=== PATIENT | female | born 1945 | race Caucasian/White ===

== ENCOUNTER 2016-11-08 10:58 | Inpatient (IN) | payer MEDICARE ==
[~2016-11-08] VITALS: Ht 165.1 cm; Wt 102.0 kg
[~2016-11-08 10:58] MED LIST: ALLO300T2 PO; CARV6.25 PO; CLON.2 PO; GLIM4TAB PO; LISI40TA PO
[2016-11-08 11:00] VITALS: BP 108/47; PULSE 78; RESP 17; TEMP 98.2; O2SAT 97
[2016-11-08] MEDS ORDERED: FISH1000 PO (11:26)
[2016-11-08] MEDS ORDERED: PIOG15TA5 PO (11:26)
[2016-11-08] MEDS ORDERED: ALLO300T2 PO (11:26)
[2016-11-08] MEDS ORDERED: CLON0.2T PO (11:26)
[2016-11-08] MEDS ORDERED: LISI-519 PO (11:26)
[2016-11-08] MEDS ORDERED: METF500T PO (11:26)
[2016-11-08] MEDS ORDERED: AMLO5TAB2 PO (11:26)
[2016-11-08] MEDS ORDERED: LOVA40TA PO (11:26)
[2016-11-08] MEDS ORDERED: ASPI81CH CHEW (11:26)
[2016-11-08] MEDS ORDERED: CARV25TA PO (11:26)
--- NOTE | 2016-11-08 11:40 | PD ---
HPI Chief Complaint: GI Complaint Time Seen by Provider: 11:21 Travel History International Travel<30 days: No Contact w/Intl Traveler<30days: No Traveled to known affect area: No History of Present Illness HPI 71yo F with PMH of HTN, gout, DM presents to the ED with c/o nausea since yesterday. States her sugar was low yesterday and they called the paramedics who gave her IV dextrose and then she said she was ok. Pt has stopped taking her diabetic medications today. Pt is on metformin and pioglitazone for her diabetes. +Generalized weakness. Denies any fever, chest pain, sob, vomiting, abdominal pain, trauma, focal weakness or numbness. PFSH Past Medical History Cardiovascular Problems: Yes Diabetes: Yes Patient Takes Glucophage: Yes Diminished Hearing: No Gout: Yes Hypertension: Yes Immunizations Current: Yes Tetanus Vaccination: Unknown Influenza Vaccination: Yes ?: Not Menopausal: Yes Past Surgical History Cholecystectomy: Yes Hysterectomy: Yes Social History Alcohol Use: No Tobacco Use: No Substance Use: No Allergies-Medications (Allergen,Severity, Reaction): Coded Allergies: No Known Allergies (Unverified , 11/08/16) Reported Meds & Prescriptions Reported Meds & Active Scripts Active Reported Fish Oil ([place]-3 Fatty Acids) 1,000 Mg Cap 1 Tab PO DAILY Aspirin 81 Mg Chew 81 Mg CHEW DAILY Lovastatin 40 Mg Tab 40 Mg PO DAILY Amlodipine (Amlodipine Besylate) 5 Mg Tab 5 Mg PO DAILY Pioglitazone (Pioglitazone HCl) 15 Mg Tab 15 Mg PO DAILY Metformin (Metformin HCl) 500 Mg Tab 500 Mg PO DAILY With a meal Carvedilol 25 Mg Tab 25 Mg PO BID Allopurinol 300 Mg Tab 300 Mg PO DAILY Lisinopril 5 Mg Tab 5 Mg PO BID Clonidine (Clonidine HCl) 0.2 Mg Tab 0.2 Mg PO Q8HR Review of Systems Except as stated in HPI: all other systems reviewed are Neg Physical Exam Narrative GENERAL: 71yo F not in distress. SKIN: Focused skin assessment warm/dry. HEAD: Atraumatic. Normocephalic. EYES: Pupils equal and round. EOMI. No scleral icterus. No injection or drainage. ENT: No nasal bleeding or discharge. Mucous membranes pink and moist. NECK: Trachea midline. No JVD. CARDIOVASCULAR: Regular rate and rhythm. No murmur appreciated. RESPIRATORY: No accessory muscle use. Clear to auscultation. Breath sounds equal bilaterally. GASTROINTESTINAL: Abdomen soft, non-tender, nondistended. No rebound tenderness or guarding. MUSCULOSKELETAL: No obvious deformities. No clubbing. No cyanosis. No edema. NEUROLOGICAL: Awake and alert. No obvious cranial nerve deficits. Motor grossly within normal limits. Normal speech. PSYCHIATRIC: Appropriate mood and affect; insight and judgment normal. Data Data Last Documented VS Vital Signs Date Time Temp Pulse Resp B/P Pulse Ox O2 Delivery O2 Flow Rate FiO2 11/08/16 11:00 98.2 78 17 108/47 97 Orders Ondansetron Inj (Zofran Inj) (11/08/16 11:45) Complete Blood Count With Diff (11/08/16 11:34) Basic Metabolic Panel (Bmp) (11/08/16 11:34) Magnesium (Mg) (11/08/16 11:34) Urinalysis - C+S If Indicated (11/08/16 12:31) Type And Screen (11/08/16 13:15) Pantoprazole Inj (Protonix Inj) (11/08/16 13:15) Pantoprazole Inj (Protonix Inj) (11/08/16 13:15) Admit Order (Ed Use Only) (11/08/16 13:55) Labs Laboratory Tests Test 11/08/16 11/08/16 11/08/16 11:40 12:46 13:45 White Blood Count 16.0 TH/MM3 Red Blood Count 3.80 MIL/MM3 Hemoglobin 8.3 GM/DL Hematocrit 27.7 % Mean Corpuscular Volume 72.8 FL Mean Corpuscular Hemoglobin 21.9 PG Mean Corpuscular Hemoglobin 30.1 % Concent Red Cell Distribution Width 18.0 % Platelet Count 694 TH/MM3 Mean Platelet Volume 6.4 FL Neutrophils (%) (Auto) 83.7 % Lymphocytes (%) (Auto) 9.1 % Monocytes (%) (Auto) 4.0 % Eosinophils (%) (Auto) 0.2 % Basophils (%) (Auto) 3.0 % Neutrophils # (Auto) 13.4 TH/MM3 Lymphocytes # (Auto) 1.5 TH/MM3 Monocytes # (Auto) 0.6 TH/MM3 Eosinophils # (Auto) 0.0 TH/MM3 Basophils # (Auto) 0.5 TH/MM3 CBC Comment AUTO DIFF Differential Comment AUTO DIFF CONFIRMED Platelet Estimate HIGH Platelet Morphology Comment NORMAL Rouleau PRESENT Sodium Level 146 MEQ/L Potassium Level 3.5 MEQ/L Chloride Level 110 MEQ/L Carbon Dioxide Level 27.9 MEQ/L Anion Gap 8 MEQ/L Blood Urea Nitrogen 21 MG/DL Creatinine 0.93 MG/DL Estimat Glomerular Filtration 59 ML/MIN Rate Random Glucose 99 MG/DL Calcium Level 8.9 MG/DL Magnesium Level 2.3 MG/DL Urine Collection Type CLEAN CATCH Urine Color YELLOW Urine Turbidity SLIGHT Urine pH 5.5 Urine Specific [place] 1.034 Urine Protein 30 mg/dL Urine Glucose (UA) NEG mg/dL Urine Ketones TRACE mg/dL Urine Occult Blood NEG Urine Nitrite NEG Urine Bilirubin NEG Urine Leukocyte Esterase NEG Urine WBC 0-2 /hpf Urine Squamous Epithelial > 8 /hpf Cells Urine Calcium Oxalate Crystals MOD /hpf Urine Amorphous Sediment LARGE Microscopic Urinalysis Comment CULT NOT INDICATED Urine Collection Time 1246 Blood Type A POSITIVE Antibody Screen NEGATIVE Blood Bank Comment MDM Medical Decision Making Medical Screen Exam Complete: Yes Emergency Medical Condition: Yes Differential Diagnosis Electrolyte abnormality vs. dehydration Narrative Course 71yo F with nausea and generalized weakness. Labs reviewed, leukocytosis at 16, 000. H/H is low at 8.3/27.7 which is decreased from 11.9/38.3 in 08/2015. Increased platelet count. BUN is also mildly increased. UA showed trace leukocyte. Mod clacium oxalate crystal. Rectal exam performed and positive hemaprompt. Protonix bolus and drip ordered. Zofran 4mg given. Pt reevaluated at bed and states she still feels very weak and do not feel good. Will admit for GI bleed. Discussed with Dr. Almonte and accepted to Dr. Up's service. HemaPrompt Point of Care Internal Pos. & Neg. Controls: Passed Fecal Specimen Occult Blood: Positive Diagnosis Primary Impression: GI bleed Qualified Code: K92.2 - Gastrointestinal hemorrhage, unspecified gastrointestinal hemorrhage type Admitting Information Admitting Physician Requests: Admit Irma Bowling DO November 08, 2016 11:40
[2016-11-08] MEDS ORDERED: ONDANSETRON HCL 4 MG/2 ML VIAL IV PUSH ONE (11:45)
[2016-11-08 11:47] LABS: AUTOMATED NEUTROPHIL # 13.4 TH/MM3 (1.8-7.7); BASOPHIL # 0.5 TH/MM3 (0-0.2); EOSINOPHIL % 0.2 % (0.0-4.0); HEMATOCRIT 27.7 % (35.0-46.0); LYMPH % 9.1 % (9.0-44.0); LYMPHOCYTE # 1.5 TH/MM3 (1.0-4.8); MEAN CELL VOLUME 72.8 FL (80.0-100.0); MEAN CORPUSCULAR HEMOGLOBIN 21.9 PG (27.0-34.0); MEAN CORPUSCULAR HGB CONC 30.1 % (32.0-36.0); NEUT % 83.7 % (16.0-70.0); PLATELET COUNT 694 TH/MM3 (150-450)
[2016-11-08 11:48] LABS: HEMO FLAGS AUTO DIFF
[2016-11-08 11:56] LABS: POTASSIUM 3.5 MEQ/L (3.5-5.1)
[2016-11-08 11:59] LABS: BICARBONATE 27.9 MEQ/L (21.0-32.0); MAGNESIUM 2.3 MG/DL (1.5-2.5)
[2016-11-08 12:08] LABS: PLATELET ESTIMATE SMEAR HIGH (NORMAL); PLATELET MORPHOLOGY NORMAL (NORMAL); ROULEAUX PRESENT (NORMAL); SCAN/DIFF AUTO DIFF CONFIRMED
[2016-11-08 12:54] LABS: BLOOD, URINE NEG (NEG); GLUCOSE,URINE NEG (NEG); KETONE, URINE TRACE mg/dL (NEG); NITRITE,URINE NEG (NEG); PH, URINE 5.5 (5.0-8.5)
[2016-11-08 12:55] LABS: METHOD OF COLLECTION CLEAN CATCH; URINE COLOR YELLOW (YELLW/STRAW)
[2016-11-08 12:59] LABS: WBC, URINE 0-2 /hpf (0-5)
[2016-11-08 13:00] LABS: CALCIUM OXALATE CRYSTALS,URINE MOD /hpf; COMMENT (UR) CULT NOT INDICATED; COMMENT2 (UR) MUCOUS PRESENT; CULTURE IF INDICATED CULT NOT INDICATED; SQUAMOUS EPITHELIAL CELL URINE > 8 /hpf (0-5)
[2016-11-08] MEDS ORDERED: PANTOPRAZOLE INJ 80 MG in SODIUM CHLORIDE 0.9% INJ 100 ML IV SCH (13:15)
[2016-11-08] MEDS ORDERED: PANTOPRAZOLE INJ 80 MG in SODIUM CHLORIDE 0.9% INJ 35 ML IV ONE (13:15)
[2016-11-08] MEDS ORDERED: LACTULOSE SYRUP 20 GM/30 ML CUP PO PRN (14:00)
[2016-11-08] MEDS ORDERED: NALOXONE HCL 0.4 MG/ML AMP IV PRN (14:00)
[2016-11-08] MEDS ORDERED: GLUCAGON 1 MG/ML VIAL OTHER PRN (14:00)
[2016-11-08] MEDS ORDERED: BISACODYL 10 MG SUPP RECTAL PRN (14:00)
[2016-11-08] MEDS ORDERED: MAGNESIUM HYDROXIDE SUSP 30 ML CUP PO PRN (14:00)
[2016-11-08] MEDS ORDERED: DEXTROSE 50% IN WATER 50 ML VIAL(D50) IV PRN (14:00)
[2016-11-08] MEDS ORDERED: SENNOSIDES 8.6 MG TAB PO PRN (14:00)
[2016-11-08] MEDS: SODIUM CHLOR 0.45% 1000 ML INJ 1,000 ML IV SCH (14:53)
[2016-11-08 15:07] VITALS: BP 101/46; PULSE 77; RESP 16; O2SAT 97
[2016-11-08 16:00] VITALS: BP 112/52; PULSE 85; RESP 21; TEMP 96.8; O2SAT 95; O2SAT 96
--- NOTE | 2016-11-08 16:02 | RADHPO ---
EXAM DATE/TIME: 11/08/2016 14:52 [facility] COMPARISON: CHEST SINGLE AP, August 23, 2015, 10:00. INDICATIONS : Nausea and vomiting MEDICAL HISTORY : Diabetes mellitus type II. SURGICAL HISTORY : None. ENCOUNTER: Initial ACUITY: 1 day PAIN SCORE: 2/10 LOCATION: Bilateral chest FINDINGS: A single view of the chest demonstrates the lungs to be symmetrically aerated without evidence of mas s, infiltrate or effusion. The cardiomediastinal contours are unremarkable. Osseous structures are intact. CONCLUSION: No acute disease. Ketan Schofield MD on November 08, 2016 at 16:00 Board Certified Radiologist. This report was verified electronically.
[2016-11-08] MEDS: INSULIN NovoLIN REGULAR SUPPLEMENTAL SCALE SQ SCH ×2 (16:45→20:37)
[2016-11-08] MEDS ORDERED: NON-FORMULARY DRUG (Omega-3 Fatty Acids (Fish Oil) 1 TAB) PO SCH (19:00)
--- NOTE | 2016-11-08 19:10 | MH ---
cc: REED VILLAREAL MD DATE OF ADMISSION: 11/08/2016 CHIEF COMPLAINT: Abdominal complaint. HISTORY OF PRESENT ILLNESS: This is a 71-year-old female with past medical-surgical history significant for hypertension, gout, diabetes mellitus, postmenopausal complaining of nausea since yesterday. She said her sugar was low yesterday and then she called the paramedics who gave her IV dextrose and then she said she was feeling okay and she stopped taking her diabetic medications today. She is on metformin and for diabetes. She is complaining of generalized weakness. Denies any chest pain, fever, chills, shortness of breath, any vomiting, any abdominal pain, any black stool, blood in stool, any cough, congestion, any urinary tract infection or any neurological symptoms. Other than that, nothing significant. PAST MEDICAL HISTORY: Past medical history as dictated above. PAST SURGICAL HISTORY: 1. Cholecystectomy. 2. Hysterectomy. SOCIAL HISTORY: Denies smoking, drinking or taking drugs. Lives at home with [id number]. FAMILY HISTORY: The family history significant for hypertension, diabetes mellitus. ALLERGIES: NO KNOWN DRUG ALLERGIES. MEDICATIONS: 1. Fish oil 1000 milligrams p.o. daily. 2. Aspirin 81 milligrams daily. 3. Lovastatin 40 milligrams p.o. daily. 4. Amlodipine 5 milligrams p.o. daily. 5. Metformin 500 milligrams p.o. daily. 6. Carvedilol 25 milligrams p.o. twice a day. 7. Allopurinol 300 milligrams p.o. daily. 8. Lisinopril 5 milligrams p.o. twice a day. 9. Clonidine 0.2 milligrams p.o. q. 8 hours. REVIEW OF SYSTEMS: Review of systems positive for nausea, feeling weak and tired. All other review of systems negative. PHYSICAL EXAMINATION: GENERAL: On physical exam, this is a 71-year-old female lying on the bed not in acute distress. VITAL SIGNS: Temperature 96.8, heart rate 85, respirations 21, blood pressure 112/52, 02 saturation 96% on room air. HEAD, EYES, EARS, NOSE, THROAT: Normocephalic and atraumatic. Extraocular muscles intact. Pupils equal, round and reactive to light and accommodation. Oral mucosa moist. NECK: The neck is supple. No visible thyromegaly or neck mass. Trachea is central. CARDIOVASCULAR: Regular rate and rhythm. RESPIRATORY: Clear to auscultation bilaterally. ABDOMEN: Abdomen soft and nontender. Bowel sounds audible. EXTREMITIES: No cyanosis or clubbing. Full range of motion of all extremities. No edema. NEUROLOGIC: Awake, alert and oriented times four. No focal deficits. SKIN: Warm and dry. PSYCHIATRIC: The patient is cooperative. Mood and affect are normal. LABORATORY DATA: CBC showed WBC count 16.05, hemoglobin 8.3 low, hematocrit 27.7 low, platelet count 694,000 high, neutrophils 83.7 high, basophils 3.0 high, neutrophils 13.4% is high. Basic metabolic profile is totally unremarkable except for sodium 146 high, chloride 110 high, BUN 21 high, estimated GFR 59 low, magnesium 2.3, calcium 8.9. Urine examination shows protein 30 high, trace of ketones, calcium oxalate moderate, culture not indicated. Blood cultures x2 done negative so far. IMAGING STUDIES: Chest x-ray done shows no acute disease. ASSESSMENT AND PLAN: 1. This is a 71-year female who came to the emergency room diagnosed with nausea with hypoglycemia. Glucose is normal now. The patient is on Zofran 4 milligrams IV q. 6-hour p.r.n. for nausea and vomiting. 2. Leukocytosis, unknown etiology. Chest x-ray does not show anything acute. I will check CT scan of the lungs to rule out pneumonia. Blood cultures x2 done negative so far. 3. Diabetes mellitus. ADA 1800 calorie diet. NovoLog. sliding scale. Check blood sugars a.c. and h.s. Will monitor blood sugar. 4. Left history of gout. Continue home medication. 5. History of hypertension. Continue medication. Monitor blood pressure. 6. Hyperlipidemia. Continue lovastatin 40 milligrams p.o. daily. 7. DVT prophylaxis. Lovenox 40 milligrams. 8. GI prophylaxis Protonix 40 milligrams p.o. twice a day. We are going to manage the patient on a daily basis and make recommendations on a daily basis. Check CBC and comprehensive metabolic profile in the morning. Reed Villareal MD EA/LYUDMILA /6:43 PM /6:59 PM
[2016-11-08 20:00] VITALS: BP 116/61; PULSE 82; RESP 20; TEMP 98.5; O2SAT 96
--- NOTE | 2016-11-08 20:17 | RADHPO ---
EXAM DATE/TIME: 11/08/2016 19:23 [facility] COMPARISON: CHEST SINGLE AP, November 08, 2016, 14:52. INDICATIONS : Short of breath. RADIATION DOSE: 23.60 CTDIvol (mGy) MEDICAL HISTORY : Hypertension. Diabetes. SURGICAL HISTORY : Cholecystectomy. Hysterectomy. ENCOUNTER: Initial ACUITY: 2 days PAIN SCALE: 0/10 LOCATION: Chest TECHNIQUE: Volumetric scanning of the chest was performed. Using automated exposure control and adjustment of t he mA and/or kV according to patient size, radiation dose was kept as low as reasonably achievable to obtain optimal diagnostic quality images. FINDINGS: There are multiple scattered noncalcified subcentimeter nodules bilaterally which are nonspecific but raise the possibility of metastatic disease. The largest nodule is located within th e left lower lobe posteriorly and measures 8 mm. PET/CT scan may be helpful for further evaluation of the largest nodu le if clinically indicated. No alveolar consolidation is noted. No pulmonary edema is noted. No mediasti nal, hilar or axillary lymphadenopathy is noted. Coronary artery calcifications are noted. There is a left adrena l mass measuring 2.7 x 2.5 cm which is indeterminate. Degenerative changes are noted throughout the thoraci c spine. CONCLUSION: 1. Innumerable noncalcified subcentimeter pulmonary nodules with the largest measuring 8 mm in the le ft lower lobe posteriorly. Although these are nonspecific metastatic disease remains in the diff erential. PET/CT scan may be helpful for further evaluation of the largest of these nodules if clini sonal indicated. 2. Coronary artery calcifications. 3. Left adrenal mass measuring 2.7 x 2.5 cm which is nonspecific. Ketan Schofield MD on November 08, 2016 at 19:47 Board Certified Radiologist. This report was verified electronically.
[2016-11-08] MEDS: DOCUSATE SODIUM 50 MG/SENNA 8.6 MG TAB PO SCH (20:35)
[2016-11-08] MEDS: CARVEDILOL 12.5 MG TAB PO SCH (20:35)
[2016-11-08] MEDS: LISINOPRIL 5 MG TAB PO SCH (20:35)
[2016-11-08] MEDS: ENOXAPARIN SODIUM 40 MG/0.4 ML SYRINGE SQ SCH (20:36)
[2016-11-08] MEDS: SODIUM CHLORIDE 0.9% FLUSH 10 ML FLUSH IV FLUSH SCH (20:37)
[2016-11-08] MEDS: cloNIDine HCL 0.2 MG TAB PO SCH (23:23)
[2016-11-08] MEDS: PANTOPRAZOLE SODIUM 40 MG VIAL IV PUSH SCH (23:23)
[2016-11-09] VITALS (8 sets, daily range): BP systolic 94–134; BP diastolic 55–69; PULSE 79–93; RESP 20–22; TEMP 96.4–99.4; O2SAT 92–98
[2016-11-09] MEDS: SODIUM CHLOR 0.45% 1000 ML INJ 1,000 ML IV SCH ×2 (03:21→17:14)
[2016-11-09] MEDS: cloNIDine HCL 0.2 MG TAB PO SCH ×3 (06:03→22:25)
[2016-11-09] MEDS: INSULIN NovoLIN REGULAR SUPPLEMENTAL SCALE SQ SCH ×4 (06:30→20:23)
[2016-11-09 06:40] LABS: AUTOMATED NEUTROPHIL # 11.4 TH/MM3 (1.8-7.7); BASOPHIL % 0.1 % (0.0-2.0); EOSINOPHIL % 0.3 % (0.0-4.0); HEMATOCRIT 24.9 % (35.0-46.0); LYMPH % 12.8 % (9.0-44.0); LYMPHOCYTE # 1.9 TH/MM3 (1.0-4.8); MEAN CELL VOLUME 73.5 FL (80.0-100.0); MEAN CORPUSCULAR HEMOGLOBIN 22.6 PG (27.0-34.0); MEAN CORPUSCULAR HGB CONC 30.8 % (32.0-36.0); MONO % 8.5 % (0.0-8.0); NEUT % 78.3 % (16.0-70.0); PLATELET COUNT 571 TH/MM3 (150-450); RED BLOOD COUNT 3.39 MIL/MM3 (4.00-5.30); RED CELL DISTRIBUTION WIDTH 17.6 % (11.6-17.2); WHITE BLOOD COUNT 14.5 TH/MM3 (4.0-11.0)
[2016-11-09 06:45] LABS: HEMO FLAGS AUTO DIFF
[2016-11-09 07:13] LABS: SCAN/DIFF AUTO DIFF CONFIRMED
[2016-11-09 07:14] LABS: ALKALINE PHOSPHATASE 56 U/L (45-117); ALT (GPT) 18 U/L (10-53); AST (GOT) 16 U/L (15-37); BLOOD UREA NITROGEN 18 MG/DL (7-18); GLOMERULAR FILTRATION RATE 62 ML/MIN (>89); POTASSIUM 3.9 MEQ/L (3.5-5.1); SODIUM (NA) 144 MEQ/L (136-145); TOTAL BILIRUBIN ADULT 0.2 MG/DL (0.2-1.0)
[2016-11-09 07:15] LABS: ANION GAP 6 MEQ/L (5-15); BICARBONATE 31.3 MEQ/L (21.0-32.0); CHLORIDE 107 MEQ/L (98-107)
--- NOTE | 2016-11-09 08:23 | HHI.PR ---
Subjective History of Present Illness Patient feel weak and tired still have nausea d/w PAIGE Mcdonnell no acute issue. leukocytosis better have pulmonary nodule consult pulmonary. Vitals/Results Intake & Output 11/08/16 11/08/16 11/09/16 15:00 23:00 07:00 Intake Total 60 ml 465 ml 840 ml Balance 60 ml 465 ml 840 ml Intake Oral 240 ml 240 ml IV Total 60 ml 225 ml 600 ml # Voids 1 6 # Bowel Movements 0 1 Vital Signs Vital Signs Date Time Temp Pulse Resp B/P Pulse Ox O2 Delivery O2 Flow Rate FiO2 11/09/16 08:22 92 21 11/09/16 04:00 98.4 88 20 116/69 96 11/09/16 00:00 99.4 79 20 113/60 98 11/08/16 20:00 98.5 82 20 116/61 96 11/08/16 20:00 96 21 11/08/16 16:00 96.8 85 21 112/52 95 11/08/16 16:00 96 21 11/08/16 15:07 77 16 101/46 97 Room Air 11/08/16 11:00 98.2 78 17 108/47 97 CBC/BMP: 11/09/16 0538 11/09/16 0535 Lab Results Laboratory Tests Test 11/08/16 11/08/16 11/08/16 11/09/16 11:40 12:46 13:45 05:35 White Blood Count 16.0 TH/MM3 Red Blood Count 3.80 MIL/MM3 Hemoglobin 8.3 GM/DL Hematocrit 27.7 % Mean Corpuscular Volume 72.8 FL Mean Corpuscular Hemoglobin 21.9 PG Mean Corpuscular Hemoglobin 30.1 % Concent Red Cell Distribution Width 18.0 % Platelet Count 694 TH/MM3 Mean Platelet Volume 6.4 FL Neutrophils (%) (Auto) 83.7 % Lymphocytes (%) (Auto) 9.1 % Monocytes (%) (Auto) 4.0 % Eosinophils (%) (Auto) 0.2 % Basophils (%) (Auto) 3.0 % Neutrophils # (Auto) 13.4 TH/MM3 Lymphocytes # (Auto) 1.5 TH/MM3 Monocytes # (Auto) 0.6 TH/MM3 Eosinophils # (Auto) 0.0 TH/MM3 Basophils # (Auto) 0.5 TH/MM3 CBC Comment AUTO DIFF Differential Comment AUTO DIFF CONFIRMED Platelet Estimate HIGH Platelet Morphology Comment NORMAL Rouleau PRESENT Sodium Level 146 MEQ/L 144 MEQ/L Potassium Level 3.5 MEQ/L 3.9 MEQ/L Chloride Level 110 MEQ/L 107 MEQ/L Carbon Dioxide Level 27.9 MEQ/L 31.3 MEQ/L Anion Gap 8 MEQ/L 6 MEQ/L Blood Urea Nitrogen 21 MG/DL 18 MG/DL Creatinine 0.93 MG/DL 0.89 MG/DL Estimat Glomerular Filtration 59 ML/MIN 62 ML/MIN Rate Random Glucose 99 MG/DL 110 MG/DL Calcium Level 8.9 MG/DL 8.4 MG/DL Magnesium Level 2.3 MG/DL Urine Collection Type CLEAN CATCH Urine Color YELLOW Urine Turbidity SLIGHT Urine pH 5.5 Urine Specific [place] 1.034 Urine Protein 30 mg/dL Urine Glucose (UA) NEG mg/dL Urine Ketones TRACE mg/dL Urine Occult Blood NEG Urine Nitrite NEG Urine Bilirubin NEG Urine Leukocyte Esterase NEG Urine WBC 0-2 /hpf Urine Squamous Epithelial > 8 /hpf Cells Urine Calcium Oxalate Crystals MOD /hpf Urine Amorphous Sediment LARGE Microscopic Urinalysis Comment CULT NOT INDICATED Urine Collection Time 1246 Blood Type A POSITIVE Antibody Screen NEGATIVE Blood Bank Comment Total Bilirubin 0.2 MG/DL Aspartate Amino Transf 16 U/L (AST/SGOT) Alanine Aminotransferase 18 U/L (ALT/SGPT) Alkaline Phosphatase 56 U/L Total Protein 5.9 GM/DL Albumin 1.9 GM/DL Test 11/09/16 05:38 White Blood Count 14.5 TH/MM3 Red Blood Count 3.39 MIL/MM3 Hemoglobin 7.7 GM/DL Hematocrit 24.9 % Mean Corpuscular Volume 73.5 FL Mean Corpuscular Hemoglobin 22.6 PG Mean Corpuscular Hemoglobin 30.8 % Concent Red Cell Distribution Width 17.6 % Platelet Count 571 TH/MM3 Mean Platelet Volume 6.4 FL Neutrophils (%) (Auto) 78.3 % Lymphocytes (%) (Auto) 12.8 % Monocytes (%) (Auto) 8.5 % Eosinophils (%) (Auto) 0.3 % Basophils (%) (Auto) 0.1 % Neutrophils # (Auto) 11.4 TH/MM3 Lymphocytes # (Auto) 1.9 TH/MM3 Monocytes # (Auto) 1.2 TH/MM3 Eosinophils # (Auto) 0.0 TH/MM3 Basophils # (Auto) 0.0 TH/MM3 CBC Comment AUTO DIFF Differential Comment AUTO DIFF CONFIRMED Microbiology Microbiology 11/08/16 Aerobic Blood Culture, Received Pending 11/08/16 Anaerobic Blood Culture, Received Pending 11/08/16 Aerobic Blood Culture, Received Pending 11/08/16 Anaerobic Blood Culture, Received Pending Physical Exam General General Appearance: Well Developed, Well Nourished, No Acute Distress, Comfortable Eyes Eye Exam: Pupils Equal, Pupils Reactive, Sclera White, Extraocular Movement Intact Throat Throat Exam: Oral Mucosa [place] & Moist, Oral Pharynx Normal Neck Neck Exam: Neck Supple, Trachea Midline Pulmonary Resp Exam: Clear Bilaterally, Breath Sounds Equal, No Distress Cardiology CV Exam: Regular, Normal Sinus Rhythm Gastrointestinal/Abdomen GI Exam: Soft, Non-Tender, Bowel Sounds Present Musculoskeletal MS Exam: Normal Tone Integumentary Skin Exam: Clear, Warm, Dry, Intact Extremeties Extremities Exam: No Edema Neurologic Neuro Exam: Alert, Awake, Oriented, Speech Clear, Moving All Extremities, No Focal Deficits Psychiatric Psych Exam: Appropriate Responses VTE Prophylaxis VTE Prophylaxis Meds: Lovenox PUD Prophylasis PUD Prophylaxis: Protonix Assessment/Plan Assessment/Plan ASSESSMENT AND PLAN: This is a 71-year female who came to the emergency room diagnosed with 1. Nausea with hypoglycemia. Glucose is normal now. The patient is on Zofran 4 milligrams IV q. 6-hour p.r.n. for nausea and vomiting. 2. Leukocytosis, better... Chest x-ray does not show anything acute. check CT scan of the chest negative for pneumonia... have pulmonary nodule consult pulmonary. Blood cultures x2 done negative so far. 3. Diabetes mellitus. ADA 1800 calorie diet. NovoLog. sliding scale. Check blood sugars a.c. and h.s. Will monitor blood sugar. 4. Left history of gout. Continue home medication. 5. History of hypertension. Continue medication. Monitor blood pressure. 6. Hyperlipidemia. Continue lovastatin 40 milligrams p.o. daily. 7. DVT prophylaxis. Lovenox 40 milligrams. 8. GI prophylaxis Protonix 40 milligrams p.o. twice a day. 9. Pulmonary nodule consult pulmonary. We are going to manage the patient on a daily basis and make recommendations on a daily basis. Check CBC and comprehensive metabolic profile in the morning. Discussed Condition with: Patient Reed Up MD November 09, 2016 08:23
[2016-11-09] MEDS: DOCUSATE SODIUM 50 MG/SENNA 8.6 MG TAB PO SCH ×2 (09:00→20:14)
[2016-11-09] MEDS: SODIUM CHLORIDE 0.9% FLUSH 10 ML FLUSH IV FLUSH SCH ×2 (09:00→20:14)
[2016-11-09] MEDS: ASPIRIN 81 MG CHEW TAB CHEW SCH (09:37)
[2016-11-09] MEDS: ALLOPURINOL 300 MG TAB PO SCH (09:38)
[2016-11-09] MEDS: amLODIPine BESYLATE 5 MG TAB PO SCH (09:38)
[2016-11-09] MEDS: metFORMIN HCL 500 MG TAB PO SCH (09:39)
[2016-11-09] MEDS: PIOGLITAZONE HCL 15 MG TAB PO SCH (09:40)
[2016-11-09] MEDS: CARVEDILOL 12.5 MG TAB PO SCH ×2 (09:40→20:14)
[2016-11-09] MEDS: PRAVASTATIN SOD 40 MG TAB PO SCH (09:41)
[2016-11-09] MEDS: LISINOPRIL 5 MG TAB PO SCH ×2 (09:41→20:14)
[2016-11-09] MEDS: PANTOPRAZOLE SODIUM 40 MG VIAL IV PUSH SCH ×2 (13:09→22:25)
[2016-11-09] MEDS: ONDANSETRON HCL 4 MG/2 ML VIAL IVP PRN (14:45)
[2016-11-09] MEDS ORDERED: ALBUTEROL SULFATE 90 MCG/ACT HFA 8 GM INHALER INH PRN (18:00)
[2016-11-09 18:40] LABS: BLOOD GAS BASE EXCESS 2.5 mmol/L (-2-2); BLOOD GAS CARBOXYHEMOGLOBIN 1.8 % (0-4); BLOOD GAS HCO3 27 mmol/L (22-26); BLOOD GAS O2 HGB SATURATION 87 % (90-100); BLOOD GAS OXYGEN CONTENT 12.6 Vol % (12.0-20.0); BLOOD GAS PCO2 41 mmHG (38-42); BLOOD GAS PO2 65 mmHG (61-120); BLOOD GAS TOTAL HGB 10.2 G/DL (12.0-16.0); CRITICAL VALUE YES; TEMP CORR TO 98.6
[2016-11-09 18:41] LABS: DRAW SITE RT RADIAL; FIO2 21 %; NUMBER OF ARTERIAL PUNCTURES 1; OXYGEN DEVICE ROOM AIR; STAT NO; ULNAR PULSE PRESENT
--- NOTE | 2016-11-09 18:42 | MB ---
cc: KEIRA PEREZ DATE OF CONSULTATION 11/09/2016 REASON FOR CONSULTATION Pulmonary nodules. HISTORY OF THE PRESENT ILLNESS This is a 71-year-old white female who is a known diabetic and has history of hypertension and gout who was admitted with complaint of nausea and low blood sugars. The patient apparently has been on metformin which she stopped taking and she was ____ with generalized weakness and seen in the emergency room. She was also slightly short of breath but denied chest pain. Denied nausea, reflux or vomiting and denied any black stools. Upon admission, however, the patient did have a chest CT to rule out pulmonary emboli and the chest CT was suggestive of multiple tiny pulmonary nodules of unknown etiology. The patient states she is not aware of any lung nodules in the past and has not had a CT scan of the chest in the past. But she has had some allergies and previous history of pneumonia when she was a child. PAST SURGICAL HISTORY Includes: 1. Hysterectomy. 2. Cholecystectomy. 3. History of pneumonia at age 8. SOCIAL HISTORY Habits, the patient smoked two packs per day for 30 years and quit more than 10 years ago. She did not drink any alcohol. 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 Denies any exposure to tar or dust. FAMILY HISTORY Father of cancer of the bladder. Mother of old age. ALLERGIES No drug allergies. MEDICATIONS List: 1. Metformin 500 mg daily. 2. Amlodipine 5 mg a day. 3. Lovastatin 40 mg daily. 4. Coreg 25 mg b.i.d. 5. Allopurinol 300 milligrams day. 6. Lisinopril 5 mg b.i.d. 7. Clonidine 0.2 mg every 8 hours. 8. Aspirin one daily. REVIEW OF SYSTEMS The patient is overweight. She has weakness, drowsiness, possible sleep apnea. She has shortness of breath, leg swelling. She has no headaches or blackouts. Denies abdominal pains but has had some bloating and constipation. No urinary symptoms. Denies any joint pains or skin lesions. Denies depression or anxiety. PHYSICAL EXAMINATION GENERAL: This obese, elderly white female who is pale and mildly dyspneic. VITAL SIGNS: Blood pressure 138/80, pulse is 92, respirations are 20, temperature 99.2. HEENT: Head normocephalic. Pupils are reactive. Tongue is moist. Throat was clear. NECK: Supple. No bruits or thyroid enlargement or lymphadenopathy. CHEST: Distant breath sounds with few wheezes anteriorly. HEART: The heart sounds are regular S1-S2. No murmur. No S3. ABDOMEN: Obese, protuberant without masses. No organomegaly or tenderness. Bowel sounds active. EXTREMITIES: No lesions. Peripheral pulses are diminished. Reflexes are 1+. NEUROLOGIC: No gross motor deficits. Cranial nerves grossly intact. SKIN: No lesions observed. IMPRESSION 1. Bilateral lung nodules, etiology to be determined. Probable granulomas versus metastatic disease. 2. Diabetes mellitus type 2. 3. Hypertension. 4. Exogenous obesity and possible sleep apnea. 5. Possible hypothyroidism. 6. Hypertension. 7. COPD. PLAN The patient will have a pulmonary function study done. We will also get a blood gas study. Place her on nebulized albuterol solution t.i.d. p.r.n. She will need a PET CT scan as an outpatient to evaluate the lung nodules. CEA level was also ordered. The patient will have her blood sugar checked. Thyroid profile checked. Weight loss was discussed. Once she is discharged we could go ahead and get a PET CT. A PPD skin test will be applied while she is in the hospital. Thank you Dr. Up for this consultation. Keira Perez MD JVD/TRACEY /6:09 PM /6:24 PM
[2016-11-09 19:39] LABS: APTT (PATIENT) 32.4 SEC (24.3-30.1); INTERNATIONAL NORMALIZED RATIO 1.1 RATIO
[2016-11-09] MEDS: ENOXAPARIN SODIUM 40 MG/0.4 ML SYRINGE SQ SCH (20:14)
[2016-11-09 22:08] LABS: FREE T4 1.15 NG/DL (0.76-1.46)
[2016-11-10] VITALS (10 sets, daily range): BP systolic 93–124; BP diastolic 44–69; PULSE 73–90; RESP 20–24; TEMP 96.6–99.1; O2SAT 94–100
[2016-11-10] MEDS: SODIUM CHLOR 0.45% 1000 ML INJ 1,000 ML IV SCH ×2 (06:14→16:37)
[2016-11-10] MEDS: cloNIDine HCL 0.2 MG TAB PO SCH ×3 (06:14→22:00)
[2016-11-10] MEDS: INSULIN NovoLIN REGULAR SUPPLEMENTAL SCALE SQ SCH ×4 (06:44→21:00)
[2016-11-10 06:55] LABS: AUTOMATED NEUTROPHIL # 12.6 TH/MM3 (1.8-7.7); BASOPHIL # 0.1 TH/MM3 (0-0.2); BASOPHIL % 0.5 % (0.0-2.0); EOSINOPHIL % 0.2 % (0.0-4.0); HEMATOCRIT 22.8 % (35.0-46.0); LYMPH % 11.7 % (9.0-44.0); LYMPHOCYTE # 1.9 TH/MM3 (1.0-4.8); MEAN CELL VOLUME 73.8 FL (80.0-100.0); MEAN CORPUSCULAR HGB CONC 31.2 % (32.0-36.0); NEUT % 77.6 % (16.0-70.0); PLATELET COUNT 479 TH/MM3 (150-450); RED BLOOD COUNT 3.09 MIL/MM3 (4.00-5.30); RED CELL DISTRIBUTION WIDTH 17.9 % (11.6-17.2); WHITE BLOOD COUNT 16.2 TH/MM3 (4.0-11.0)
[2016-11-10 07:04] LABS: HEMO FLAGS AUTO DIFF
[2016-11-10 07:12] LABS: CHLORIDE 105 MEQ/L (98-107); POTASSIUM 3.7 MEQ/L (3.5-5.1); SODIUM (NA) 141 MEQ/L (136-145)
[2016-11-10 07:25] LABS: ALKALINE PHOSPHATASE 56 U/L (45-117); ALT (GPT) 15 U/L (10-53); ANION GAP 8 MEQ/L (5-15); AST (GOT) 11 U/L (15-37); BICARBONATE 28.3 MEQ/L (21.0-32.0); BLOOD UREA NITROGEN 23 MG/DL (7-18); GLOMERULAR FILTRATION RATE 57 ML/MIN (>89); TOTAL BILIRUBIN ADULT 0.3 MG/DL (0.2-1.0)
[2016-11-10 07:35] LABS: SCAN/DIFF AUTO DIFF CONFIRMED
--- NOTE | 2016-11-10 08:35 | HHI.PR ---
Subjective History of Present Illness Patient feel weak and tired still have nausea d/w PAIGE Mcdonnell no acute issue. leukocytosis better have pulmonary nodule consult pulmonary. Vitals/Results Intake & Output 11/09/16 11/09/16 11/10/16 15:00 23:00 07:00 Intake Total 600 ml 225 ml 840 ml Balance 600 ml 225 ml 840 ml Intake Oral 240 ml IV Total 600 ml 225 ml 600 ml # Voids 6 10 # Bowel Movements 2 0 Vital Signs Vital Signs Date Time Temp Pulse Resp B/P Pulse Ox O2 Delivery O2 Flow Rate FiO2 11/10/16 07:59 99.0 73 24 124/69 99 11/10/16 04:00 98.6 89 20 121/63 98 11/10/16 00:00 98.6 90 20 102/53 97 11/09/16 21:35 97 Nasal Cannula 2.00 11/09/16 20:00 98.7 81 20 101/69 97 11/09/16 20:00 85 11/09/16 16:00 99.3 93 22 134/55 92 11/09/16 12:00 97.4 88 22 94/57 93 CBC/BMP: 11/10/16 0525 11/10/16 0525 Lab Results Laboratory Tests Test 11/09/16 11/09/16 11/10/16 18:32 18:45 05:25 Blood Gas Puncture Site RT RADIAL Blood Gas Patient Temperature 98.6 Blood Gas HCO3 27 mmol/L Blood Gas Base Excess 2.5 mmol/L Blood Gas Oxygen Saturation 87 % Arterial Blood pH 7.43 Arterial Blood Partial 41 mmHG Pressure CO2 Arterial Blood Partial 65 mmHG Pressure O2 Arterial Blood Oxygen Content 12.6 Vol % Arterial Blood 1.8 % Carboxyhemoglobin Arterial Blood Methemoglobin 2.0 % Blood Gas Hemoglobin 10.2 G/DL Oxygen Delivery Device ROOM AIR Blood Gas Inspired Oxygen 21 % Prothrombin Time 12.0 SEC Prothromb Time International 1.1 RATIO Ratio Activated Partial 32.4 SEC Thromboplast Time Carcinoembryonic Antigen 2.6 NG/ML Free Thyroxine 1.15 NG/DL Thyroid Stimulating Hormone 0.353 uIU/ML 3rd Gen White Blood Count 16.2 TH/MM3 Red Blood Count 3.09 MIL/MM3 Hemoglobin 7.1 GM/DL Hematocrit 22.8 % Mean Corpuscular Volume 73.8 FL Mean Corpuscular Hemoglobin 23.0 PG Mean Corpuscular Hemoglobin 31.2 % Concent Red Cell Distribution Width 17.9 % Platelet Count 479 TH/MM3 Mean Platelet Volume 6.6 FL Neutrophils (%) (Auto) 77.6 % Lymphocytes (%) (Auto) 11.7 % Monocytes (%) (Auto) 10.0 % Eosinophils (%) (Auto) 0.2 % Basophils (%) (Auto) 0.5 % Neutrophils # (Auto) 12.6 TH/MM3 Lymphocytes # (Auto) 1.9 TH/MM3 Monocytes # (Auto) 1.6 TH/MM3 Eosinophils # (Auto) 0.0 TH/MM3 Basophils # (Auto) 0.1 TH/MM3 CBC Comment AUTO DIFF Differential Comment AUTO DIFF CONFIRMED Sodium Level 141 MEQ/L Potassium Level 3.7 MEQ/L Chloride Level 105 MEQ/L Carbon Dioxide Level 28.3 MEQ/L Anion Gap 8 MEQ/L Blood Urea Nitrogen 23 MG/DL Creatinine 0.96 MG/DL Estimat Glomerular Filtration 57 ML/MIN Rate Random Glucose 153 MG/DL Calcium Level 8.0 MG/DL Total Bilirubin 0.3 MG/DL Aspartate Amino Transf 11 U/L (AST/SGOT) Alanine Aminotransferase 15 U/L (ALT/SGPT) Alkaline Phosphatase 56 U/L Total Protein 5.5 GM/DL Albumin 1.7 GM/DL Physical Exam General General Appearance: Well Developed, Well Nourished, No Acute Distress, Comfortable Eyes Eye Exam: Pupils Equal, Pupils Reactive, Sclera White, Extraocular Movement Intact Throat Throat Exam: Oral Mucosa [place] & Moist, Oral Pharynx Normal Neck Neck Exam: Neck Supple, Trachea Midline Pulmonary Resp Exam: Clear Bilaterally, Breath Sounds Equal, No Distress Cardiology CV Exam: Regular, Normal Sinus Rhythm Gastrointestinal/Abdomen GI Exam: Soft, Non-Tender, Bowel Sounds Present Musculoskeletal MS Exam: Normal Tone Integumentary Skin Exam: Clear, Warm, Dry, Intact Extremeties Extremities Exam: No Edema Neurologic Neuro Exam: Alert, Awake, Oriented, Speech Clear, Moving All Extremities, No Focal Deficits Psychiatric Psych Exam: Appropriate Responses VTE Prophylaxis VTE Prophylaxis Meds: Lovenox PUD Prophylasis PUD Prophylaxis: Protonix Assessment/Plan Assessment/Plan ASSESSMENT AND PLAN: This is a 71-year female who came to the emergency room diagnosed with 1. Nausea with hypoglycemia. Glucose is normal now. The patient is on Zofran 4 milligrams IV q. 6-hour p.r.n. for nausea and vomiting. 2. Leukocytosis, better... Chest x-ray does not show anything acute. check CT scan of the chest negative for pneumonia... have pulmonary nodule consult pulmonary. Blood cultures x2 done negative so far. 3. Diabetes mellitus. ADA 1800 calorie diet. NovoLog. sliding scale. Check blood sugars a.c. and h.s. Will monitor blood sugar. 4. Left history of gout. Continue home medication. 5. History of hypertension. Continue medication. Monitor blood pressure. 6. Hyperlipidemia. Continue lovastatin 40 milligrams p.o. daily. 7. DVT prophylaxis. Lovenox 40 milligrams. 8. GI prophylaxis Protonix 40 milligrams p.o. twice a day. 9. Pulmonary nodule consult pulmonary. We are going to manage the patient on a daily basis and make recommendations on a daily basis. Check CBC and comprehensive metabolic profile in the morning. Discussed Condition with: Patient Reed Up MD November 10, 2016 08:35
[2016-11-10] MEDS: ASPIRIN 81 MG CHEW TAB CHEW SCH (08:50)
[2016-11-10] MEDS: ALLOPURINOL 300 MG TAB PO SCH (08:50)
[2016-11-10] MEDS: LISINOPRIL 5 MG TAB PO SCH ×2 (08:50→22:54)
[2016-11-10] MEDS: CARVEDILOL 12.5 MG TAB PO SCH ×2 (08:50→22:55)
[2016-11-10] MEDS: PIOGLITAZONE HCL 15 MG TAB PO SCH (08:50)
[2016-11-10] MEDS: ONDANSETRON HCL 4 MG/2 ML VIAL IVP PRN (08:50)
[2016-11-10] MEDS: PRAVASTATIN SOD 40 MG TAB PO SCH (08:50)
[2016-11-10] MEDS: amLODIPine BESYLATE 5 MG TAB PO SCH (08:50)
[2016-11-10] MEDS: metFORMIN HCL 500 MG TAB PO SCH (08:51)
[2016-11-10] MEDS: DOCUSATE SODIUM 50 MG/SENNA 8.6 MG TAB PO SCH ×2 (08:51→22:54)
[2016-11-10] MEDS: SODIUM CHLORIDE 0.9% FLUSH 10 ML FLUSH IV FLUSH SCH ×2 (08:51→21:00)
[2016-11-10] MEDS ORDERED: LEVOFLOXACIN 500 MG PREMIX INJ 100 ML IV ONE (12:15)
[2016-11-10] MEDS: PANTOPRAZOLE SODIUM 40 MG VIAL IV PUSH SCH ×2 (12:42→22:55)
--- NOTE | 2016-11-10 17:17 | HHI.PR ---
Subjective Remarks She is weak and not able to walk well. No cough or wheezing. PFT done. Objective Vital Signs Date Time Temp Pulse Resp B/P Pulse Ox O2 Delivery O2 Flow Rate FiO2 11/10/16 16:00 98.6 74 20 101/56 100 11/10/16 12:00 96.6 75 24 93/44 100 11/10/16 08:50 76 11/10/16 07:59 99.0 73 24 124/69 99 11/10/16 04:00 98.6 89 20 121/63 98 11/10/16 00:00 98.6 90 20 102/53 97 11/09/16 21:35 97 Nasal Cannula 2.00 11/09/16 20:00 98.7 81 20 101/69 97 11/09/16 20:00 85 I/O 11/09/16 11/09/16 11/09/16 11/10/16 11/10/16 11/10/16 07:00 15:00 23:00 07:00 15:00 23:00 Intake Total 840 ml 600 ml 225 ml 840 ml 480 ml Balance 840 ml 600 ml 225 ml 840 ml 480 ml Intake Oral 240 ml 240 ml 480 ml IV Total 600 ml 600 ml 225 ml 600 ml # Voids 6 6 10 2 1 # Bowel Movements 1 2 0 Result Diagram: 11/10/1652411/10/16524 Objective Remarks GENERAL: This obese, elderly white female who is pale and in no distress. HEENT: Head normocephalic. Pupils are reactive. Tongue is moist. Throat was clear. NECK: Supple. No bruits or thyroid enlargement or lymphadenopathy. CHEST: Distant breath sounds with few wheezes anteriorly. HEART: The heart sounds are regular S1-S2. No murmur. No S3. ABDOMEN: Obese, protuberant without masses. No organomegaly or tenderness. Bowel sounds active. EXTREMITIES: No lesions. Peripheral pulses are diminished. Reflexes are 1+. NEUROLOGIC: No gross motor deficits. Cranial nerves grossly intact. SKIN: No lesions observed. Assessment and Plan Assessment and Plan IMPRESSION 1. Bilateral lung nodules, etiology to be determined. Probable granulomas versus metastatic disease. 2. Diabetes mellitus type 2. 3. Hypertension. 4. Exogenous obesity and possible sleep apnea. 5. Possible hypothyroidism. 6. Hypertension. 7. COPD. Plan : 1. Use ventolin HFA , 2 puffs tid prn. 2. Cont antibiotics,Levaquin. 3. Rpt CBC,BMP. 4. PET CT as OP. 5. Ambulate with help. Juan Ramon Perez MD November 10, 2016 17:17
--- NOTE | 2016-11-10 18:00 | PD.CONS ---
History of Present Illness Service ID CONSULT DR WEST Consult Requested By Primary Care Physician Radha Barraza Diagnoses: (1) GI bleed History of Present Illness 71 Y/O FEMALE ADM WITH NAUSEA AND VOMITING X FEW DAYS. NO FEVERS. SHE HAS DM. SHE HAD + BLOOD CULTURES WHICH ID WAS CONSULTED. 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 Review of Systems Constitutional: DENIES: Fever Eyes: DENIES: Eye pain Respiratory: DENIES: Hemoptysis Cardiovascular: DENIES: Dyspnea on Exertion Gastrointestinal: DENIES: Constipation Psychiatric: DENIES: Anxiety Past Family Social History Allergies: Coded Allergies: No Known Allergies (Unverified , 11/08/16) Physical Exam Vital Signs Vital Signs Date Time Temp Pulse Resp B/P Pulse Ox O2 Delivery O2 Flow Rate FiO2 11/10/16 16:00 98.6 74 20 101/56 100 11/10/16 12:00 96.6 75 24 93/44 100 11/10/16 08:50 76 11/10/16 07:59 99.0 73 24 124/69 99 11/10/16 04:00 98.6 89 20 121/63 98 11/10/16 00:00 98.6 90 20 102/53 97 11/09/16 21:35 97 Nasal Cannula 2.00 11/09/16 20:00 98.7 81 20 101/69 97 11/09/16 20:00 85 Physical Exam GENERAL: This is a well-nourished, well-developed patient, in no apparent distress. SKIN: No rashes, ecchymoses or lesions. Cool and dry. HEAD: Atraumatic. Normocephalic. No temporal or scalp tenderness. EYES: Pupils equal round and reactive. Extraocular motions intact. No scleral icterus. No injection or drainage. ENT: Nose without bleeding, purulent drainage or septal hematoma. Throat without erythema, tonsillar hypertrophy or exudate. Uvula midline. Airway patent. NECK: Trachea midline. No JVD or lymphadenopathy. Supple, nontender, no meningeal signs. CARDIOVASCULAR: Regular rate and rhythm without murmurs, gallops, or rubs. RESPIRATORY: Clear to auscultation. Breath sounds equal bilaterally. No wheezes , rales, or rhonchi. GASTROINTESTINAL: Abdomen soft, non-tender, nondistended. No hepato-splenomegaly , or palpable masses. No guarding. MUSCULOSKELETAL: Extremities without clubbing, cyanosis, or edema. No joint tenderness, effusion, or edema noted. No calf tenderness. Negative Homans sign bilaterally. NEUROLOGICAL: Awake and alert. Cranial nerves II through XII intact. Motor and sensory grossly within normal limits. Five out of 5 muscle strength in all muscle groups. Normal speech. Laboratory Laboratory Tests Test 11/09/16 11/09/16 11/10/16 18:32 18:45 05:25 Blood Gas Puncture Site RT RADIAL Blood Gas Patient Temperature 98.6 Blood Gas HCO3 27 Blood Gas Base Excess 2.5 Blood Gas Oxygen Saturation 87 Arterial Blood pH 7.43 Arterial Blood Partial 41 Pressure CO2 Arterial Blood Partial 65 Pressure O2 Arterial Blood Oxygen Content 12.6 Arterial Blood 1.8 Carboxyhemoglobin Arterial Blood Methemoglobin 2.0 Blood Gas Hemoglobin 10.2 Oxygen Delivery Device ROOM AIR Blood Gas Inspired Oxygen 21 Prothrombin Time 12.0 Prothromb Time International 1.1 Ratio Activated Partial 32.4 Thromboplast Time Carcinoembryonic Antigen 2.6 Free Thyroxine 1.15 Thyroid Stimulating Hormone 0.353 3rd Gen White Blood Count 16.2 Red Blood Count 3.09 Hemoglobin 7.1 Hematocrit 22.8 Mean Corpuscular Volume 73.8 Mean Corpuscular Hemoglobin 23.0 Mean Corpuscular Hemoglobin 31.2 Concent Red Cell Distribution Width 17.9 Platelet Count 479 Mean Platelet Volume 6.6 Neutrophils (%) (Auto) 77.6 Lymphocytes (%) (Auto) 11.7 Monocytes (%) (Auto) 10.0 Eosinophils (%) (Auto) 0.2 Basophils (%) (Auto) 0.5 Neutrophils # (Auto) 12.6 Lymphocytes # (Auto) 1.9 Monocytes # (Auto) 1.6 Eosinophils # (Auto) 0.0 Basophils # (Auto) 0.1 CBC Comment AUTO DIFF Differential Comment AUTO DIFF CONFIRMED Sodium Level 141 Potassium Level 3.7 Chloride Level 105 Carbon Dioxide Level 28.3 Anion Gap 8 Blood Urea Nitrogen 23 Creatinine 0.96 Estimat Glomerular Filtration 57 Rate Random Glucose 153 Calcium Level 8.0 Total Bilirubin 0.3 Aspartate Amino Transf 11 (AST/SGOT) Alanine Aminotransferase 15 (ALT/SGPT) Alkaline Phosphatase 56 Total Protein 5.5 Albumin 1.7 Date/Time Procedure Status Source Growth 11/08/16 17:30 Aerobic Blood Culture - Preliminary Resulted Blood Peripheral NO GROWTH IN 2 DAYS 11/08/16 17:30 Anaerobic Blood Culture - Preliminary Resulted Blood Peripheral NO GROWTH IN 2 DAYS Result Diagram: 11/10/16 0525 11/10/1625 Assessment and Plan Problem List: (1) GI bleed Status: Acute (2) Bacteremia due to coagulase-negative Staphylococcus Status: Acute Plan: LIKELY CONTAMINTION REPEAT BC AND FU SEEN EXAM WITH DR WEST Problem Qualifiers (1) GI bleed: Qualified Code: K92.2 - Gastrointestinal hemorrhage, unspecified gastrointestinal hemorrhage type Keena Ulrich November 10, 2016 18:00
--- NOTE | 2016-11-10 19:10 | HHI.GIFU ---
Subjective Remarks still feels week, no sign of gi bleed, but does not feels well overall, Objective Vitals I&O Vital Signs Date Time Temp Pulse Resp B/P Pulse Ox O2 Delivery O2 Flow Rate FiO2 11/10/16 16:00 98.6 74 20 101/56 100 11/10/16 12:00 96.6 75 24 93/44 100 11/10/16 10:00 98 Nasal Cannula 2.00 11/10/16 08:50 76 11/10/16 07:59 99.0 73 24 124/69 99 11/10/16 04:00 98.6 89 20 121/63 98 11/10/16 00:00 98.6 90 20 102/53 97 11/09/16 21:35 97 Nasal Cannula 2.00 11/09/16 20:00 98.7 81 20 101/69 97 11/09/16 20:00 85 I/O 11/09/16 11/09/16 11/09/16 11/10/16 11/10/16 11/10/16 07:00 15:00 23:00 07:00 15:00 23:00 Intake Total 840 ml 600 ml 225 ml 840 ml 480 ml Balance 840 ml 600 ml 225 ml 840 ml 480 ml Intake Oral 240 ml 240 ml 480 ml IV Total 600 ml 600 ml 225 ml 600 ml # Voids 6 6 10 2 1 # Bowel Movements 1 2 0 Laboratory Laboratory Tests Test 11/10/16 05:25 White Blood Count 16.2 Red Blood Count 3.09 Hemoglobin 7.1 Hematocrit 22.8 Mean Corpuscular Volume 73.8 Mean Corpuscular Hemoglobin 23.0 Mean Corpuscular Hemoglobin 31.2 Concent Red Cell Distribution Width 17.9 Platelet Count 479 Mean Platelet Volume 6.6 Neutrophils (%) (Auto) 77.6 Lymphocytes (%) (Auto) 11.7 Monocytes (%) (Auto) 10.0 Eosinophils (%) (Auto) 0.2 Basophils (%) (Auto) 0.5 Neutrophils # (Auto) 12.6 Lymphocytes # (Auto) 1.9 Monocytes # (Auto) 1.6 Eosinophils # (Auto) 0.0 Basophils # (Auto) 0.1 CBC Comment AUTO DIFF Differential Comment AUTO DIFF CONFIRMED Sodium Level 141 Potassium Level 3.7 Chloride Level 105 Carbon Dioxide Level 28.3 Anion Gap 8 Blood Urea Nitrogen 23 Creatinine 0.96 Estimat Glomerular Filtration 57 Rate Random Glucose 153 Calcium Level 8.0 Total Bilirubin 0.3 Aspartate Amino Transf 11 (AST/SGOT) Alanine Aminotransferase 15 (ALT/SGPT) Alkaline Phosphatase 56 Total Protein 5.5 Albumin 1.7 Date/Time Procedure Status Source Growth 11/08/16 17:30 Aerobic Blood Culture - Preliminary Resulted Blood Peripheral NO GROWTH IN 2 DAYS 11/08/16 17:30 Anaerobic Blood Culture - Preliminary Resulted Blood Peripheral NO GROWTH IN 2 DAYS Physical Exam HEENT: Pupils round and reactive to light; normocephalic; atraumatic; no jaundice. Throat is clear. NECK: Neck is supple, no JVD, no lymphadenopathy. CHEST: Chest is clear to auscultation and percussion. CARDIAC: Regular rate and rhythm with no murmur gallop or rubs. ABDOMEN: Soft, nondistended, nontender; no hepatosplenomegaly; bowel sounds are present in all four quadrants. EXTREMITIES: No clubbing, cyanosis, or edema. SKIN: Normal; no rash; no jaundice. SWEET POTATO DISINTEGRATOR: No focal deficits; alert and oriented times three. heard of hearing, week Assessment and Plan Plan anemia ? etiology dropping HGB, i told her again about doing colon EGD but she is refusing sepsis, ID consulted, we will FU their recommendation if HGB lower she will need PRBC transfused, may need FR supplement DM, per PCP we will FU as needed if patient changed her mind about colon EGD please call back Carroll Ferraro MD November 10, 2016 19:10
[2016-11-10] MEDS: ENOXAPARIN SODIUM 40 MG/0.4 ML SYRINGE SQ SCH (22:53)
[2016-11-11] VITALS (8 sets, daily range): BP systolic 100–121; BP diastolic 51–61; PULSE 76–88; RESP 16–22; TEMP 98.4–99.6; O2SAT 93–99
[2016-11-11] MEDS: SODIUM CHLOR 0.45% 1000 ML INJ 1,000 ML IV SCH ×2 (04:42→22:14)
--- NOTE | 2016-11-11 05:47 | MB ---
cc: MARISOL SHELTON M.D. DATE OF 1945 DATE OF SERVICE 11/09/2016 REASON FOR REFERRAL Anemia, nausea. Thank you for the consultation. HISTORY OF PRESENT ILLNESS A 71-year-old lady who has history of multiple medical problems including high blood pressure, diabetes, gout and came complaining of 48 hours of nausea. The patient had hypoglycemia. She was given D50. She stated that she stopped taking her diabetic medication. The nausea is new. She has a low-grade temperature. She also was found to be anemic. She denied any GI symptoms beside that this and she denied previous GI workup according to her. PAST SURGICAL HISTORY Hysterectomy. Cholecystectomy. PAST MEDICAL HISTORY 1. Diabetes. 2. Gout. 3. Hypertension. SOCIAL HISTORY No tobacco, drug or alcohol. FAMILY HISTORY Significant for diabetes and hypertension. ALLERGIES No drug allergies. MEDICATIONS Reviewed in chart. REVIEW OF SYSTEMS All 12-points negative except HPI. The patient is obese and weak. PHYSICAL EXAMINATION GENERAL: Alert, oriented. In no acute distress. VITAL SIGNS: Stable. HEENT: Pupils round, reactive to light. NECK: Supple. CHEST: Clear to auscultation and precaution. CARDIAC: Regular rate and rhythm. ABDOMEN: Soft, nondistended, nontender. Positive bowel sounds. EXTREMITIES: No edema, clubbing or cyanosis. NEUROLOGIC: Intact but the patient is not very talkative and is hard of hearing. PSYCHOLOGIC: Appropriate. LABORATORY DATA White count 14.5, hemoglobin 7.7, platelet 571. INR 1.1. Liver function tests are normal. BUN 18, creatinine 0.89. IMAGING STUDIES CT scan showing pulmonary nodules. ASSESSMENT AND PLAN A 71-year-old lady who has nausea, found to be anemic. The patient also has elevated white count and nodules on the lung. The patient does not want to have any procedure done. I talked to her about doing upper endoscopy and a colonoscopy. She refused to have any procedure done. She said she will not consent to it. I am not clear what is the reason for her anemia but without endoscopy we will not be able to figure out and the patient has bacteremia. ID was already consulted. We will see if she changes her mind. If she drops her hemoglobin, she may need packed RBC, otherwise we will follow up with you. MD DALI Bingham/OLGA /7:05 PM /5:34 AM
[2016-11-11] MEDS: cloNIDine HCL 0.2 MG TAB PO SCH ×3 (06:24→22:00)
[2016-11-11] MEDS: INSULIN NovoLIN REGULAR SUPPLEMENTAL SCALE SQ SCH ×4 (06:27→21:00)
[2016-11-11 06:40] LABS: AUTOMATED NEUTROPHIL # 10.6 TH/MM3 (1.8-7.7); BASOPHIL # 0.1 TH/MM3 (0-0.2); BASOPHIL % 0.7 % (0.0-2.0); EOSINOPHIL # 0.1 TH/MM3 (0-0.4); EOSINOPHIL % 0.4 % (0.0-4.0); HEMATOCRIT 24.4 % (35.0-46.0); LYMPH % 8.6 % (9.0-44.0); LYMPHOCYTE # 1.2 TH/MM3 (1.0-4.8); MEAN CELL VOLUME 72.8 FL (80.0-100.0); MEAN CORPUSCULAR HEMOGLOBIN 22.4 PG (27.0-34.0); MEAN CORPUSCULAR HGB CONC 30.8 % (32.0-36.0); MONO % 11.9 % (0.0-8.0); NEUT % 78.4 % (16.0-70.0); PLATELET COUNT 496 TH/MM3 (150-450); RED BLOOD COUNT 3.34 MIL/MM3 (4.00-5.30); RED CELL DISTRIBUTION WIDTH 17.8 % (11.6-17.2); WHITE BLOOD COUNT 13.6 TH/MM3 (4.0-11.0)
[2016-11-11 06:45] LABS: CHLORIDE 104 MEQ/L (98-107); POTASSIUM 3.5 MEQ/L (3.5-5.1); SODIUM (NA) 142 MEQ/L (136-145)
[2016-11-11 06:46] LABS: HEMO FLAGS AUTO DIFF
[2016-11-11 06:53] LABS: ANION GAP 7 MEQ/L (5-15); BICARBONATE 31.1 MEQ/L (21.0-32.0); BLOOD UREA NITROGEN 20 MG/DL (7-18)
[2016-11-11 06:55] LABS: AST (GOT) 8 U/L (15-37); GLOMERULAR FILTRATION RATE 64 ML/MIN (>89)
[2016-11-11 06:57] LABS: ALT (GPT) 15 U/L (10-53)
[2016-11-11 06:58] LABS: ALKALINE PHOSPHATASE 70 U/L (45-117)
[2016-11-11 06:59] LABS: TOTAL BILIRUBIN ADULT 0.4 MG/DL (0.2-1.0)
[2016-11-11 07:27] LABS: SCAN/DIFF AUTO DIFF CONFIRMED
[2016-11-11] MEDS: SODIUM CHLORIDE 0.9% FLUSH 10 ML FLUSH IV FLUSH SCH ×2 (09:00→21:00)
[2016-11-11] MEDS: amLODIPine BESYLATE 5 MG TAB PO SCH (09:00)
[2016-11-11] MEDS: ASPIRIN 81 MG CHEW TAB CHEW SCH (09:35)
[2016-11-11] MEDS: PIOGLITAZONE HCL 15 MG TAB PO SCH (09:36)
[2016-11-11] MEDS: DOCUSATE SODIUM 50 MG/SENNA 8.6 MG TAB PO SCH ×2 (09:36→22:13)
[2016-11-11] MEDS: CARVEDILOL 12.5 MG TAB PO SCH ×2 (09:36→22:13)
[2016-11-11] MEDS: metFORMIN HCL 500 MG TAB PO SCH (09:36)
[2016-11-11] MEDS: ALLOPURINOL 300 MG TAB PO SCH (09:36)
[2016-11-11] MEDS: PRAVASTATIN SOD 40 MG TAB PO SCH (09:36)
[2016-11-11] MEDS: PANTOPRAZOLE SODIUM 40 MG VIAL IV PUSH SCH ×2 (14:38→22:14)
[2016-11-11] MEDS: LEVOFLOXACIN/DEXTROSE 250 MG/50 ML IV SCH (14:38)
[2016-11-11] MEDS: LISINOPRIL 5 MG TAB PO SCH ×2 (14:39→22:13)
--- NOTE | 2016-11-11 19:41 | HHI.PR ---
Subjective Remarks She is weak and dizzy. No cough or wheezing. On O2 2L. Hgb now 7.5 Objective Vital Signs Date Time Temp Pulse Resp B/P Pulse Ox O2 Delivery O2 Flow Rate FiO2 11/11/16 16:00 99.6 76 20 107/54 94 11/11/16 12:00 98.4 79 22 108/56 95 11/11/16 10:00 95 Nasal Cannula 2.00 11/11/16 08:00 98.8 76 20 101/53 94 11/11/16 04:00 98.7 82 16 121/61 98 11/11/16 00:00 99.2 88 16 100/51 99 11/10/16 20:37 94 Nasal Cannula 2.00 11/10/16 20:02 75 11/10/16 20:00 99.1 78 20 115/52 94 I/O 11/10/16 11/10/16 11/10/16 11/11/16 11/11/16 11/11/16 07:00 15:00 23:00 07:00 15:00 23:00 Intake Total 840 ml 480 ml 485 ml 512 ml 650 ml Balance 840 ml 480 ml 485 ml 512 ml 650 ml Intake Oral 240 ml 480 ml 650 ml IV Total 600 ml 485 ml 512 ml # Voids 10 2 3 3 # Bowel Movements 0 0 1 Result Diagram: 11/11/16 0545 11/11/16 0545 Objective Remarks GENERAL: This obese, elderly white female who is pale and in no distress. HEENT: Head normocephalic. Pupils are reactive. Tongue is moist. Throat was clear. NECK: Supple. No bruits or thyroid enlargement or lymphadenopathy. CHEST: Distant breath sounds with few wheezes anteriorly.Occ crackles at bases HEART: The heart sounds are regular S1-S2. No murmur. No S3. ABDOMEN: Obese, protuberant without masses. No organomegaly or tenderness. Bowel sounds active. EXTREMITIES: No lesions. Peripheral pulses are diminished. Reflexes are 1+. NEUROLOGIC: No gross motor deficits. SKIN: No lesions observed. Assessment and Plan Assessment and Plan IMPRESSION 1. Bilateral lung nodules, etiology to be determined. Probable granulomas versus metastatic disease. 2. Diabetes mellitus type 2. 3. Hypertension. 4. Exogenous obesity and possible sleep apnea. 5. Possible hypothyroidism. 6. Hypertension. 7. Anemia Plan : 1. Use ventolin HFA , 2 puffs tid prn. 2. Cont antibiotics,Levaquin. 3. CBC,CXR in am 4. PET CT as OP. 5. Ambulate with help. Juan Ramon Perez MD Nov 11, 2016 19:41
[2016-11-11] MEDS: ENOXAPARIN SODIUM 40 MG/0.4 ML SYRINGE SQ SCH (22:13)
[2016-11-11] MEDS: ACETAMINOPHEN 325 MG TAB PO PRN (22:26)
[2016-11-12] VITALS (13 sets, daily range): BP systolic 103–127; BP diastolic 54–77; PULSE 63–93; RESP 17–22; TEMP 97.2–98.9; O2SAT 85–98
[2016-11-12] MEDS: cloNIDine HCL 0.2 MG TAB PO SCH ×3 (05:53→22:00)
--- NOTE | 2016-11-12 06:00 | RADHPO ---
EXAM DATE/TIME: 11/12/2016 05:47 [facility] COMPARISON: CHEST SINGLE AP, November 08, 2016, 14:52. INDICATIONS : Shortness of breath MEDICAL HISTORY : Hypertension. Diabetes. SURGICAL HISTORY : None. ENCOUNTER: Subsequent ACUITY: 4 - 6 days PAIN SCORE: 0/10 LOCATION: Bilateral chest FINDINGS: The cardiac silhouette is enlarged in transverse diameter. The lungs are free of acute parenchymal op acity. No effusions are identified. Osseous structures are intact. There is prominence of the aortic knob is with calcification characteristic of atherosclerotic vascular disease. CONCLUSION: Cardiomegaly. No acute cardiopulmonary disease. Semaj Coker MD on November 12, 2016 at 5:58 Board Certified Radiologist. This report was verified electronically.
[2016-11-12 06:17] LABS: AUTOMATED NEUTROPHIL # 10.9 TH/MM3 (1.8-7.7); BASOPHIL % 0.2 % (0.0-2.0); EOSINOPHIL % 0.3 % (0.0-4.0); LYMPH % 8.1 % (9.0-44.0); LYMPHOCYTE # 1.1 TH/MM3 (1.0-4.8); MEAN CELL VOLUME 72.9 FL (80.0-100.0); MEAN CORPUSCULAR HEMOGLOBIN 22.8 PG (27.0-34.0); MEAN CORPUSCULAR HGB CONC 31.3 % (32.0-36.0); MONO % 9.8 % (0.0-8.0); NEUT % 81.6 % (16.0-70.0); PLATELET COUNT 441 TH/MM3 (150-450); RED BLOOD COUNT 3.01 MIL/MM3 (4.00-5.30); RED CELL DISTRIBUTION WIDTH 17.8 % (11.6-17.2); WHITE BLOOD COUNT 13.3 TH/MM3 (4.0-11.0)
[2016-11-12 06:32] LABS: CHLORIDE 103 MEQ/L (98-107); POTASSIUM 3.5 MEQ/L (3.5-5.1); SODIUM (NA) 141 MEQ/L (136-145)
[2016-11-12 06:40] LABS: ANION GAP 8 MEQ/L (5-15); BICARBONATE 30.2 MEQ/L (21.0-32.0); BLOOD UREA NITROGEN 17 MG/DL (7-18)
[2016-11-12 06:43] LABS: ALT (GPT) 17 U/L (10-53); AST (GOT) 14 U/L (15-37); GLOMERULAR FILTRATION RATE 73 ML/MIN (>89)
[2016-11-12 06:45] LABS: TOTAL BILIRUBIN ADULT 0.3 MG/DL (0.2-1.0)
[2016-11-12 06:46] LABS: ALKALINE PHOSPHATASE 72 U/L (45-117)
[2016-11-12 06:54] LABS: HEMO FLAGS DIFF FINAL
[2016-11-12] MEDS: INSULIN NovoLIN REGULAR SUPPLEMENTAL SCALE SQ SCH ×4 (07:00→21:00)
--- NOTE | 2016-11-12 07:30 | HHI.PR ---
Subjective History of Present Illness Patient seen on 11/11/16 feel weak and tired still have nausea d/w RN have blood culture positive start Levaquin 500 mg IV Daily and consult infectious disease.. no acute issue. leukocytosis better have pulmonary nodule pulmonary input noted.. Vitals/Results Intake & Output 11/11/16 11/11/16 11/12/16 15:00 23:00 07:00 Intake Total 650 ml Balance 650 ml Intake Oral 650 ml # Voids 3 3 # Bowel Movements 1 2 Vital Signs Vital Signs Date Time Temp Pulse Resp B/P Pulse Ox O2 Delivery O2 Flow Rate FiO2 11/12/16 04:06 98.6 93 22 120/64 93 11/12/16 00:49 98.9 77 22 110/67 94 11/11/16 20:06 99.3 80 22 104/54 97 11/11/16 20:00 93 Nasal Cannula 2.00 11/11/16 20:00 79 11/11/16 16:00 99.6 76 20 107/54 94 11/11/16 12:00 98.4 79 22 108/56 95 11/11/16 10:00 95 Nasal Cannula 2.00 11/11/16 08:00 98.8 76 20 101/53 94 CBC/BMP: 11/12/16 0510 11/12/16 0510 Lab Results Laboratory Tests Test 11/12/16 05:10 White Blood Count 13.3 TH/MM3 Red Blood Count 3.01 MIL/MM3 Hemoglobin 6.9 GM/DL Hematocrit 22.0 % Mean Corpuscular Volume 72.9 FL Mean Corpuscular Hemoglobin 22.8 PG Mean Corpuscular Hemoglobin 31.3 % Concent Red Cell Distribution Width 17.8 % Platelet Count 441 TH/MM3 Mean Platelet Volume 6.8 FL Neutrophils (%) (Auto) 81.6 % Lymphocytes (%) (Auto) 8.1 % Monocytes (%) (Auto) 9.8 % Eosinophils (%) (Auto) 0.3 % Basophils (%) (Auto) 0.2 % Neutrophils # (Auto) 10.9 TH/MM3 Lymphocytes # (Auto) 1.1 TH/MM3 Monocytes # (Auto) 1.3 TH/MM3 Eosinophils # (Auto) 0.0 TH/MM3 Basophils # (Auto) 0.0 TH/MM3 CBC Comment DIFF FINAL Differential Comment Sodium Level 141 MEQ/L Potassium Level 3.5 MEQ/L Chloride Level 103 MEQ/L Carbon Dioxide Level 30.2 MEQ/L Anion Gap 8 MEQ/L Blood Urea Nitrogen 17 MG/DL Creatinine 0.77 MG/DL Estimat Glomerular Filtration 73 ML/MIN Rate Random Glucose 176 MG/DL Calcium Level 7.9 MG/DL Total Bilirubin 0.3 MG/DL Aspartate Amino Transf 14 U/L (AST/SGOT) Alanine Aminotransferase 17 U/L (ALT/SGPT) Alkaline Phosphatase 72 U/L Total Protein 5.6 GM/DL Albumin 1.6 GM/DL Microbiology Microbiology 11/11/16 Stool Occult Blood (ADALI) - Final, Complete HEMOCCULT NEGATIVE Physical Exam General General Appearance: Well Developed, Well Nourished, No Acute Distress, Comfortable Eyes Eye Exam: Pupils Equal, Pupils Reactive, Sclera White, Extraocular Movement Intact Throat Throat Exam: Oral Mucosa [place] & Moist, Oral Pharynx Normal Neck Neck Exam: Neck Supple, Trachea Midline Pulmonary Resp Exam: Clear Bilaterally, Breath Sounds Equal, No Distress Cardiology CV Exam: Regular, Normal Sinus Rhythm Gastrointestinal/Abdomen GI Exam: Soft, Non-Tender, Bowel Sounds Present Musculoskeletal MS Exam: Normal Tone Integumentary Skin Exam: Clear, Warm, Dry, Intact Extremeties Extremities Exam: No Edema Neurologic Neuro Exam: Alert, Awake, Oriented, Speech Clear, Moving All Extremities, No Focal Deficits Psychiatric Psych Exam: Appropriate Responses VTE Prophylaxis VTE Prophylaxis Meds: Lovenox PUD Prophylasis PUD Prophylaxis: Protonix Assessment/Plan Assessment/Plan ASSESSMENT AND PLAN: This is a 71-year female who came to the emergency room diagnosed with 1. Nausea with hypoglycemia. Glucose is normal now. The patient is on Zofran 4 milligrams IV q. 6-hour p.r.n. for nausea and vomiting. 2. Leukocytosis, better... Chest x-ray does not show anything acute. check CT scan of the chest negative for pneumonia... have pulmonary nodule consult pulmonary. Blood cultures x2 done negative so far. 3. Diabetes mellitus. ADA 1800 calorie diet. NovoLog. sliding scale. Check blood sugars a.c. and h.s. Will monitor blood sugar. 4. Left history of gout. Continue home medication. 5. History of hypertension. Continue medication. Monitor blood pressure. 6. Hyperlipidemia. Continue lovastatin 40 milligrams p.o. daily. 7. DVT prophylaxis. Lovenox 40 milligrams. 8. GI prophylaxis Protonix 40 milligrams p.o. twice a day. 9. Pulmonary nodule pulmonary input noted. 10. blood culture positive start Levaquin 500 mg IV Daily and consult infectious disease. We are going to manage the patient on a daily basis and make recommendations on a daily basis. Check CBC and comprehensive metabolic profile in the morning. Discussed Condition with: Patient Reed Up MD Nov 12, 2016 07:29
--- NOTE | 2016-11-12 07:33 | HHI.PR ---
Subjective History of Present Illness Patient feel weak and tired still have nausea d/w RN Sarita.. have blood culture positive on Levaquin 500 mg IV Daily and infectious disease input noted probabble contamination.. no acute issue. leukocytosis better have pulmonary nodule pulmonary input noted.. have Hemoglobin 6.9 Possible GI Bleed will transfuse 2 units PRBC and GI input noted patient refused endoscopy. Vitals/Results Intake & Output 11/11/16 11/11/16 11/12/16 15:00 23:00 07:00 Intake Total 650 ml Balance 650 ml Intake Oral 650 ml # Voids 3 3 # Bowel Movements 1 2 Vital Signs Vital Signs Date Time Temp Pulse Resp B/P Pulse Ox O2 Delivery O2 Flow Rate FiO2 11/12/16 04:06 98.6 93 22 120/64 93 11/12/16 00:49 98.9 77 22 110/67 94 11/11/16 20:06 99.3 80 22 104/54 97 11/11/16 20:00 93 Nasal Cannula 2.00 11/11/16 20:00 79 11/11/16 16:00 99.6 76 20 107/54 94 11/11/16 12:00 98.4 79 22 108/56 95 11/11/16 10:00 95 Nasal Cannula 2.00 11/11/16 08:00 98.8 76 20 101/53 94 CBC/BMP: 11/12/16 0510 11/12/16 0510 Lab Results Laboratory Tests Test 11/12/16 05:10 White Blood Count 13.3 TH/MM3 Red Blood Count 3.01 MIL/MM3 Hemoglobin 6.9 GM/DL Hematocrit 22.0 % Mean Corpuscular Volume 72.9 FL Mean Corpuscular Hemoglobin 22.8 PG Mean Corpuscular Hemoglobin 31.3 % Concent Red Cell Distribution Width 17.8 % Platelet Count 441 TH/MM3 Mean Platelet Volume 6.8 FL Neutrophils (%) (Auto) 81.6 % Lymphocytes (%) (Auto) 8.1 % Monocytes (%) (Auto) 9.8 % Eosinophils (%) (Auto) 0.3 % Basophils (%) (Auto) 0.2 % Neutrophils # (Auto) 10.9 TH/MM3 Lymphocytes # (Auto) 1.1 TH/MM3 Monocytes # (Auto) 1.3 TH/MM3 Eosinophils # (Auto) 0.0 TH/MM3 Basophils # (Auto) 0.0 TH/MM3 CBC Comment DIFF FINAL Differential Comment Sodium Level 141 MEQ/L Potassium Level 3.5 MEQ/L Chloride Level 103 MEQ/L Carbon Dioxide Level 30.2 MEQ/L Anion Gap 8 MEQ/L Blood Urea Nitrogen 17 MG/DL Creatinine 0.77 MG/DL Estimat Glomerular Filtration 73 ML/MIN Rate Random Glucose 176 MG/DL Calcium Level 7.9 MG/DL Total Bilirubin 0.3 MG/DL Aspartate Amino Transf 14 U/L (AST/SGOT) Alanine Aminotransferase 17 U/L (ALT/SGPT) Alkaline Phosphatase 72 U/L Total Protein 5.6 GM/DL Albumin 1.6 GM/DL Microbiology Microbiology 11/11/16 Stool Occult Blood (ADALI) - Final, Complete HEMOCCULT NEGATIVE Physical Exam General General Appearance: Well Developed, Well Nourished, No Acute Distress, Comfortable Eyes Eye Exam: Pupils Equal, Pupils Reactive, Sclera White, Extraocular Movement Intact Throat Throat Exam: Oral Mucosa [place] & Moist, Oral Pharynx Normal Neck Neck Exam: Neck Supple, Trachea Midline Pulmonary Resp Exam: Clear Bilaterally, Breath Sounds Equal, No Distress Cardiology CV Exam: Regular, Normal Sinus Rhythm Gastrointestinal/Abdomen GI Exam: Soft, Non-Tender, Bowel Sounds Present Musculoskeletal MS Exam: Normal Tone Integumentary Skin Exam: Clear, Warm, Dry, Intact Extremeties Extremities Exam: No Edema Neurologic Neuro Exam: Alert, Awake, Oriented, Speech Clear, Moving All Extremities, No Focal Deficits Psychiatric Psych Exam: Appropriate Responses VTE Prophylaxis VTE Prophylaxis Meds: Lovenox PUD Prophylasis PUD Prophylaxis: Protonix Assessment/Plan Assessment/Plan ASSESSMENT AND PLAN: This is a 71-year female who came to the emergency room diagnosed with 1. Nausea with hypoglycemia. Glucose is normal now. The patient is on Zofran 4 milligrams IV q. 6-hour p.r.n. for nausea and vomiting. 2. Leukocytosis, better... Chest x-ray does not show anything acute. check CT scan of the chest negative for pneumonia... have pulmonary nodule pulmonary input noted. Blood cultures x2 positive for gram negative rods. 3. Diabetes mellitus. ADA 1800 calorie diet. NovoLog. sliding scale. Check blood sugars a.c. and h.s. Will monitor blood sugar. 4. Left history of gout. Continue home medication. 5. History of hypertension. Continue medication. Monitor blood pressure. 6. Hyperlipidemia. Continue lovastatin 40 milligrams p.o. daily. 7. DVT prophylaxis. Lovenox 40 milligrams. 8. GI prophylaxis Protonix 40 milligrams p.o. twice a day. 9. Pulmonary nodule pulmonary input noted. 10. blood culture positive start Levaquin 500 mg IV Daily and consult infectious disease. 11. Hemoglobin 6.9 Possible GI Bleed will transfuse 2 units PRBC and GI input noted patient refused endoscopy. fecal occult blood test x 1 negative. We are going to manage the patient on a daily basis and make recommendations on a daily basis. Check CBC and comprehensive metabolic profile in the morning. Discussed Condition with: Patient Reed Up MD Nov 12, 2016 07:33
[2016-11-12] MEDS: SODIUM CHLORIDE 0.9% FLUSH 10 ML FLUSH IV FLUSH SCH ×2 (09:00→23:54)
[2016-11-12] MEDS: DOCUSATE SODIUM 50 MG/SENNA 8.6 MG TAB PO SCH (09:00)
[2016-11-12 10:30] LABS: OVALOCYTES 1+ (NORMAL); TARGET CELLS 1+ (NORMAL)
--- NOTE | 2016-11-12 10:42 | HHI.IDPN ---
Subjective Subjective Remarks Nausea No fever Some abdominal discomfort Very anemic today Antibiotics Levofloxacin Lines Peripheral Past Medical History HTN Gout Diabetes Allergies: Coded Allergies: No Known Allergies (Unverified , 11/08/16) Review of Systems Constitutional Constitutional Remarks No fever chills Objective . Vital Signs Date Time Temp Pulse Resp B/P Pulse Ox O2 Delivery O2 Flow Rate FiO2 11/12/16 08:00 97.5 78 20 120/55 98 11/12/16 04:06 98.6 93 22 120/64 93 11/12/16 00:49 98.9 77 22 110/67 94 11/11/16 20:06 99.3 80 22 104/54 97 11/11/16 20:00 93 Nasal Cannula 2.00 11/11/16 20:00 79 11/11/16 16:00 99.6 76 20 107/54 94 11/11/16 12:00 98.4 79 22 108/56 95 11/11/16 11/11/16 11/12/16 15:00 23:00 07:00 Intake Total 650 ml Balance 650 ml Intake Oral 650 ml # Voids 3 3 # Bowel Movements 1 2 . Laboratory Tests Test 11/11/16 11/12/16 05:45 05:10 White Blood Count 13.6 TH/MM3 13.3 TH/MM3 Red Blood Count 3.34 MIL/MM3 3.01 MIL/MM3 Hemoglobin 7.5 GM/DL 6.9 GM/DL Hematocrit 24.4 % 22.0 % Mean Corpuscular Volume 72.8 FL 72.9 FL Mean Corpuscular Hemoglobin 22.4 PG 22.8 PG Mean Corpuscular Hemoglobin 30.8 % 31.3 % Concent Red Cell Distribution Width 17.8 % 17.8 % Platelet Count 496 TH/MM3 441 TH/MM3 Mean Platelet Volume 6.6 FL 6.8 FL Neutrophils (%) (Auto) 78.4 % 81.6 % Lymphocytes (%) (Auto) 8.6 % 8.1 % Monocytes (%) (Auto) 11.9 % 9.8 % Eosinophils (%) (Auto) 0.4 % 0.3 % Basophils (%) (Auto) 0.7 % 0.2 % Neutrophils # (Auto) 10.6 TH/MM3 10.9 TH/MM3 Lymphocytes # (Auto) 1.2 TH/MM3 1.1 TH/MM3 Monocytes # (Auto) 1.6 TH/MM3 1.3 TH/MM3 Eosinophils # (Auto) 0.1 TH/MM3 0.0 TH/MM3 Basophils # (Auto) 0.1 TH/MM3 0.0 TH/MM3 CBC Comment AUTO DIFF DIFF FINAL Differential Comment AUTO DIFF CONFIRMED Target Cells 1+ Ovalocytes 1+ Laboratory Tests Test 11/11/16 11/12/16 05:45 05:10 Sodium Level 142 MEQ/L 141 MEQ/L Potassium Level 3.5 MEQ/L 3.5 MEQ/L Chloride Level 104 MEQ/L 103 MEQ/L Carbon Dioxide Level 31.1 MEQ/L 30.2 MEQ/L Anion Gap 7 MEQ/L 8 MEQ/L Blood Urea Nitrogen 20 MG/DL 17 MG/DL Creatinine 0.87 MG/DL 0.77 MG/DL Estimat Glomerular Filtration 64 ML/MIN 73 ML/MIN Rate Random Glucose 180 MG/DL 176 MG/DL Calcium Level 8.2 MG/DL 7.9 MG/DL Total Bilirubin 0.4 MG/DL 0.3 MG/DL Aspartate Amino Transf 8 U/L 14 U/L (AST/SGOT) Alanine Aminotransferase 15 U/L 17 U/L (ALT/SGPT) Alkaline Phosphatase 70 U/L 72 U/L Total Protein 5.9 GM/DL 5.6 GM/DL Albumin 1.7 GM/DL 1.6 GM/DL Microbiology Date/Time Procedure Status Source Growth 11/11/16 10:35 Stool Occult Blood (ADALI) - Final Complete Stool Stool HEMOCCULT NEGATIVE Physical Exam Obese patient Pallor present No icterus No thrush Chest - Breath sounds bilaterally decreased Heart S 1 S2 normal Abdomen- Some distension, Soft , bowel sounds present Awake some confusion No motor deficit Assessment & Plan Diagnosis: (1) Bacteremia due to coagulase-negative Staphylococcus Plan: This is a contaminant In 2 of 4 bottles Does not need to be treated (2) Anemia Plan: To get blood transfusion today (3) Pulmonary nodules/lesions, multiple Plan: Pulmonary following (4) Leucocytosis Plan: Follow CBC Get CT abdomen/ pelvis Laila Silva MD Nov 12, 2016 10:42
[2016-11-12] MEDS: ASPIRIN 81 MG CHEW TAB CHEW SCH (11:14)
[2016-11-12] MEDS: PRAVASTATIN SOD 40 MG TAB PO SCH (11:14)
[2016-11-12] MEDS: amLODIPine BESYLATE 5 MG TAB PO SCH (11:15)
[2016-11-12] MEDS: CARVEDILOL 12.5 MG TAB PO SCH ×2 (11:15→21:00)
[2016-11-12] MEDS: LISINOPRIL 5 MG TAB PO SCH (11:15)
[2016-11-12] MEDS: metFORMIN HCL 500 MG TAB PO SCH (11:15)
[2016-11-12] MEDS: PIOGLITAZONE HCL 15 MG TAB PO SCH (11:15)
[2016-11-12] MEDS: ALLOPURINOL 300 MG TAB PO SCH (11:15)
[2016-11-12] MEDS: PANTOPRAZOLE SODIUM 40 MG VIAL IV PUSH SCH ×2 (11:16→23:55)
[2016-11-12] MEDS: LEVOFLOXACIN/DEXTROSE 250 MG/50 ML IV SCH (11:26)
[2016-11-12] MEDS: SODIUM CHLOR 0.45% 1000 ML INJ 1,000 ML IV SCH (11:28)
[2016-11-12] MEDS: ACETAMINOPHEN 325 MG TAB PO PRN (16:54)
[2016-11-12] MEDS ORDERED: DIATRIZOATE MEGLUM/DIATRIZOATE SOD 9 ML CUP PO ONE (17:30)
[2016-11-12] MEDS ORDERED: POTASSIUM CHLORIDE 20 MEQ CONTROLLED RELEASE TAB PO ONE (18:00)
[2016-11-12] MEDS ORDERED: FUROSEMIDE 20 MG/2 ML VIAL IV PUSH ONE (18:00)
--- NOTE | 2016-11-12 18:02 | HHI.PR ---
Subjective Remarks She is weak and dizzy.Hgb dropped to 6.9. Now receiving transfusion of red cells. No cough or wheezing. On O2 2L. Sats drop <85 on RA Objective Vital Signs Date Time Temp Pulse Resp B/P Pulse Ox O2 Delivery O2 Flow Rate FiO2 11/12/16 15:33 85 21 11/12/16 14:50 97.3 76 18 110/77 95 11/12/16 13:50 98.1 70 17 103/55 95 11/12/16 12:56 97.2 70 17 103/59 97 11/12/16 12:42 98.1 74 18 109/54 93 11/12/16 12:00 98.5 63 20 112/58 91 11/12/16 08:00 97.5 78 20 120/55 98 11/12/16 08:00 98 Nasal Cannula 2.00 11/12/16 04:06 98.6 93 22 120/64 93 11/12/16 00:49 98.9 77 22 110/67 94 11/11/16 20:06 99.3 80 22 104/54 97 11/11/16 20:00 93 Nasal Cannula 2.00 11/11/16 20:00 79 I/O 11/11/16 11/11/16 11/11/16 11/12/16 11/12/16 11/12/16 07:00 15:00 23:00 07:00 15:00 23:00 Intake Total 512 ml 650 ml 240 ml Balance 512 ml 650 ml 240 ml Intake Oral 650 ml 240 ml IV Total 512 ml # Voids 3 3 2 # Bowel Movements 1 2 Result Diagram: 11/12/16 0510 11/12/16 0510 Objective Remarks GENERAL: This obese, elderly white female who is pale and in no distress. HEENT: Head normocephalic. Pupils are reactive. Tongue is moist. Throat was clear. NECK: Supple. No bruits or thyroid enlargement or lymphadenopathy. CHEST: Distant breath sounds with few wheezes anteriorly.Occ crackles at bases HEART: The heart sounds are regular S1-S2. No murmur. No S3. ABDOMEN: Obese, protuberant without masses. No organomegaly or tenderness. Bowel sounds active. EXTREMITIES: No lesions. Peripheral pulses are diminished. Reflexes are 1+. NEUROLOGIC: No gross motor deficits. SKIN: No lesions observed. Assessment and Plan Assessment and Plan IMPRESSION 1. Bilateral lung nodules, etiology to be determined. Probable granulomas versus metastatic disease. 2. Diabetes mellitus type 2. 3. Hypertension. 4. Exogenous obesity and possible sleep apnea. 5. Possible hypothyroidism. 6. Hypertension. 7. Anemia Plan : 1. Use ventolin HFA , 2 puffs tid prn. 2. Cont antibiotics,Levaquin. 3. CBC,CXR in am 4. PET CT as OP. 5.Transfusion with Packed red cells. and Lasix 20 mg IV today. Juan Ramon Perez MD Nov 12, 2016 18:02
[2016-11-12] MEDS: ENOXAPARIN SODIUM 40 MG/0.4 ML SYRINGE SQ SCH (23:53)
[2016-11-13] VITALS (8 sets, daily range): BP systolic 124–163; BP diastolic 60–82; PULSE 73–100; RESP 19–24; TEMP 96–97.7; O2SAT 91–97
[2016-11-13] MEDS: LISINOPRIL 5 MG TAB PO SCH ×3 (02:33→20:55)
[2016-11-13] MEDS: DOCUSATE SODIUM 50 MG/SENNA 8.6 MG TAB PO SCH ×3 (02:33→20:56)
[2016-11-13] MEDS: SODIUM CHLOR 0.45% 1000 ML INJ 1,000 ML IV SCH ×2 (02:34→12:50)
[2016-11-13] MEDS: cloNIDine HCL 0.2 MG TAB PO SCH ×4 (06:00→22:00)
[2016-11-13] MEDS: INSULIN NovoLIN REGULAR SUPPLEMENTAL SCALE SQ SCH ×4 (06:24→21:00)
[2016-11-13] MEDS: SODIUM CHLORIDE 0.9% FLUSH 10 ML FLUSH IV FLUSH SCH ×2 (09:00→20:56)
[2016-11-13] MEDS: ALLOPURINOL 300 MG TAB PO SCH (09:32)
[2016-11-13] MEDS: PIOGLITAZONE HCL 15 MG TAB PO SCH (09:33)
[2016-11-13] MEDS: PRAVASTATIN SOD 40 MG TAB PO SCH (09:33)
[2016-11-13] MEDS: ASPIRIN 81 MG CHEW TAB CHEW SCH (09:33)
[2016-11-13] MEDS: CARVEDILOL 12.5 MG TAB PO SCH ×2 (09:33→20:55)
[2016-11-13] MEDS: amLODIPine BESYLATE 5 MG TAB PO SCH (09:33)
[2016-11-13] MEDS: metFORMIN HCL 500 MG TAB PO SCH (09:33)
[2016-11-13] MEDS: PANTOPRAZOLE SODIUM 40 MG VIAL IV PUSH SCH ×2 (09:37→23:00)
--- NOTE | 2016-11-13 10:34 | HHI.PR ---
Subjective History of Present Illness Patient feel weak and tired still have nausea d/w RN Mayra. . no acute issue. leukocytosis better have pulmonary nodule pulmonary input noted.. had Hemoglobin 6.9 Possible GI Bleed S/P 2 units PRBC Transfusion now Hemoglobin 9.2 and GI input noted patient refused endoscopy. Vitals/Results Intake & Output 11/12/16 11/12/16 11/13/16 15:00 23:00 07:00 Intake Total 240 ml Balance 240 ml Intake Oral 240 ml # Voids 2 2 4 Vital Signs Vital Signs Date Time Temp Pulse Resp B/P Pulse Ox O2 Delivery O2 Flow Rate FiO2 11/13/16 08:00 96.9 78 19 139/67 96 11/13/16 06:16 82 130/73 11/13/16 04:58 97.7 100 24 136/82 92 11/13/16 00:06 96.2 98 24 163/71 91 11/12/16 20:55 93 Nasal Cannula 2.00 11/12/16 20:37 97.2 72 22 111/61 94 11/12/16 17:45 98.6 78 18 123/77 96 11/12/16 15:50 97.2 78 17 127/67 98 11/12/16 15:33 85 21 11/12/16 14:50 97.3 76 18 110/77 95 11/12/16 13:50 98.1 70 17 103/55 95 11/12/16 12:56 97.2 70 17 103/59 97 11/12/16 12:42 98.1 74 18 109/54 93 11/12/16 12:00 98.5 63 20 112/58 91 CBC/BMP: 11/12/16 0510 11/12/16 0510 Physical Exam General General Appearance: Well Developed, Well Nourished, No Acute Distress, Comfortable Eyes Eye Exam: Pupils Equal, Pupils Reactive, Sclera White, Extraocular Movement Intact Throat Throat Exam: Oral Mucosa [place] & Moist, Oral Pharynx Normal Neck Neck Exam: Neck Supple, Trachea Midline Pulmonary Resp Exam: Clear Bilaterally, Breath Sounds Equal, No Distress Cardiology CV Exam: Regular, Normal Sinus Rhythm Gastrointestinal/Abdomen GI Exam: Soft, Non-Tender, Bowel Sounds Present Musculoskeletal MS Exam: Normal Tone Integumentary Skin Exam: Clear, Warm, Dry, Intact Extremeties Extremities Exam: No Edema Neurologic Neuro Exam: Alert, Awake, Oriented, Speech Clear, Moving All Extremities, No Focal Deficits Psychiatric Psych Exam: Appropriate Responses VTE Prophylaxis VTE Prophylaxis Meds: Lovenox PUD Prophylasis PUD Prophylaxis: Protonix Assessment/Plan Assessment/Plan ASSESSMENT AND PLAN: This is a 71-year female who came to the emergency room diagnosed with 1. Nausea with hypoglycemia. Glucose is normal now. The patient is on Zofran 4 milligrams IV q. 6-hour p.r.n. for nausea and vomiting. 2. Leukocytosis, better... Chest x-ray does not show anything acute. check CT scan of the chest negative for pneumonia... have pulmonary nodule pulmonary input noted. Blood cultures x2 positive for gram negative rods. 3. Diabetes mellitus. ADA 1800 calorie diet. NovoLog. sliding scale. Check blood sugars a.c. and h.s. Will monitor blood sugar. 4. Left history of gout. Continue home medication. 5. History of hypertension. Continue medication. Monitor blood pressure. 6. Hyperlipidemia. Continue lovastatin 40 milligrams p.o. daily. 7. DVT prophylaxis. Lovenox 40 milligrams. 8. GI prophylaxis Protonix 40 milligrams p.o. twice a day. 9. Pulmonary nodule pulmonary input noted. 10. blood culture positive start Levaquin 500 mg IV Daily and consult infectious disease. 11. Hemoglobin 6.9 Possible GI Bleed had Hemoglobin 6.9 Possible GI Bleed S/ P 2 units PRBC Transfusion now Hemoglobin 9.2 fecal occult blood test x 1 negative. We are going to manage the patient on a daily basis and make recommendations on a daily basis. Check CBC and comprehensive metabolic profile in the morning. Discussed Condition with: Patient Reed Up MD Nov 13, 2016 10:34
[2016-11-13 11:50] LABS: AUTOMATED NEUTROPHIL # 7.8 TH/MM3 (1.8-7.7); BASOPHIL % 0.3 % (0.0-2.0); EOSINOPHIL % 0.5 % (0.0-4.0); HEMATOCRIT 29.6 % (35.0-46.0); LYMPH % 12.3 % (9.0-44.0); LYMPHOCYTE # 1.2 TH/MM3 (1.0-4.8); MEAN CELL VOLUME 73.6 FL (80.0-100.0); MEAN CORPUSCULAR HEMOGLOBIN 22.9 PG (27.0-34.0); MEAN CORPUSCULAR HGB CONC 31.1 % (32.0-36.0); MONO % 9.4 % (0.0-8.0); NEUT % 77.5 % (16.0-70.0); PLATELET COUNT 461 TH/MM3 (150-450); RED BLOOD COUNT 4.02 MIL/MM3 (4.00-5.30); RED CELL DISTRIBUTION WIDTH 17.4 % (11.6-17.2); WHITE BLOOD COUNT 9.9 TH/MM3 (4.0-11.0)
[2016-11-13 11:54] LABS: HEMO FLAGS DIFF FINAL
[2016-11-13] MEDS: LEVOFLOXACIN/DEXTROSE 250 MG/50 ML IV SCH (12:50)
--- NOTE | 2016-11-13 18:31 | HHI.PR ---
Subjective Remarks She is weak and nauseated..Hgb up to 9.7 after transfusion. No cough or wheezing. On O2 2L. Sats drop <85 on RA. C/O Abdominal pain Objective Vital Signs Date Time Temp Pulse Resp B/P Pulse Ox O2 Delivery O2 Flow Rate FiO2 11/13/16 16:00 96.0 78 20 124/64 94 11/13/16 12:00 97.7 73 20 127/60 94 11/13/16 08:00 93 Nasal Cannula 2.00 11/13/16 08:00 96.9 78 19 139/67 96 11/13/16 06:16 82 130/73 11/13/16 04:58 97.7 100 24 136/82 92 11/13/16 00:06 96.2 98 24 163/71 91 11/12/16 20:55 93 Nasal Cannula 2.00 11/12/16 20:37 97.2 72 22 111/61 94 I/O 11/12/16 11/12/16 11/12/16 11/13/16 11/13/16 11/13/16 07:00 15:00 23:00 07:00 15:00 23:00 Intake Total 240 ml 600 ml Balance 240 ml 600 ml Intake Oral 240 ml 600 ml # Voids 3 2 2 4 5 # Bowel Movements 2 2 Result Diagram: 11/13/16 1135 11/12/16 0510 Objective Remarks GENERAL: This obese, elderly white female who is pale and in no distress. HEENT: Head normocephalic. Pupils are reactive. Tongue is dry. Throat was clear. NECK: Supple. No bruits or thyroid enlargement or lymphadenopathy. CHEST: Distant breath sounds with few wheezes anteriorly. HEART: The heart sounds are regular S1-S2. No murmur. No S3.t ABDOMEN: Obese, protuberant without masses. No organomegaly or tenderness. Bowel sounds active. EXTREMITIES: No lesions. Peripheral pulses are diminished. Reflexes are 1+. NEUROLOGIC: No gross motor deficits. SKIN: No lesions observed. Assessment and Plan Assessment and Plan IMPRESSION 1. Bilateral lung nodules, etiology to be determined. Probable granulomas versus metastatic disease. 2. Diabetes mellitus type 2. 3. Hypertension. 4. Exogenous obesity and possible sleep apnea. 5. Possible hypothyroidism. 6. Hypertension. 7. Anemia Plan : 1. Use ventolin HFA , 2 puffs tid prn. 2. Cont antibiotics,Levaquin. 3. CBC,BMP in am 4. PET CT as OP. 5.TPN if unable to Eat. 6. GI Work up. Juan Ramon Perez MD Nov 13, 2016 18:31
[2016-11-13] MEDS: ENOXAPARIN SODIUM 40 MG/0.4 ML SYRINGE SQ SCH (20:55)
[2016-11-13] MEDS: ACETAMINOPHEN 325 MG TAB PO PRN (20:55)
[2016-11-14] VITALS (7 sets, daily range): BP systolic 108–140; BP diastolic 58–82; PULSE 68–82; RESP 18–20; TEMP 96.2–98; O2SAT 93–99
[2016-11-14] MEDS: SODIUM CHLOR 0.45% 1000 ML INJ 1,000 ML IV SCH ×3 (03:17→20:24)
[2016-11-14] MEDS: cloNIDine HCL 0.2 MG TAB PO SCH ×4 (06:00→22:07)
[2016-11-14] MEDS: INSULIN NovoLIN REGULAR SUPPLEMENTAL SCALE SQ SCH ×4 (06:02→20:24)
[2016-11-14 07:34] LABS: AUTOMATED NEUTROPHIL # 7.5 TH/MM3 (1.8-7.7); BASOPHIL % 0.2 % (0.0-2.0); EOSINOPHIL % 0.4 % (0.0-4.0); HEMATOCRIT 30.2 % (35.0-46.0); LYMPH % 12.2 % (9.0-44.0); LYMPHOCYTE # 1.2 TH/MM3 (1.0-4.8); MEAN CORPUSCULAR HEMOGLOBIN 23.1 PG (27.0-34.0); MEAN CORPUSCULAR HGB CONC 31.2 % (32.0-36.0); MONO % 9.1 % (0.0-8.0); NEUT % 78.1 % (16.0-70.0); PLATELET COUNT 494 TH/MM3 (150-450); RED BLOOD COUNT 4.08 MIL/MM3 (4.00-5.30); RED CELL DISTRIBUTION WIDTH 17.6 % (11.6-17.2); WHITE BLOOD COUNT 9.6 TH/MM3 (4.0-11.0)
[2016-11-14 07:41] LABS: CHLORIDE 101 MEQ/L (98-107); POTASSIUM 3.1 MEQ/L (3.5-5.1); SODIUM (NA) 143 MEQ/L (136-145)
[2016-11-14 07:45] LABS: ANION GAP 9 MEQ/L (5-15); HEMO FLAGS AUTO DIFF
[2016-11-14 07:46] LABS: BLOOD UREA NITROGEN 12 MG/DL (7-18)
[2016-11-14 07:48] LABS: ALT (GPT) 18 U/L (10-53)
[2016-11-14 07:49] LABS: AST (GOT) 12 U/L (15-37); GLOMERULAR FILTRATION RATE 104 ML/MIN (>89)
[2016-11-14 07:50] LABS: TOTAL BILIRUBIN ADULT 0.3 MG/DL (0.2-1.0)
[2016-11-14 07:52] LABS: ALKALINE PHOSPHATASE 75 U/L (45-117)
[2016-11-14 08:36] LABS: SCAN/DIFF AUTO DIFF CONFIRMED
[2016-11-14] MEDS: amLODIPine BESYLATE 5 MG TAB PO SCH (08:49)
[2016-11-14] MEDS: PIOGLITAZONE HCL 15 MG TAB PO SCH (08:49)
[2016-11-14] MEDS: metFORMIN HCL 500 MG TAB PO SCH (08:49)
[2016-11-14] MEDS: LISINOPRIL 5 MG TAB PO SCH ×2 (08:49→20:23)
[2016-11-14] MEDS: ALLOPURINOL 300 MG TAB PO SCH (08:50)
[2016-11-14] MEDS: PRAVASTATIN SOD 40 MG TAB PO SCH (08:50)
[2016-11-14] MEDS: CARVEDILOL 12.5 MG TAB PO SCH ×2 (08:50→20:23)
[2016-11-14] MEDS: ASPIRIN 81 MG CHEW TAB CHEW SCH (08:50)
[2016-11-14] MEDS: DOCUSATE SODIUM 50 MG/SENNA 8.6 MG TAB PO SCH ×2 (08:50→20:23)
[2016-11-14] MEDS: SODIUM CHLORIDE 0.9% FLUSH 10 ML FLUSH IV FLUSH SCH ×2 (08:50→20:23)
[2016-11-14] MEDS: PANTOPRAZOLE SODIUM 40 MG VIAL IV PUSH SCH ×2 (08:50→22:07)
--- NOTE | 2016-11-14 11:00 | HHI.PR ---
Subjective History of Present Illness Patient feel weak and tired still have nausea d/w RN Mayra. Low potassium will replace and monitor. . no acute issue. leukocytosis resolved have pulmonary nodule pulmonary input noted.. had Hemoglobin 6.9 Possible GI Bleed S/P 2 units PRBC Transfusion now Hemoglobin 9.2 and GI input noted patient refused endoscopy. patient CT Abdomen and Pelvis shows acute diverticulitis and abscess consulted general surgery and transferred to [facility]. Review of Systems Constitutional Constitutional: Fatigue, Weakness Vitals/Results Intake & Output 11/13/16 11/13/16 11/14/16 15:00 23:00 07:00 Intake Total 600 ml Balance 600 ml Intake Oral 600 ml # Voids 7 1 # Bowel Movements 2 Vital Signs Vital Signs Date Time Temp Pulse Resp B/P Pulse Ox O2 Delivery O2 Flow Rate FiO2 11/14/16 08:00 96.6 76 20 131/77 99 11/14/16 04:57 97.8 70 18 121/82 97 11/14/16 00:32 98.0 78 18 120/70 98 11/13/16 21:23 97.7 77 22 125/72 97 11/13/16 20:32 96 Nasal Cannula 2.00 11/13/16 16:00 96.0 78 20 124/64 94 11/13/16 12:00 97.7 73 20 127/60 94 CBC/BMP: 11/14/16 0650 11/14/16 0650 Lab Results Laboratory Tests Test 11/13/16 11/14/16 11:35 06:50 White Blood Count 9.9 TH/MM3 9.6 TH/MM3 Red Blood Count 4.02 MIL/MM3 4.08 MIL/MM3 Hemoglobin 9.2 GM/DL 9.4 GM/DL Hematocrit 29.6 % 30.2 % Mean Corpuscular Volume 73.6 FL 74.0 FL Mean Corpuscular Hemoglobin 22.9 PG 23.1 PG Mean Corpuscular Hemoglobin 31.1 % 31.2 % Concent Red Cell Distribution Width 17.4 % 17.6 % Platelet Count 461 TH/MM3 494 TH/MM3 Mean Platelet Volume 6.2 FL 6.4 FL Neutrophils (%) (Auto) 77.5 % 78.1 % Lymphocytes (%) (Auto) 12.3 % 12.2 % Monocytes (%) (Auto) 9.4 % 9.1 % Eosinophils (%) (Auto) 0.5 % 0.4 % Basophils (%) (Auto) 0.3 % 0.2 % Neutrophils # (Auto) 7.8 TH/MM3 7.5 TH/MM3 Lymphocytes # (Auto) 1.2 TH/MM3 1.2 TH/MM3 Monocytes # (Auto) 0.9 TH/MM3 0.9 TH/MM3 Eosinophils # (Auto) 0.0 TH/MM3 0.0 TH/MM3 Basophils # (Auto) 0.0 TH/MM3 0.0 TH/MM3 CBC Comment DIFF FINAL AUTO DIFF Differential Comment AUTO DIFF CONFIRMED Sodium Level 143 MEQ/L Potassium Level 3.1 MEQ/L Chloride Level 101 MEQ/L Carbon Dioxide Level 33.0 MEQ/L Anion Gap 9 MEQ/L Blood Urea Nitrogen 12 MG/DL Creatinine 0.57 MG/DL Estimat Glomerular Filtration 104 ML/MIN Rate Random Glucose 132 MG/DL Calcium Level 8.1 MG/DL Total Bilirubin 0.3 MG/DL Aspartate Amino Transf 12 U/L (AST/SGOT) Alanine Aminotransferase 18 U/L (ALT/SGPT) Alkaline Phosphatase 75 U/L Total Protein 5.7 GM/DL Albumin 1.5 GM/DL Physical Exam General General Appearance: Well Developed, Well Nourished, No Acute Distress, Comfortable Eyes Eye Exam: Pupils Equal, Pupils Reactive, Sclera White, Extraocular Movement Intact Throat Throat Exam: Oral Mucosa [place] & Moist, Oral Pharynx Normal Neck Neck Exam: Neck Supple, Trachea Midline Pulmonary Resp Exam: Clear Bilaterally, Breath Sounds Equal, No Distress Cardiology CV Exam: Regular, Normal Sinus Rhythm Gastrointestinal/Abdomen GI Exam: Soft, Non-Tender, Bowel Sounds Present Musculoskeletal MS Exam: Normal Tone Integumentary Skin Exam: Clear, Warm, Dry, Intact Extremeties Extremities Exam: No Edema Neurologic Neuro Exam: Alert, Awake, Oriented, Speech Clear, Moving All Extremities, No Focal Deficits Psychiatric Psych Exam: Appropriate Responses VTE Prophylaxis VTE Prophylaxis Meds: Lovenox PUD Prophylasis PUD Prophylaxis: Protonix Assessment/Plan Assessment/Plan ASSESSMENT AND PLAN: This is a 71-year female who came to the emergency room diagnosed with 1. Nausea with hypoglycemia. Glucose is normal now. The patient is on Zofran 4 milligrams IV q. 6-hour p.r.n. for nausea and vomiting. 2. Leukocytosis, resolved... Chest x-ray does not show anything acute. check CT scan of the chest negative for pneumonia... have pulmonary nodule pulmonary input noted. Blood cultures x2 positive for gram negative rods. 3. Diabetes mellitus. ADA 1800 calorie diet. NovoLog. sliding scale. Check blood sugars a.c. and h.s. Will monitor blood sugar. 4. Left history of gout. Continue home medication. 5. History of hypertension. Continue medication. Monitor blood pressure. 6. Hyperlipidemia. Continue lovastatin 40 milligrams p.o. daily. 7. DVT prophylaxis. Lovenox 40 milligrams. 8. GI prophylaxis Protonix 40 milligrams p.o. twice a day. 9. Pulmonary nodule pulmonary input noted. 10. blood culture positive on Levaquin 500 mg IV Daily and infectious disease input noted . CT Abdomen and Pelvis shows acute diverticulitis and abscess consulted general surgery and transferred to [facility]. added flagyl 500 mg IV Every 8 hrs. 11. Hemoglobin 6.9 Possible GI Bleed had Hemoglobin 6.9 Possible GI Bleed S/ P 2 units PRBC Transfusion now Hemoglobin 9.2 fecal occult blood test x 1 negative. 12. Low potassium will replace and monitor. We are going to manage the patient on a daily basis and make recommendations on a daily basis. Check CBC and comprehensive metabolic profile in the morning. Discussed Condition with: Patient Reed Up MD Nov 14, 2016 11:00
--- NOTE | 2016-11-14 11:01 | PQ ---
Physician Query Response Document PATIENT: RAMAN ALLEN : 1945 ADMIT DATE: 11/08/2016 1:57 PM DISCH DATE: RESPONDING PROVIDER #: EAhmed QUERY TEXT: Anemia Type Anemia is documented in the Medical Record. Please specify the cause (includes suspected or probable cause) Such as: -- Due to acute blood loss -- Due to chronic blood loss -- Due to iron deficiency -- Due to postoperative blood loss -- Due to chronic disease -- Other, please specify The patient's Clinical Indicators include: INITIAL Hgb 8.3 AND HCT 27.7 Hgb 6.9 and Hct 22 11/12/16 Query created by: Stephanie Collado on 11/12/2016 3:48 PM RESPONSE TEXT: Anemia due to chronic diseases. Electronically signed by: Reed Up MD 11/14/2016 10:58 AM
[2016-11-14] MEDS ORDERED: IOHEXOL 350 MG/ML 10 ML VIAL (for RAD DIAG) IV ONE (11:05)
[2016-11-14] MEDS: METFORMIN HOLD POST IV CONTRAST SCH (11:05)
--- NOTE | 2016-11-14 13:01 | RADHPO ---
EXAM DATE/TIME: 11/14/2016 10:54 [facility] COMPARISON: CT THORAX W/O CONTRAST, November 08, 2016, 19:23. INDICATIONS : Lower abdominal pain. IV CONTRAST: 75 cc Omnipaque 350 (iohexol) IV ORAL CONTRAST: Patient refused oral contrast. RADIATION DOSE: 21.91 CTDIvol (mGy) MEDICAL HISTORY : Hypertension. Diabetes. SURGICAL HISTORY : Cholecystectomy. Hysterectomy. ENCOUNTER: Initial ACUITY: 3 days PAIN SCALE: 3/10 LOCATION: lower quadrant TECHNIQUE: Volumetric scanning of the abdomen and pelvis was performed. Using automated exposure control and ad justment of the mA and/or kV according to patient size, radiation dose was kept as low as reasonably achievable to obtain optimal diagnostic quality images. FINDINGS: LOWER LUNGS: Small bilateral pleural effusions. LIVER: Homogeneous density without lesion. There is no dilation of the biliary tree. Status post cholecyste ctomy. SPLEEN: Normal size without lesion. PANCREAS: Within normal limits. KIDNEYS: 1.5 cm left upper pole cyst. No evidence of hydronephrosis. ADRENAL GLANDS: 2.3 cm nonspecific left adrenal nodule again seen. VASCULAR: Diffuse arterial calcification. Aortic diameter are within normal limits. BOWEL/MESENTERY: Severe circumferential wall thickening and severe surrounding inflammatory changes of the proximal si gmoid colon involving an approximately 10 cm segment. Multiple diverticula are seen in this region. N umerous colonic diverticula are identified diffusely in the sigmoid findings indicate acute diverticu litis. There is an adjacent peripherally enhancing gas and fluid collection indicating an abscess jus t posterior to the area of diverticulitis involving the left psoas muscle. This measures 4.3 x 3.6 cm in axial dimensions and 9.5 cm in craniocaudal dimension. No evidence of bowel dilatation. No free a ir. ABDOMINAL WALL: 8.2 cm paraumbilical fat containing hernia. RETROPERITONEUM: Left-sided psoas abscess as described above. BLADDER: No wall thickening or mass. REPRODUCTIVE: Within normal limits. INGUINAL: There is no lymphadenopathy or hernia. MUSCULOSKELETAL: Within normal limits for patient age. CONCLUSION: 1. Acute sigmoid diverticulitis with adjacent abscess involving the psoas muscle. 2. Paraumbilical fat containing hernia. 3. 2 cm left adrenal nodule, nonspecific. Dmitri Huynh MD on November 14, 2016 at 12:51 Board Certified Radiologist. This report was verified electronically.
[2016-11-14] MEDS: LEVOFLOXACIN/DEXTROSE 250 MG/50 ML IV SCH (13:51)
[2016-11-14] MEDS: METRONIDAZOLE 500 MG/100 ML ISONTONIC SOLN IV SCH ×2 (13:55→22:04)
--- NOTE | 2016-11-14 14:39 | HHI.PR ---
Subjective Remarks She is still weak and nauseated..Hgb up to 9.7 after transfusion. No cough or wheezing. On O2 2L. . C/O Abdominal pain and nausea.Poor intake Objective Vital Signs Date Time Temp Pulse Resp B/P Pulse Ox O2 Delivery O2 Flow Rate FiO2 11/14/16 12:00 96.2 71 20 108/58 98 11/14/16 08:00 96.6 76 20 131/77 99 11/14/16 08:00 93 Nasal Cannula 2.00 11/14/16 04:57 97.8 70 18 121/82 97 11/14/16 00:32 98.0 78 18 120/70 98 11/13/16 21:23 97.7 77 22 125/72 97 11/13/16 20:32 96 Nasal Cannula 2.00 11/13/16 16:00 96.0 78 20 124/64 94 I/O 11/13/16 11/13/16 11/13/16 11/14/16 11/14/16 11/14/16 07:00 15:00 23:00 07:00 15:00 23:00 Intake Total 600 ml Balance 600 ml Intake Oral 600 ml # Voids 4 7 1 # Bowel Movements 2 Result Diagram: 11/14/16 0650 11/14/16 0650 Objective Remarks GENERAL: This obese, elderly white female who is pale and in no distress. HEENT: Head normocephalic. Pupils are reactive. Tongue is dry. Throat was clear. NECK: Supple. No bruits or thyroid enlargement or lymphadenopathy. CHEST: Distant breath sounds with few wheezes anteriorly. HEART: The heart sounds are regular S1-S2. No murmur. No S3.t ABDOMEN: Obese, protuberant without masses. No organomegaly or tenderness. Bowel sounds active. EXTREMITIES: No lesions. no edema. Peripheral pulses are diminished. Reflexes are 1+. NEUROLOGIC: No gross motor deficits. SKIN: No lesions observed. Assessment and Plan Assessment and Plan IMPRESSION 1. Bilateral lung nodules, etiology to be determined. Probable granulomas versus metastatic disease. 2. Diabetes mellitus type 2. 3. Hypertension. 4. Exogenous obesity and possible sleep apnea. 5. Possible hypothyroidism. 6. Hypertension. 7. Anemia Plan : 1. Use ventolin HFA , 2 puffs tid prn. 2. Cont antibiotics,Levaquin. 3. CBC,BMP in am 4. PET CT as OP. 5.TPN if unable to Eat. 6. GI Work up.EGD. Juan Ramon Perez MD Nov 14, 2016 14:39
[2016-11-14] MEDS: ACETAMINOPHEN 325 MG TAB PO PRN (16:36)
[2016-11-14] MEDS: ENOXAPARIN SODIUM 40 MG/0.4 ML SYRINGE SQ SCH (20:23)
--- NOTE | 2016-11-14 21:29 | HHI.IDPN ---
Subjective Subjective Remarks ID FU DR CORTEZAAC Nausea states her abdomen is hurting No fever Antibiotics Levofloxacin Lines Peripheral Past Medical History HTN Gout Diabetes Allergies: Coded Allergies: No Known Allergies (Unverified , 11/08/16) Objective . Vital Signs Date Time Temp Pulse Resp B/P Pulse Ox O2 Delivery O2 Flow Rate FiO2 11/14/16 20:00 93 Nasal Cannula 2.00 11/14/16 20:00 97.2 82 20 131/58 96 11/14/16 20:00 Nasal Cannula 2.00 11/14/16 16:00 97.0 74 20 140/70 97 11/14/16 12:00 96.2 71 20 108/58 98 11/14/16 08:00 96.6 76 20 131/77 99 11/14/16 08:00 93 Nasal Cannula 2.00 11/14/16 04:57 97.8 70 18 121/82 97 11/14/16 00:32 98.0 78 18 120/70 98 11/13/16 21:23 97.7 77 22 125/72 97 11/13/16 11/13/16 11/14/16 15:00 23:00 07:00 Intake Total 600 ml Balance 600 ml Intake Oral 600 ml # Voids 7 1 # Bowel Movements 2 . Laboratory Tests Test 11/13/16 11/14/16 11:35 06:50 White Blood Count 9.9 TH/MM3 9.6 TH/MM3 Red Blood Count 4.02 MIL/MM3 4.08 MIL/MM3 Hemoglobin 9.2 GM/DL 9.4 GM/DL Hematocrit 29.6 % 30.2 % Mean Corpuscular Volume 73.6 FL 74.0 FL Mean Corpuscular Hemoglobin 22.9 PG 23.1 PG Mean Corpuscular Hemoglobin 31.1 % 31.2 % Concent Red Cell Distribution Width 17.4 % 17.6 % Platelet Count 461 TH/MM3 494 TH/MM3 Mean Platelet Volume 6.2 FL 6.4 FL Neutrophils (%) (Auto) 77.5 % 78.1 % Lymphocytes (%) (Auto) 12.3 % 12.2 % Monocytes (%) (Auto) 9.4 % 9.1 % Eosinophils (%) (Auto) 0.5 % 0.4 % Basophils (%) (Auto) 0.3 % 0.2 % Neutrophils # (Auto) 7.8 TH/MM3 7.5 TH/MM3 Lymphocytes # (Auto) 1.2 TH/MM3 1.2 TH/MM3 Monocytes # (Auto) 0.9 TH/MM3 0.9 TH/MM3 Eosinophils # (Auto) 0.0 TH/MM3 0.0 TH/MM3 Basophils # (Auto) 0.0 TH/MM3 0.0 TH/MM3 CBC Comment DIFF FINAL AUTO DIFF Differential Comment AUTO DIFF CONFIRMED Laboratory Tests Test 11/14/16 06:50 Sodium Level 143 MEQ/L Potassium Level 3.1 MEQ/L Chloride Level 101 MEQ/L Carbon Dioxide Level 33.0 MEQ/L Anion Gap 9 MEQ/L Blood Urea Nitrogen 12 MG/DL Creatinine 0.57 MG/DL Estimat Glomerular Filtration 104 ML/MIN Rate Random Glucose 132 MG/DL Calcium Level 8.1 MG/DL Total Bilirubin 0.3 MG/DL Aspartate Amino Transf 12 U/L (AST/SGOT) Alanine Aminotransferase 18 U/L (ALT/SGPT) Alkaline Phosphatase 75 U/L Total Protein 5.7 GM/DL Albumin 1.5 GM/DL Physical Exam Obese patient Pallor present No icterus No thrush Chest - Breath sounds bilaterally decreased Heart S 1 S2 normal Abdomen- Some distension, Soft , bowel sounds present Awake some confusion No motor deficit Assessment & Plan Diagnosis: (1) GI bleed (2) Bacteremia due to coagulase-negative Staphylococcus Plan: LIKELY CONTAMINTION REPEAT BC AND FU (3) Diverticulitis of both large and small intestine with abscess Plan: CT ABD NOTED ABSCESS MAY NEED DRAINAGE STOP LEVAQUIN START UNASYN NOTIFY ID [facility] ONCE TRANSFERRED TO [facility] ' (4) Pulmonary nodules/lesions, multiple Problem Qualifiers (1) GI bleed: Qualified Code: K92.2 - Gastrointestinal hemorrhage, unspecified gastrointestinal hemorrhage type Keena Ulrich Nov 14, 2016 21:29
[2016-11-14] MEDS: AMPICILLIN/SULBAC 3 GM/NS 100 ML IV SCH ×2 (22:04)
[2016-11-15] VITALS (8 sets, daily range): BP systolic 110–133; BP diastolic 49–76; PULSE 64–102; RESP 16–20; TEMP 95.6–97.3; O2SAT 68–98
[2016-11-15 05:28] LABS: AUTOMATED NEUTROPHIL # 7.6 TH/MM3 (1.8-7.7); BASOPHIL % 0.3 % (0.0-2.0); EOSINOPHIL # 0.1 TH/MM3 (0-0.4); EOSINOPHIL % 0.6 % (0.0-4.0); HEMATOCRIT 30.7 % (35.0-46.0); HEMO FLAGS DIFF FINAL; LYMPH % 11.4 % (9.0-44.0); LYMPHOCYTE # 1.1 TH/MM3 (1.0-4.8); MEAN CELL VOLUME 75.1 FL (80.0-100.0); MEAN CORPUSCULAR HEMOGLOBIN 22.7 PG (27.0-34.0); MEAN CORPUSCULAR HGB CONC 30.3 % (32.0-36.0); MONO % 8.3 % (0.0-8.0); NEUT % 79.4 % (16.0-70.0); PLATELET COUNT 418 TH/MM3 (150-450); RED BLOOD COUNT 4.08 MIL/MM3 (4.00-5.30); RED CELL DISTRIBUTION WIDTH 19.1 % (11.6-17.2); WHITE BLOOD COUNT 9.5 TH/MM3 (4.0-11.0)
[2016-11-15 05:38] LABS: INTERNATIONAL NORMALIZED RATIO 1.3 RATIO; PROTHROMBIN TIME - PATIENT 14.4 SEC (9.8-11.6)
[2016-11-15 05:50] LABS: ALT (GPT) 18 U/L (10-53); ANION GAP 8 MEQ/L (5-15); AST (GOT) 13 U/L (15-37); BICARBONATE 32.6 MEQ/L (21.0-32.0); BLOOD UREA NITROGEN 13 MG/DL (7-18); CHLORIDE 101 MEQ/L (98-107); GLOMERULAR FILTRATION RATE 121 ML/MIN (>89); POTASSIUM 3.1 MEQ/L (3.5-5.1); SODIUM (NA) 142 MEQ/L (136-145)
[2016-11-15 05:52] LABS: ALKALINE PHOSPHATASE 71 U/L (45-117); TOTAL BILIRUBIN ADULT 0.2 MG/DL (0.2-1.0)
[2016-11-15] MEDS: cloNIDine HCL 0.2 MG TAB PO SCH ×3 (05:53→22:00)
[2016-11-15] MEDS: METRONIDAZOLE 500 MG/100 ML ISONTONIC SOLN IV SCH ×3 (05:54→22:40)
[2016-11-15] MEDS: AMPICILLIN/SULBAC 3 GM/NS 100 ML IV SCH ×8 (05:54→22:15)
[2016-11-15] MEDS: INSULIN NovoLIN REGULAR SUPPLEMENTAL SCALE SQ SCH ×4 (06:00→21:00)
[2016-11-15] MEDS: metFORMIN HCL 500 MG TAB PO SCH (07:49)
[2016-11-15] MEDS: SODIUM CHLORIDE 0.9% FLUSH 10 ML FLUSH IV FLUSH SCH ×2 (07:52→22:19)
[2016-11-15] MEDS: DOCUSATE SODIUM 50 MG/SENNA 8.6 MG TAB PO SCH ×2 (07:52→22:25)
[2016-11-15] MEDS: ASPIRIN 81 MG CHEW TAB CHEW SCH (07:52)
[2016-11-15] MEDS: PRAVASTATIN SOD 40 MG TAB PO SCH (07:52)
[2016-11-15] MEDS: LISINOPRIL 5 MG TAB PO SCH ×2 (07:53→22:33)
[2016-11-15] MEDS: amLODIPine BESYLATE 5 MG TAB PO SCH (07:53)
[2016-11-15] MEDS: ALLOPURINOL 300 MG TAB PO SCH (07:53)
[2016-11-15] MEDS: CARVEDILOL 12.5 MG TAB PO SCH ×2 (07:53→22:24)
[2016-11-15] MEDS: PIOGLITAZONE HCL 15 MG TAB PO SCH (07:56)
--- NOTE | 2016-11-15 08:05 | HHI.PR ---
Subjective History of Present Illness Patient feel weak and tired still have nausea resolved. . no acute issue. leukocytosis better have pulmonary nodule pulmonary input noted.. had Hemoglobin 6.9 Possible GI Bleed S/P 2 units PRBC Transfusion now Hemoglobin 9.2 and GI input noted patient refused endoscopy...Low potassium will replace and monitor. check Magnesium level.. CT Abdomen and Pelvis shows acute diverticulitis and abscess General surgery input noted going for abscess drainage by Intervential radiology ...on Unysn and flagyl per ID Recomendation. Review of Systems Constitutional Constitutional: Fatigue, Weakness Vitals/Results Intake & Output 11/14/16 11/14/16 11/15/16 15:00 23:00 07:00 Intake Total 800 ml 1150 ml 0 ml Balance 800 ml 1150 ml 0 ml Intake Oral 800 ml 420 ml 0 ml IV Total 730 ml # Voids 7 2 4 # Bowel Movements 1 0 Vital Signs Vital Signs Date Time Temp Pulse Resp B/P Pulse Ox O2 Delivery O2 Flow Rate FiO2 11/15/16 04:00 96.8 102 17 133/76 98 11/15/16 00:05 Nasal Cannula 2.00 11/15/16 00:00 95.6 78 17 128/59 97 11/14/16 22:00 115/59 11/14/16 20:00 93 Nasal Cannula 2.00 11/14/16 20:00 68 11/14/16 20:00 97.2 82 20 131/58 96 11/14/16 20:00 Nasal Cannula 2.00 11/14/16 16:00 97.0 74 20 140/70 97 11/14/16 12:00 96.2 71 20 108/58 98 CBC/BMP: 11/15/16 0341 11/15/16 0341 Lab Results Laboratory Tests Test 11/15/16 03:41 White Blood Count 9.5 TH/MM3 Red Blood Count 4.08 MIL/MM3 Hemoglobin 9.3 GM/DL Hematocrit 30.7 % Mean Corpuscular Volume 75.1 FL Mean Corpuscular Hemoglobin 22.7 PG Mean Corpuscular Hemoglobin 30.3 % Concent Red Cell Distribution Width 19.1 % Platelet Count 418 TH/MM3 Mean Platelet Volume 6.4 FL Neutrophils (%) (Auto) 79.4 % Lymphocytes (%) (Auto) 11.4 % Monocytes (%) (Auto) 8.3 % Eosinophils (%) (Auto) 0.6 % Basophils (%) (Auto) 0.3 % Neutrophils # (Auto) 7.6 TH/MM3 Lymphocytes # (Auto) 1.1 TH/MM3 Monocytes # (Auto) 0.8 TH/MM3 Eosinophils # (Auto) 0.1 TH/MM3 Basophils # (Auto) 0.0 TH/MM3 CBC Comment DIFF FINAL Differential Comment Prothrombin Time 14.4 SEC Prothromb Time International 1.3 RATIO Ratio Sodium Level 142 MEQ/L Potassium Level 3.1 MEQ/L Chloride Level 101 MEQ/L Carbon Dioxide Level 32.6 MEQ/L Anion Gap 8 MEQ/L Blood Urea Nitrogen 13 MG/DL Creatinine 0.50 MG/DL Estimat Glomerular Filtration 121 ML/MIN Rate Random Glucose 123 MG/DL Calcium Level 8.3 MG/DL Total Bilirubin 0.2 MG/DL Aspartate Amino Transf 13 U/L (AST/SGOT) Alanine Aminotransferase 18 U/L (ALT/SGPT) Alkaline Phosphatase 71 U/L Total Protein 5.6 GM/DL Albumin 1.6 GM/DL Physical Exam General General Appearance: Well Developed, Well Nourished, No Acute Distress, Comfortable Eyes Eye Exam: Pupils Equal, Pupils Reactive, Sclera White, Extraocular Movement Intact Throat Throat Exam: Oral Mucosa [place] & Moist, Oral Pharynx Normal Neck Neck Exam: Neck Supple, Trachea Midline Pulmonary Resp Exam: Clear Bilaterally, Breath Sounds Equal, No Distress Cardiology CV Exam: Regular, Normal Sinus Rhythm Gastrointestinal/Abdomen GI Exam: Soft, Non-Tender, Bowel Sounds Present Musculoskeletal MS Exam: Normal Tone Integumentary Skin Exam: Clear, Warm, Dry, Intact Extremeties Extremities Exam: No Edema Neurologic Neuro Exam: Alert, Awake, Oriented, Speech Clear, Moving All Extremities, No Focal Deficits Psychiatric Psych Exam: Appropriate Responses VTE Prophylaxis VTE Prophylaxis Meds: Lovenox PUD Prophylasis PUD Prophylaxis: Protonix Assessment/Plan Assessment/Plan ASSESSMENT AND PLAN: This is a 71-year female who came to the emergency room diagnosed with 1. Nausea with hypoglycemia. Glucose is normal now. The patient is on Zofran 4 milligrams IV q. 6-hour p.r.n. for nausea and vomiting. 2. Leukocytosis, better... Chest x-ray does not show anything acute. check CT scan of the chest negative for pneumonia... have pulmonary nodule pulmonary input noted. Blood cultures x2 positive for gram negative rods. 3. Diabetes mellitus. ADA 1800 calorie diet. NovoLog. sliding scale. Check blood sugars a.c. and h.s. Will monitor blood sugar. 4. Left history of gout. Continue home medication. 5. History of hypertension. Continue medication. Monitor blood pressure. 6. Hyperlipidemia. Continue lovastatin 40 milligrams p.o. daily. 7. DVT prophylaxis. Lovenox 40 milligrams. 8. GI prophylaxis Protonix 40 milligrams p.o. twice a day. 9. Pulmonary nodule pulmonary input noted. 10. blood culture positive on Unysn and flagyl per ID Recomendation. 11. Hemoglobin 6.9 Possible GI Bleed had Hemoglobin 6.9 Possible GI Bleed S/ P 2 units PRBC Transfusion now Hemoglobin 9.2 fecal occult blood test x 1 negative.. H and H stable.. 12. .Hypokalemia will replace and monitor. check Magnesium level 13. CT Abdomen and Pelvis shows acute diverticulitis and abscess General surgery input noted going for abscess drainage by Intervential radiology ...on Unysn and flagyl per ID Recomendation. We are going to manage the patient on a daily basis and make recommendations on a daily basis. Check CBC and comprehensive metabolic profile in the morning. Discussed Condition with: Patient Reed Up MD Nov 15, 2016 08:05
--- NOTE | 2016-11-15 08:38 | PD.CONS ---
HPI Service General Surgery Consult Requested By Dr. Up Reason for Consult Abdominal abscess Primary Care Physician Radha Barraza History of Present Illness Mrs. Keyes is a 71-year-old female being treated for nausea, anemia, bacteremia. She had a CT abdomen and pelvis yesterday which revealed diverticulitis with associated abscess. She has a history of hysterectomy and cholecystectomy. She has never had a colonoscopy. Due to her anemia she was offered endoscopy but refused. She did receive 2 units of blood during this hospitalization. She is being treated and evaluated by pulmonology for bilateral pulmonary nodules. Review of Systems Constitutional: DENIES: Fever, Chills Eyes: DENIES: Eye inflammation, Eye pain Respiratory: DENIES: Wheezing Cardiovascular: DENIES: Chest pain Gastrointestinal: COMPLAINS OF: Abdominal pain, Nausea Integumentary: DENIES: Pruritus, Rash Neurologic: DENIES: Seizures, Tremor Past Family Social History Past Medical History Hypertension Gout Diabetes mellitus Past Surgical History Hysterectomy Cholecystectomy Reported Medications Reported Meds & Active Scripts Active Reported Fish Oil (Hutchinson-3 Fatty Acids) 1,000 Mg Cap 1 Tab PO DAILY Aspirin 81 Mg Chew 81 Mg CHEW DAILY Lovastatin 40 Mg Tab 40 Mg PO DAILY Amlodipine (Amlodipine Besylate) 5 Mg Tab 5 Mg PO DAILY Pioglitazone (Pioglitazone HCl) 15 Mg Tab 15 Mg PO DAILY Metformin (Metformin HCl) 500 Mg Tab 500 Mg PO DAILY With a meal Carvedilol 25 Mg Tab 25 Mg PO BID Allopurinol 300 Mg Tab 300 Mg PO DAILY Lisinopril 5 Mg Tab 5 Mg PO BID Clonidine (Clonidine HCl) 0.2 Mg Tab 0.2 Mg PO Q8HR Allergies: Coded Allergies: No Known Allergies (Unverified , 11/08/16) Active Ordered Medications Current Medications Medications (Trade) Dose Ordered Sig/Livia Route Start Time Stop Time Status Last Admin (06/14 NS 1000 ml Inj) 1,000 ml @ 75 mls/hr [id number] IV 11/08/16 13:57 11/14/16 20:24 (NS Flush) 2 ml UNSCH PRN IV FLUSH 11/08/16 14:00 (NS Flush) 2 ml BID IV FLUSH 11/08/16 21:00 11/14/16 20:23 (Tylenol) 650 mg Q4H PRN PO 11/08/16 14:00 11/12/16 16:54 (Zofran Inj) 4 mg Q6H PRN IVP 11/08/16 14:00 11/10/16 08:50 (Narcan Inj) 0.4 mg UNSCH PRN IV 11/08/16 14:00 (Kathy-Colace) 1 tab BID PO 11/08/16 21:00 11/15/16 07:52 (Milk Of Magnesia Liq) 30 ml Q12H PRN PO 11/08/16 14:00 (Senokot) 17.2 mg Q12H PRN PO 11/08/16 14:00 (Dulcolax Supp) 10 mg DAILY PRN RECTAL 11/08/16 14:00 (Lactulose Liq) 30 ml DAILY PRN PO 11/08/16 14:00 (Protonix Inj) 40 mg Q12H IV PUSH 11/08/16 23:00 11/14/16 22:07 (D50w (Vial) Inj) 50 ml UNSCH PRN IV 11/08/16 14:00 (Glucagon Inj) 1 mg UNSCH PRN OTHER 11/08/16 14:00 (Lovenox Inj) 40 mg Q24H SQ 11/08/16 20:00 11/14/16 20:23 (Zyloprim) 300 mg DAILY PO 11/09/16 09:00 11/14/16 08:50 (Norvasc) 5 mg DAILY PO 11/09/16 09:00 11/14/16 08:49 (Aspirin Chew) 81 mg DAILY CHEW 11/09/16 09:00 11/15/16 07:52 (Coreg) 25 mg BID PO 11/08/16 21:00 11/14/16 20:23 (Catapres) 0.2 mg Q8HR PO 11/08/16 22:00 11/15/16 05:53 (Prinivil) 5 mg BID PO 11/08/16 21:00 11/14/16 20:23 (Pravachol) 40 mg DAILY PO 11/09/16 09:00 11/15/16 07:52 (Glucophage) 500 mg DAILY PO 11/09/16 09:00 11/14/16 08:49 (Actos) 15 mg DAILY PO 11/09/16 09:00 11/15/16 07:56 (Proair Hfa Inh) 2 puff Q6H PRN INH 11/09/16 18:00 (Tylenol) 650 mg Q6H PRN PO 11/13/16 21:00 11/14/16 16:36 Miscellaneous Information HOLD METFORMIN FOR... Q24H .XX 11/14/16 11:05 11/16/16 11:04 11/14/16 11:05 Metronidazole 100 ml @ 100 mls/hr Q8H IV 11/14/16 14:00 11/15/16 05:54 (Unasyn Inj/NS Inj) 100 ml @ 200 mls/hr Q6H IV 11/14/16 22:00 11/15/16 05:54 Family History Noncontributory Social History No alcohol tobacco or drug use. Physical Exam Vital Signs Vital Signs Date Time Temp Pulse Resp B/P Pulse Ox O2 Delivery O2 Flow Rate FiO2 11/15/16 04:00 96.8 102 17 133/76 98 11/15/16 00:05 Nasal Cannula 2.00 11/15/16 00:00 95.6 78 17 128/59 97 11/14/16 22:00 115/59 11/14/16 20:00 93 Nasal Cannula 2.00 11/14/16 20:00 68 11/14/16 20:00 97.2 82 20 131/58 96 11/14/16 20:00 Nasal Cannula 2.00 11/14/16 16:00 97.0 74 20 140/70 97 11/14/16 12:00 96.2 71 20 108/58 98 Physical Exam GENERAL: Awake and alert. No acute distress. Cooperative. Flat affect. Obese. HEAD: Normocephalic. Atraumatic. EYES: Pupils equal round and reactive to light bilaterally. No scleral icterus. CHEST: Lungs clear to auscultation bilaterally with no wheezing or rhonchi. No respiratory distress. CARDIOVASCULAR: Regular rate and rhythm. ABDOMEN: Well-healed right subcostal incision. Midline laparotomy incision with nontender and soft ventral hernia. Moderate tenderness to deep palpation in the left lower quadrant EXTREMITIES: No cyanosis or edema. SKIN: Warm, dry, nonjaundiced. Hirsute. Laboratory Laboratory Tests Test 11/15/16 03:41 White Blood Count 9.5 Red Blood Count 4.08 Hemoglobin 9.3 Hematocrit 30.7 Mean Corpuscular Volume 75.1 Mean Corpuscular Hemoglobin 22.7 Mean Corpuscular Hemoglobin 30.3 Concent Red Cell Distribution Width 19.1 Platelet Count 418 Mean Platelet Volume 6.4 Neutrophils (%) (Auto) 79.4 Lymphocytes (%) (Auto) 11.4 Monocytes (%) (Auto) 8.3 Eosinophils (%) (Auto) 0.6 Basophils (%) (Auto) 0.3 Neutrophils # (Auto) 7.6 Lymphocytes # (Auto) 1.1 Monocytes # (Auto) 0.8 Eosinophils # (Auto) 0.1 Basophils # (Auto) 0.0 CBC Comment DIFF FINAL Differential Comment Prothrombin Time 14.4 Prothromb Time International 1.3 Ratio Sodium Level 142 Potassium Level 3.1 Chloride Level 101 Carbon Dioxide Level 32.6 Anion Gap 8 Blood Urea Nitrogen 13 Creatinine 0.50 Estimat Glomerular Filtration 121 Rate Random Glucose 123 Calcium Level 8.3 Total Bilirubin 0.2 Aspartate Amino Transf 13 (AST/SGOT) Alanine Aminotransferase 18 (ALT/SGPT) Alkaline Phosphatase 71 Total Protein 5.6 Albumin 1.6 Date/Time Procedure Status Source Growth 11/11/16 10:35 Stool Occult Blood (ADALI) - Final Complete Stool Stool HEMOCCULT NEGATIVE Result Diagram: 11/15/16 0341 11/15/16 0341 Imaging Last Impressions Abdomen/Pelvis CT 11/14/16 0000 Signed Impressions: Service Date/Time: Monday, November 14, 2016 10:54 - CONCLUSION: 1. Acute sigmoid diverticulitis with adjacent abscess involving the psoas muscle. 2. Paraumbilical fat containing hernia. 3. 2 cm left adrenal nodule, nonspecific. Dmitri Huynh MD Chest X-Ray 11/12/16 0600 Signed Impressions: Service Date/Time: Saturday, November 12, 2016 05:47 - CONCLUSION: Cardiomegaly. No acute cardiopulmonary disease. Semaj Coker MD Chest CT 11/08/16 0000 Signed Impressions: Service Date/Time: Tuesday, November 08, 2016 19:23 - CONCLUSION: 1. Innumerable noncalcified subcentimeter pulmonary nodules with the largest measuring 8 mm in the left lower lobe posteriorly. Although these are nonspecific metastatic disease remains in the differential. PET/CT scan may be helpful for further evaluation of the largest of these nodules if clinically indicated. 2. Coronary artery calcifications. 3. Left adrenal mass measuring 2.7 x 2.5 cm which is nonspecific. Ketan Schofield MD Assessment and Plan Assessment and Plan 71 yo F with diverticulitis with associated abscess, adrenal adenoma NPO. IR consult for abscess drainage. Cont IV antibiotics. Can have clears after procedure. She may need workup for the adrenal adenoma as an outpatient. Charles Garay MD Nov 15, 2016 08:38
[2016-11-15] MEDS ORDERED: POTASSIUM CHLORIDE 20 MEQ PWD PACKET PO ONE (11:00)
[2016-11-15] MEDS: PANTOPRAZOLE SODIUM 40 MG VIAL IV PUSH SCH ×2 (11:00→22:36)
[2016-11-15] MEDS: METFORMIN HOLD POST IV CONTRAST SCH (11:05)
[2016-11-15] MEDS: SODIUM CHLORIDE 0.9% FLUSH 10 ML FLUSH IV FLUSH PRN (11:06)
[2016-11-15] MEDS: SODIUM CHLOR 0.45% 1000 ML INJ 1,000 ML IV SCH (13:44)
[2016-11-15] MEDS ORDERED: fentaNYL CITRATE 250 MCG/5 ML AMP ONE (19:01)
[2016-11-15] MEDS ORDERED: LORazepam 2 MG/ML VIAL ONE (19:01)
[2016-11-15] MEDS ORDERED: LIDOCAINE HCL 1% 20 ML VIAL ONE (19:06)
[2016-11-15 19:22] LABS: TRANSFERRIN IRON PROFILE 118 MG/DL (200-360)
[2016-11-15 19:25] LABS: FERRITIN 178 NG/ML (8-252)
--- NOTE | 2016-11-15 19:37 | HHI.PR ---
Subjective Remarks She is still weak and nauseated..Hgb up to 9.3 after transfusion. No cough or wheezing. On O2 2L and sat 96. . C/O Abdominal pain and nausea. Poor intake Objective Vital Signs Date Time Temp Pulse Resp B/P Pulse Ox O2 Delivery O2 Flow Rate FiO2 11/15/16 18:08 97 Nasal Cannula 1.00 11/15/16 16:00 97.0 64 20 116/49 68 11/15/16 12:00 97.3 69 20 129/56 95 11/15/16 11:00 96 Nasal Cannula 3.00 11/15/16 08:10 97 Room Air 11/15/16 08:00 73 11/15/16 08:00 96.8 72 17 110/57 97 11/15/16 04:00 96.8 102 17 133/76 98 11/15/16 00:05 Nasal Cannula 2.00 11/15/16 00:00 95.6 78 17 128/59 97 11/14/16 22:00 115/59 11/14/16 20:00 93 Nasal Cannula 2.00 11/14/16 20:00 68 11/14/16 20:00 97.2 82 20 131/58 96 11/14/16 20:00 Nasal Cannula 2.00 I/O 11/14/16 11/14/16 11/14/16 11/15/16 11/15/16 11/15/16 07:00 15:00 23:00 07:00 15:00 23:00 Intake Total 800 ml 1150 ml 0 ml 1025 ml Balance 800 ml 1150 ml 0 ml 1025 ml Intake Oral 800 ml 420 ml 0 ml IV Total 730 ml 1025 ml # Voids 1 7 2 4 # Bowel Movements 1 0 Result Diagram: 11/15/16 0341 11/15/16 0341 Objective Remarks GENERAL: This obese, elderly white female who is pale and in no distress. HEENT: Head normocephalic. Pupils are reactive. Tongue is clear. Throat was clear. NECK: Supple. No bruits or thyroid enlargement or lymphadenopathy. CHEST: Distant breath sounds with occ wheezes anteriorly. HEART: The heart sounds are regular S1-S2. No murmur. No S3.t ABDOMEN: Obese, protuberant without masses. No organomegaly or tenderness. Bowel sounds active. EXTREMITIES: No lesions. no edema. Peripheral pulses are diminished. Reflexes are 1+. NEUROLOGIC: No gross motor deficits. SKIN: No lesions observed. Assessment and Plan Assessment and Plan IMPRESSION 1. Bilateral lung nodules, etiology to be determined. Probable granulomas versus metastatic disease. 2. Diabetes mellitus type 2. 3. Hypertension. 4. Exogenous obesity and possible sleep apnea. 5. Possible hypothyroidism. 6. Hypertension. 7. Anemia Plan : 1. Use ventolin HFA , 2 puffs tid prn. 2. D/C Antibiotics 3. EGD if she agrees. 4. PET CT as OP. 5.TPN if unable to Eat. 6. PT evaluation for ambulation Juan Ramon Perez MD Nov 15, 2016 19:37
--- NOTE | 2016-11-15 19:57 | PD.RAD ---
Post Procedure Progress Note Pre Procedure Diagnosis: (1) Bacteremia due to coagulase-negative Staphylococcus (2) Diverticulitis of both large and small intestine with abscess Post Procedure Diagnosis: Procedure Date: Nov 15, 2016 Supervising Radiologist: Taiwo Leal Anesthesia: Local, Conscious Sedation Plan of Activity Patient to Unit: Nursing Unit Patient Condition: Fair Additional Comments: Abscess drain placed without difficulty 25cc of pus removed Full report to follow See PACS Report for procedural detail/treatment Tiawo Leal MD Nov 15, 2016 19:57
[2016-11-15] MEDS: ENOXAPARIN SODIUM 40 MG/0.4 ML SYRINGE SQ SCH (22:24)
[2016-11-16] VITALS (8 sets, daily range): BP systolic 119–149; BP diastolic 56–66; PULSE 68–86; RESP 17–18; TEMP 95.2–98.1; O2SAT 93–99
[2016-11-16] MEDS: ACETAMINOPHEN 325 MG TAB PO PRN ×4 (02:05→21:05)
[2016-11-16] MEDS: AMPICILLIN/SULBAC 3 GM/NS 100 ML IV SCH ×8 (05:07→20:57)
[2016-11-16] MEDS: METRONIDAZOLE 500 MG/100 ML ISONTONIC SOLN IV SCH (05:10)
[2016-11-16] MEDS: cloNIDine HCL 0.2 MG TAB PO SCH ×3 (05:17→21:06)
[2016-11-16 05:19] LABS: BASOPHIL % 0.4 % (0.0-2.0); EOSINOPHIL % 0.7 % (0.0-4.0); LYMPH % 17.2 % (9.0-44.0); LYMPHOCYTE # 1.2 TH/MM3 (1.0-4.8); MEAN CELL VOLUME 74.5 FL (80.0-100.0); MEAN CORPUSCULAR HEMOGLOBIN 22.9 PG (27.0-34.0); MEAN CORPUSCULAR HGB CONC 30.8 % (32.0-36.0); NEUT % 74.7 % (16.0-70.0); PLATELET COUNT 434 TH/MM3 (150-450); WHITE BLOOD COUNT 6.7 TH/MM3 (4.0-11.0)
[2016-11-16 05:23] LABS: HEMO FLAGS AUTO DIFF
[2016-11-16 05:39] LABS: ANION GAP 13 MEQ/L (5-15); AST (GOT) 8 U/L (15-37); BLOOD UREA NITROGEN 11 MG/DL (7-18); CHLORIDE 101 MEQ/L (98-107); GLOMERULAR FILTRATION RATE 124 ML/MIN (>89); SODIUM (NA) 142 MEQ/L (136-145)
[2016-11-16 05:40] LABS: ALT (GPT) 14 U/L (10-53)
[2016-11-16 05:43] LABS: ALKALINE PHOSPHATASE 60 U/L (45-117); TOTAL BILIRUBIN ADULT 0.3 MG/DL (0.2-1.0)
[2016-11-16] MEDS: INSULIN NovoLIN REGULAR SUPPLEMENTAL SCALE SQ SCH ×4 (06:45→20:59)
[2016-11-16 06:51] LABS: BANDS 26 % (0-6); NEUTROPHIL # MANUAL DIFF 5.2 TH/MM3 (1.8-7.7); POLYS (SEG NEUTROPHILS) 51 % (16-70); WBC DIFF SAMPLE 100
[2016-11-16 06:52] LABS: SCAN/DIFF FINAL DIFF MANUAL
--- NOTE | 2016-11-16 07:19 | MB ---
cc: GERRY TSANG MD HEMATOLOGY/ONCOLOGY CONSULTATION DATE OF 1945 DATE OF CONSULTATION 11/15/2016 REASON FOR CONSULTATION A 71-year-old female with a perirectal mass/abscess associated with multiple bilateral pulmonary nodules, all sub-cm and a left adrenal nodule measuring 2 cm. Constellation of findings concerning for possible lower GI malignancy with metastatic disease to the lungs and possibly the adrenal gland as well. Additionally she does have a bacteremia (Staphylococcus). CHIEF COMPLAINT The patient reports a three-week history of progressive fatigue, weakness, decreased appetite and nausea. She denies having had fevers or chills. HISTORY OF PRESENT ILLNESS Ms. Keyes is a very pleasant 71-year-old female, she is a retired surgical nurse, she is originally from the [facility] and tells me she retired from nursing many years ago. She presently lives at home with her [id number]. Ms. Keyes reports being in her usual fair state of health up until about three weeks ago after which she developed a persistent nausea and aversion to food. She tells me the nausea was persistent and she frequently vomited as well. She denies having any pain. She tells me over the weeks she became increasingly fatigued and weak and eventually decided to come into the emergency department for further workup and evaluation. Upon initial evaluation the patient was noted to have a severe microcytic anemia with a hemoglobin at presentation of 8.3 gm/dl associated with an MCV of 72.8. She also had leukocytosis and a reactive thrombocytosis with platelet counts close to 700,000. Serum iron studies were not performed but she was transfused over the course of this hospitalization 2 units of packed red blood cells for management of worsening anemia. Additionally, she was noted at the time of admission to have a hypoalbuminemia with albumin level of 1.9 corresponding to her weeks of nausea and decreased p.o. intake. Imaging studies of the abdomen and pelvis were for performed on 11/14/2016 and she was noted to have what appeared to be an acute sigmoid diverticulitis with adjacent abscess involving the psoas muscle, paraumbilical fat-containing hernia was noted and a 2-cm adrenal incidentaloma/nodule was identified. CT imaging of the thorax performed closer to the time of admission indicated multiple sub-cm pulmonary nodules. The etiology of these is not known. Earlier this hospitalization the patient was evaluated by Gastroenterology and she refused any form of endoscopic workup. She tells me she is reconsidering her options at this time. She had never undergone prior screening colonoscopies in her past. PAST MEDICAL HISTORY 1. Type 2 diabetes. 2. Obesity. 3. Hypertension. 4. Gout. 5. Personal history of tobaccoism. PAST SURGICAL HISTORY 1. Cholecystectomy. 2. Hysterectomy (for fibroids). GYNECOLOGIC HISTORY 1, para 1; she give up that child for adoption. SOCIAL HISTORY Originally from [facility], worked as a surgical nurse for many years, now is retired. She is single. She lives at home with her [id number]. She formerly was a smoker and smoked up to two packs a day. She denies any alcohol abuse or usage. ALLERGIES No known drug allergies. FAMILY HISTORY Father of complications of bladder cancer, mom lived to the age of 96. CURRENT INPATIENT MEDICATIONS 1. Unasyn 3 grams IV q.6 hours. 2. Metronidazole 500 mg IV q.8 hours. 3. Half normal saline 75 cc/hour. 4. Tylenol 650 mg p.o. q. 6 hours. 5. Acetaminophen 650 mg p.o. q.4 hours. 6. Allopurinol 300 mg p.o. daily. 7. Amlodipine 5 mg p.o. q. daily. 8. Aspirin 81 mg p.o. daily. 9. Carvedilol 25 mg p.o. b.i.d. 10. Clonidine 0.2 mg p.o. q. 8 hours. 11. Enoxaparin 40 mg subcu q.24 hours. 12. Lactulose 30 mg p.o. daily as needed for severe constipation. 13. Lisinopril 5 mg p.o. b.i.d. 14. Low-dose insulin sliding scale per protocol. 15. Metformin 50 mg p.o. daily. 16. Pantoprazole 40 mg IV q.12 hours. 17. Zofran 4 mg IV q.6 hours. 18. Pravastatin 40 mg p.o. daily. 19. Senokot 17.2 mg p.o. q.12 hours. REVIEW OF SYSTEMS Other than what is mentioned in the HPI, please note the pertinent positives and negatives - CONSTITUTIONAL: Weakness, fatigue, decreased appetite. HEENT: Denies headaches, blurry vision, difficulty swallowing, soreness of the throat. RESPIRATORY: Reports exertional dyspnea, denies cough or hemoptysis. CARDIOVASCULAR: Denies anginal chest pain, PND, orthopnea. Denies lower extremity swelling. GI: Reports nausea, vomiting, denies constipation, denies noting hematochezia or melena. : No complaints. MASTER MECHANIC: Generalized weakness. MUSCULOSKELETAL: Also generalized weakness. Denies other complaints. PHYSICAL EXAMINATION VITAL SIGNS: Temperature 97 degrees Fahrenheit, heart rate 64 beats/minute, respiratory 20, blood pressure 116/49, O2 sats are 97% on 1 liter nasal cannula. GENERAL PHYSICAL APPEARANCE: Ms. Keyes is an elderly female, she has somewhat of a disheveled appearance. She appears to be in no acute distress. She is awake and alert and cooperative. HEENT: Head atraumatic, normocephalic. Conjunctivae are pale. Sclerae are anicteric. Oral Exam - No pharyngeal erythema. Facial Exam - She has significant hirsutism. RESPIRATORY EXAM: Good air movement bilaterally. No added breath sounds with a prolonged expiratory phase. CARDIOVASCULAR: Regular rate and rhythm, S1, S2 with a systolic murmur over the pulmonic area and left lower sternal border. ABDOMINAL EXAM: Obese belly, soft, no obvious tenderness, no palpable organ enlargement. LOWER EXTREMITIES: Trace pretibial edema, calf tenderness. LABORATORY FINDINGS Blood work dated 11/15/2016 - Sodium 142, potassium 3.1, chloride 101, bicarbonate 22.6, BUN 13, creatinine 0.5, EGFR 121, calcium 8.3, total bilirubin 0.2, AST 13, ALT 18, alkaline phosphatase 71, albumin 1.6, magnesium 2.1. CEA level is noted to be normal at 2.6. CBC dated 11/15/2016 - WBC count 9.5, hemoglobin 9.3 gm/dl, hematocrit 30.7%, MCV 75, platelet count 418. Absolute neutrophil count is 7.6. CBC at the time of admission dated 11/08/2016 - WBC count 16, hemoglobin 8.3 gm/dl, MCV is 72.8, platelet count is 649. IMAGING STUDIES CT scan of the abdomen and pelvis dated 11/14/2016: 1. Acute sigmoid diverticulitis with adjacent abscess involving the psoas muscle. 2. Periumbilical fat-containing hernia. 3. A 2-cm left adrenal nodule; nonspecific, average Hounsfield units of between [address] scan of the chest revealed multiple sub-cm pulmonary nodules, most of which measure less than 4 mm, there is a left lower lobe subpleural nodule/area of scarring which measures between 0.5 and 1 cm. ASSESSMENT Mr. Keyes is a 71-year-old female who presents to the hospital with a several week history of stroke of persistent nausea, decreased appetite, progressive fatigue and weakness. Upon presentation she was noted to have a profound microcytic anemia with presenting hemoglobin of 8.3 gm/dl associated with an MCV of 72. Stool for occult blood was noted to be negative. Imaging studies of the chest, abdomen and pelvis indicated findings consistent with multiple sub-cm pulmonary nodules, the etiology of which is nonspecific. CT scan of the pelvis revealed what appeared to be a perirectal/sigmoid colon abscess/mass associated with fat stranding. She was also noted to have a 2 cm adrenal incidentaloma the etiology of which is nonspecific and unknown at this time. RECOMMENDATIONS 1. Sigmoid colon mass/abscess: This lady has never had a colonoscopy. She is in need of one. She previously refused a colonoscopy. I have, however, talked to her and counseled her, explained to her how important this procedure is and she is willing to reconsider. In my view, a unifying diagnosis to explain the perirectal/sigmoid colon mass/abscess and the multiple pulmonary nodules would be a primary rectal/sigmoid colon malignancy with resultant metastases. Additionally, malignancy or abscess could cause breakdown of the mucosal barrier resulting in the type of bacteremia she presented with. 2. Anemia: Almost certainly she has iron deficiency anemia given the severe microcytosis. I have ordered iron studies. Eventually she will require iron replacement therapy. A chronic condition such as a GI malignancy with resultant low-grade blood loss would certainly result in a microcytic anemia such as this. She will eventually require both upper and lower GI endoscopy to evaluate the mucosa to rule out a culprit lesion. 3. The adrenal nodule in question has a very nonspecific appearance, the Hounsfield units are between 17 and 20. Typically metastatic deposits or primary adrenal carcinoma will have Hounsfield units in the 35-40 Hounsfield unit range. I suspect this is most likely an incidental finding. This may be further evaluated by eventual imaging studies such as a PET/CT scan or an MRI. The Oncology/Hematology Service following along with you. MD KENIA Caruso /6:31 PM /6:26 AM
--- NOTE | 2016-11-16 07:48 | HHI.PR ---
Subjective History of Present Illness Patient feel weak and tired . no acute issue. leukocytosis better have pulmonary nodule pulmonary input noted.. had Hemoglobin 6.9 Possible GI Bleed S/P 2 units PRBC Transfusion now Hemoglobin 9.2 and GI input noted patient refused endoscopy...Low potassium will replace and monitor. check Magnesium level.. CT Abdomen and Pelvis shows acute diverticulitis and psoas abscess General surgery input noted S/P abscess drainage by Interventional radiology ...on Unysn and flagyl per ID Recomendation. d/w RN no acute issue still have drainage from drain. Review of Systems Constitutional Constitutional: Fatigue, Weakness Vitals/Results Intake & Output 11/15/16 11/15/16 11/16/16 15:00 23:00 07:00 Intake Total 1025 ml 715 ml 807 ml Output Total 50 ml Balance 1025 ml 715 ml 757 ml Intake Oral 240 ml 240 ml IV Total 1025 ml 475 ml 567 ml Drainage Total 50 ml # Voids 2 3 # Bowel Movements 1 0 Vital Signs Vital Signs Date Time Temp Pulse Resp B/P Pulse Ox O2 Delivery O2 Flow Rate FiO2 11/16/16 05:18 86 120/57 11/16/16 04:00 98.1 72 18 126/56 97 11/16/16 00:00 97.8 68 18 119/57 96 11/15/16 21:00 Nasal Cannula 2.00 11/15/16 20:00 96.6 66 16 122/58 95 11/15/16 18:08 97 Nasal Cannula 1.00 11/15/16 16:00 97.0 64 20 116/49 68 11/15/16 12:00 97.3 69 20 129/56 95 11/15/16 11:00 96 Nasal Cannula 3.00 11/15/16 08:10 97 Room Air 11/15/16 08:00 73 11/15/16 08:00 96.8 72 17 110/57 97 CBC/BMP: 11/16/16 0352 11/16/16 0352 Lab Results Laboratory Tests Test 11/15/16 11/16/16 11:47 03:52 Magnesium Level 2.1 MG/DL Iron Level 19 MCG/DL Total Iron Binding Capacity 165 MCG/DL Percent Iron Saturation 11.5 % Ferritin 178 NG/ML White Blood Count 6.7 TH/MM3 Red Blood Count 3.90 MIL/MM3 Hemoglobin 8.9 GM/DL Hematocrit 29.0 % Mean Corpuscular Volume 74.5 FL Mean Corpuscular Hemoglobin 22.9 PG Mean Corpuscular Hemoglobin 30.8 % Concent Red Cell Distribution Width 20.0 % Platelet Count 434 TH/MM3 Mean Platelet Volume 6.7 FL Neutrophils (%) (Auto) 74.7 % Lymphocytes (%) (Auto) 17.2 % Monocytes (%) (Auto) 7.0 % Eosinophils (%) (Auto) 0.7 % Basophils (%) (Auto) 0.4 % Neutrophils # (Auto) 5.0 TH/MM3 Lymphocytes # (Auto) 1.2 TH/MM3 Monocytes # (Auto) 0.5 TH/MM3 Eosinophils # (Auto) 0.0 TH/MM3 Basophils # (Auto) 0.0 TH/MM3 CBC Comment AUTO DIFF Differential Total Cells 100 Counted Neutrophils % (Manual) 51 % Band Neutrophils % 26 % Lymphocytes % 13 % Monocytes % 10 % Neutrophils # (Manual) 5.2 TH/MM3 Differential Comment FINAL DIFF MANUAL Sodium Level 142 MEQ/L Potassium Level 3.0 MEQ/L Chloride Level 101 MEQ/L Carbon Dioxide Level 28.0 MEQ/L Anion Gap 13 MEQ/L Blood Urea Nitrogen 11 MG/DL Creatinine 0.49 MG/DL Estimat Glomerular Filtration 124 ML/MIN Rate Random Glucose 127 MG/DL Calcium Level 8.0 MG/DL Total Bilirubin 0.3 MG/DL Aspartate Amino Transf 8 U/L (AST/SGOT) Alanine Aminotransferase 14 U/L (ALT/SGPT) Alkaline Phosphatase 60 U/L Total Protein 5.4 GM/DL Albumin 1.5 GM/DL Microbiology Microbiology 11/15/16 Gram Stain, Received Pending 11/15/16 Wound Culture, Received Pending Physical Exam General General Appearance: Well Developed, Well Nourished, No Acute Distress, Comfortable Eyes Eye Exam: Pupils Equal, Pupils Reactive, Sclera White, Extraocular Movement Intact Throat Throat Exam: Oral Mucosa Elton & Moist, Oral Pharynx Normal Neck Neck Exam: Neck Supple, Trachea Midline Pulmonary Resp Exam: Clear Bilaterally, Breath Sounds Equal, No Distress Cardiology CV Exam: Regular, Normal Sinus Rhythm Gastrointestinal/Abdomen GI Exam: Soft, Non-Tender, Bowel Sounds Present GI Remarks mild abdominal tenderness left side. Musculoskeletal MS Exam: Normal Tone Integumentary Skin Exam: Clear, Warm, Dry, Intact Extremeties Extremities Exam: No Edema Neurologic Neuro Exam: Alert, Awake, Oriented, Speech Clear, Moving All Extremities, No Focal Deficits Psychiatric Psych Exam: Appropriate Responses VTE Prophylaxis VTE Prophylaxis Meds: Lovenox PUD Prophylasis PUD Prophylaxis: Protonix Assessment/Plan Assessment/Plan ASSESSMENT AND PLAN: This is a 71-year female who came to the emergency room diagnosed with 1. Nausea with hypoglycemia. Glucose is normal now. The patient is on Zofran 4 milligrams IV q. 6-hour p.r.n. for nausea and vomiting. 2. Leukocytosis, better... Chest x-ray does not show anything acute. check CT scan of the chest negative for pneumonia... have pulmonary nodule pulmonary input noted. Blood cultures x2 positive for gram negative rods. 3. Diabetes mellitus. ADA 1800 calorie diet. NovoLog. sliding scale. Check blood sugars a.c. and h.s. Will monitor blood sugar. 4. Left history of gout. Continue home medication. 5. History of hypertension. Continue medication. Monitor blood pressure. 6. Hyperlipidemia. Continue lovastatin 40 milligrams p.o. daily. 7. DVT prophylaxis. Lovenox 40 milligrams. 8. GI prophylaxis Protonix 40 milligrams p.o. twice a day. 9. Pulmonary nodule pulmonary input noted. 10. blood culture positive on Unysn and flagyl per ID Recomendation. 11. Hemoglobin 6.9 Possible GI Bleed had Hemoglobin 6.9 Possible GI Bleed S/ P 2 units PRBC Transfusion now Hemoglobin 9.2 fecal occult blood test x 1 negative.. H and H stable.. 12. .Hypokalemia will replace and monitor. check Magnesium level 13. CT Abdomen and Pelvis shows acute diverticulitis and Psoas abscess General surgery input noted S/P abscess drainage by Interventional radiology ...on Unysn per ID Recomendation. We are going to manage the patient on a daily basis and make recommendations on a daily basis. Check CBC and comprehensive metabolic profile in the morning. Discussed Condition with: Patient Reed Up MD Nov 16, 2016 07:48
[2016-11-16] MEDS ORDERED: POTASSIUM CHLORIDE 10 MEQ CONTROLLED RELEASE TAB PO ONE (08:00)
--- NOTE | 2016-11-16 08:03 | RADRPT ---
EXAM DATE/TIME: 11/15/2016 19:23 [facility] COMPARISON: CT ABDOMEN & PELVIS W CONTRAST, November 14, 2016, 10:54. INDICATIONS : Pelvic abscess drain. SEDATION TIME: 30 MEDICATION(S): 1.) 0.5 mg lorazepam (Ativan) IV 2.) 50 mcg fentanyl (Sublimaze) IV DEVICE(S): 1.) 18 gauge Neves blunt needle 2.) 8 Fr catheter Total volume of 10 cc of cloudy, yellow fluid was removed. MEDICAL HISTORY : Cardiovascular disease. Hypertension. SURGICAL HISTORY : None. ENCOUNTER: Initial ACUITY: 1 day PAIN SCORE: 4/10 LOCATION: Left Left. PROCEDURE: 1.) Conscious sedation with continuous EKG and oximetry monitoring. 2.) EKG and oximetry remained stable throughout the procedure. PROCEDURE : 1. CT guided drainage of the left pelvic abscess 2. Conscious sedation with continuous EKG and oximetry monitoring. The risks, benefits and alternatives to the procedure were explained and verbal and written consent w as obtained. Using automated exposure control and adjustment of the mA and/or kV according to patient size, radiation dose was kept as low as reasonably achievable to obtain optimal diagnostic quality i mages. The site was prepped in sterile fashion. Full sterile technique was used, including cap, ma sk, sterile gloves and gown and a large sterile sheet. Hand hygiene and 2% chlorhexidine and/or beta dine/alcohol prep was utilized per protocol for cutaneous antisepsis. The skin and subcutaneous tiss ues were infiltrated with local anesthetic solution. Using CT guidance the abscess in the left pelvis was localized. A Neves blunt needle was advanced d own to the abscess collection. A Mendoza wire was advanced through the needle. An 8 Liberian drainage cat heter was advanced over the wire and placed within the abscess without difficulty. There was immediat e return of approximately 20 cc of purulent material. The patient tolerated the procedure well and there were no complications. Conscious sedation was per formed with the prescribed dosages and duration as above in the presence of an independent trained ra diology nurse to assist in the monitoring of the patient. EKG and oximetry remained stable throughou t the procedure. The patient tolerated the procedure well and there were no complications. The patient was sent to pos t anesthesia recovery in stable condition. CONCLUSION: Uncomplicated CT guided drainage. An 8 Liberian catheter was left in position. Taiwo Leal MD on November 16, 2016 at 8:00 Board Certified Radiologist. This report was verified electronically.
[2016-11-16] MEDS: CARVEDILOL 12.5 MG TAB PO SCH ×2 (08:45→21:04)
[2016-11-16] MEDS: ASPIRIN 81 MG CHEW TAB CHEW SCH (08:45)
[2016-11-16] MEDS: amLODIPine BESYLATE 5 MG TAB PO SCH (08:45)
[2016-11-16] MEDS: DOCUSATE SODIUM 50 MG/SENNA 8.6 MG TAB PO SCH ×2 (08:46→21:00)
[2016-11-16] MEDS: metFORMIN HCL 500 MG TAB PO SCH (08:46)
[2016-11-16] MEDS: PIOGLITAZONE HCL 15 MG TAB PO SCH (08:46)
[2016-11-16] MEDS: ALLOPURINOL 300 MG TAB PO SCH (08:46)
[2016-11-16] MEDS: PRAVASTATIN SOD 40 MG TAB PO SCH (08:46)
[2016-11-16] MEDS: LISINOPRIL 5 MG TAB PO SCH ×2 (08:46→21:06)
[2016-11-16] MEDS: SODIUM CHLORIDE 0.9% 10 ML VIAL IRRIGATION SCH (08:47)
[2016-11-16] MEDS: SODIUM CHLOR 0.45% 1000 ML INJ 1,000 ML IV SCH ×2 (08:56→20:59)
[2016-11-16] MEDS: SODIUM CHLORIDE 0.9% FLUSH 10 ML FLUSH IV FLUSH SCH ×2 (08:58→21:00)
--- NOTE | 2016-11-16 09:27 | HHI.PR ---
Subjective Subjective Notes Persistent nausea. No other complaints. Objective Vitals/I&O Vital Signs Date Time Temp Pulse Resp B/P Pulse Ox O2 Delivery O2 Flow Rate FiO2 11/16/16 08:19 Nasal Cannula 2.00 11/16/16 08:00 96.6 69 18 149/60 99 11/12/16 15:33 21 Labs Laboratory Tests Test 11/15/16 11/16/16 11:47 03:52 Magnesium Level 2.1 Iron Level 19 Total Iron Binding Capacity 165 Percent Iron Saturation 11.5 Ferritin 178 White Blood Count 6.7 Red Blood Count 3.90 Hemoglobin 8.9 Hematocrit 29.0 Mean Corpuscular Volume 74.5 Mean Corpuscular Hemoglobin 22.9 Mean Corpuscular Hemoglobin 30.8 Concent Red Cell Distribution Width 20.0 Platelet Count 434 Mean Platelet Volume 6.7 Neutrophils (%) (Auto) 74.7 Lymphocytes (%) (Auto) 17.2 Monocytes (%) (Auto) 7.0 Eosinophils (%) (Auto) 0.7 Basophils (%) (Auto) 0.4 Neutrophils # (Auto) 5.0 Lymphocytes # (Auto) 1.2 Monocytes # (Auto) 0.5 Eosinophils # (Auto) 0.0 Basophils # (Auto) 0.0 CBC Comment AUTO DIFF Differential Total Cells 100 Counted Neutrophils % (Manual) 51 Band Neutrophils % 26 Lymphocytes % 13 Monocytes % 10 Neutrophils # (Manual) 5.2 Differential Comment FINAL DIFF MANUAL Sodium Level 142 Potassium Level 3.0 Chloride Level 101 Carbon Dioxide Level 28.0 Anion Gap 13 Blood Urea Nitrogen 11 Creatinine 0.49 Estimat Glomerular Filtration 124 Rate Random Glucose 127 Calcium Level 8.0 Total Bilirubin 0.3 Aspartate Amino Transf 8 (AST/SGOT) Alanine Aminotransferase 14 (ALT/SGPT) Alkaline Phosphatase 60 Total Protein 5.4 Albumin 1.5 Date/Time Procedure Status Source Growth 11/15/16 19:57 Gram Stain Received Abscess Abdomen Pending 11/15/16 19:57 Wound Culture Received Abscess Abdomen Pending 11/11/16 10:35 Stool Occult Blood (ADALI) - Final Complete Stool Stool HEMOCCULT NEGATIVE Radiology Last Impressions Abdomen/Pelvis CT 11/14/16 0000 Signed Impressions: Service Date/Time: Monday, November 14, 2016 10:54 - CONCLUSION: 1. Acute sigmoid diverticulitis with adjacent abscess involving the psoas muscle. 2. Paraumbilical fat containing hernia. 3. 2 cm left adrenal nodule, nonspecific. Dmitri Huynh MD Chest X-Ray 11/12/16 0600 Signed Impressions: Service Date/Time: Saturday, November 12, 2016 05:47 - CONCLUSION: Cardiomegaly. No acute cardiopulmonary disease. Semaj Coker MD Chest CT 11/08/16 0000 Signed Impressions: Service Date/Time: Tuesday, November 08, 2016 19:23 - CONCLUSION: 1. Innumerable noncalcified subcentimeter pulmonary nodules with the largest measuring 8 mm in the left lower lobe posteriorly. Although these are nonspecific metastatic disease remains in the differential. PET/CT scan may be helpful for further evaluation of the largest of these nodules if clinically indicated. 2. Coronary artery calcifications. 3. Left adrenal mass measuring 2.7 x 2.5 cm which is nonspecific. Ketan Schofield MD Narrative Exam NAD, flat affect. Obese. Hirsute. Nonlabored breathing Abd: soft, ventral hernia incarcerated, mild ttp; LLQ ttp, drain in place purulent output A/P Assessment and Plan 71 yo F sigmoid mass with associated abscess, adrenal mass, pulmonary nodules, ventral hernia which appears to be incarcerated with omentum. I agree sigmoid mass with abscess can be either diverticulitis vs malignancy. Continue tx with IV antibiotics. She needs colonoscopic evaluation at some point , sigmoidoscopy at least. Timing up to GI and patient. She tells me "she will consider it". Adrenal mass needs functional workup at some point. Charles Garay MD Nov 16, 2016 09:27
[2016-11-16] MEDS: PANTOPRAZOLE SODIUM 40 MG VIAL IV PUSH SCH ×2 (11:54→22:33)
--- NOTE | 2016-11-16 13:07 | HHI.PR ---
Subjective Remarks She is still weak and nauseated..Hgb up to 9.3 No cough or wheezing. On O2 2L and sat 98. .Had a Drain placed for a Sigmoid abscess and diverticulitis. Poor intake. On Unasyn Objective Vital Signs Date Time Temp Pulse Resp B/P Pulse Ox O2 Delivery O2 Flow Rate FiO2 11/16/16 12:00 97.0 70 17 134/62 97 11/16/16 09:52 18 11/16/16 08:19 Nasal Cannula 2.00 11/16/16 08:00 96.6 69 18 149/60 99 11/16/16 05:18 86 120/57 11/16/16 04:00 98.1 72 18 126/56 97 11/16/16 00:00 97.8 68 18 119/57 96 11/15/16 21:00 Nasal Cannula 2.00 11/15/16 20:00 96.6 66 16 122/58 95 11/15/16 18:08 97 Nasal Cannula 1.00 11/15/16 16:00 97.0 64 20 116/49 68 I/O 11/15/16 11/15/16 11/15/16 11/16/16 11/16/16 11/16/16 07:00 15:00 23:00 07:00 15:00 23:00 Intake Total 0 ml 1025 ml 715 ml 807 ml Output Total 50 ml Balance 0 ml 1025 ml 715 ml 757 ml Intake Oral 0 ml 240 ml 240 ml IV Total 1025 ml 475 ml 567 ml Drainage Total 50 ml # Voids 4 2 3 # Bowel Movements 1 0 Result Diagram: 11/16/16 0352 11/16/16 0352 Objective Remarks GENERAL: This obese, elderly white female who is pale and in no distress. HEENT: Head normocephalic. Pupils are reactive. . Throat was clear. NECK: Supple. No bruits or thyroid enlargement or lymphadenopathy. CHEST: Distant breath sounds with occ basal crackles HEART: The heart sounds are regular S1-S2. No murmur. No S3.t ABDOMEN: Obese, protuberant without masses. No organomegaly. Has lower abdominal tenderness. Bowel sounds active.Catheter drain in LLQ. EXTREMITIES: No lesions. no edema. Peripheral pulses are diminished. Reflexes are 1+. NEUROLOGIC: No gross motor deficits. SKIN: No lesions observed. Assessment and Plan Assessment and Plan IMPRESSION 1. Bilateral lung nodules, etiology to be determined. Probable granulomas versus metastatic disease. 2. Diabetes mellitus type 2. 3. Hypertension. 4. Exogenous obesity and possible sleep apnea. 5. Possible hypothyroidism. 6. Hypertension. 7. Anemia Plan : 1. Use ventolin HFA , 2 puffs tid prn. 2. Cont Antibiotics, Unasyn 3. Pelvic drain for abscess 4. PET CT as OP. 5.TPN if unable to Eat. 6.Wean Off O2. Juan Ramon Perez MD Nov 16, 2016 13:07
--- NOTE | 2016-11-16 14:13 | HHI.IDPN ---
Subjective Subjective Remarks [facility] 71 y[facility] CM with Multiple medical problems including HTN,DM, gout. Pt admitted with complains of nausea 48 hrs prior to admission in addition to hypoglycemia. Pt was seen by at [facility] and now transferred for IR guided drainage of Intra abd abscess. PAST SURGICAL HISTORY Hysterectomy. Cholecystectomy. PAST MEDICAL HISTORY 1. Diabetes. 2. Gout. 3. Hypertension. Nausea states her abdomen is hurting No fever Antibiotics Unasyn IV Flagyl IV Lines Peripheral Past Medical History HTN Gout Diabetes Allergies: Coded Allergies: No Known Allergies (Unverified , 11/08/16) Objective . Vital Signs Date Time Temp Pulse Resp B/P Pulse Ox O2 Delivery O2 Flow Rate FiO2 11/16/16 12:00 97.0 70 17 134/62 97 11/16/16 09:52 18 11/16/16 08:40 99 Nasal Cannula 2.00 11/16/16 08:19 Nasal Cannula 2.00 11/16/16 08:00 96.6 69 18 149/60 99 11/16/16 05:18 86 120/57 11/16/16 04:00 98.1 72 18 126/56 97 11/16/16 00:00 97.8 68 18 119/57 96 11/15/16 21:00 Nasal Cannula 2.00 11/15/16 20:00 96.6 66 16 122/58 95 11/15/16 18:08 97 Nasal Cannula 1.00 11/15/16 16:00 97.0 64 20 116/49 68 11/15/16 11/15/16 11/16/16 15:00 23:00 07:00 Intake Total 1025 ml 715 ml 807 ml Output Total 50 ml Balance 1025 ml 715 ml 757 ml Intake Oral 240 ml 240 ml IV Total 1025 ml 475 ml 567 ml Drainage Total 50 ml # Voids 2 3 # Bowel Movements 1 0 . Laboratory Tests Test 11/15/16 11/16/16 03:41 03:52 White Blood Count 9.5 TH/MM3 6.7 TH/MM3 Red Blood Count 4.08 MIL/MM3 3.90 MIL/MM3 Hemoglobin 9.3 GM/DL 8.9 GM/DL Hematocrit 30.7 % 29.0 % Mean Corpuscular Volume 75.1 FL 74.5 FL Mean Corpuscular Hemoglobin 22.7 PG 22.9 PG Mean Corpuscular Hemoglobin 30.3 % 30.8 % Concent Red Cell Distribution Width 19.1 % 20.0 % Platelet Count 418 TH/MM3 434 TH/MM3 Mean Platelet Volume 6.4 FL 6.7 FL Neutrophils (%) (Auto) 79.4 % 74.7 % Lymphocytes (%) (Auto) 11.4 % 17.2 % Monocytes (%) (Auto) 8.3 % 7.0 % Eosinophils (%) (Auto) 0.6 % 0.7 % Basophils (%) (Auto) 0.3 % 0.4 % Neutrophils # (Auto) 7.6 TH/MM3 5.0 TH/MM3 Lymphocytes # (Auto) 1.1 TH/MM3 1.2 TH/MM3 Monocytes # (Auto) 0.8 TH/MM3 0.5 TH/MM3 Eosinophils # (Auto) 0.1 TH/MM3 0.0 TH/MM3 Basophils # (Auto) 0.0 TH/MM3 0.0 TH/MM3 CBC Comment DIFF FINAL AUTO DIFF Differential Comment FINAL DIFF MANUAL Differential Total Cells 100 Counted Neutrophils % (Manual) 51 % Band Neutrophils % 26 % Lymphocytes % 13 % Monocytes % 10 % Neutrophils # (Manual) 5.2 TH/MM3 Laboratory Tests Test 11/15/16 11/15/16 11/16/16 03:41 11:47 03:52 Sodium Level 142 MEQ/L 142 MEQ/L Potassium Level 3.1 MEQ/L 3.0 MEQ/L Chloride Level 101 MEQ/L 101 MEQ/L Carbon Dioxide Level 32.6 MEQ/L 28.0 MEQ/L Anion Gap 8 MEQ/L 13 MEQ/L Blood Urea Nitrogen 13 MG/DL 11 MG/DL Creatinine 0.50 MG/DL 0.49 MG/DL Estimat Glomerular Filtration 121 ML/MIN 124 ML/MIN Rate Random Glucose 123 MG/DL 127 MG/DL Calcium Level 8.3 MG/DL 8.0 MG/DL Total Bilirubin 0.2 MG/DL 0.3 MG/DL Aspartate Amino Transf 13 U/L 8 U/L (AST/SGOT) Alanine Aminotransferase 18 U/L 14 U/L (ALT/SGPT) Alkaline Phosphatase 71 U/L 60 U/L Total Protein 5.6 GM/DL 5.4 GM/DL Albumin 1.6 GM/DL 1.5 GM/DL Magnesium Level 2.1 MG/DL Iron Level 19 MCG/DL Total Iron Binding Capacity 165 MCG/DL Percent Iron Saturation 11.5 % Ferritin 178 NG/ML Microbiology Date/Time Procedure Status Source Growth 11/15/16 19:57 Gram Stain - Final Resulted Abscess Abdomen 11/15/16 19:57 Wound Culture - Preliminary Resulted Abscess Abdomen IMMATURE GROWTH - REINCUBATE Imaging Last Impressions Abscess Drainage CT 11/15/16 0000 Signed Impressions: Service Date/Time: Tuesday, November 15, 2016 19:23 - CONCLUSION: Uncomplicated CT guided drainage. An 8 Prydeinig catheter was left in position. Taiwo Leal MD Abdomen/Pelvis CT 11/14/16 0000 Signed Impressions: Service Date/Time: Monday, November 14, 2016 10:54 - CONCLUSION: 1. Acute sigmoid diverticulitis with adjacent abscess involving the psoas muscle. 2. Paraumbilical fat containing hernia. 3. 2 cm left adrenal nodule, nonspecific. Dmitri Hunyh MD Chest X-Ray 11/12/16 0600 Signed Impressions: Service Date/Time: Saturday, November 12, 2016 05:47 - CONCLUSION: Cardiomegaly. No acute cardiopulmonary disease. Semaj Coker MD Chest CT 11/08/16 0000 Signed Impressions: Service Date/Time: Tuesday, November 08, 2016 19:23 - CONCLUSION: 1. Innumerable noncalcified subcentimeter pulmonary nodules with the largest measuring 8 mm in the left lower lobe posteriorly. Although these are nonspecific metastatic disease remains in the differential. PET/CT scan may be helpful for further evaluation of the largest of these nodules if clinically indicated. 2. Coronary artery calcifications. 3. Left adrenal mass measuring 2.7 x 2.5 cm which is nonspecific. Ketan Schofield MD Physical Exam GENERAL: On physical exam, this is a 71-year-old female lying on the bed not in acute distress. HEAD, EYES, EARS, NOSE, THROAT: Normocephalic and atraumatic. Extraocular muscles intact. Pupils equal, round and reactive to light and accommodation. Oral mucosa moist. NECK: The neck is supple. Trachea is central. CARDIOVASCULAR: Regular rate and rhythm. RESPIRATORY: Clear to auscultation bilaterally. ABDOMEN: Abdomen soft and nontender. Bowel sounds audible. EXTREMITIES: No cyanosis or clubbing. Full range of motion of all extremities. No edema. NEUROLOGIC: Awake, alert and oriented times four. No focal deficits. SKIN: Warm and dry. PSYCHIATRIC: The patient is cooperative. Assessment & Plan Remarks Acute diverticulitis with abscess of psoas muscle. s/p IR guided drainage. Leucocytosis improving. Secondary to infection. Coag neg staph bacteremia: likely contaminant. Recs Continue Unasyn IV DC Flagyl IV (no need for double coverage for anaerobes, Unasyn has anaerobic coverage) Follow cultures follow clinically dYeimyw pt and RN Ana Maria Bernard MD Nov 16, 2016 14:13
[2016-11-16] MEDS ORDERED: POTASSIUM CHLORIDE 20 MEQ CONTROLLED RELEASE TAB PO ONE (16:00)
[2016-11-16] MEDS: ENOXAPARIN SODIUM 40 MG/0.4 ML SYRINGE SQ SCH (21:03)
[2016-11-17] VITALS (9 sets, daily range): BP systolic 119–157; BP diastolic 57–71; PULSE 67–71; RESP 16–24; TEMP 95–97.8; O2SAT 94–98
[2016-11-17] MEDS: ACETAMINOPHEN 325 MG TAB PO PRN ×3 (03:41→23:55)
[2016-11-17] MEDS: AMPICILLIN/SULBAC 3 GM/NS 100 ML IV SCH ×8 (03:42→21:09)
[2016-11-17 05:56] LABS: AUTOMATED NEUTROPHIL # 5.8 TH/MM3 (1.8-7.7); BASOPHIL % 0.3 % (0.0-2.0); EOSINOPHIL % 0.6 % (0.0-4.0); HEMATOCRIT 30.1 % (35.0-46.0); HEMO FLAGS DIFF FINAL; LYMPH % 13.1 % (9.0-44.0); MEAN CELL VOLUME 74.8 FL (80.0-100.0); MEAN CORPUSCULAR HEMOGLOBIN 23.1 PG (27.0-34.0); MEAN CORPUSCULAR HGB CONC 30.8 % (32.0-36.0); MONO % 7.7 % (0.0-8.0); NEUT % 78.3 % (16.0-70.0); PLATELET COUNT 446 TH/MM3 (150-450); RED BLOOD COUNT 4.02 MIL/MM3 (4.00-5.30); RED CELL DISTRIBUTION WIDTH 19.4 % (11.6-17.2); WHITE BLOOD COUNT 7.4 TH/MM3 (4.0-11.0)
[2016-11-17] MEDS: cloNIDine HCL 0.2 MG TAB PO SCH ×3 (06:00→21:25)
[2016-11-17] MEDS: INSULIN NovoLIN REGULAR SUPPLEMENTAL SCALE SQ SCH ×4 (06:21→21:00)
[2016-11-17 06:34] LABS: ALT (GPT) 14 U/L (10-53); ANION GAP 13 MEQ/L (5-15); AST (GOT) 12 U/L (15-37); BICARBONATE 27.4 MEQ/L (21.0-32.0); BLOOD UREA NITROGEN 10 MG/DL (7-18); CHLORIDE 105 MEQ/L (98-107); GLOMERULAR FILTRATION RATE 113 ML/MIN (>89); POTASSIUM 3.4 MEQ/L (3.5-5.1); SODIUM (NA) 145 MEQ/L (136-145)
[2016-11-17 06:35] LABS: ALKALINE PHOSPHATASE 61 U/L (45-117); TOTAL BILIRUBIN ADULT 0.2 MG/DL (0.2-1.0)
--- NOTE | 2016-11-17 07:40 | PD.ONC.PN ---
Subjective Subjective Remarks Patient reports continued nausea and abdominal discomfort. Overnight the patient had a several beat run of ventricular tachycardia per the nursing staff. The patient denies noting any chest pain, lightheadedness or palpitations during that V. tach episode. On 11/15/2016 she underwent IR guided placement of a drain to the sean-sigmoid colon abscess, this is been draining scant amounts of purulent and blood tinged liquid. I talked her this morning again about having a colonoscopy and the importance of this, she tells me she is amenable to this at this time and is willing to speak to gastroenterology. Objective Data Date Time Temp Pulse Resp B/P Pulse Ox O2 Delivery O2 Flow Rate FiO2 11/17/16 05:00 97.8 71 16 133/63 98 11/17/16 00:00 96.9 68 17 120/58 96 11/16/16 21:00 96 Nasal Cannula 2.00 11/16/16 20:00 95.2 74 18 149/66 94 11/16/16 19:23 86 11/16/16 16:00 95.6 71 17 127/57 93 11/16/16 15:41 18 11/16/16 12:00 97.0 70 17 134/62 97 11/16/16 09:52 18 11/16/16 08:40 99 Nasal Cannula 2.00 11/16/16 08:19 Nasal Cannula 2.00 11/16/16 08:00 96.6 69 18 149/60 99 11/17/16 11/17/16 11/17/16 07:00 15:00 23:00 Intake Total 1058 ml Output Total 0 ml Balance 1058 ml Result Diagram: 11/17/16 0445 11/17/16 0445 Laboratory Results Laboratory Tests Test 11/17/16 04:45 White Blood Count 7.4 TH/MM3 Red Blood Count 4.02 MIL/MM3 Hemoglobin 9.3 GM/DL Hematocrit 30.1 % Mean Corpuscular Volume 74.8 FL Mean Corpuscular Hemoglobin 23.1 PG Mean Corpuscular Hemoglobin 30.8 % Concent Red Cell Distribution Width 19.4 % Platelet Count 446 TH/MM3 Mean Platelet Volume 6.5 FL Neutrophils (%) (Auto) 78.3 % Lymphocytes (%) (Auto) 13.1 % Monocytes (%) (Auto) 7.7 % Eosinophils (%) (Auto) 0.6 % Basophils (%) (Auto) 0.3 % Neutrophils # (Auto) 5.8 TH/MM3 Lymphocytes # (Auto) 1.0 TH/MM3 Monocytes # (Auto) 0.6 TH/MM3 Eosinophils # (Auto) 0.0 TH/MM3 Basophils # (Auto) 0.0 TH/MM3 CBC Comment DIFF FINAL Differential Comment Sodium Level 145 MEQ/L Potassium Level 3.4 MEQ/L Chloride Level 105 MEQ/L Carbon Dioxide Level 27.4 MEQ/L Anion Gap 13 MEQ/L Blood Urea Nitrogen 10 MG/DL Creatinine 0.53 MG/DL Estimat Glomerular Filtration 113 ML/MIN Rate Random Glucose 149 MG/DL Calcium Level 7.9 MG/DL Total Bilirubin 0.2 MG/DL Aspartate Amino Transf 12 U/L (AST/SGOT) Alanine Aminotransferase 14 U/L (ALT/SGPT) Alkaline Phosphatase 61 U/L Total Protein 5.4 GM/DL Albumin 1.6 GM/DL Culture Results Microbiology Date/Time Procedure Status Source Growth 11/15/16 19:57 Gram Stain - Final Resulted Abscess Abdomen 11/15/16 19:57 Wound Culture - Preliminary Resulted Abscess Abdomen IMMATURE GROWTH - REINCUBATE Administered Medications Medications (Trade) Dose Ordered Sig/Livia Route PRN Reason Start Time Stop Time Status Last Admin Dose Admin Sodium Chloride (1/2 NS 1000 ml Inj) 1,000 ml @ 75 mls/hr [id number] IV 11/08/16 13:57 11/16/16 20:59 Sodium Chloride (NS Flush) 2 ml UNSCH PRN IV FLUSH FLUSH AFTER USING IV ACCESS 11/08/16 14:00 11/15/16 11:06 Sodium Chloride (NS Flush) 2 ml BID IV FLUSH 11/08/16 21:00 11/15/16 22:19 Acetaminophen (Tylenol) 650 mg Q4H PRN PO TEMP > 100.4 11/08/16 14:00 11/16/16 08:52 Ondansetron HCl (Zofran Inj) 4 mg Q6H PRN IVP NAUSEA OR VOMITING 11/08/16 14:00 11/10/16 08:50 Senna/Docusate Sodium (Sean-Colace) 1 tab BID PO 11/08/16 21:00 11/16/16 08:46 Pantoprazole Sodium (Protonix Inj) 40 mg Q12H IV PUSH 11/08/16 23:00 11/16/16 22:33 Enoxaparin Sodium (Lovenox Inj) 40 mg Q24H SQ 11/08/16 20:00 11/16/16 21:03 Allopurinol (Zyloprim) 300 mg DAILY PO 11/09/16 09:00 11/16/16 08:46 Amlodipine Besylate (Norvasc) 5 mg DAILY PO 11/09/16 09:00 11/16/16 08:45 Aspirin (Aspirin Chew) 81 mg DAILY CHEW 11/09/16 09:00 11/16/16 08:45 Carvedilol (Coreg) 25 mg BID PO 11/08/16 21:00 11/16/16 21:04 Clonidine (Catapres) 0.2 mg Q8HR PO 11/08/16 22:00 11/16/16 21:06 Lisinopril (Prinivil) 5 mg BID PO 11/08/16 21:00 11/16/16 21:06 Pravastatin Sodium (Pravachol) 40 mg DAILY PO 11/09/16 09:00 11/16/16 08:46 Metformin HCl (Glucophage) 500 mg DAILY PO 11/09/16 09:00 11/14/16 08:49 Pioglitazone HCl (Actos) 15 mg DAILY PO 11/09/16 09:00 11/16/16 08:46 Acetaminophen 650 mg 650 mg Q6H PRN PO PAIN 1-10 11/13/16 21:00 11/17/16 03:41 Ampicillin Sodium/ Sulbactam Sodium/ Sodium Chloride (Unasyn Inj/NS Inj) 100 ml @ 200 mls/hr Q6H IV 11/14/16 22:00 11/17/16 03:42 Sodium Chloride (NS Inj) 10 ml DAILY IRRIGATION 11/16/16 09:00 11/16/16 08:47 Objective Remarks GENERAL PHYSICAL APPEARANCE: Ms. Keyes is an elderly female, she has somewhat of a disheveled appearance. She appears to be in no acute distress. She is awake and alert and cooperative. HEENT: Head atraumatic, normocephalic. Conjunctivae are pale. Sclerae are anicteric. Oral Exam - No pharyngeal erythema. Facial Exam - She has significant hirsutism. RESPIRATORY EXAM: Good air movement bilaterally. No added breath sounds with a prolonged expiratory phase. CARDIOVASCULAR: Regular rate and rhythm, S1, S2 with a systolic murmur over the pulmonic area and left lower sternal border. ABDOMINAL EXAM: Obese belly, soft, there is tenderness over the left lower quadrant, no palpable organ enlargement. Interval placement of percutaneous drain in the left lower quadrant, the drain bag contains purulent and blood tinged liquid. LOWER EXTREMITIES: Trace pretibial edema, calf tenderness. Assessment/Plan Assessment Mr. Keyes is a 71-year-old female who presents to the hospital with a several week history of persistent nausea, decreased appetite, progressive fatigue and weakness. Upon presentation she was noted to have a profound microcytic anemia with presenting hemoglobin of 8.3 gm/dl associated with an MCV of 72. Stool for occult blood was noted to be negative. Imaging studies of the chest, abdomen and pelvis indicated findings consistent with multiple sub-cm pulmonary nodules, the etiology of which is nonspecific. CT scan of the pelvis revealed what appeared to be a perirectal/sigmoid colon abscess/mass associated with fat stranding. She was also noted to have a 2 cm adrenal incidentaloma the etiology of which is nonspecific and unknown at this time. Plan 1. Perirectal/sigmoid colon abscess with possible underlying mass: Endoscopic evaluation is required to further evaluate the possible origin of the abscess. I talked the patient again about allowing a sigmoidoscopy at the very least but preferably a colonoscopy and she tells me she is more amenable to this and is willing to talk to gastroenterology again. She was seen by GI earlier this admission and categorically declined a colonoscopy which was offered at that time. 2. Microcytic anemia: Serum iron studies are consistent with iron deficiency though anemia of chronic disease/inflammation can have a similar presentation. 3. Left adrenal nodule: Most likely an adenoma, and outpatient workup for functional adrenal nodule can be performed. The Hounsfield units of the adrenal nodule are not consistent with malignancy. I will ask GI to reevaluate this patient. The pulmonary nodules are too small to biopsy and are likely too small to have sufficient FDG uptake on PET/CT scan to help us determine whether these are metastatic deposits versus a benign etiology. Jovani Hernandez MD Nov 17, 2016 07:40
[2016-11-17] MEDS: CARVEDILOL 12.5 MG TAB PO SCH ×2 (07:53→21:25)
[2016-11-17] MEDS: PRAVASTATIN SOD 40 MG TAB PO SCH (07:53)
[2016-11-17] MEDS: DOCUSATE SODIUM 50 MG/SENNA 8.6 MG TAB PO SCH ×3 (07:53→21:10)
[2016-11-17] MEDS: PIOGLITAZONE HCL 15 MG TAB PO SCH (07:54)
[2016-11-17] MEDS: ASPIRIN 81 MG CHEW TAB CHEW SCH (07:54)
[2016-11-17] MEDS: ALLOPURINOL 300 MG TAB PO SCH (07:54)
[2016-11-17] MEDS: amLODIPine BESYLATE 5 MG TAB PO SCH (07:54)
[2016-11-17] MEDS: SODIUM CHLORIDE 0.9% FLUSH 10 ML FLUSH IV FLUSH SCH ×2 (07:55→21:00)
[2016-11-17] MEDS: SODIUM CHLORIDE 0.9% 10 ML VIAL IRRIGATION SCH (07:55)
[2016-11-17] MEDS: LISINOPRIL 5 MG TAB PO SCH ×3 (07:55→21:25)
[2016-11-17] MEDS: metFORMIN HCL 500 MG TAB PO SCH (07:55)
--- NOTE | 2016-11-17 08:46 | HHI.PR ---
Subjective History of Present Illness Patient feel weak and tired . no acute issue. leukocytosis better ..Low potassium will replace and monitor. checked Magnesium level.. CT Abdomen and Pelvis shows acute diverticulitis and psoas abscess General surgery input noted S/P abscess drainage by Interventional radiology ...on Unysn per ID Recomendation. d/w PAIGE Hernandes no acute issue still have drainage from drain. Review of Systems Constitutional Constitutional: Fatigue, Weakness Vitals/Results Intake & Output 11/16/16 11/16/16 11/17/16 15:00 23:00 07:00 Intake Total 1033 ml 1264 ml 1058 ml Output Total 270 ml 0 ml 0 ml Balance 763 ml 1264 ml 1058 ml Intake Oral 275 ml 720 ml 480 ml IV Total 758 ml 544 ml 578 ml Output Urine Total 250 ml Drainage Total 20 ml 0 ml 0 ml # Voids 1 5 5 # Bowel Movements 0 1 5 Vital Signs Vital Signs Date Time Temp Pulse Resp B/P Pulse Ox O2 Delivery O2 Flow Rate FiO2 11/17/16 05:00 97.8 71 16 133/63 98 11/17/16 00:00 96.9 68 17 120/58 96 11/16/16 21:00 96 Nasal Cannula 2.00 11/16/16 20:00 95.2 74 18 149/66 94 11/16/16 19:23 86 11/16/16 16:00 95.6 71 17 127/57 93 11/16/16 15:41 18 11/16/16 12:00 97.0 70 17 134/62 97 11/16/16 09:52 18 CBC/BMP: 11/17/16 0445 11/17/16 0445 Lab Results Laboratory Tests Test 11/17/16 04:45 White Blood Count 7.4 TH/MM3 Red Blood Count 4.02 MIL/MM3 Hemoglobin 9.3 GM/DL Hematocrit 30.1 % Mean Corpuscular Volume 74.8 FL Mean Corpuscular Hemoglobin 23.1 PG Mean Corpuscular Hemoglobin 30.8 % Concent Red Cell Distribution Width 19.4 % Platelet Count 446 TH/MM3 Mean Platelet Volume 6.5 FL Neutrophils (%) (Auto) 78.3 % Lymphocytes (%) (Auto) 13.1 % Monocytes (%) (Auto) 7.7 % Eosinophils (%) (Auto) 0.6 % Basophils (%) (Auto) 0.3 % Neutrophils # (Auto) 5.8 TH/MM3 Lymphocytes # (Auto) 1.0 TH/MM3 Monocytes # (Auto) 0.6 TH/MM3 Eosinophils # (Auto) 0.0 TH/MM3 Basophils # (Auto) 0.0 TH/MM3 CBC Comment DIFF FINAL Differential Comment Sodium Level 145 MEQ/L Potassium Level 3.4 MEQ/L Chloride Level 105 MEQ/L Carbon Dioxide Level 27.4 MEQ/L Anion Gap 13 MEQ/L Blood Urea Nitrogen 10 MG/DL Creatinine 0.53 MG/DL Estimat Glomerular Filtration 113 ML/MIN Rate Random Glucose 149 MG/DL Calcium Level 7.9 MG/DL Total Bilirubin 0.2 MG/DL Aspartate Amino Transf 12 U/L (AST/SGOT) Alanine Aminotransferase 14 U/L (ALT/SGPT) Alkaline Phosphatase 61 U/L Total Protein 5.4 GM/DL Albumin 1.6 GM/DL Physical Exam General General Appearance: Well Developed, Well Nourished, No Acute Distress, Comfortable Eyes Eye Exam: Pupils Equal, Pupils Reactive, Sclera White, Extraocular Movement Intact Throat Throat Exam: Oral Mucosa [place] & Moist, Oral Pharynx Normal Neck Neck Exam: Neck Supple, Trachea Midline Pulmonary Resp Exam: Clear Bilaterally, Breath Sounds Equal, No Distress Cardiology CV Exam: Regular, Normal Sinus Rhythm Gastrointestinal/Abdomen GI Exam: Soft, Non-Tender, Bowel Sounds Present GI Remarks mild abdominal tenderness left side. Musculoskeletal MS Exam: Normal Tone Integumentary Skin Exam: Clear, Warm, Dry, Intact Extremeties Extremities Exam: No Edema Neurologic Neuro Exam: Alert, Awake, Oriented, Speech Clear, Moving All Extremities, No Focal Deficits Psychiatric Psych Exam: Appropriate Responses VTE Prophylaxis VTE Prophylaxis Meds: Lovenox PUD Prophylasis PUD Prophylaxis: Protonix Assessment/Plan Assessment/Plan ASSESSMENT AND PLAN: This is a 71-year female who came to the emergency room diagnosed with 1. Nausea with hypoglycemia. Glucose is normal now. The patient is on Zofran 4 milligrams IV q. 6-hour p.r.n. for nausea and vomiting. 2. Leukocytosis,...resolved.... Chest x-ray does not show anything acute. check CT scan of the chest negative for pneumonia... have pulmonary nodule pulmonary input noted. Blood cultures x2 positive for gram negative rods. 3. Diabetes mellitus. ADA 1800 calorie diet. NovoLog. sliding scale. Check blood sugars a.c. and h.s. Will monitor blood sugar. 4. Left history of gout. Continue home medication. 5. History of hypertension. Continue medication. Monitor blood pressure. 6. Hyperlipidemia. Continue lovastatin 40 milligrams p.o. daily. 7. DVT prophylaxis. Lovenox 40 milligrams. 8. GI prophylaxis Protonix 40 milligrams p.o. twice a day. 9. Pulmonary nodule pulmonary input noted. 10. blood culture positive on Unysn per ID Recomendation. 11. Hemoglobin 6.9 Possible GI Bleed had Hemoglobin 6.9 Possible GI Bleed S/ P 2 units PRBC Transfusion now Hemoglobin 9.3 fecal occult blood test x 1 negative.. H and H stable.. 12. .Hypokalemia will replace and monitor. checked Magnesium level..2.[address] Abdomen and Pelvis shows acute diverticulitis and Psoas abscess General surgery input noted S/P abscess drainage by Interventional radiology ...on Unysn per ID Recomendation. We are going to manage the patient on a daily basis and make recommendations on a daily basis. Check CBC and comprehensive metabolic profile in the morning. Discussed Condition with: Patient Reed Up MD Nov 17, 2016 08:46 Reed Up MD Nov 17, 2016 08:46
--- NOTE | 2016-11-17 10:57 | RSPPFT ---
DATE OF PROCEDURE: 11/10/16 COMMENTS: Spirometry demonstrates an FEV1 of 1.0 at 46% of predicted, FVC of 1.4 at 50%, FEF 25-75 at 35%. Post-bronchodilator study demonstrated no significant change. Flow volume loop are atypical and suggest a restrictive pattern. IMPRESSION: 1. Moderately severe restrictive disease. 2. Additional mild to moderate obstructive disease. 3. No significant change following use of bronchodilator.
[2016-11-17] MEDS: PANTOPRAZOLE SODIUM 40 MG VIAL IV PUSH SCH ×2 (10:59→23:40)
[2016-11-17] MEDS: SODIUM CHLORIDE 0.9% FLUSH 10 ML FLUSH IV FLUSH PRN (11:02)
--- NOTE | 2016-11-17 13:31 | HHI.IDPN ---
Subjective Subjective Remarks ID [email or web address] for . is a 71 y/o CM with Multiple medical problems including HTN,DM, gout. Pt admitted with complains of nausea 48 hrs prior to admission in addition to hypoglycemia. Pt was seen by at [facility] and now transferred for IR guided drainage of Intra abd abscess. PAST SURGICAL HISTORY Hysterectomy. Cholecystectomy. PAST MEDICAL HISTORY 1. Diabetes. 2. Gout. 3. Hypertension. Overnight events reviewed. Denies any nausea vomiting Is on clear liquid diet and is tolerating No fever Hard of hearing Flat affect Antibiotics Unasyn IV Lines Peripheral Past Medical History HTN Gout Diabetes Allergies: Coded Allergies: No Known Allergies (Unverified , 11/08/16) Objective . Vital Signs Date Time Temp Pulse Resp B/P Pulse Ox O2 Delivery O2 Flow Rate FiO2 11/17/16 12:00 97.1 68 19 119/57 98 11/17/16 10:48 18 11/17/16 08:30 92 Room Air 11/17/16 08:00 95.0 70 21 134/66 97 11/17/16 05:00 97.8 71 16 133/63 98 11/17/16 00:00 96.9 68 17 120/58 96 11/16/16 21:00 96 Nasal Cannula 2.00 11/16/16 20:00 95.2 74 18 149/66 94 11/16/16 19:23 86 11/16/16 16:00 95.6 71 17 127/57 93 11/16/16 11/16/16 11/17/16 15:00 23:00 07:00 Intake Total 1033 ml 1264 ml 1058 ml Output Total 270 ml 0 ml 0 ml Balance 763 ml 1264 ml 1058 ml Intake Oral 275 ml 720 ml 480 ml IV Total 758 ml 544 ml 578 ml Output Urine Total 250 ml Drainage Total 20 ml 0 ml 0 ml # Voids 1 5 5 # Bowel Movements 0 1 5 . Laboratory Tests Test 11/16/16 11/17/16 03:52 04:45 White Blood Count 6.7 TH/MM3 7.4 TH/MM3 Red Blood Count 3.90 MIL/MM3 4.02 MIL/MM3 Hemoglobin 8.9 GM/DL 9.3 GM/DL Hematocrit 29.0 % 30.1 % Mean Corpuscular Volume 74.5 FL 74.8 FL Mean Corpuscular Hemoglobin 22.9 PG 23.1 PG Mean Corpuscular Hemoglobin 30.8 % 30.8 % Concent Red Cell Distribution Width 20.0 % 19.4 % Platelet Count 434 TH/MM3 446 TH/MM3 Mean Platelet Volume 6.7 FL 6.5 FL Neutrophils (%) (Auto) 74.7 % 78.3 % Lymphocytes (%) (Auto) 17.2 % 13.1 % Monocytes (%) (Auto) 7.0 % 7.7 % Eosinophils (%) (Auto) 0.7 % 0.6 % Basophils (%) (Auto) 0.4 % 0.3 % Neutrophils # (Auto) 5.0 TH/MM3 5.8 TH/MM3 Lymphocytes # (Auto) 1.2 TH/MM3 1.0 TH/MM3 Monocytes # (Auto) 0.5 TH/MM3 0.6 TH/MM3 Eosinophils # (Auto) 0.0 TH/MM3 0.0 TH/MM3 Basophils # (Auto) 0.0 TH/MM3 0.0 TH/MM3 CBC Comment AUTO DIFF DIFF FINAL Differential Total Cells 100 Counted Neutrophils % (Manual) 51 % Band Neutrophils % 26 % Lymphocytes % 13 % Monocytes % 10 % Neutrophils # (Manual) 5.2 TH/MM3 Differential Comment FINAL DIFF MANUAL Laboratory Tests Test 11/16/16 11/17/16 03:52 04:45 Sodium Level 142 MEQ/L 145 MEQ/L Potassium Level 3.0 MEQ/L 3.4 MEQ/L Chloride Level 101 MEQ/L 105 MEQ/L Carbon Dioxide Level 28.0 MEQ/L 27.4 MEQ/L Anion Gap 13 MEQ/L 13 MEQ/L Blood Urea Nitrogen 11 MG/DL 10 MG/DL Creatinine 0.49 MG/DL 0.53 MG/DL Estimat Glomerular Filtration 124 ML/MIN 113 ML/MIN Rate Random Glucose 127 MG/DL 149 MG/DL Calcium Level 8.0 MG/DL 7.9 MG/DL Total Bilirubin 0.3 MG/DL 0.2 MG/DL Aspartate Amino Transf 8 U/L 12 U/L (AST/SGOT) Alanine Aminotransferase 14 U/L 14 U/L (ALT/SGPT) Alkaline Phosphatase 60 U/L 61 U/L Total Protein 5.4 GM/DL 5.4 GM/DL Albumin 1.5 GM/DL 1.6 GM/DL Microbiology Date/Time Procedure Status Source Growth 6/5/17 19:57 Gram Stain - Final Resulted Abscess Abdomen 11/15/16 19:57 Wound Culture - Preliminary Resulted Abscess Abdomen Imaging Last Impressions Abscess Drainage CT 11/15/16 0000 Signed Impressions: Service Date/Time: Tuesday, November 15, 2016 19:23 - CONCLUSION: Uncomplicated CT guided drainage. An 8 [place] catheter was left in position. Taiwo Leal MD Abdomen/Pelvis CT 11/14/16 0000 Signed Impressions: Service Date/Time: Monday, November 14, 2016 10:54 - CONCLUSION: 1. Acute sigmoid diverticulitis with adjacent abscess involving the psoas muscle. 2. Paraumbilical fat containing hernia. 3. 2 cm left adrenal nodule, nonspecific. Dmitri Huynh MD Chest X-Ray 11/12/16 0600 Signed Impressions: Service Date/Time: Saturday, November 12, 2016 05:47 - CONCLUSION: Cardiomegaly. No acute cardiopulmonary disease. Semaj Coker MD Chest CT 11/08/16 0000 Signed Impressions: Service Date/Time: Tuesday, November 08, 2016 19:23 - CONCLUSION: 1. Innumerable noncalcified subcentimeter pulmonary nodules with the largest measuring 8 mm in the left lower lobe posteriorly. Although these are nonspecific metastatic disease remains in the differential. PET/CT scan may be helpful for further evaluation of the largest of these nodules if clinically indicated. 2. Coronary artery calcifications. 3. Left adrenal mass measuring 2.7 x 2.5 cm which is nonspecific. Ketan Schfoield MD Physical Exam GENERAL: On physical exam, this is a 71-year-old female lying on the bed not in acute distress. HEAD, EYES, EARS, NOSE, THROAT: Normocephalic and atraumatic. Extraocular muscles intact. Pupils equal, round and reactive to light and accommodation. Oral mucosa moist. NECK: The neck is supple. Trachea is central. CARDIOVASCULAR: Regular rate and rhythm. RESPIRATORY: Clear to auscultation bilaterally. ABDOMEN: Abdomen soft and nontender. Bowel sounds audible. Drain in place with serosanguineous discharge. EXTREMITIES: No cyanosis or clubbing. Full range of motion of all extremities. No edema. NEUROLOGIC: Awake, alert and oriented times four. No focal deficits. SKIN: Warm and dry. PSYCHIATRIC: The patient is cooperative. Flat affect IV line site with no evidence of infection. Assessment & Plan Remarks Acute diverticulitis with abscess of psoas muscle. s/p IR guided drainage. Leucocytosis improving. Secondary to infection. Coag neg staph bacteremia: likely contaminant. Recs Continue Unasyn IV DC Flagyl IV (no need for double coverage for anaerobes, Unasyn has anaerobic coverage) Follow cultures follow clinically dkofi pt and RN I will be out of town November 18, 2016 to November 21, 2016. Dr. Bond of covering for me. Ana Maria Bernard MD Nov 17, 2016 13:31
[2016-11-17] MEDS ORDERED: POTASSIUM CHLORIDE 10 MEQ CONTROLLED RELEASE TAB PO ONE (13:45)
[2016-11-17] MEDS: SODIUM CHLOR 0.45% 1000 ML INJ 1,000 ML IV SCH ×2 (13:46→23:40)
--- NOTE | 2016-11-17 13:59 | HHI.PR ---
Subjective Subjective Notes No changes. Still with nausea, says she can't get anything down. Objective Vitals/I&O Vital Signs Date Time Temp Pulse Resp B/P Pulse Ox O2 Delivery O2 Flow Rate FiO2 11/17/16 12:00 97.1 68 19 119/57 98 11/17/16 10:12 Nasal Cannula 2.00 Labs Laboratory Tests Test 11/17/16 04:45 White Blood Count 7.4 Red Blood Count 4.02 Hemoglobin 9.3 Hematocrit 30.1 Mean Corpuscular Volume 74.8 Mean Corpuscular Hemoglobin 23.1 Mean Corpuscular Hemoglobin 30.8 Concent Red Cell Distribution Width 19.4 Platelet Count 446 Mean Platelet Volume 6.5 Neutrophils (%) (Auto) 78.3 Lymphocytes (%) (Auto) 13.1 Monocytes (%) (Auto) 7.7 Eosinophils (%) (Auto) 0.6 Basophils (%) (Auto) 0.3 Neutrophils # (Auto) 5.8 Lymphocytes # (Auto) 1.0 Monocytes # (Auto) 0.6 Eosinophils # (Auto) 0.0 Basophils # (Auto) 0.0 CBC Comment DIFF FINAL Differential Comment Sodium Level 145 Potassium Level 3.4 Chloride Level 105 Carbon Dioxide Level 27.4 Anion Gap 13 Blood Urea Nitrogen 10 Creatinine 0.53 Estimat Glomerular Filtration 113 Rate Random Glucose 149 Calcium Level 7.9 Total Bilirubin 0.2 Aspartate Amino Transf 12 (AST/SGOT) Alanine Aminotransferase 14 (ALT/SGPT) Alkaline Phosphatase 61 Total Protein 5.4 Albumin 1.6 Date/Time Procedure Status Source Growth 11/15/16 19:57 Gram Stain - Final Resulted Abscess Abdomen 11/15/16 19:57 Wound Culture - Preliminary Resulted Abscess Abdomen Radiology Last Impressions Abdomen/Pelvis CT 11/14/16 0000 Signed Impressions: Service Date/Time: Monday, November 14, 2016 10:54 - CONCLUSION: 1. Acute sigmoid diverticulitis with adjacent abscess involving the psoas muscle. 2. Paraumbilical fat containing hernia. 3. 2 cm left adrenal nodule, nonspecific. Dmitri Huynh MD Chest X-Ray 11/12/16 0600 Signed Impressions: Service Date/Time: Saturday, November 12, 2016 05:47 - CONCLUSION: Cardiomegaly. No acute cardiopulmonary disease. Semaj Coker MD Chest CT 11/08/16 0000 Signed Impressions: Service Date/Time: Tuesday, November 08, 2016 19:23 - CONCLUSION: 1. Innumerable noncalcified subcentimeter pulmonary nodules with the largest measuring 8 mm in the left lower lobe posteriorly. Although these are nonspecific metastatic disease remains in the differential. PET/CT scan may be helpful for further evaluation of the largest of these nodules if clinically indicated. 2. Coronary artery calcifications. 3. Left adrenal mass measuring 2.7 x 2.5 cm which is nonspecific. Ketan Schofield MD Narrative Exam NAD, flat affect. Obese. Hirsute. Nonlabored breathing Abd: soft, ventral hernia incarcerated, mild ttp; LLQ ttp, drain in place purulent output A/P Assessment and Plan 71 yo F sigmoid mass with associated abscess, adrenal mass, pulmonary nodules, ventral hernia which appears to be incarcerated with omentum. She told Dr. Hernandez she would have a colonoscopy. GI will be asked to reevaluate. Cont IV antibiotics. I ordered plasma metanephrines to make sure she doesn't have a pheochromocytoma in case surgery ends up being required at some point. JarrodCharles MD Nov 17, 2016 13:59
--- NOTE | 2016-11-17 14:43 | HHI.GIFU ---
Subjective Remarks Pt resting in bed in no apparent distress. When told we were asked to come see her b/c she changed her mind about colonoscopy, she said "whatever." Denies pain , n/v, diarrhea. (Pebbles Patel) Objective Vitals I&O Vital Signs Date Time Temp Pulse Resp B/P Pulse Ox O2 Delivery O2 Flow Rate FiO2 11/17/16 12:00 97.1 68 19 119/57 98 11/17/16 10:48 18 11/17/16 10:12 97 Nasal Cannula 2.00 11/17/16 08:30 92 Room Air 11/17/16 08:00 95.0 70 21 134/66 97 11/17/16 05:00 97.8 71 16 133/63 98 11/17/16 00:00 96.9 68 17 120/58 96 11/16/16 21:00 96 Nasal Cannula 2.00 11/16/16 20:00 95.2 74 18 149/66 94 11/16/16 19:23 86 11/16/16 16:00 95.6 71 17 127/57 93 I/O 11/16/16 11/16/16 11/16/16 11/17/16 11/17/16 11/17/16 07:00 15:00 23:00 07:00 15:00 23:00 Intake Total 807 ml 1033 ml 1264 ml 1058 ml Output Total 50 ml 270 ml 0 ml 0 ml Balance 757 ml 763 ml 1264 ml 1058 ml Intake Oral 240 ml 275 ml 720 ml 480 ml IV Total 567 ml 758 ml 544 ml 578 ml Output Urine Total 250 ml Drainage Total 50 ml 20 ml 0 ml 0 ml # Voids 3 1 5 5 # Bowel Movements 0 0 1 5 Laboratory Laboratory Tests Test 11/17/16 04:45 White Blood Count 7.4 Red Blood Count 4.02 Hemoglobin 9.3 Hematocrit 30.1 Mean Corpuscular Volume 74.8 Mean Corpuscular Hemoglobin 23.1 Mean Corpuscular Hemoglobin 30.8 Concent Red Cell Distribution Width 19.4 Platelet Count 446 Mean Platelet Volume 6.5 Neutrophils (%) (Auto) 78.3 Lymphocytes (%) (Auto) 13.1 Monocytes (%) (Auto) 7.7 Eosinophils (%) (Auto) 0.6 Basophils (%) (Auto) 0.3 Neutrophils # (Auto) 5.8 Lymphocytes # (Auto) 1.0 Monocytes # (Auto) 0.6 Eosinophils # (Auto) 0.0 Basophils # (Auto) 0.0 CBC Comment DIFF FINAL Differential Comment Sodium Level 145 Potassium Level 3.4 Chloride Level 105 Carbon Dioxide Level 27.4 Anion Gap 13 Blood Urea Nitrogen 10 Creatinine 0.53 Estimat Glomerular Filtration 113 Rate Random Glucose 149 Calcium Level 7.9 Total Bilirubin 0.2 Aspartate Amino Transf 12 (AST/SGOT) Alanine Aminotransferase 14 (ALT/SGPT) Alkaline Phosphatase 61 Total Protein 5.4 Albumin 1.6 Date/Time Procedure Status Source Growth 11/15/16 19:57 Gram Stain - Final Resulted Abscess Abdomen 11/15/16 19:57 Wound Culture - Preliminary Resulted Abscess Abdomen Imaging Last Impressions Abscess Drainage CT 11/15/16 0000 Signed Impressions: Service Date/Time: Tuesday, November 15, 2016 19:23 - CONCLUSION: Uncomplicated CT guided drainage. An 8 [place]ian catheter was left in position. Taiwo Leal MD Abdomen/Pelvis CT 11/14/16 0000 Signed Impressions: Service Date/Time: Monday, November 14, 2016 10:54 - CONCLUSION: 1. Acute sigmoid diverticulitis with adjacent abscess involving the psoas muscle. 2. Paraumbilical fat containing hernia. 3. 2 cm left adrenal nodule, nonspecific. Dmitri Huynh MD Chest X-Ray 11/12/16 0600 Signed Impressions: Service Date/Time: Saturday, November 12, 2016 05:47 - CONCLUSION: Cardiomegaly. No acute cardiopulmonary disease. Semaj Coker MD Chest CT 11/08/16 0000 Signed Impressions: Service Date/Time: Tuesday, November 08, 2016 19:23 - CONCLUSION: 1. Innumerable noncalcified subcentimeter pulmonary nodules with the largest measuring 8 mm in the left lower lobe posteriorly. Although these are nonspecific metastatic disease remains in the differential. PET/CT scan may be helpful for further evaluation of the largest of these nodules if clinically indicated. 2. Coronary artery calcifications. 3. Left adrenal mass measuring 2.7 x 2.5 cm which is nonspecific. Ketan Schofield MD Physical Exam HEENT: EOMI; normocephalic; atraumatic; no jaundice. CHEST: CTA CARDIAC: RRR ABDOMEN: Soft, obese, nontender; no hepatosplenomegaly; bowel sounds are present in all four quadrants. drain LLQ, dressing clean EXTREMITIES: No clubbing, cyanosis, or edema. SKIN: Normal; no rash; no jaundice. STRIPPER PRELIMINARY: No focal deficits; alert and oriented times three. heard of hearing, weak (Pebbles Patel) Assessment and Plan Plan ASSESSMENT - anemia - hgb 9.3, stable since yesterday. Previously has refused EGD/ colonoscopy and today was asked to fu b/c she was asking about it but she did not have much to contribute. - diverticulitis, diverticular abcess - per CT. Acute sigmoid diverticulitis with adjacent abscess involving the psoas muscle. 2. Paraumbilical fat containing hernia. PLAN - monitor HH - transfuse if needed - colonoscopy in 6 weeks - further recommendations after Dr Howard sees pt This pt seen by myself and Dr Howard and this note is written on his behalf ( Pebbles Patel) Physician Comments Seen and examined, plan as above, for EGD/Colonoscopy in 6-8 weeks. Further recommendations to follow. (Richard Howard MD) Pebbles Patel Nov 17, 2016 14:43 Richard Howard MD Nov 17, 2016 16:54
--- NOTE | 2016-11-17 17:55 | HHI.PR ---
Subjective Remarks She is still weak and nauseated. No cough or wheezing. O2 sat was low on RA On O2 2L and sat 98. .Had a Drain placed for a Sigmoid abscess and diverticulitis. Poor intake. On Unasyn Needs Colonoscopy and she is now willing to get it done. Objective Vital Signs Date Time Temp Pulse Resp B/P Pulse Ox O2 Delivery O2 Flow Rate FiO2 11/17/16 16:00 96.7 70 20 136/66 94 11/17/16 12:00 97.1 68 19 119/57 98 11/17/16 10:48 18 11/17/16 10:12 97 Nasal Cannula 2.00 11/17/16 08:30 92 Room Air 11/17/16 08:00 95.0 70 21 134/66 97 11/17/16 05:00 97.8 71 16 133/63 98 11/17/16 00:00 96.9 68 17 120/58 96 11/16/16 21:00 96 Nasal Cannula 2.00 11/16/16 20:00 95.2 74 18 149/66 94 11/16/16 19:23 86 I/O 11/16/16 11/16/16 11/16/16 11/17/16 11/17/16 11/17/16 07:00 15:00 23:00 07:00 15:00 23:00 Intake Total 807 ml 1033 ml 1264 ml 1058 ml 475 ml Output Total 50 ml 270 ml 0 ml 0 ml 0 ml Balance 757 ml 763 ml 1264 ml 1058 ml 475 ml Intake Oral 240 ml 275 ml 720 ml 480 ml 475 ml IV Total 567 ml 758 ml 544 ml 578 ml Output Urine Total 250 ml Drainage Total 50 ml 20 ml 0 ml 0 ml 0 ml # Voids 3 1 5 5 4 # Bowel Movements 0 0 1 5 3 Result Diagram: 11/17/16 0445 11/17/16 0445 Objective Remarks GENERAL: This obese, elderly white female who is pale and in no distress. HEENT: Head normocephalic. Pupils are reactive. . Throat was clear. NECK: Supple. No bruits or thyroid enlargement or lymphadenopathy. CHEST: Distant breath sounds with occ basal crackles HEART: The heart sounds are regular S1-S2. No murmur. No S3.t ABDOMEN: Obese, protuberant without masses. No organomegaly. Has lower abdominal tenderness. Bowel sounds active.Catheter drain in LLQ. EXTREMITIES: No lesions. no edema. Peripheral pulses are diminished. Reflexes are 1+. NEUROLOGIC: No gross motor deficits. SKIN: No lesions observed. Assessment and Plan Assessment and Plan IMPRESSION 1. Bilateral lung nodules, etiology to be determined. Probable granulomas versus metastatic disease. 2. Diabetes mellitus type 2. 3. Hypertension. 4. Exogenous obesity and possible sleep apnea. 5. Possible hypothyroidism. 6. Hypertension. 7. Anemia Plan : 1. Use ventolin HFA , 2 puffs tid prn. 2. Cont Antibiotics, Unasyn 3. Pelvic drain for abscess 4. PET CT as OP. 5.TPN if unable to Eat. 6.O2 at 2 L. 7. Colonoscopy to be done Juan Ramon Perez MD Nov 17, 2016 17:55
[2016-11-17] MEDS: ENOXAPARIN SODIUM 40 MG/0.4 ML SYRINGE SQ SCH (21:10)
[2016-11-18] VITALS (7 sets, daily range): BP systolic 126–150; BP diastolic 59–66; PULSE 61–72; RESP 16–22; TEMP 96.1–97.3; O2SAT 93–99
[2016-11-18] MEDS: cloNIDine HCL 0.2 MG TAB PO SCH ×3 (04:30→21:37)
[2016-11-18] MEDS: AMPICILLIN/SULBAC 3 GM/NS 100 ML IV SCH ×8 (04:30→21:38)
[2016-11-18 05:18] LABS: AUTOMATED NEUTROPHIL # 4.5 TH/MM3 (1.8-7.7); BASOPHIL % 0.6 % (0.0-2.0); EOSINOPHIL # 0.1 TH/MM3 (0-0.4); EOSINOPHIL % 0.9 % (0.0-4.0); LYMPH % 16.5 % (9.0-44.0); MEAN CELL VOLUME 74.6 FL (80.0-100.0); MEAN CORPUSCULAR HEMOGLOBIN 23.5 PG (27.0-34.0); MEAN CORPUSCULAR HGB CONC 31.5 % (32.0-36.0); MONO % 8.1 % (0.0-8.0); NEUT % 73.9 % (16.0-70.0); PLATELET COUNT 423 TH/MM3 (150-450); RED BLOOD COUNT 3.89 MIL/MM3 (4.00-5.30); RED CELL DISTRIBUTION WIDTH 19.3 % (11.6-17.2); WHITE BLOOD COUNT 6.1 TH/MM3 (4.0-11.0)
[2016-11-18 05:29] LABS: HEMO FLAGS AUTO DIFF
[2016-11-18 05:41] LABS: ALT (GPT) 15 U/L (10-53); ANION GAP 10 MEQ/L (5-15); AST (GOT) 19 U/L (15-37); BICARBONATE 29.2 MEQ/L (21.0-32.0); BLOOD UREA NITROGEN 7 MG/DL (7-18); CHLORIDE 105 MEQ/L (98-107); GLOMERULAR FILTRATION RATE 148 ML/MIN (>89); POTASSIUM 3.4 MEQ/L (3.5-5.1); SODIUM (NA) 144 MEQ/L (136-145)
[2016-11-18 05:43] LABS: ALKALINE PHOSPHATASE 61 U/L (45-117); TOTAL BILIRUBIN ADULT 0.1 MG/DL (0.2-1.0)
[2016-11-18] MEDS: INSULIN NovoLIN REGULAR SUPPLEMENTAL SCALE SQ SCH ×4 (05:55→21:00)
--- NOTE | 2016-11-18 07:46 | HHI.PR ---
Subjective History of Present Illness Patient feel weak and tired . no acute issue. leukocytosis resolved ..Low potassium will replace and monitor. checked Magnesium level.. CT Abdomen and Pelvis shows acute diverticulitis and psoas abscess General surgery input noted S/P abscess drainage by Interventional radiology ...on Unysn per ID Recomendation. no acute issue still have drainage from drain. Review of Systems Constitutional Constitutional: Fatigue, Weakness Vitals/Results Intake & Output 11/17/16 11/17/16 11/18/16 15:00 23:00 07:00 Intake Total 1172 ml 1016 ml 758 ml Output Total 0 ml 410 ml Balance 1172 ml 1016 ml 348 ml Intake Oral 475 ml 480 ml 120 ml IV Total 697 ml 536 ml 638 ml Output Urine Total 400 ml Drainage Total 0 ml 10 ml # Voids 4 2 # Bowel Movements 3 2 1 Vital Signs Vital Signs Date Time Temp Pulse Resp B/P Pulse Ox O2 Delivery O2 Flow Rate FiO2 11/18/16 04:27 96.2 72 22 150/66 98 11/18/16 00:00 97.2 67 22 128/59 96 11/17/16 21:23 68 20 157/71 98 11/17/16 21:05 Nasal Cannula 2.00 11/17/16 20:12 96 2.00 11/17/16 20:00 97.0 67 24 141/67 98 11/17/16 16:00 96.7 70 20 136/66 94 11/17/16 12:00 97.1 68 19 119/57 98 11/17/16 10:48 18 11/17/16 10:12 97 Nasal Cannula 2.00 11/17/16 08:30 92 Room Air 11/17/16 08:00 95.0 70 21 134/66 97 CBC/BMP: 11/18/16 0457 11/18/16 0457 Lab Results Laboratory Tests Test 11/18/16 04:57 White Blood Count 6.1 TH/MM3 Red Blood Count 3.89 MIL/MM3 Hemoglobin 9.1 GM/DL Hematocrit 29.0 % Mean Corpuscular Volume 74.6 FL Mean Corpuscular Hemoglobin 23.5 PG Mean Corpuscular Hemoglobin 31.5 % Concent Red Cell Distribution Width 19.3 % Platelet Count 423 TH/MM3 Mean Platelet Volume 6.7 FL Neutrophils (%) (Auto) 73.9 % Lymphocytes (%) (Auto) 16.5 % Monocytes (%) (Auto) 8.1 % Eosinophils (%) (Auto) 0.9 % Basophils (%) (Auto) 0.6 % Neutrophils # (Auto) 4.5 TH/MM3 Lymphocytes # (Auto) 1.0 TH/MM3 Monocytes # (Auto) 0.5 TH/MM3 Eosinophils # (Auto) 0.1 TH/MM3 Basophils # (Auto) 0.0 TH/MM3 CBC Comment AUTO DIFF Sodium Level 144 MEQ/L Potassium Level 3.4 MEQ/L Chloride Level 105 MEQ/L Carbon Dioxide Level 29.2 MEQ/L Anion Gap 10 MEQ/L Blood Urea Nitrogen 7 MG/DL Creatinine 0.42 MG/DL Estimat Glomerular Filtration 148 ML/MIN Rate Random Glucose 123 MG/DL Calcium Level 7.6 MG/DL Total Bilirubin 0.1 MG/DL Aspartate Amino Transf 19 U/L (AST/SGOT) Alanine Aminotransferase 15 U/L (ALT/SGPT) Alkaline Phosphatase 61 U/L Total Protein 5.2 GM/DL Albumin 1.5 GM/DL Physical Exam General General Appearance: Well Developed, Well Nourished, No Acute Distress, Comfortable Eyes Eye Exam: Pupils Equal, Pupils Reactive, Sclera White, Extraocular Movement Intact Throat Throat Exam: Oral Mucosa [place] & Moist, Oral Pharynx Normal Neck Neck Exam: Neck Supple, Trachea Midline Pulmonary Resp Exam: Clear Bilaterally, Breath Sounds Equal, No Distress Cardiology CV Exam: Regular, Normal Sinus Rhythm Gastrointestinal/Abdomen GI Exam: Soft, Non-Tender, Bowel Sounds Present GI Remarks mild abdominal tenderness left side. Musculoskeletal MS Exam: Normal Tone Integumentary Skin Exam: Clear, Warm, Dry, Intact Extremeties Extremities Exam: No Edema Neurologic Neuro Exam: Alert, Awake, Oriented, Speech Clear, Moving All Extremities, No Focal Deficits Psychiatric Psych Exam: Appropriate Responses VTE Prophylaxis VTE Prophylaxis Meds: Lovenox PUD Prophylasis PUD Prophylaxis: Protonix Assessment/Plan Assessment/Plan ASSESSMENT AND PLAN: This is a 71-year female who came to the emergency room diagnosed with 1. Nausea with hypoglycemia. Glucose is normal now. The patient is on Zofran 4 milligrams IV q. 6-hour p.r.n. for nausea and vomiting. 2. Leukocytosis,...resolved.... Chest x-ray does not show anything acute. check CT scan of the chest negative for pneumonia... have pulmonary nodule pulmonary input noted. Blood cultures x2 positive for gram negative rods. 3. Diabetes mellitus. ADA 1800 calorie diet. NovoLog. sliding scale. Check blood sugars a.c. and h.s. Will monitor blood sugar. 4. Left history of gout. Continue home medication. 5. History of hypertension. Continue medication. Monitor blood pressure. 6. Hyperlipidemia. Continue lovastatin 40 milligrams p.o. daily. 7. DVT prophylaxis. Lovenox 40 milligrams. 8. GI prophylaxis Protonix 40 milligrams p.o. twice a day. 9. Pulmonary nodule pulmonary input noted. 10. blood culture positive on Unysn per ID Recomendation. 11. Hemoglobin 6.9 Possible GI Bleed had Hemoglobin 6.9 Possible GI Bleed S/ P 2 units PRBC Transfusion now Hemoglobin 9.3 fecal occult blood test x 1 negative.. H and H stable.. 12. .Hypokalemia will replace and monitor. checked Magnesium level..2.[address] Abdomen and Pelvis shows acute diverticulitis and Psoas abscess General surgery input noted S/P abscess drainage by Interventional radiology ...on Unysn per ID Recomendation. We are going to manage the patient on a daily basis and make recommendations on a daily basis. Check CBC with diff CMP in AM. Check CBC and comprehensive metabolic profile in the morning. Discussed Condition with: Patient Reed Up MD Nov 18, 2016 07:46
[2016-11-18] MEDS: amLODIPine BESYLATE 5 MG TAB PO SCH (08:11)
[2016-11-18] MEDS: SODIUM CHLORIDE 0.9% FLUSH 10 ML FLUSH IV FLUSH SCH ×2 (08:11→21:36)
[2016-11-18] MEDS: DOCUSATE SODIUM 50 MG/SENNA 8.6 MG TAB PO SCH ×2 (08:11→21:00)
[2016-11-18] MEDS: PRAVASTATIN SOD 40 MG TAB PO SCH (08:11)
[2016-11-18] MEDS: ASPIRIN 81 MG CHEW TAB CHEW SCH (08:11)
[2016-11-18] MEDS: metFORMIN HCL 500 MG TAB PO SCH (08:11)
[2016-11-18] MEDS: ALLOPURINOL 300 MG TAB PO SCH (08:11)
[2016-11-18] MEDS: PIOGLITAZONE HCL 15 MG TAB PO SCH (08:11)
[2016-11-18] MEDS: CARVEDILOL 12.5 MG TAB PO SCH ×2 (08:11→21:36)
[2016-11-18] MEDS: LISINOPRIL 5 MG TAB PO SCH ×2 (08:11→21:37)
[2016-11-18] MEDS: SODIUM CHLORIDE 0.9% 10 ML VIAL IRRIGATION SCH (08:12)
[2016-11-18 08:20] LABS: OVALOCYTES 1+ (NORMAL)
[2016-11-18 08:25] LABS: PLATELET ESTIMATE SMEAR NORMAL (NORMAL)
[2016-11-18 08:29] LABS: PLATELET MORPHOLOGY NORMAL (NORMAL)
[2016-11-18 08:51] LABS: SCAN/DIFF AUTO DIFF CONFIRMED
[2016-11-18] MEDS: PANTOPRAZOLE SODIUM 40 MG VIAL IV PUSH SCH ×2 (10:49→21:46)
[2016-11-18] MEDS ORDERED: POTASSIUM CHLORIDE 20 MEQ CONTROLLED RELEASE TAB PO ONE (12:00)
--- NOTE | 2016-11-18 12:24 | HHI.PR ---
Subjective Subjective Notes Persistent nausea and states she can barely get the grey carlos down. C/o left hip pain. Objective Vitals/I&O Vital Signs Date Time Temp Pulse Resp B/P Pulse Ox O2 Delivery O2 Flow Rate FiO2 11/18/16 08:37 96 Nasal Cannula 2.00 11/18/16 08:00 96.6 63 16 130/63 Labs Laboratory Tests Test 11/18/16 04:57 White Blood Count 6.1 Red Blood Count 3.89 Hemoglobin 9.1 Hematocrit 29.0 Mean Corpuscular Volume 74.6 Mean Corpuscular Hemoglobin 23.5 Mean Corpuscular Hemoglobin 31.5 Concent Red Cell Distribution Width 19.3 Platelet Count 423 Mean Platelet Volume 6.7 Neutrophils (%) (Auto) 73.9 Lymphocytes (%) (Auto) 16.5 Monocytes (%) (Auto) 8.1 Eosinophils (%) (Auto) 0.9 Basophils (%) (Auto) 0.6 Neutrophils # (Auto) 4.5 Lymphocytes # (Auto) 1.0 Monocytes # (Auto) 0.5 Eosinophils # (Auto) 0.1 Basophils # (Auto) 0.0 CBC Comment AUTO DIFF Differential Comment AUTO DIFF CONFIRMED Platelet Estimate NORMAL Platelet Morphology Comment NORMAL Ovalocytes 1+ Sodium Level 144 Potassium Level 3.4 Chloride Level 105 Carbon Dioxide Level 29.2 Anion Gap 10 Blood Urea Nitrogen 7 Creatinine 0.42 Estimat Glomerular Filtration 148 Rate Random Glucose 123 Calcium Level 7.6 Total Bilirubin 0.1 Aspartate Amino Transf 19 (AST/SGOT) Alanine Aminotransferase 15 (ALT/SGPT) Alkaline Phosphatase 61 Total Protein 5.2 Albumin 1.5 Date/Time Procedure Status Source Growth 11/15/16 19:57 Gram Stain - Final Complete Abscess Abdomen 11/15/16 19:57 Wound Culture - Final Complete Mixed Anaerobes Radiology Last Impressions Abdomen/Pelvis CT 11/14/16 0000 Signed Impressions: Service Date/Time: Monday, November 14, 2016 10:54 - CONCLUSION: 1. Acute sigmoid diverticulitis with adjacent abscess involving the psoas muscle. 2. Paraumbilical fat containing hernia. 3. 2 cm left adrenal nodule, nonspecific. Dmitri Huynh MD Chest X-Ray 11/12/16 0600 Signed Impressions: Service Date/Time: Saturday, November 12, 2016 05:47 - CONCLUSION: Cardiomegaly. No acute cardiopulmonary disease. Semaj Coker MD Chest CT 11/08/16 0000 Signed Impressions: Service Date/Time: Tuesday, November 08, 2016 19:23 - CONCLUSION: 1. Innumerable noncalcified subcentimeter pulmonary nodules with the largest measuring 8 mm in the left lower lobe posteriorly. Although these are nonspecific metastatic disease remains in the differential. PET/CT scan may be helpful for further evaluation of the largest of these nodules if clinically indicated. 2. Coronary artery calcifications. 3. Left adrenal mass measuring 2.7 x 2.5 cm which is nonspecific. Ketan Schofield MD Narrative Exam NAD, flat affect. Obese. Hirsute. Nonlabored breathing Abd: soft, ventral hernia incarcerated, mild ttp; LLQ ttp, drain in place purulent output A/P Assessment and Plan 71 yo F sigmoid mass with associated abscess, adrenal mass, pulmonary nodules, ventral hernia which appears to be incarcerated with omentum. GI plans outpatient EGD/colonoscopy in 6 weeks. Start fulls although she says she won't be able to tolerate. Nutrition is very poor. Nausea- check abdominal films. Charles Garay MD Nov 18, 2016 12:24
[2016-11-18] MEDS: SODIUM CHLOR 0.45% 1000 ML INJ 1,000 ML IV SCH (12:40)
--- NOTE | 2016-11-18 12:51 | HHI.PR ---
Subjective Remarks She is still weak and nauseated. No cough or wheezing. O2 sat was low on RA. Will need home O2 On O2 2L and sat 98. .Had a Drain placed for a Sigmoid abscess and diverticulitis. On IV still Needs Colonoscopy and she is now willing to get it done. Objective Vital Signs Date Time Temp Pulse Resp B/P Pulse Ox O2 Delivery O2 Flow Rate FiO2 11/18/16 08:37 96 Nasal Cannula 2.00 11/18/16 08:00 96.6 63 16 130/63 97 11/18/16 04:27 96.2 72 22 150/66 98 11/18/16 00:00 97.2 67 22 128/59 96 11/17/16 21:23 68 20 157/71 98 11/17/16 21:05 Nasal Cannula 2.00 11/17/16 20:12 96 2.00 11/17/16 20:00 97.0 67 24 141/67 98 11/17/16 16:00 96.7 70 20 136/66 94 I/O 11/17/16 11/17/16 11/17/16 11/18/16 11/18/16 11/18/16 06:59 14:59 22:59 06:59 14:59 22:59 Intake Total 1058 ml 1172 ml 1016 ml 758 ml Output Total 0 ml 0 ml 410 ml Balance 1058 ml 1172 ml 1016 ml 348 ml Intake Oral 480 ml 475 ml 480 ml 120 ml IV Total 578 ml 697 ml 536 ml 638 ml Output Urine Total 400 ml Drainage Total 0 ml 0 ml 10 ml # Voids 5 4 2 # Bowel Movements 5 3 2 1 Result Diagram: 11/18/16 0457 11/18/16 0457 Objective Remarks GENERAL: This obese, elderly white female who is pale and in no distress. HEENT: Head normocephalic. Pupils are reactive. . Throat was clear. NECK: Supple. No bruits or thyroid enlargement or lymphadenopathy. CHEST: Distant breath sounds with occ wheezes upper chest HEART: The heart sounds are regular S1-S2. No murmur. No S3.t ABDOMEN: Obese, protuberant without masses. No organomegaly. No tenderness. Bowel sounds active.Catheter drain in LLQ. EXTREMITIES: No lesions. no edema. Peripheral pulses are diminished. Reflexes are 1+. NEUROLOGIC: No gross motor deficits. SKIN: No lesions observed. Assessment and Plan Assessment and Plan IMPRESSION 1. Bilateral lung nodules, etiology to be determined. Probable granulomas versus metastatic disease. 2. Diabetes mellitus type 2. 3. Hypertension. 4. Exogenous obesity and possible sleep apnea. 5. Possible hypothyroidism. 6. Hypertension. 7. Anemia Plan : 1. Use ventolin HFA , 2 puffs tid prn. 2. Cont Antibiotics, Unasyn 3. Pelvic drain for abscess 4. PET CT as OP. 5. EGD Colonoscopy to be done as OP as OP 6.O2 at 2 L. and arrange home O2 Juan Ramon Perez MD Nov 18, 2016 12:51
--- NOTE | 2016-11-18 14:48 | PD.ONC.PN ---
Subjective Subjective Remarks Afebrile overnight. Pt sitting up in chair in no distress. States she still would agree to colonoscopy C/o Nausea No other complaints Objective Data Date Time Temp Pulse Resp B/P Pulse Ox O2 Delivery O2 Flow Rate FiO2 11/18/16 12:00 96.1 61 16 126/60 96 11/18/16 08:37 96 Nasal Cannula 2.00 11/18/16 08:00 96.6 63 16 130/63 97 11/18/16 04:27 96.2 72 22 150/66 98 11/18/16 00:00 97.2 67 22 128/59 96 11/17/16 21:23 68 20 157/71 98 11/17/16 21:05 Nasal Cannula 2.00 11/17/16 20:12 96 2.00 11/17/16 20:00 97.0 67 24 141/67 98 11/17/16 16:00 96.7 70 20 136/66 94 Result Diagram: 11/18/16 0457 11/18/16 0457 Laboratory Results Laboratory Tests Test 11/18/16 04:57 White Blood Count 6.1 TH/MM3 Red Blood Count 3.89 MIL/MM3 Hemoglobin 9.1 GM/DL Hematocrit 29.0 % Mean Corpuscular Volume 74.6 FL Mean Corpuscular Hemoglobin 23.5 PG Mean Corpuscular Hemoglobin 31.5 % Concent Red Cell Distribution Width 19.3 % Platelet Count 423 TH/MM3 Mean Platelet Volume 6.7 FL Neutrophils (%) (Auto) 73.9 % Lymphocytes (%) (Auto) 16.5 % Monocytes (%) (Auto) 8.1 % Eosinophils (%) (Auto) 0.9 % Basophils (%) (Auto) 0.6 % Neutrophils # (Auto) 4.5 TH/MM3 Lymphocytes # (Auto) 1.0 TH/MM3 Monocytes # (Auto) 0.5 TH/MM3 Eosinophils # (Auto) 0.1 TH/MM3 Basophils # (Auto) 0.0 TH/MM3 CBC Comment AUTO DIFF Differential Comment AUTO DIFF CONFIRMED Platelet Estimate NORMAL Platelet Morphology Comment NORMAL Ovalocytes 1+ Sodium Level 144 MEQ/L Potassium Level 3.4 MEQ/L Chloride Level 105 MEQ/L Carbon Dioxide Level 29.2 MEQ/L Anion Gap 10 MEQ/L Blood Urea Nitrogen 7 MG/DL Creatinine 0.42 MG/DL Estimat Glomerular Filtration 148 ML/MIN Rate Random Glucose 123 MG/DL Calcium Level 7.6 MG/DL Total Bilirubin 0.1 MG/DL Aspartate Amino Transf 19 U/L (AST/SGOT) Alanine Aminotransferase 15 U/L (ALT/SGPT) Alkaline Phosphatase 61 U/L Total Protein 5.2 GM/DL Albumin 1.5 GM/DL Culture Results Microbiology Date/Time Procedure Status Source Growth 11/15/16 19:57 Gram Stain - Final Complete Abscess Abdomen 11/15/16 19:57 Wound Culture - Final Complete Mixed Anaerobes Administered Medications Medications (Trade) Dose Ordered Sig/Livia Route PRN Reason Start Time Stop Time Status Last Admin Dose Admin Sodium Chloride (1/2 NS 1000 ml Inj) 1,000 ml @ 75 mls/hr [id number] IV 11/08/16 13:57 11/18/16 12:40 Sodium Chloride (NS Flush) 2 ml UNSCH PRN IV FLUSH FLUSH AFTER USING IV ACCESS 11/08/16 14:00 11/17/16 11:02 Sodium Chloride (NS Flush) 2 ml BID IV FLUSH 11/08/16 21:00 11/15/16 22:19 Acetaminophen (Tylenol) 650 mg Q4H PRN PO TEMP > 100.4 11/08/16 14:00 11/16/16 08:52 Ondansetron HCl (Zofran Inj) 4 mg Q6H PRN IVP NAUSEA OR VOMITING 11/08/16 14:00 11/10/16 08:50 Senna/Docusate Sodium (Kathy-Colace) 1 tab BID PO 11/08/16 21:00 11/18/16 08:11 Pantoprazole Sodium (Protonix Inj) 40 mg Q12H IV PUSH 11/08/16 23:00 11/18/16 10:49 Enoxaparin Sodium (Lovenox Inj) 40 mg Q24H SQ 11/08/16 20:00 11/17/16 21:10 Allopurinol (Zyloprim) 300 mg DAILY PO 11/09/16 09:00 11/18/16 08:11 Amlodipine Besylate (Norvasc) 5 mg DAILY PO 11/09/16 09:00 11/18/16 08:11 Aspirin (Aspirin Chew) 81 mg DAILY CHEW 11/09/16 09:00 11/18/16 08:11 Carvedilol (Coreg) 25 mg BID PO 11/08/16 21:00 11/18/16 08:11 Clonidine (Catapres) 0.2 mg Q8HR PO 11/08/16 22:00 11/18/16 04:30 Lisinopril (Prinivil) 5 mg BID PO 11/08/16 21:00 11/18/16 08:11 Pravastatin Sodium (Pravachol) 40 mg DAILY PO 11/09/16 09:00 11/18/16 08:11 Metformin HCl (Glucophage) 500 mg DAILY PO 11/09/16 09:00 11/18/16 08:11 Pioglitazone HCl (Actos) 15 mg DAILY PO 11/09/16 09:00 11/18/16 08:11 Acetaminophen 650 mg 650 mg Q6H PRN PO PAIN 1-10 11/13/16 21:00 11/17/16 23:55 Ampicillin Sodium/ Sulbactam Sodium/ Sodium Chloride (Unasyn Inj/NS Inj) 100 ml @ 200 mls/hr Q6H IV 11/14/16 22:00 11/18/16 10:49 Sodium Chloride (NS Inj) 10 ml DAILY IRRIGATION 11/16/16 09:00 11/18/16 08:12 Objective Remarks GENERAL: Overweight elderly female, sitting up on the side of bed watching TV in no distress. SKIN: Warm and dry. HEAD: Normocephalic. +Hirsutism EYES: No injection or drainage. NECK: Supple, trachea midline. CARDIOVASCULAR: +S1/S2. RESPIRATORY: Clear to auscultation. Breathing unlabored. GASTROINTESTINAL: Abdomen obese, soft. Non-tender to palpation. EXTREMITIES: No cyanosis, or edema. NEUROLOGICAL: Normal speech, moving all extremities. Assessment/Plan Assessment Mr. Keyes is a 71-year-old female who presents to the hospital with a several week history of persistent nausea, decreased appetite, progressive fatigue and weakness. Upon presentation she was noted to have a profound microcytic anemia with presenting hemoglobin of 8.3 gm/dl associated with an MCV of 72. Stool for occult blood was noted to be negative. Imaging studies of the chest, abdomen and pelvis indicated findings consistent with multiple sub-cm pulmonary nodules, the etiology of which is nonspecific. CT scan of the pelvis revealed what appeared to be a perirectal/sigmoid colon abscess/mass associated with fat stranding. She was also noted to have a 2 cm adrenal incidentaloma the etiology of which is nonspecific and unknown at this time. Plan 1. The pt will plan to have a colonoscopy in 6 weeks. Discussed with GI. She will have to wait this long due to possible diverticulitis. 2. Will continue the iron replacement for the microcytic anemia. Anali Santana Nov 18, 2016 14:48
[2016-11-18] MEDS: ACETAMINOPHEN 325 MG TAB PO PRN (17:01)
--- NOTE | 2016-11-18 19:25 | RADRPT ---
EXAM DATE/TIME: 11/18/2016 18:53 [facility] COMPARISON: CT ABDOMEN & PELVIS W CONTRAST, November 14, 2016, 10:54. INDICATIONS : Nausea. MEDICAL HISTORY : Diverticulitis. Diverticulosis. Hypertension. Diabetes. SURGICAL HISTORY : Cholecystectomy. Hysterectomy. Diverticulitis drain in place. ENCOUNTER: Initial ACUITY: >1 year PAIN SCORE: 0/10 LOCATION: Bilateral abdomen. FINDINGS: There is mild gaseous dilatation of the colon up to about the splenic flexure. A percutaneous drain o verlies the left lower quadrant. There are multiple pelvic phleboliths identified. There is no eviden ce of pneumoperitoneum. There is mild degenerative change of the spine and hips. CONCLUSION: Mild gaseous distention of the proximal colon Cecilio Villareal MD on November 18, 2016 at 19:16 Board Certified Radiologist. This report was verified electronically.
[2016-11-18] MEDS: ENOXAPARIN SODIUM 40 MG/0.4 ML SYRINGE SQ SCH (21:36)
[2016-11-18] MEDS: ONDANSETRON HCL 4 MG/2 ML VIAL IVP PRN (21:46)
[2016-11-19] VITALS (7 sets, daily range): BP systolic 109–148; BP diastolic 55–69; PULSE 72–79; RESP 16–20; TEMP 96.4–97.5; O2SAT 91–99
[2016-11-19] MEDS: AMPICILLIN/SULBAC 3 GM/NS 100 ML IV SCH ×8 (03:31→21:08)
[2016-11-19] MEDS: SODIUM CHLOR 0.45% 1000 ML INJ 1,000 ML IV SCH ×2 (03:32→16:59)
[2016-11-19] MEDS: cloNIDine HCL 0.2 MG TAB PO SCH ×3 (05:50→21:09)
[2016-11-19] MEDS: INSULIN NovoLIN REGULAR SUPPLEMENTAL SCALE SQ SCH ×4 (05:51→20:09)
[2016-11-19 06:59] LABS: AUTOMATED NEUTROPHIL # 6.5 TH/MM3 (1.8-7.7); BASOPHIL % 0.4 % (0.0-2.0); EOSINOPHIL % 0.4 % (0.0-4.0); HEMATOCRIT 29.9 % (35.0-46.0); LYMPH % 12.8 % (9.0-44.0); MEAN CELL VOLUME 74.8 FL (80.0-100.0); MEAN CORPUSCULAR HEMOGLOBIN 22.6 PG (27.0-34.0); MEAN CORPUSCULAR HGB CONC 30.2 % (32.0-36.0); MONO % 6.7 % (0.0-8.0); NEUT % 79.7 % (16.0-70.0); PLATELET COUNT 466 TH/MM3 (150-450); RED BLOOD COUNT 3.99 MIL/MM3 (4.00-5.30); RED CELL DISTRIBUTION WIDTH 19.9 % (11.6-17.2); WHITE BLOOD COUNT 8.2 TH/MM3 (4.0-11.0)
[2016-11-19 07:04] LABS: HEMO FLAGS AUTO DIFF
[2016-11-19 07:26] LABS: ALT (GPT) 17 U/L (10-53); ANION GAP 8 MEQ/L (5-15); AST (GOT) 18 U/L (15-37); BICARBONATE 29.9 MEQ/L (21.0-32.0); BLOOD UREA NITROGEN 7 MG/DL (7-18); CHLORIDE 104 MEQ/L (98-107); GLOMERULAR FILTRATION RATE 152 ML/MIN (>89); POTASSIUM 3.3 MEQ/L (3.5-5.1); SODIUM (NA) 142 MEQ/L (136-145)
[2016-11-19 07:29] LABS: ALKALINE PHOSPHATASE 59 U/L (45-117); TOTAL BILIRUBIN ADULT 0.2 MG/DL (0.2-1.0)
[2016-11-19 08:13] LABS: BANDS 12 % (0-6); MYELOCYTES 3 % (0-0); NEUTROPHIL # MANUAL DIFF 6.6 TH/MM3 (1.8-7.7); PLATELET ESTIMATE SMEAR HIGH (NORMAL); PLATELET MORPHOLOGY NORMAL (NORMAL); POLYS (SEG NEUTROPHILS) 65 % (16-70); SCAN/DIFF FINAL DIFF MANUAL; WBC DIFF SAMPLE 100
[2016-11-19] MEDS: SODIUM CHLORIDE 0.9% 10 ML VIAL IRRIGATION SCH (08:50)
[2016-11-19] MEDS: LISINOPRIL 5 MG TAB PO SCH ×2 (08:50→20:09)
[2016-11-19] MEDS: DOCUSATE SODIUM 50 MG/SENNA 8.6 MG TAB PO SCH ×2 (08:50→20:10)
[2016-11-19] MEDS: metFORMIN HCL 500 MG TAB PO SCH (08:50)
[2016-11-19] MEDS: CARVEDILOL 12.5 MG TAB PO SCH ×2 (08:50→20:09)
[2016-11-19] MEDS: SODIUM CHLORIDE 0.9% FLUSH 10 ML FLUSH IV FLUSH SCH ×2 (08:50→20:10)
[2016-11-19] MEDS: amLODIPine BESYLATE 5 MG TAB PO SCH (08:50)
[2016-11-19] MEDS: ASPIRIN 81 MG CHEW TAB CHEW SCH (08:50)
[2016-11-19] MEDS: ALLOPURINOL 300 MG TAB PO SCH (08:50)
[2016-11-19] MEDS: PRAVASTATIN SOD 40 MG TAB PO SCH (08:50)
[2016-11-19] MEDS: PIOGLITAZONE HCL 15 MG TAB PO SCH (08:51)
[2016-11-19] MEDS: PANTOPRAZOLE SODIUM 40 MG VIAL IV PUSH SCH ×2 (09:16→22:26)
--- NOTE | 2016-11-19 12:20 | HHI.PR ---
Subjective Subjective Notes She c/o persistent nausea. Occasional left hip pain. Objective Vitals/I&O Vital Signs Date Time Temp Pulse Resp B/P Pulse Ox O2 Delivery O2 Flow Rate FiO2 11/19/16 09:14 99 Nasal Cannula 1.00 11/19/16 08:00 96.4 72 20 144/65 Labs Laboratory Tests Test 11/19/16 06:08 White Blood Count 8.2 Red Blood Count 3.99 Hemoglobin 9.0 Hematocrit 29.9 Mean Corpuscular Volume 74.8 Mean Corpuscular Hemoglobin 22.6 Mean Corpuscular Hemoglobin 30.2 Concent Red Cell Distribution Width 19.9 Platelet Count 466 Mean Platelet Volume 6.7 Neutrophils (%) (Auto) 79.7 Lymphocytes (%) (Auto) 12.8 Monocytes (%) (Auto) 6.7 Eosinophils (%) (Auto) 0.4 Basophils (%) (Auto) 0.4 Neutrophils # (Auto) 6.5 Lymphocytes # (Auto) 1.0 Monocytes # (Auto) 0.5 Eosinophils # (Auto) 0.0 Basophils # (Auto) 0.0 CBC Comment AUTO DIFF Differential Total Cells 100 Counted Neutrophils % (Manual) 65 Band Neutrophils % 12 Lymphocytes % 13 Monocytes % 7 Neutrophils # (Manual) 6.6 Myelocytes 3 Differential Comment FINAL DIFF MANUAL Platelet Estimate HIGH Platelet Morphology Comment NORMAL Sodium Level 142 Potassium Level 3.3 Chloride Level 104 Carbon Dioxide Level 29.9 Anion Gap 8 Blood Urea Nitrogen 7 Creatinine 0.41 Estimat Glomerular Filtration 152 Rate Random Glucose 139 Calcium Level 7.6 Total Bilirubin 0.2 Aspartate Amino Transf 18 (AST/SGOT) Alanine Aminotransferase 17 (ALT/SGPT) Alkaline Phosphatase 59 Total Protein 5.1 Albumin 1.6 Date/Time Procedure Status Source Growth 11/15/16 19:57 Gram Stain - Final Complete Abscess Abdomen 11/15/16 19:57 Wound Culture - Final Complete Mixed Anaerobes Radiology Last Impressions Abdomen/Pelvis CT 11/14/16 0000 Signed Impressions: Service Date/Time: Monday, November 14, 2016 10:54 - CONCLUSION: 1. Acute sigmoid diverticulitis with adjacent abscess involving the psoas muscle. 2. Paraumbilical fat containing hernia. 3. 2 cm left adrenal nodule, nonspecific. Dmitri Huynh MD Chest X-Ray 11/12/16 0600 Signed Impressions: Service Date/Time: Saturday, November 12, 2016 05:47 - CONCLUSION: Cardiomegaly. No acute cardiopulmonary disease. Semaj Coker MD Chest CT 11/08/16 0000 Signed Impressions: Service Date/Time: Tuesday, November 08, 2016 19:23 - CONCLUSION: 1. Innumerable noncalcified subcentimeter pulmonary nodules with the largest measuring 8 mm in the left lower lobe posteriorly. Although these are nonspecific metastatic disease remains in the differential. PET/CT scan may be helpful for further evaluation of the largest of these nodules if clinically indicated. 2. Coronary artery calcifications. 3. Left adrenal mass measuring 2.7 x 2.5 cm which is nonspecific. Ketan Schofield MD Narrative Exam NAD, flat affect. Obese. Hirsute. Nonlabored breathing Abd: soft, nontender, drain in place min output A/P Assessment and Plan 71 yo F sigmoid mass with associated abscess, adrenal mass, pulmonary nodules, ventral hernia which appears to be incarcerated with omentum. GI plans outpatient EGD/colonoscopy in [address] being repeated today. Possible drain removal. Metanephrines pending. Charles Garay MD Nov 19, 2016 12:20
--- NOTE | 2016-11-19 12:33 | HHI.PR ---
Subjective History of Present Illness Patient feel weak and tired . no acute issue. leukocytosis resolved ..Low potassium will replace and monitor. checked Magnesium level.. CT Abdomen and Pelvis shows acute diverticulitis and psoas abscess General surgery input noted S/P abscess drainage by Interventional radiology ...on Unysn per ID Recommendation. no acute issue still have drainage from drain. Hematology input noted for Iron deficiency anemia Review of Systems Constitutional Constitutional: Fatigue, Weakness Vitals/Results Intake & Output 11/18/16 11/18/16 11/19/16 15:00 23:00 07:00 Intake Total 1680 ml 1411 ml 508 ml Output Total 200 ml Balance 1680 ml 1411 ml 308 ml Intake Oral 1080 ml 120 ml 120 ml IV Total 600 ml 1291 ml 388 ml Output Urine Total 200 ml Drainage Total 0 ml # Voids 6 1 # Bowel Movements 6 1 0 Vital Signs Vital Signs Date Time Temp Pulse Resp B/P Pulse Ox O2 Delivery O2 Flow Rate FiO2 11/19/16 09:14 99 Nasal Cannula 1.00 11/19/16 08:00 96.4 72 20 144/65 95 11/19/16 04:00 96.4 72 20 126/61 96 11/19/16 00:00 96.9 79 20 148/69 98 11/18/16 20:00 Room Air 11/18/16 20:00 65 11/18/16 20:00 97.3 68 20 145/64 99 11/18/16 16:00 96.1 71 17 141/65 93 CBC/BMP: 11/19/16 0608 11/19/16 0608 Lab Results Laboratory Tests Test 11/19/16 06:08 White Blood Count 8.2 TH/MM3 Red Blood Count 3.99 MIL/MM3 Hemoglobin 9.0 GM/DL Hematocrit 29.9 % Mean Corpuscular Volume 74.8 FL Mean Corpuscular Hemoglobin 22.6 PG Mean Corpuscular Hemoglobin 30.2 % Concent Red Cell Distribution Width 19.9 % Platelet Count 466 TH/MM3 Mean Platelet Volume 6.7 FL Neutrophils (%) (Auto) 79.7 % Lymphocytes (%) (Auto) 12.8 % Monocytes (%) (Auto) 6.7 % Eosinophils (%) (Auto) 0.4 % Basophils (%) (Auto) 0.4 % Neutrophils # (Auto) 6.5 TH/MM3 Lymphocytes # (Auto) 1.0 TH/MM3 Monocytes # (Auto) 0.5 TH/MM3 Eosinophils # (Auto) 0.0 TH/MM3 Basophils # (Auto) 0.0 TH/MM3 CBC Comment AUTO DIFF Differential Total Cells 100 Counted Neutrophils % (Manual) 65 % Band Neutrophils % 12 % Lymphocytes % 13 % Monocytes % 7 % Neutrophils # (Manual) 6.6 TH/MM3 Myelocytes 3 % Differential Comment FINAL DIFF MANUAL Platelet Estimate HIGH Platelet Morphology Comment NORMAL Sodium Level 142 MEQ/L Potassium Level 3.3 MEQ/L Chloride Level 104 MEQ/L Carbon Dioxide Level 29.9 MEQ/L Anion Gap 8 MEQ/L Blood Urea Nitrogen 7 MG/DL Creatinine 0.41 MG/DL Estimat Glomerular Filtration 152 ML/MIN Rate Random Glucose 139 MG/DL Calcium Level 7.6 MG/DL Total Bilirubin 0.2 MG/DL Aspartate Amino Transf 18 U/L (AST/SGOT) Alanine Aminotransferase 17 U/L (ALT/SGPT) Alkaline Phosphatase 59 U/L Total Protein 5.1 GM/DL Albumin 1.6 GM/DL Physical Exam General General Appearance: Well Developed, Well Nourished, No Acute Distress, Comfortable Eyes Eye Exam: Pupils Equal, Pupils Reactive, Sclera White, Extraocular Movement Intact Throat Throat Exam: Oral Mucosa Lefors & Moist, Oral Pharynx Normal Neck Neck Exam: Neck Supple, Trachea Midline Pulmonary Resp Exam: Clear Bilaterally, Breath Sounds Equal, No Distress Cardiology CV Exam: Regular, Normal Sinus Rhythm Gastrointestinal/Abdomen GI Exam: Soft, Non-Tender, Bowel Sounds Present GI Remarks mild abdominal tenderness left side. Musculoskeletal MS Exam: Normal Tone Integumentary Skin Exam: Clear, Warm, Dry, Intact Extremeties Extremities Exam: No Edema Neurologic Neuro Exam: Alert, Awake, Oriented, Speech Clear, Moving All Extremities, No Focal Deficits Psychiatric Psych Exam: Appropriate Responses VTE Prophylaxis VTE Prophylaxis Meds: Lovenox PUD Prophylasis PUD Prophylaxis: Protonix Assessment/Plan Assessment/Plan ASSESSMENT AND PLAN: This is a 71-year female who came to the emergency room diagnosed with 1. Nausea with hypoglycemia. Glucose is normal now. The patient is on Zofran 4 milligrams IV q. 6-hour p.r.n. for nausea and vomiting. 2. Leukocytosis,...resolved.... Chest x-ray does not show anything acute. check CT scan of the chest negative for pneumonia... have pulmonary nodule pulmonary input noted. Blood cultures x2 positive for gram negative rods. 3. Diabetes mellitus. ADA 1800 calorie diet. NovoLog. sliding scale. Check blood sugars a.c. and h.s. Will monitor blood sugar. 4. history of gout. Continue home medication. 5. History of hypertension. Continue medication. Monitor blood pressure. 6. Hyperlipidemia. Continue lovastatin 40 milligrams p.o. daily. 7. DVT prophylaxis. Lovenox 40 milligrams. 8. GI prophylaxis Protonix 40 milligrams p.o. twice a day. 9. Pulmonary nodule pulmonary input noted. 10. blood culture positive on Unysn per ID Recomendation. 11. Hemoglobin was 6.9 Possible GI Bleed S/P 2 units PRBC Transfusion have Iron deficiency anemia on replacement.. fecal occult blood test x 1 negative.. H and H stable.. 12. .Hypokalemia will replace and monitor. checked Magnesium level..2.[address] Abdomen and Pelvis shows acute diverticulitis and Psoas abscess General surgery input noted S/P abscess drainage by Interventional radiology ...on Unysn per ID Recomendation. We are going to manage the patient on a daily basis and make recommendations on a daily basis. Check CBC with diff CMP in AM. Check CBC and comprehensive metabolic profile in the morning. Discussed Condition with: Patient Reed Up MD Nov 19, 2016 12:33 Check CBC and comprehensive metabolic profile in the morning. Reed Up MD Nov 19, 2016 12:33
--- NOTE | 2016-11-19 12:38 | HHI.IDPN ---
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 Pt admitted with complains of nausea 48 hrs prior to admission in addition to hypoglycemia. Pt was seen by at [facility] and now transferred for IR guided drainage of Intra abd abscess. Abscess drainage clx + for mixed anaerobs blood clx with coag neg staph Overnight events reviewed. co nausea Had liquid maroon stool with visible dark blood No fever Antibiotics Unasyn IV Lines Peripheral Past Medical History HTN Gout Diabetes Allergies: Coded Allergies: No Known Allergies (Unverified , 11/08/16) Objective . Vital Signs Date Time Temp Pulse Resp B/P Pulse Ox O2 Delivery O2 Flow Rate FiO2 11/19/16 09:14 99 Nasal Cannula 1.00 11/19/16 08:00 96.4 72 20 144/65 95 11/19/16 04:00 96.4 72 20 126/61 96 11/19/16 00:00 96.9 79 20 148/69 98 11/18/16 20:00 Room Air 11/18/16 20:00 65 11/18/16 20:00 97.3 68 20 145/64 99 11/18/16 16:00 96.1 71 17 141/65 93 11/18/16 11/18/16 11/19/16 15:00 23:00 07:00 Intake Total 1680 ml 1411 ml 508 ml Output Total 200 ml Balance 1680 ml 1411 ml 308 ml Intake Oral 1080 ml 120 ml 120 ml IV Total 600 ml 1291 ml 388 ml Output Urine Total 200 ml Drainage Total 0 ml # Voids 6 1 # Bowel Movements 6 1 0 . Laboratory Tests Test 11/18/16 11/19/16 04:57 06:08 White Blood Count 6.1 TH/MM3 8.2 TH/MM3 Red Blood Count 3.89 MIL/MM3 3.99 MIL/MM3 Hemoglobin 9.1 GM/DL 9.0 GM/DL Hematocrit 29.0 % 29.9 % Mean Corpuscular Volume 74.6 FL 74.8 FL Mean Corpuscular Hemoglobin 23.5 PG 22.6 PG Mean Corpuscular Hemoglobin 31.5 % 30.2 % Concent Red Cell Distribution Width 19.3 % 19.9 % Platelet Count 423 TH/MM3 466 TH/MM3 Mean Platelet Volume 6.7 FL 6.7 FL Neutrophils (%) (Auto) 73.9 % 79.7 % Lymphocytes (%) (Auto) 16.5 % 12.8 % Monocytes (%) (Auto) 8.1 % 6.7 % Eosinophils (%) (Auto) 0.9 % 0.4 % Basophils (%) (Auto) 0.6 % 0.4 % Neutrophils # (Auto) 4.5 TH/MM3 6.5 TH/MM3 Lymphocytes # (Auto) 1.0 TH/MM3 1.0 TH/MM3 Monocytes # (Auto) 0.5 TH/MM3 0.5 TH/MM3 Eosinophils # (Auto) 0.1 TH/MM3 0.0 TH/MM3 Basophils # (Auto) 0.0 TH/MM3 0.0 TH/MM3 CBC Comment AUTO DIFF AUTO DIFF Differential Comment AUTO DIFF FINAL DIFF CONFIRMED MANUAL Platelet Estimate NORMAL HIGH Platelet Morphology Comment NORMAL NORMAL Ovalocytes 1+ Differential Total Cells 100 Counted Neutrophils % (Manual) 65 % Band Neutrophils % 12 % Lymphocytes % 13 % Monocytes % 7 % Neutrophils # (Manual) 6.6 TH/MM3 Myelocytes 3 % Laboratory Tests Test 11/18/16 11/19/16 04:57 06:08 Sodium Level 144 MEQ/L 142 MEQ/L Potassium Level 3.4 MEQ/L 3.3 MEQ/L Chloride Level 105 MEQ/L 104 MEQ/L Carbon Dioxide Level 29.2 MEQ/L 29.9 MEQ/L Anion Gap 10 MEQ/L 8 MEQ/L Blood Urea Nitrogen 7 MG/DL 7 MG/DL Creatinine 0.42 MG/DL 0.41 MG/DL Estimat Glomerular Filtration 148 ML/MIN 152 ML/MIN Rate Random Glucose 123 MG/DL 139 MG/DL Calcium Level 7.6 MG/DL 7.6 MG/DL Total Bilirubin 0.1 MG/DL 0.2 MG/DL Aspartate Amino Transf 19 U/L 18 U/L (AST/SGOT) Alanine Aminotransferase 15 U/L 17 U/L (ALT/SGPT) Alkaline Phosphatase 61 U/L 59 U/L Total Protein 5.2 GM/DL 5.1 GM/DL Albumin 1.5 GM/DL 1.6 GM/DL Imaging Last Impressions Abdomen X-Ray 11/18/16 0000 Signed Impressions: Service Date/Time: November 18:53 - CONCLUSION: Mild gaseous distention of the proximal colon Cecilio Villareal MD Abscess Drainage CT 11/15/16 0000 Signed Impressions: Service Date/Time: Tuesday, November 15, 2016 19:23 - CONCLUSION: Uncomplicated CT guided drainage. An 8 [place] catheter was left in position. Taiwo Leal MD Abdomen/Pelvis CT 11/14/16 0000 Signed Impressions: Service Date/Time: Monday, November 14, 2016 10:54 - CONCLUSION: 1. Acute sigmoid diverticulitis with adjacent abscess involving the psoas muscle. 2. Paraumbilical fat containing hernia. 3. 2 cm left adrenal nodule, nonspecific. Dmitri Huynh MD Chest X-Ray 11/12/16 0600 Signed Impressions: Service Date/Time: Saturday, November 12, 2016 05:47 - CONCLUSION: Cardiomegaly. No acute cardiopulmonary disease. Semaj Coker MD Chest CT 11/08/16 0000 Signed Impressions: Service Date/Time: Tuesday, November 08, 2016 19:23 - CONCLUSION: 1. Innumerable noncalcified subcentimeter pulmonary nodules with the largest measuring 8 mm in the left lower lobe posteriorly. Although these are nonspecific metastatic disease remains in the differential. PET/CT scan may be helpful for further evaluation of the largest of these nodules if clinically indicated. 2. Coronary artery calcifications. 3. Left adrenal mass measuring 2.7 x 2.5 cm which is nonspecific. Ketan Schofield MD Physical Exam GENERAL: On physical exam, this is a 71-year-old obese female OOB in chair in acute distress. Looks weak and pale HEAD, EYES, EARS, NOSE, THROAT: Normocephalic and atraumatic. Extraocular muscles intact. Pupils equal, round and reactive to light and accommodation. Oral mucosa moist. Pale conjunctivae NECK: The neck is supple. Trachea is central. CARDIOVASCULAR: Regular rate and rhythm. RESPIRATORY: Clear to auscultation bilaterally. ABDOMEN: Abdomen soft and nontender. Bowel sounds audible. No organomegaly EXTREMITIES: No cyanosis or clubbing. Full range of motion of all extremities. No edema. NEUROLOGIC: Awake, alert and oriented times four. No focal deficits. SKIN: Warm and dry. No rash PSYCHIATRIC: The patient is calm and cooperative. Flat affect IV line site with no evidence of infection. Assessment & Plan Remarks Acute diverticulitis with abscess of psoas muscle. s/p IR guided drainage. - mixed anaerobs GI bleed - cont to bleed - agreable for colonoscopy Staph hominis bacteremia: likely contaminant. Persistent bandemia (12%), thrombocytosis - susp for ongoing infx Recs Continue Unasyn IV will fu CT abd/pel - ordered dw Krystin Islas RN, MD Nov 19, 2016 12:38
--- NOTE | 2016-11-19 12:40 | PD.ONC.PN ---
Subjective Subjective Remarks Afebrile overnight. Patient resting in bed. Still only tolerating clear liquids. Complaining of continued abdominal pain. Objective Data Date Time Temp Pulse Resp B/P Pulse Ox O2 Delivery O2 Flow Rate FiO2 11/19/16 09:14 99 Nasal Cannula 1.00 11/19/16 08:00 96.4 72 20 144/65 95 11/19/16 04:00 96.4 72 20 126/61 96 11/19/16 00:00 96.9 79 20 148/69 98 11/18/16 20:00 Room Air 11/18/16 20:00 65 11/18/16 20:00 97.3 68 20 145/64 99 11/18/16 16:00 96.1 71 17 141/65 93 11/19/16 11/19/16 11/19/16 07:00 15:00 23:00 Intake Total 508 ml Output Total 200 ml Balance 308 ml Result Diagram: 11/19/16 0608 11/19/16 0608 Laboratory Results Laboratory Tests Test 11/19/16 06:08 White Blood Count 8.2 TH/MM3 Red Blood Count 3.99 MIL/MM3 Hemoglobin 9.0 GM/DL Hematocrit 29.9 % Mean Corpuscular Volume 74.8 FL Mean Corpuscular Hemoglobin 22.6 PG Mean Corpuscular Hemoglobin 30.2 % Concent Red Cell Distribution Width 19.9 % Platelet Count 466 TH/MM3 Mean Platelet Volume 6.7 FL Neutrophils (%) (Auto) 79.7 % Lymphocytes (%) (Auto) 12.8 % Monocytes (%) (Auto) 6.7 % Eosinophils (%) (Auto) 0.4 % Basophils (%) (Auto) 0.4 % Neutrophils # (Auto) 6.5 TH/MM3 Lymphocytes # (Auto) 1.0 TH/MM3 Monocytes # (Auto) 0.5 TH/MM3 Eosinophils # (Auto) 0.0 TH/MM3 Basophils # (Auto) 0.0 TH/MM3 CBC Comment AUTO DIFF Differential Total Cells 100 Counted Neutrophils % (Manual) 65 % Band Neutrophils % 12 % Lymphocytes % 13 % Monocytes % 7 % Neutrophils # (Manual) 6.6 TH/MM3 Myelocytes 3 % Differential Comment FINAL DIFF MANUAL Platelet Estimate HIGH Platelet Morphology Comment NORMAL Sodium Level 142 MEQ/L Potassium Level 3.3 MEQ/L Chloride Level 104 MEQ/L Carbon Dioxide Level 29.9 MEQ/L Anion Gap 8 MEQ/L Blood Urea Nitrogen 7 MG/DL Creatinine 0.41 MG/DL Estimat Glomerular Filtration 152 ML/MIN Rate Random Glucose 139 MG/DL Calcium Level 7.6 MG/DL Total Bilirubin 0.2 MG/DL Aspartate Amino Transf 18 U/L (AST/SGOT) Alanine Aminotransferase 17 U/L (ALT/SGPT) Alkaline Phosphatase 59 U/L Total Protein 5.1 GM/DL Albumin 1.6 GM/DL Administered Medications Medications (Trade) Dose Ordered Sig/Livia Route PRN Reason Start Time Stop Time Status Last Admin Dose Admin Sodium Chloride (1/2 NS 1000 ml Inj) 1,000 ml @ 75 mls/hr [id number] IV 11/08/16 13:57 11/19/16 03:32 Sodium Chloride (NS Flush) 2 ml UNSCH PRN IV FLUSH FLUSH AFTER USING IV ACCESS 11/08/16 14:00 11/17/16 11:02 Sodium Chloride (NS Flush) 2 ml BID IV FLUSH 11/08/16 21:00 11/18/16 21:36 Acetaminophen (Tylenol) 650 mg Q4H PRN PO TEMP > 100.4 11/08/16 14:00 11/16/16 08:52 Ondansetron HCl (Zofran Inj) 4 mg Q6H PRN IVP NAUSEA OR VOMITING 11/08/16 14:00 11/18/16 21:46 Senna/Docusate Sodium (Kathy-Colace) 1 tab BID PO 11/08/16 21:00 11/19/16 08:50 Pantoprazole Sodium (Protonix Inj) 40 mg Q12H IV PUSH 11/08/16 23:00 11/19/16 09:16 Enoxaparin Sodium (Lovenox Inj) 40 mg Q24H SQ 11/08/16 20:00 11/18/16 21:36 Allopurinol (Zyloprim) 300 mg DAILY PO 11/09/16 09:00 11/19/16 08:50 Amlodipine Besylate (Norvasc) 5 mg DAILY PO 11/09/16 09:00 11/19/16 08:50 Aspirin (Aspirin Chew) 81 mg DAILY CHEW 11/09/16 09:00 11/19/16 08:50 Carvedilol (Coreg) 25 mg BID PO 11/08/16 21:00 11/19/16 08:50 Clonidine (Catapres) 0.2 mg Q8HR PO 11/08/16 22:00 11/19/16 05:50 Lisinopril (Prinivil) 5 mg BID PO 11/08/16 21:00 11/19/16 08:50 Pravastatin Sodium (Pravachol) 40 mg DAILY PO 11/09/16 09:00 11/19/16 08:50 Metformin HCl (Glucophage) 500 mg DAILY PO 11/09/16 09:00 11/19/16 08:50 Pioglitazone HCl (Actos) 15 mg DAILY PO 11/09/16 09:00 11/19/16 08:51 Acetaminophen 650 mg 650 mg Q6H PRN PO PAIN 1-10 11/13/16 21:00 11/18/16 17:01 Ampicillin Sodium/ Sulbactam Sodium/ Sodium Chloride (Unasyn Inj/NS Inj) 100 ml @ 200 mls/hr Q6H IV 11/14/16 22:00 11/19/16 09:15 Sodium Chloride (NS Inj) 10 ml DAILY IRRIGATION 11/16/16 09:00 11/19/16 08:50 Objective Remarks GENERAL: Elderly female, supine in bed, awake but fatigued. SKIN: Warm and dry. HEAD: Normocephalic. EYES: no injection or drainage. NECK: Supple, trachea midline. CARDIOVASCULAR: Regular rate and rhythm RESPIRATORY: Breath sounds equal bilaterally. No accessory muscle use. GASTROINTESTINAL: Abdomen distended, tender to palpation throughout. EXTREMITIES: No cyanosis NEUROLOGICAL: awake and alert, normal speech. Assessment/Plan Assessment 71-year-old female who presents to the hospital with a several week history of persistent nausea, decreased appetite, progressive fatigue and weakness. Upon presentation she was noted to have a profound microcytic anemia with presenting hemoglobin of 8.3 gm/dl associated with an MCV of 72. Stool for occult blood was noted to be negative. Imaging studies of the chest, abdomen and pelvis indicated findings consistent with multiple sub-cm pulmonary nodules, the etiology of which is nonspecific. CT scan of the pelvis revealed what appeared to be a perirectal/sigmoid colon abscess/mass associated with fat stranding. She was also noted to have a 2 cm adrenal incidentaloma the etiology of which is nonspecific and unknown at this time. Plan 1. patient to have colonoscopy in 6 weeks--cannot have now due to possible diverticulitis. 2. fs faxed to new patient referrals for follow up. 3. monitor CBC. Toyin Joseph Nov 19, 2016 12:40
[2016-11-19] MEDS ORDERED: POTASSIUM CHLORIDE 20 MEQ PWD PACKET PO ONE (13:00)
--- NOTE | 2016-11-19 18:21 | RADRPT ---
EXAM DATE/TIME: 11/19/2016 16:00 [facility] COMPARISON: CT ABDOMEN & PELVIS W CONTRAST, November 14, 2016, 10:54. INDICATIONS : Follow up for abscess drain ORAL CONTRAST: No oral contrast ingested. RADIATION DOSE: 19.54 CTDIvol (mGy) MEDICAL HISTORY : Diabetes mellitus type 2. SURGICAL HISTORY : Cholecystectomy. Hysterectomy. ENCOUNTER: Initial ACUITY: 1 day PAIN SCALE: 1/10 LOCATION: TECHNIQUE: Volumetric scanning of the pelvis was performed. Using automated exposure control and adjustment of the mA and/or kV according to patient size, radiation dose was kept as low as reasonably achievable t o obtain optimal diagnostic quality images. FINDINGS: Comparison is November 15. The CT drain previously placed in the left psoas abscess has been partially wit hdrawn and now lies within the fat in the right lower quadrant. There is a 2 cm transverse diameter r esidual fluid collection in the anterior psoas with loculated air more superiorly. Markedly abnormal mural thickening of a segment of sigmoid colon is again noted with some surrounding inflammatory mckeon ges, presumably sigmoid diverticulitis although cannot exclude underlying mass. There is a fat contai sirisha ventral hernia. No significant free fluid. No acute bony abnormalities. CONCLUSION: 1. Previous drainage catheter is no longer within the left anterior psoas muscle and is now within th e fat in the left lower quadrant not close to any drainable fluid. This can be removed. There is a 2 cm transverse diameter probable residual fluid collection within the psoas muscle. This extends over several centimeters in length and there is a tiny locule of air within the left psoas muscle on serie s 2 image #5. 2. Markedly abnormal mural thickening of a segment of sigmoid colon with surrounding inflammatory neftali nge probably diverticulitis although cannot exclude mass. Fat-containing ventral hernia. Guillermo Mendez MD on November 19, 2016 at 18:11 Board Certified Radiologist. This report was verified electronically.
[2016-11-19] MEDS: ENOXAPARIN SODIUM 40 MG/0.4 ML SYRINGE SQ SCH (20:09)
[2016-11-19] MEDS: ONDANSETRON HCL 4 MG/2 ML VIAL IVP PRN (20:10)
[2016-11-20] VITALS (8 sets, daily range): BP systolic 99–134; BP diastolic 46–64; PULSE 62–84; RESP 18–25; TEMP 96.5–97.6; O2SAT 90–98
[2016-11-20] MEDS: AMPICILLIN/SULBAC 3 GM/NS 100 ML IV SCH ×8 (03:51→20:46)
[2016-11-20] MEDS: ONDANSETRON HCL 4 MG/2 ML VIAL IVP PRN (05:41)
[2016-11-20] MEDS: cloNIDine HCL 0.2 MG TAB PO SCH ×3 (05:41→20:52)
[2016-11-20] MEDS: SODIUM CHLOR 0.45% 1000 ML INJ 1,000 ML IV SCH ×2 (05:41→19:17)
[2016-11-20] MEDS: INSULIN NovoLIN REGULAR SUPPLEMENTAL SCALE SQ SCH ×4 (05:44→20:42)
[2016-11-20] MEDS: SODIUM CHLORIDE 0.9% 10 ML VIAL IRRIGATION SCH (09:00)
[2016-11-20] MEDS: PIOGLITAZONE HCL 15 MG TAB PO SCH (09:59)
[2016-11-20] MEDS: LISINOPRIL 5 MG TAB PO SCH ×2 (10:00→20:43)
[2016-11-20] MEDS: DOCUSATE SODIUM 50 MG/SENNA 8.6 MG TAB PO SCH ×2 (10:00→20:43)
[2016-11-20] MEDS: amLODIPine BESYLATE 5 MG TAB PO SCH (10:00)
[2016-11-20] MEDS: metFORMIN HCL 500 MG TAB PO SCH (10:00)
[2016-11-20] MEDS: CARVEDILOL 12.5 MG TAB PO SCH ×2 (10:00→20:44)
[2016-11-20] MEDS: ASPIRIN 81 MG CHEW TAB CHEW SCH (10:00)
[2016-11-20] MEDS: ALLOPURINOL 300 MG TAB PO SCH (10:00)
[2016-11-20] MEDS: PRAVASTATIN SOD 40 MG TAB PO SCH (10:00)
[2016-11-20] MEDS: SODIUM CHLORIDE 0.9% FLUSH 10 ML FLUSH IV FLUSH SCH ×2 (10:05→20:44)
--- NOTE | 2016-11-20 10:36 | HHI.PR ---
Subjective History of Present Illness Patient feel weak and tired . no acute issue. leukocytosis resolved ..Low potassium will replace and monitor. checked Magnesium level.. CT Abdomen and Pelvis shows acute diverticulitis and psoas abscess General surgery input noted S/P abscess drainage by Interventional radiology ...on Unysn per ID Recommendation. no acute issue drain out..Hematology input noted for Iron deficiency anemia d/w RN Crowley. Review of Systems Constitutional Constitutional: Fatigue, Weakness Vitals/Results Intake & Output 11/19/16 11/19/16 11/20/16 15:00 23:00 07:00 Intake Total 740 ml 386 ml 692 ml Output Total 0 ml Balance 740 ml 386 ml 692 ml Intake Oral 240 ml 0 ml 120 ml IV Total 500 ml 386 ml 572 ml Drainage Total 0 ml # Voids 3 2 3 # Bowel Movements 3 1 2 Vital Signs Vital Signs Date Time Temp Pulse Resp B/P Pulse Ox O2 Delivery O2 Flow Rate FiO2 11/20/16 08:00 97.6 67 25 132/56 98 11/20/16 04:00 97.4 84 20 132/63 92 11/20/16 00:00 96.5 84 20 134/62 90 11/19/16 20:00 94 Room Air 11/19/16 20:00 74 11/19/16 20:00 96.7 72 20 111/55 94 11/19/16 16:00 97.5 72 16 145/65 94 11/19/16 12:00 97.4 73 17 109/58 91 CBC/BMP: 11/19/16 0608 11/19/16 0608 Physical Exam General General Appearance: Well Developed, Well Nourished, No Acute Distress, Comfortable Eyes Eye Exam: Pupils Equal, Pupils Reactive, Sclera White, Extraocular Movement Intact Throat Throat Exam: Oral Mucosa [place] & Moist, Oral Pharynx Normal Neck Neck Exam: Neck Supple, Trachea Midline Pulmonary Resp Exam: Clear Bilaterally, Breath Sounds Equal, No Distress Cardiology CV Exam: Regular, Normal Sinus Rhythm Gastrointestinal/Abdomen GI Exam: Soft, Non-Tender, Bowel Sounds Present GI Remarks mild abdominal tenderness left side. Musculoskeletal MS Exam: Normal Tone Integumentary Skin Exam: Clear, Warm, Dry, Intact Extremeties Extremities Exam: No Edema Neurologic Neuro Exam: Alert, Awake, Oriented, Speech Clear, Moving All Extremities, No Focal Deficits Psychiatric Psych Exam: Appropriate Responses VTE Prophylaxis VTE Prophylaxis Meds: Lovenox PUD Prophylasis PUD Prophylaxis: Protonix Assessment/Plan Assessment/Plan ASSESSMENT AND PLAN: This is a 71-year female who came to the emergency room diagnosed with 1. Nausea with hypoglycemia. Glucose is normal now. The patient is on Zofran 4 milligrams IV q. 6-hour p.r.n. for nausea and vomiting. 2. Leukocytosis,...resolved.... Chest x-ray does not show anything acute. check CT scan of the chest negative for pneumonia... have pulmonary nodule pulmonary input noted. Blood cultures x2 positive for gram negative rods. 3. Diabetes mellitus. ADA 1800 calorie diet. NovoLog. sliding scale. Check blood sugars a.c. and h.s. Will monitor blood sugar. 4. history of gout. Continue home medication. 5. History of hypertension. Continue medication. Monitor blood pressure. 6. Hyperlipidemia. Continue lovastatin 40 milligrams p.o. daily. 7. DVT prophylaxis. Lovenox 40 milligrams. 8. GI prophylaxis Protonix 40 milligrams p.o. twice a day. 9. Pulmonary nodule pulmonary input noted. 10. blood culture positive on Unysn per ID Recomendation. 11. Hemoglobin was 6.9 Possible GI Bleed S/P 2 units PRBC Transfusion have Iron deficiency anemia on replacement.. fecal occult blood test x 1 negative.. H and H stable.. 12. .Hypokalemia will replace and monitor. checked Magnesium level..2.[address] Abdomen and Pelvis shows acute diverticulitis and Psoas abscess General surgery input noted S/P abscess drainage by Interventional radiology ...on Unysn per ID Recomendation. We are going to manage the patient on a daily basis and make recommendations on a daily basis. Check CBC with diff CMP in AM. Check CBC and comprehensive metabolic profile in the morning. Discussed Condition with: Patient Reed Up MD Nov 20, 2016 10:36
[2016-11-20] MEDS ORDERED: POTASSIUM CHLORIDE 20 MEQ PWD PACKET PO ONE (10:45)
--- NOTE | 2016-11-20 11:31 | HHI.PR ---
Subjective Subjective Notes The patient denies any abdominal pain today. She is occasionally nauseated, however she is tolerating a diet to some extent. She has had liquid bowel movements on multiple occasions. She is passing flatus. Objective Vitals/I&O Vital Signs Date Time Temp Pulse Resp B/P Pulse Ox O2 Delivery O2 Flow Rate FiO2 11/20/16 08:01 66 11/20/16 08:00 97.6 25 132/56 98 11/19/16 20:00 Room Air 11/19/16 09:14 1.00 Labs Date/Time Procedure Status Source Growth 11/15/16 19:57 Gram Stain - Final Complete Abscess Abdomen 11/15/16 19:57 Wound Culture - Final Complete Mixed Anaerobes Radiology Last Impressions Abdomen/Pelvis CT 11/14/16 0000 Signed Impressions: Service Date/Time: Monday, November 14, 2016 10:54 - CONCLUSION: 1. Acute sigmoid diverticulitis with adjacent abscess involving the psoas muscle. 2. Paraumbilical fat containing hernia. 3. 2 cm left adrenal nodule, nonspecific. Dmitri Huynh MD Chest X-Ray 11/12/16 0600 Signed Impressions: Service Date/Time: Saturday, November 12, 2016 05:47 - CONCLUSION: Cardiomegaly. No acute cardiopulmonary disease. Semaj Coker MD Chest CT 11/08/16 0000 Signed Impressions: Service Date/Time: Tuesday, November 08, 2016 19:23 - CONCLUSION: 1. Innumerable noncalcified subcentimeter pulmonary nodules with the largest measuring 8 mm in the left lower lobe posteriorly. Although these are nonspecific metastatic disease remains in the differential. PET/CT scan may be helpful for further evaluation of the largest of these nodules if clinically indicated. 2. Coronary artery calcifications. 3. Left adrenal mass measuring 2.7 x 2.5 cm which is nonspecific. Ketan Schofield MD Cardiovascular: Regular Lungs: Clear Abdomen: Non-distended, Non-tender, BS normal Narrative Exam The abdominal drain was removed yesterday. A/P Assessment and Plan Impression: Patient has resolving diverticulitis and is status post percutaneous drainage of an intra-abdominal abscess associated with diverticulitis. At the current time she is stable and improving on antibiotics. Plan: Gen. surgery will see the patient peripherally at this point, as she does not need surgical intervention at the present time. Rudi Frazier MD Nov 20, 2016 11:30
[2016-11-20] MEDS: PANTOPRAZOLE SODIUM 40 MG VIAL IV PUSH SCH ×2 (12:33→23:19)
[2016-11-20] MEDS: ENOXAPARIN SODIUM 40 MG/0.4 ML SYRINGE SQ SCH (20:44)
[2016-11-21] VITALS (7 sets, daily range): BP systolic 110–134; BP diastolic 46–63; PULSE 68–86; RESP 20–24; TEMP 96.5–98.5; O2SAT 95–98
[2016-11-21] MEDS: ACETAMINOPHEN 325 MG TAB PO PRN (02:05)
[2016-11-21] MEDS: AMPICILLIN/SULBAC 3 GM/NS 100 ML IV SCH ×8 (03:13→23:09)
[2016-11-21] MEDS: INSULIN NovoLIN REGULAR SUPPLEMENTAL SCALE SQ SCH ×4 (05:58→21:00)
[2016-11-21] MEDS: cloNIDine HCL 0.2 MG TAB PO SCH ×3 (05:59→22:00)
[2016-11-21] MEDS: SODIUM CHLOR 0.45% 1000 ML INJ 1,000 ML IV SCH (06:02)
[2016-11-21] MEDS: SODIUM CHLORIDE 0.9% FLUSH 10 ML FLUSH IV FLUSH SCH ×2 (08:30→20:35)
[2016-11-21] MEDS: PRAVASTATIN SOD 40 MG TAB PO SCH (08:33)
[2016-11-21] MEDS: ASPIRIN 81 MG CHEW TAB CHEW SCH (08:33)
[2016-11-21] MEDS: metFORMIN HCL 500 MG TAB PO SCH (08:33)
[2016-11-21] MEDS: PIOGLITAZONE HCL 15 MG TAB PO SCH (08:34)
[2016-11-21] MEDS: ALLOPURINOL 300 MG TAB PO SCH (08:34)
[2016-11-21] MEDS: DOCUSATE SODIUM 50 MG/SENNA 8.6 MG TAB PO SCH ×2 (08:40→20:35)
[2016-11-21] MEDS: amLODIPine BESYLATE 5 MG TAB PO SCH (09:00)
[2016-11-21] MEDS: CARVEDILOL 12.5 MG TAB PO SCH ×2 (09:00→20:35)
[2016-11-21] MEDS: SODIUM CHLORIDE 0.9% 10 ML VIAL IRRIGATION SCH (09:00)
[2016-11-21] MEDS: LISINOPRIL 5 MG TAB PO SCH ×2 (09:00→20:35)
--- NOTE | 2016-11-21 09:25 | HHI.PR ---
Subjective History of Present Illness Patient feel weak and tired .have nausea today. ..Low potassium will replace and monitor. CT Abdomen and Pelvis shows acute diverticulitis and psoas abscess General surgery input noted S/P abscess drainage by Interventional radiology .culture positive for mixed anaerobs ..on Unysn per ID Recommendation. no acute issue drain out..Hematology input noted for Iron deficiency anemia , Review of Systems Constitutional Constitutional: Fatigue, Weakness Vitals/Results Intake & Output 11/20/16 11/20/16 11/21/16 15:00 23:00 07:00 Intake Total 480 ml 1287 ml 1117 ml Balance 480 ml 1287 ml 1117 ml Intake Oral 480 ml 320 ml 480 ml IV Total 967 ml 637 ml # Voids 3 2 4 # Bowel Movements 2 2 4 Vital Signs Vital Signs Date Time Temp Pulse Resp B/P Pulse Ox O2 Delivery O2 Flow Rate FiO2 11/21/16 08:00 97.7 72 22 128/46 97 11/21/16 04:00 96.6 81 22 110/53 96 11/21/16 00:00 96.5 68 20 118/56 98 11/20/16 20:10 62 11/20/16 20:00 96.9 69 20 100/64 96 11/20/16 16:00 97.4 68 18 99/46 97 11/20/16 12:00 97.5 70 21 114/55 97 CBC/BMP: 11/19/16 0608 11/19/16 0608 Physical Exam General General Appearance: Well Developed, Well Nourished, No Acute Distress, Comfortable Eyes Eye Exam: Pupils Equal, Pupils Reactive, Sclera White, Extraocular Movement Intact Throat Throat Exam: Oral Mucosa [place] & Moist, Oral Pharynx Normal Neck Neck Exam: Neck Supple, Trachea Midline Pulmonary Resp Exam: Clear Bilaterally, Breath Sounds Equal, No Distress Cardiology CV Exam: Regular, Normal Sinus Rhythm Gastrointestinal/Abdomen GI Exam: Soft, Non-Tender, Bowel Sounds Present GI Remarks mild abdominal tenderness left side. Musculoskeletal MS Exam: Normal Tone Integumentary Skin Exam: Clear, Warm, Dry, Intact Extremeties Extremities Exam: No Edema Neurologic Neuro Exam: Alert, Awake, Oriented, Speech Clear, Moving All Extremities, No Focal Deficits Psychiatric Psych Exam: Appropriate Responses VTE Prophylaxis VTE Prophylaxis Meds: Lovenox PUD Prophylasis PUD Prophylaxis: Protonix Assessment/Plan Assessment/Plan ASSESSMENT AND PLAN: This is a 71-year female who came to the emergency room diagnosed with 1. Nausea with hypoglycemia. Glucose is normal now. The patient is on Zofran 4 milligrams IV q. 6-hour p.r.n. for nausea and vomiting. 2. Leukocytosis,...resolved.... Chest x-ray does not show anything acute. check CT scan of the chest negative for pneumonia... have pulmonary nodule pulmonary input noted. Blood cultures x2 positive for gram negative rods. 3. Diabetes mellitus. ADA 1800 calorie diet. NovoLog. sliding scale. Check blood sugars a.c. and h.s. Will monitor blood sugar. 4. history of gout. Continue home medication. 5. History of hypertension. Continue medication. Monitor blood pressure. 6. Hyperlipidemia. Continue lovastatin 40 milligrams p.o. daily. 7. DVT prophylaxis. Lovenox 40 milligrams. 8. GI prophylaxis Protonix 40 milligrams p.o. twice a day. 9. Pulmonary nodule pulmonary input noted. 10. blood culture positive on Unysn per ID Recomendation. 11. Hemoglobin was 6.9 Possible GI Bleed S/P 2 units PRBC Transfusion have Iron deficiency anemia on replacement.. fecal occult blood test x 1 negative.. H and H stable.. 12. .Hypokalemia will replace and monitor. checked Magnesium level..2.[address] Abdomen and Pelvis shows acute diverticulitis and Psoas abscess General surgery input noted S/P abscess drainage by Interventional radiology, culture positive for mixed anaerobs...on Unysn per ID Recomendation. We are going to manage the patient on a daily basis and make recommendations on a daily basis. Check CBC with diff CMP in AM. Check CBC and comprehensive metabolic profile in the morning. Discussed Condition with: Patient Reed Up MD Nov 21, 2016 09:25
[2016-11-21] MEDS: PANTOPRAZOLE SODIUM 40 MG VIAL IV PUSH SCH ×2 (11:41→23:08)
[2016-11-21] MEDS ORDERED: PEG (High)/E-LYTE SOLN 4000 ML BTL PO ONE (15:15)
[2016-11-21] MEDS: MAGNESIUM CITRATE SOLN 300 ML BTL PO SCH ×2 (17:15→23:00)
[2016-11-21] MEDS: ONDANSETRON HCL 4 MG/2 ML VIAL IVP PRN (18:09)
[2016-11-21] MEDS: ENOXAPARIN SODIUM 40 MG/0.4 ML SYRINGE SQ SCH (20:35)
[2016-11-21 20:58] LABS: HEMATOCRIT 27.7 % (35.0-46.0); REVIEW FLAG FINAL
--- NOTE | 2016-11-21 21:43 | RADRPT ---
EXAM DATE/TIME: 11/21/2016 21:14 [facility] COMPARISON: CHEST SINGLE AP, November 12, 2016, 5:47. INDICATIONS : Evaluate NG tube placement MEDICAL HISTORY : Hypertension. Diabetes. SURGICAL HISTORY : None. ENCOUNTER: Subsequent ACUITY: 2 weeks PAIN SCORE: 4/10 LOCATION: chest FINDINGS: A single view of the chest demonstrates the lungs to be symmetrically aerated without evidence of mas s, infiltrate or effusion. The cardiomediastinal contours are unremarkable. Osseous structures are intact. Gastric tube tip and side-port project within the stomach. CONCLUSION: NG tube in good position. Wilver Linares MD on November 21, 2016 at 21:41 Board Certified Radiologist. This report was verified electronically.
--- NOTE | 2016-11-21 22:12 | HHI.GIFU ---
Subjective Remarks Comfortable in bed denies any abdominal pain but has had multiple bowel movements that were bloody Objective Vitals I&O Vital Signs Date Time Temp Pulse Resp B/P Pulse Ox O2 Delivery O2 Flow Rate FiO2 11/21/16 16:00 98.5 80 24 111/56 95 11/21/16 12:00 98.0 86 24 132/55 98 11/21/16 08:00 72 11/21/16 08:00 97.7 72 22 128/46 97 11/21/16 04:00 96.6 81 22 110/53 96 11/21/16 00:00 96.5 68 20 118/56 98 I/O 11/20/16 11/20/16 11/20/16 11/21/16 11/21/16 11/21/16 07:00 15:00 23:00 07:00 15:00 23:00 Intake Total 692 ml 480 ml 1287 ml 1117 ml 1418 ml Balance 692 ml 480 ml 1287 ml 1117 ml 1418 ml Intake Oral 120 ml 480 ml 320 ml 480 ml 840 ml IV Total 572 ml 967 ml 637 ml 578 ml # Voids 3 3 2 4 5 # Bowel Movements 2 2 2 4 8 Laboratory Laboratory Tests Test 11/21/16 20:30 Hemoglobin 8.4 Hematocrit 27.7 Date/Time Procedure Status Source Growth 11/21/16 12:57 Stool Occult Blood (ADALI) - Final Complete Stool Stool HEMOCCULT POSITIVE Imaging Last 48 hours Impressions Chest X-Ray 11/21/162047 Signed Impressions: Service Date/Time: Monday, November 21, 2016 21:14 - CONCLUSION: NG tube in good position. Wilver Linares MD Physical Exam HEENT: EOMI; normocephalic; atraumatic; no jaundice. CHEST: CTA CARDIAC: RRR ABDOMEN: Soft, obese, nontender; no hepatosplenomegaly; bowel sounds are present in all four quadrants. drain LLQ, dressing clean EXTREMITIES: No clubbing, cyanosis, or edema. SKIN: Normal; no rash; no jaundice. 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 heard of hearing, weak Assessment and Plan Plan ASSESSMENT - anemia , GI bleed- Previously has refused EGD/colonoscopy and today but today she is agreeable - diverticulitis, diverticular abcess - per CT. Acute sigmoid diverticulitis with adjacent abscess involving the psoas muscle. 2. Paraumbilical fat containing hernia. PLAN - monitor HH - transfuse if needed -EGD colonoscopy tomorrow -Continue with current supportive care Ambrose Brown MD Nov 21, 2016 22:12
[2016-11-22] VITALS (12 sets, daily range): BP systolic 101–139; BP diastolic 54–84; PULSE 66–82; RESP 17–24; TEMP 96.3–97.8; O2SAT 94–97
[2016-11-22] MEDS ORDERED: POVIDONE IODINE 5% (ANTISEPSIS KIT) 4 APPLICATIONS EACH NARE PRN (04:30)
[2016-11-22] MEDS ORDERED: LACTATED RINGER'S 1000 ML IV PRN (04:30)
[2016-11-22] MEDS ORDERED: CHLORHEXIDINE GLUCONATE 2 % 1 PACK (2 CLOTHS) TOPICAL PRN (04:30)
[2016-11-22] MEDS: MAGNESIUM CITRATE SOLN 300 ML BTL PO SCH (04:55)
[2016-11-22] MEDS: AMPICILLIN/SULBAC 3 GM/NS 100 ML IV SCH ×8 (04:55→21:47)
[2016-11-22 05:37] LABS: AUTOMATED NEUTROPHIL # 6.8 TH/MM3 (1.8-7.7); BASOPHIL % 0.3 % (0.0-2.0); EOSINOPHIL % 0.2 % (0.0-4.0); HEMO FLAGS DIFF FINAL; LYMPH % 12.4 % (9.0-44.0); LYMPHOCYTE # 1.1 TH/MM3 (1.0-4.8); MEAN CELL VOLUME 75.1 FL (80.0-100.0); MEAN CORPUSCULAR HEMOGLOBIN 22.9 PG (27.0-34.0); MEAN CORPUSCULAR HGB CONC 30.5 % (32.0-36.0); MONO % 9.1 % (0.0-8.0); PLATELET COUNT 383 TH/MM3 (150-450); RED BLOOD COUNT 3.45 MIL/MM3 (4.00-5.30); RED CELL DISTRIBUTION WIDTH 20.9 % (11.6-17.2); WHITE BLOOD COUNT 8.7 TH/MM3 (4.0-11.0)
[2016-11-22] MEDS: INSULIN NovoLIN REGULAR SUPPLEMENTAL SCALE SQ SCH ×4 (06:00→21:00)
[2016-11-22] MEDS: cloNIDine HCL 0.2 MG TAB PO SCH ×3 (06:00→21:46)
[2016-11-22 06:12] LABS: BICARBONATE 33.1 MEQ/L (21.0-32.0); CALCIUM-PROTEIN CORRECTED 8.6 MG/DL (8.5-10.1); TOTAL BILIRUBIN ADULT 0.2 MG/DL (0.2-1.0)
[2016-11-22 06:33] LABS: POTASSIUM 2.6 MEQ/L (3.5-5.1)
[2016-11-22] MEDS: CARVEDILOL 12.5 MG TAB PO SCH ×2 (08:31→21:46)
[2016-11-22] MEDS: DOCUSATE SODIUM 50 MG/SENNA 8.6 MG TAB PO SCH ×2 (08:32→21:00)
[2016-11-22] MEDS: metFORMIN HCL 500 MG TAB PO SCH ×2 (08:32→12:21)
[2016-11-22] MEDS: amLODIPine BESYLATE 5 MG TAB PO SCH (08:32)
[2016-11-22] MEDS: ALLOPURINOL 300 MG TAB PO SCH (08:33)
[2016-11-22] MEDS: LISINOPRIL 5 MG TAB PO SCH ×2 (08:33→21:47)
[2016-11-22] MEDS: PRAVASTATIN SOD 40 MG TAB PO SCH (08:33)
[2016-11-22] MEDS: ASPIRIN 81 MG CHEW TAB CHEW SCH ×2 (08:35→09:00)
[2016-11-22] MEDS: SODIUM CHLORIDE 0.9% 10 ML VIAL IRRIGATION SCH ×2 (08:35→09:00)
[2016-11-22] MEDS: PIOGLITAZONE HCL 15 MG TAB PO SCH ×2 (08:35→09:00)
--- NOTE | 2016-11-22 08:35 | HHI.PR ---
Subjective History of Present Illness Patient feel weak and tired .have nausea today. going for endoscopy soon ..Low potassium will replace and monitor. no acute issue ..Hematology input noted for Iron deficiency anemia , Review of Systems Constitutional Constitutional: Fatigue, Weakness Vitals/Results Intake & Output 11/21/16 11/21/16 11/22/16 15:00 23:00 07:00 Intake Total 1418 ml 680 ml 1018 ml Balance 1418 ml 680 ml 1018 ml Intake Oral 840 ml 240 ml 0 ml IV Total 578 ml 440 ml 1018 ml # Voids 5 1 5 # Bowel Movements 8 1 5 Vital Signs Vital Signs Date Time Temp Pulse Resp B/P Pulse Ox O2 Delivery O2 Flow Rate FiO2 11/22/16 07:50 97.8 74 19 139/84 94 11/22/16 04:00 96.7 77 22 134/63 96 11/22/16 00:00 96.6 81 24 113/58 95 11/21/16 22:00 69 11/21/16 21:30 Room Air 11/21/16 20:00 97.7 81 24 134/63 96 11/21/16 16:00 98.5 80 24 111/56 95 11/21/16 12:00 98.0 86 24 132/55 98 CBC/BMP: 11/22/16 0454 11/22/16 0454 Lab Results Laboratory Tests Test 11/21/16 11/22/16 20:30 04:54 Hemoglobin 8.4 GM/DL 7.9 GM/DL Hematocrit 27.7 % 26.0 % White Blood Count 8.7 TH/MM3 Red Blood Count 3.45 MIL/MM3 Mean Corpuscular Volume 75.1 FL Mean Corpuscular Hemoglobin 22.9 PG Mean Corpuscular Hemoglobin 30.5 % Concent Red Cell Distribution Width 20.9 % Platelet Count 383 TH/MM3 Mean Platelet Volume 6.6 FL Neutrophils (%) (Auto) 78.0 % Lymphocytes (%) (Auto) 12.4 % Monocytes (%) (Auto) 9.1 % Eosinophils (%) (Auto) 0.2 % Basophils (%) (Auto) 0.3 % Neutrophils # (Auto) 6.8 TH/MM3 Lymphocytes # (Auto) 1.1 TH/MM3 Monocytes # (Auto) 0.8 TH/MM3 Eosinophils # (Auto) 0.0 TH/MM3 Basophils # (Auto) 0.0 TH/MM3 CBC Comment DIFF FINAL Differential Comment Sodium Level 141 MEQ/L Potassium Level 2.6 MEQ/L Chloride Level 98 MEQ/L Carbon Dioxide Level 33.1 MEQ/L Anion Gap 10 MEQ/L Blood Urea Nitrogen 12 MG/DL Creatinine 0.46 MG/DL Estimat Glomerular Filtration 133 ML/MIN Rate Random Glucose 135 MG/DL Calcium Level 7.4 MG/DL Protein Corrected Calcium 8.6 MG/DL Total Bilirubin 0.2 MG/DL Aspartate Amino Transf 16 U/L (AST/SGOT) Alanine Aminotransferase 16 U/L (ALT/SGPT) Alkaline Phosphatase 66 U/L Total Protein 5.0 GM/DL Albumin 1.6 GM/DL Microbiology Microbiology 11/21/16 Stool Occult Blood (ADALI) - Final, Complete HEMOCCULT POSITIVE Physical Exam General General Appearance: Well Developed, Well Nourished, No Acute Distress, Comfortable Eyes Eye Exam: Pupils Equal, Pupils Reactive, Sclera White, Extraocular Movement Intact Throat Throat Exam: Oral Mucosa [place] & Moist, Oral Pharynx Normal Neck Neck Exam: Neck Supple, Trachea Midline Pulmonary Resp Exam: Clear Bilaterally, Breath Sounds Equal, No Distress Cardiology CV Exam: Regular, Normal Sinus Rhythm Gastrointestinal/Abdomen GI Exam: Soft, Non-Tender, Bowel Sounds Present GI Remarks mild abdominal tenderness left side. Musculoskeletal MS Exam: Normal Tone Integumentary Skin Exam: Clear, Warm, Dry, Intact Extremeties Extremities Exam: No Edema Neurologic Neuro Exam: Alert, Awake, Oriented, Speech Clear, Moving All Extremities, No Focal Deficits Psychiatric Psych Exam: Appropriate Responses VTE Prophylaxis VTE Prophylaxis Meds: Lovenox PUD Prophylasis PUD Prophylaxis: Protonix Assessment/Plan Assessment/Plan ASSESSMENT AND PLAN: This is a 71-year female who came to the emergency room diagnosed with 1. Nausea with hypoglycemia. Glucose is normal now. The patient is on Zofran 4 milligrams IV q. 6-hour p.r.n. for nausea and vomiting. 2. Leukocytosis,...resolved.... Chest x-ray does not show anything acute. check CT scan of the chest negative for pneumonia... have pulmonary nodule pulmonary input noted. Blood cultures x2 positive for gram negative rods. 3. Diabetes mellitus. ADA 1800 calorie diet. NovoLog. sliding scale. Check blood sugars a.c. and h.s. Will monitor blood sugar. 4. history of gout. Continue home medication. 5. History of hypertension. Continue medication. Monitor blood pressure. 6. Hyperlipidemia. Continue lovastatin 40 milligrams p.o. daily. 7. DVT prophylaxis. Lovenox 40 milligrams. 8. GI prophylaxis Protonix 40 milligrams p.o. twice a day. 9. Pulmonary nodule pulmonary input noted. 10. blood culture positive on Unysn per ID Recomendation. 11. Hemoglobin was 6.9 Possible GI Bleed S/P 2 units PRBC Transfusion have Iron deficiency anemia on replacement.. fecal occult blood test x 1 negative.. H and H monitoring.. GI Input noted going for endoscopy soon. 12. .Hypokalemia will replace and monitor. checked Magnesium level..2.[address] Abdomen and Pelvis shows acute diverticulitis and Psoas abscess General surgery input noted S/P abscess drainage by Interventional radiology, culture positive for mixed anaerobs...on Unysn per ID Recommendation. We are going to manage the patient on a daily basis and make recommendations on a daily basis. Check CBC with diff CMP in AM. Check CBC and comprehensive metabolic profile in the morning. Discussed Condition with: Patient Reed Up MD Nov 22, 2016 08:35 Reed Up MD Nov 22, 2016 08:35
[2016-11-22] MEDS: SODIUM CHLORIDE 0.9% FLUSH 10 ML FLUSH IV FLUSH SCH ×2 (08:36→21:46)
--- NOTE | 2016-11-22 10:03 | HHI.GIFU ---
GI Follow-up Note Consult Follow-up Subjective: Patient laying in bed comfortably, no new complaints except BRBPR, no abdominal pain Objective: PHYSICAL EXAMINATION: Vitals signs stable No fever HEENT: Pupils round and reactive to light; normocephalic; atraumatic; no jaundice. Throat is clear. NECK: Neck is supple, no JVD, no lymphadenopathy. CHEST: Chest is clear to auscultation and percussion. CARDIAC: Regular rate and rhythm with no murmur gallop or rubs. ABDOMEN: Soft, nondistended, nontender; no hepatosplenomegaly; bowel sounds are present in all four quadrants. EXTREMITIES: No clubbing, cyanosis, or edema. SKIN: Normal; no rash; no jaundice. 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 Available Data (labs, X- Rays, Procedues) : Last Impressions Chest X-Ray 11/21/162047 Signed Impressions: Service Date/Time: Monday, November 21, 2016 21:14 - CONCLUSION: NG tube in good position. Wilver Linares MD Pelvis CT 11/19/16 0000 Signed Impressions: Service Date/Time: Saturday, November 19, 2016 16:00 - CONCLUSION: 1. Previous drainage catheter is no longer within the left anterior psoas muscle and is now within the fat in the left lower quadrant not close to any drainable fluid. This can be removed. There is a 2 cm transverse diameter probable residual fluid collection within the psoas muscle. This extends over several centimeters in length and there is a tiny locule of air within the left psoas muscle on series 2 image #5. 2. Markedly abnormal mural thickening of a segment of sigmoid colon with surrounding inflammatory change probably diverticulitis although cannot exclude mass. Fat-containing ventral hernia. Guillermo Mendez MD Abdomen X-Ray 11/18/16 0000 Signed Impressions: Service Date/Time: November 18:53 - CONCLUSION: Mild gaseous distention of the proximal colon Cecilio Villareal MD Abscess Drainage CT 11/15/16 0000 Signed Impressions: Service Date/Time: Tuesday, November 15, 2016 19:23 - CONCLUSION: Uncomplicated CT guided drainage. An 8 [place] catheter was left in position. Taiwo Leal MD Abdomen/Pelvis CT 11/14/16 Signed Impressions: Service Date/Time: Monday, November 14, 2016 10:54 - CONCLUSION: 1. Acute sigmoid diverticulitis with adjacent abscess involving the psoas muscle. 2. Paraumbilical fat containing hernia. 3. 2 cm left adrenal nodule, nonspecific. Dmitri Huynh MD Chest CT 11/08/16 0000 Signed Impressions: Service Date/Time: Tuesday, November 08, 2016 19:23 - CONCLUSION: 1. Innumerable noncalcified subcentimeter pulmonary nodules with the largest measuring 8 mm in the left lower lobe posteriorly. Although these are nonspecific metastatic disease remains in the differential. PET/CT scan may be helpful for further evaluation of the largest of these nodules if clinically indicated. 2. Coronary artery calcifications. 3. Left adrenal mass measuring 2.7 x 2.5 cm which is nonspecific. Ketan Schofield MD Laboratory Tests Test 11/21/16 11/22/16 20:30 04:54 Hemoglobin 8.4 GM/DL 7.9 GM/DL Hematocrit 27.7 % 26.0 % White Blood Count 8.7 TH/MM3 Red Blood Count 3.45 MIL/MM3 Mean Corpuscular Volume 75.1 FL Mean Corpuscular Hemoglobin 22.9 PG Mean Corpuscular Hemoglobin 30.5 % Concent Red Cell Distribution Width 20.9 % Platelet Count 383 TH/MM3 Mean Platelet Volume 6.6 FL Neutrophils (%) (Auto) 78.0 % Lymphocytes (%) (Auto) 12.4 % Monocytes (%) (Auto) 9.1 % Eosinophils (%) (Auto) 0.2 % Basophils (%) (Auto) 0.3 % Neutrophils # (Auto) 6.8 TH/MM3 Lymphocytes # (Auto) 1.1 TH/MM3 Monocytes # (Auto) 0.8 TH/MM3 Eosinophils # (Auto) 0.0 TH/MM3 Basophils # (Auto) 0.0 TH/MM3 CBC Comment DIFF FINAL Differential Comment Sodium Level 141 MEQ/L Potassium Level 2.6 MEQ/L Chloride Level 98 MEQ/L Carbon Dioxide Level 33.1 MEQ/L Anion Gap 10 MEQ/L Blood Urea Nitrogen 12 MG/DL Creatinine 0.46 MG/DL Estimat Glomerular Filtration 133 ML/MIN Rate Random Glucose 135 MG/DL Calcium Level 7.4 MG/DL Protein Corrected Calcium 8.6 MG/DL Total Bilirubin 0.2 MG/DL Aspartate Amino Transf 16 U/L (AST/SGOT) Alanine Aminotransferase 16 U/L (ALT/SGPT) Alkaline Phosphatase 66 U/L Total Protein 5.0 GM/DL Albumin 1.6 GM/DL Allergies Coded Allergies Type Severity Reaction Last Updated Verified No Known Allergies 11/08/16 No Active Scripts Medications Dose Route/Sig Days Date Category Dose Instructions Fish Oil ([place]-3 Fatty Acids) 1,000 Mg Cap 1 Tab PO DAILY 11/08/16 Reported Aspirin 81 Mg Chew 81 Mg CHEW DAILY 11/08/16 Reported Lovastatin 40 Mg Tab 40 Mg PO DAILY 11/08/16 Reported Amlodipine (Amlodipine Besylate) 5 Mg Tab 5 Mg PO DAILY 11/08/16 Reported Pioglitazone (Pioglitazone HCl) 15 Mg Tab 15 Mg PO DAILY 11/08/16 Reported Metformin (Metformin HCl) 500 Mg Tab 500 Mg PO DAILY 11/08/16 Reported With a meal Carvedilol 25 Mg Tab 25 Mg PO BID 11/08/16 Reported Allopurinol 300 Mg Tab 300 Mg PO DAILY 11/08/16 Reported Lisinopril 5 Mg Tab 5 Mg PO BID 11/08/16 Reported Clonidine (Clonidine HCl) 0.2 Mg Tab 0.2 Mg PO Q8HR 11/08/16 Reported ASSESSMENT/PLAN: seen and examined in the gi lab. Brought down for GI procedures but potassium 2.6 today. Procedure cancelled by anesthesia. Discussed with Dr. Up. Rescheduled for tomorrow after electrolyte replacement. Monitor labs. It was a pleasure seeing Renetta Keyes. Thank you for this consult. Entered by: Pilar Adhikari MD Nov 22, 2016 10:03
[2016-11-22] MEDS: POTASSIUM CHLOR 20 MEQ PREMIX 100 ML IV SCH ×4 (10:33→21:45)
[2016-11-22] MEDS: PANTOPRAZOLE SODIUM 40 MG VIAL IV PUSH SCH ×2 (12:21→23:09)
--- NOTE | 2016-11-22 12:21 | HHI.IDPN ---
Subjective Subjective Remarks ID Xcover for Dr Bernard pt is not doing well Bleeding per rectum, 3 bloody BMs this am coloniscopy is planned BP borderline afebrile Antibiotics Unasyn IV Lines Peripheral Past Medical History HTN Gout Diabetes Allergies: Coded Allergies: No Known Allergies (Unverified , 11/08/16) Objective . Vital Signs Date Time Temp Pulse Resp B/P Pulse Ox O2 Delivery O2 Flow Rate FiO2 11/22/16 09:16 97.8 74 19 139/67 94 11/22/16 07:50 97.8 74 19 139/84 94 11/22/16 04:00 96.7 77 22 134/63 96 11/22/16 00:00 96.6 81 24 113/58 95 11/21/16 22:00 69 11/21/16 21:30 Room Air 11/21/16 20:00 97.7 81 24 134/63 96 11/21/16 16:00 98.5 80 24 111/56 95 11/21/16 11/21/16 11/22/16 15:00 23:00 07:00 Intake Total 1418 ml 680 ml 1018 ml Balance 1418 ml 680 ml 1018 ml Intake Oral 840 ml 240 ml 0 ml IV Total 578 ml 440 ml 1018 ml # Voids 5 1 5 # Bowel Movements 8 1 5 . Laboratory Tests Test 11/21/16 11/22/16 20:30 04:54 Hemoglobin 8.4 GM/DL 7.9 GM/DL Hematocrit 27.7 % 26.0 % White Blood Count 8.7 TH/MM3 Red Blood Count 3.45 MIL/MM3 Mean Corpuscular Volume 75.1 FL Mean Corpuscular Hemoglobin 22.9 PG Mean Corpuscular Hemoglobin 30.5 % Concent Red Cell Distribution Width 20.9 % Platelet Count 383 TH/MM3 Mean Platelet Volume 6.6 FL Neutrophils (%) (Auto) 78.0 % Lymphocytes (%) (Auto) 12.4 % Monocytes (%) (Auto) 9.1 % Eosinophils (%) (Auto) 0.2 % Basophils (%) (Auto) 0.3 % Neutrophils # (Auto) 6.8 TH/MM3 Lymphocytes # (Auto) 1.1 TH/MM3 Monocytes # (Auto) 0.8 TH/MM3 Eosinophils # (Auto) 0.0 TH/MM3 Basophils # (Auto) 0.0 TH/MM3 CBC Comment DIFF FINAL Differential Comment Laboratory Tests Test 11/22/16 04:54 Sodium Level 141 MEQ/L Potassium Level 2.6 MEQ/L Chloride Level 98 MEQ/L Carbon Dioxide Level 33.1 MEQ/L Anion Gap 10 MEQ/L Blood Urea Nitrogen 12 MG/DL Creatinine 0.46 MG/DL Estimat Glomerular Filtration 133 ML/MIN Rate Random Glucose 135 MG/DL Calcium Level 7.4 MG/DL Protein Corrected Calcium 8.6 MG/DL Total Bilirubin 0.2 MG/DL Aspartate Amino Transf 16 U/L (AST/SGOT) Alanine Aminotransferase 16 U/L (ALT/SGPT) Alkaline Phosphatase 66 U/L Total Protein 5.0 GM/DL Albumin 1.6 GM/DL Microbiology Date/Time Procedure Status Source Growth 11/21/16 12:57 Stool Occult Blood (ADALI) - Final Complete Stool Stool HEMOCCULT POSITIVE Imaging Last Impressions Chest X-Ray 11/21/162047 Signed Impressions: Service Date/Time: Monday, November 21, 2016 21:14 - CONCLUSION: NG tube in good position. Wilver Linares MD Pelvis CT 11/19/16 0000 Signed Impressions: Service Date/Time: Saturday, November 19, 2016 16:00 - CONCLUSION: 1. Previous drainage catheter is no longer within the left anterior psoas muscle and is now within the fat in the left lower quadrant not close to any drainable fluid. This can be removed. There is a 2 cm transverse diameter probable residual fluid collection within the psoas muscle. This extends over several centimeters in length and there is a tiny locule of air within the left psoas muscle on series 2 image #5. 2. Markedly abnormal mural thickening of a segment of sigmoid colon with surrounding inflammatory change probably diverticulitis although cannot exclude mass. Fat-containing ventral hernia. Guillermo Mendez MD Abdomen X-Ray 11/18/16 0000 Signed Impressions: Service Date/Time: November 18:53 - CONCLUSION: Mild gaseous distention of the proximal colon Cecilio Villareal MD Abscess Drainage CT 11/15/16 0000 Signed Impressions: Service Date/Time: Tuesday, November 15, 2016 19:23 - CONCLUSION: Uncomplicated CT guided drainage. An 8 Wol[place] catheter was left in position. Taiwo Leal MD Abdomen/Pelvis CT 11/14/16 0000 Signed Impressions: Service Date/Time: Monday, November 14, 2016 10:54 - CONCLUSION: 1. Acute sigmoid diverticulitis with adjacent abscess involving the psoas muscle. 2. Paraumbilical fat containing hernia. 3. 2 cm left adrenal nodule, nonspecific. Dmitri Huynh MD Chest CT 11/08/16 0000 Signed Impressions: Service Date/Time: Tuesday, November 08, 2016 19:23 - CONCLUSION: 1. Innumerable noncalcified subcentimeter pulmonary nodules with the largest measuring 8 mm in the left lower lobe posteriorly. Although these are nonspecific metastatic disease remains in the differential. PET/CT scan may be helpful for further evaluation of the largest of these nodules if clinically indicated. 2. Coronary artery calcifications. 3. Left adrenal mass measuring 2.7 x 2.5 cm which is nonspecific. Ketan Schofield MD Physical Exam GENERAL: On physical exam, this is a 71-year-old obese female OOB in chair in acute distress. Looks weak and pale, looks sick HEAD, EYES, EARS, NOSE, THROAT: Normocephalic and atraumatic. Extraocular muscles intact. Pupils equal, round and reactive to light and accommodation. Oral mucosa moist. Pale conjunctivae NECK: Trachea is central. CARDIOVASCULAR: Regular tachycardia RESPIRATORY: Clear to auscultation bilaterally. ABDOMEN: Abdomen soft and nontender. Obese and distended Bowel sounds audible. No organomegaly Active blood mixed with mucus per rectum EXTREMITIES: No cyanosis or clubbing. Full range of motion of all extremities. No edema. NEUROLOGIC: Awake, alert and oriented times four. No focal deficits. SKIN: Warm and dry. No rash PSYCHIATRIC: The patient is calm and cooperative. Flat affect IV line site with no evidence of infection. Assessment & Plan Remarks Acute diverticulitis with abscess of psoas muscle. s/p IR guided drainage. - mixed anaerobs GI bleed - worsening - cont to bleed - agreable for colonoscopy Staph hominis bacteremia: likely contaminant. Persistent bandemia (12%), thrombocytosis - susp for ongoing infx Recs Continue Unasyn IV for now, will change to po abx when more stable to complete 10-14 days from drainage awaiting for colonoscopy Krystin Reynolds RN, MD Nov 22, 2016 12:21
[2016-11-22] MEDS: SODIUM CHLOR 0.45% 1000 ML INJ 1,000 ML IV SCH ×2 (12:25→23:10)
[2016-11-22 13:10] LABS: REVIEW FLAG FINAL
[2016-11-22 13:12] LABS: HEMATOCRIT 22.8 % (35.0-46.0)
--- NOTE | 2016-11-22 18:58 | HHI.PR ---
Subjective Remarks She is still weak and poor intake . No cough or wheezing. O2 sat was low on RA. Will need home O2 On O2 2L and sat 98. . Needs Colonoscopy and she is now willing to get it done.it was cancelled today. Receiving packed red cells. Objective Vital Signs Date Time Temp Pulse Resp B/P Pulse Ox O2 Delivery O2 Flow Rate FiO2 11/22/16 18:39 97.2 72 17 119/57 95 11/22/16 18:21 96.8 71 17 121/58 95 11/22/16 15:56 96.9 67 17 111/59 96 11/22/16 15:17 96.9 66 18 113/55 96 11/22/16 14:54 96.3 67 17 111/59 96 11/22/16 12:00 96.9 82 17 101/54 95 11/22/16 09:16 97.8 74 19 139/67 94 11/22/16 08:05 95 2.00 11/22/16 07:50 97.8 74 19 139/84 94 11/22/16 04:00 96.7 77 22 134/63 96 11/22/16 00:00 96.6 81 24 113/58 95 11/21/16 22:00 69 11/21/16 21:30 Room Air 11/21/16 20:00 97.7 81 24 134/63 96 I/O 11/21/16 11/21/16 11/21/16 11/22/16 11/22/16 11/22/16 07:00 15:00 23:00 07:00 15:00 23:00 Intake Total 1117 ml 1418 ml 680 ml 1018 ml 1874 ml Output Total 1200 ml Balance 1117 ml 1418 ml 680 ml 1018 ml 674 ml Intake Oral 480 ml 840 ml 240 ml 0 ml 1200 ml IV Total 637 ml 578 ml 440 ml 1018 ml 674 ml Output Urine Total 400 ml Stool Total 800 ml # Voids 4 5 1 5 # Bowel Movements 4 8 1 5 Result Diagram: 11/22/16 1220 11/22/16 0454 Objective Remarks GENERAL: This obese, elderly white female who is pale and in no distress. HEENT: Head normocephalic. Pupils are reactive.Throat was clear. NECK: Supple. No bruits or thyroid enlargement or lymphadenopathy. CHEST: Distant breath sounds with no wheezes. HEART: The heart sounds are regular S1-S2. No murmur. No S3.t ABDOMEN: Obese, protuberant without masses. No organomegaly. mild LLQ tenderness. Bowel sounds active.Catheter drain in LLQ. EXTREMITIES: No lesions. no edema. Peripheral pulses are diminished. Reflexes are 1+. NEUROLOGIC: No gross motor deficits. SKIN: No lesions observed. Assessment and Plan Assessment and Plan IMPRESSION 1. Bilateral lung nodules, etiology to be determined. Probable granulomas versus metastatic disease. 2. Diabetes mellitus type 2. 3. Hypertension. 4. Exogenous obesity and possible sleep apnea. 5. Possible hypothyroidism. 6. Hypertension. 7. Anemia Plan : 1. Replace Potassium. 2. Cont Antibiotics, per ID 3.CBC,BMP in am 4. PET CT as OP. 5. EGD Colonoscopy to be done 6.O2 at 2 L. and arrange home O2 Juan Ramon Perez MD Nov 22, 2016 18:58
[2016-11-22] MEDS: ENOXAPARIN SODIUM 40 MG/0.4 ML SYRINGE SQ SCH (20:00)
[2016-11-23] VITALS (9 sets, daily range): BP systolic 112–146; BP diastolic 57–68; PULSE 63–75; RESP 17–20; TEMP 95.9–97.9; O2SAT 73–98
[2016-11-23 01:07] LABS: HEMATOCRIT 26.9 % (35.0-46.0); REVIEW FLAG FINAL
[2016-11-23] MEDS: AMPICILLIN/SULBAC 3 GM/NS 100 ML IV SCH ×8 (04:02→22:25)
[2016-11-23 05:19] LABS: ANION GAP 7 MEQ/L (5-15); AST (GOT) 13 U/L (15-37); BICARBONATE 34.7 MEQ/L (21.0-32.0); BLOOD UREA NITROGEN 8 MG/DL (7-18); CHLORIDE 100 MEQ/L (98-107); GLOMERULAR FILTRATION RATE 148 ML/MIN (>89); SODIUM (NA) 142 MEQ/L (136-145)
[2016-11-23 05:20] LABS: AUTOMATED NEUTROPHIL # 5.3 TH/MM3 (1.8-7.7); BASOPHIL % 0.3 % (0.0-2.0); EOSINOPHIL # 0.1 TH/MM3 (0-0.4); EOSINOPHIL % 0.7 % (0.0-4.0); HEMATOCRIT 28.2 % (35.0-46.0); LYMPH % 14.7 % (9.0-44.0); LYMPHOCYTE # 1.1 TH/MM3 (1.0-4.8); MEAN CELL VOLUME 76.7 FL (80.0-100.0); MEAN CORPUSCULAR HEMOGLOBIN 24.3 PG (27.0-34.0); MEAN CORPUSCULAR HGB CONC 31.7 % (32.0-36.0); MONO % 12.4 % (0.0-8.0); NEUT % 71.9 % (16.0-70.0); PLATELET COUNT 305 TH/MM3 (150-450); RED BLOOD COUNT 3.68 MIL/MM3 (4.00-5.30); RED CELL DISTRIBUTION WIDTH 20.1 % (11.6-17.2); WHITE BLOOD COUNT 7.4 TH/MM3 (4.0-11.0)
[2016-11-23 05:23] LABS: ALKALINE PHOSPHATASE 54 U/L (45-117); ALT (GPT) 14 U/L (10-53); TOTAL BILIRUBIN ADULT 0.3 MG/DL (0.2-1.0)
[2016-11-23 05:29] LABS: HEMO FLAGS AUTO DIFF
[2016-11-23] MEDS: cloNIDine HCL 0.2 MG TAB PO SCH ×3 (05:40→22:00)
[2016-11-23] MEDS: INSULIN NovoLIN REGULAR SUPPLEMENTAL SCALE SQ SCH ×4 (05:47→20:10)
[2016-11-23 06:59] LABS: BANDS 18 % (0-6); CORRECTED NUCLEATED RBC 1 /100 WBC (0-0); METAMYELOCYTES 2 % (0-1); NEUTROPHIL # MANUAL DIFF 6.3 TH/MM3 (1.8-7.7); PLATELET ESTIMATE SMEAR NORMAL (NORMAL); PLATELET MORPHOLOGY NORMAL (NORMAL); POLYS (SEG NEUTROPHILS) 65 % (16-70); SCAN/DIFF FINAL DIFF MANUAL; WBC DIFF SAMPLE 100
[2016-11-23] MEDS: CARVEDILOL 12.5 MG TAB PO SCH ×2 (08:26→20:23)
[2016-11-23] MEDS: ALLOPURINOL 300 MG TAB PO SCH (08:26)
[2016-11-23] MEDS: amLODIPine BESYLATE 5 MG TAB PO SCH (08:26)
[2016-11-23] MEDS: LISINOPRIL 5 MG TAB PO SCH ×2 (08:26→20:03)
[2016-11-23] MEDS: PIOGLITAZONE HCL 15 MG TAB PO SCH (08:27)
[2016-11-23] MEDS: metFORMIN HCL 500 MG TAB PO SCH (08:27)
[2016-11-23] MEDS: PRAVASTATIN SOD 40 MG TAB PO SCH (08:27)
[2016-11-23] MEDS: DOCUSATE SODIUM 50 MG/SENNA 8.6 MG TAB PO SCH ×2 (08:27→20:03)
[2016-11-23] MEDS: ASPIRIN 81 MG CHEW TAB CHEW SCH (08:28)
[2016-11-23] MEDS: SODIUM CHLORIDE 0.9% FLUSH 10 ML FLUSH IV FLUSH SCH ×2 (08:28→20:10)
[2016-11-23] MEDS: SODIUM CHLORIDE 0.9% 10 ML VIAL IRRIGATION SCH (08:41)
--- NOTE | 2016-11-23 09:15 | HHI.PR ---
Subjective History of Present Illness Patient feel weak and tired . going for endoscopy today ..Low potassium will replace and monitor. no acute issue ..Hematology input noted for Iron deficiency anemia ,fecal occult blood test positive. Review of Systems Constitutional Constitutional: Fatigue, Weakness Vitals/Results Intake & Output 11/22/16 11/22/16 11/23/16 15:00 23:00 07:00 Intake Total 1874 ml 240 ml 916 ml Output Total 1200 ml 0 ml Balance 674 ml 240 ml 916 ml Intake Oral 1200 ml 240 ml 120 ml IV Total 674 ml 464 ml Packed Cells 332 ml Output Urine Total 400 ml 0 ml Stool Total 800 ml # Voids 1 # Bowel Movements 0 2 Vital Signs Vital Signs Date Time Temp Pulse Resp B/P Pulse Ox O2 Delivery O2 Flow Rate FiO2 11/23/16 08:52 95.9 68 18 138/65 98 11/23/16 08:00 95.9 68 17 138/65 98 11/23/16 04:00 97.2 67 18 115/59 96 11/23/16 00:00 97.3 70 20 117/58 97 11/22/16 22:15 97.3 70 20 117/58 97 11/22/16 22:15 2.00 11/22/16 20:00 97.6 72 20 121/77 96 11/22/16 18:39 97.2 72 17 119/57 95 11/22/16 18:21 96.8 71 17 121/58 95 11/22/16 15:56 96.9 67 17 111/59 96 11/22/16 15:17 96.9 66 18 113/55 96 11/22/16 14:54 96.3 67 17 111/59 96 11/22/16 12:00 96.9 82 17 101/54 95 11/22/16 09:16 97.8 74 19 139/67 94 CBC/BMP: 11/23/16 0357 11/23/16 0357 Lab Results Laboratory Tests Test 11/22/16 11/22/16 11/23/16 11/23/16 11:06 12:20 00:46 03:57 Blood Type A POSITIVE Antibody Screen NEGATIVE Crossmatch Leukocyte-Reduced Red Blood Cells Blood Bank Comment Hemoglobin 6.7 GM/DL 8.6 GM/DL 8.9 GM/DL Hematocrit 22.8 % 26.9 % 28.2 % White Blood Count 7.4 TH/MM3 Red Blood Count 3.68 MIL/MM3 Mean Corpuscular Volume 76.7 FL Mean Corpuscular Hemoglobin 24.3 PG Mean Corpuscular Hemoglobin 31.7 % Concent Red Cell Distribution Width 20.1 % Platelet Count 305 TH/MM3 Mean Platelet Volume 6.8 FL Neutrophils (%) (Auto) 71.9 % Lymphocytes (%) (Auto) 14.7 % Monocytes (%) (Auto) 12.4 % Eosinophils (%) (Auto) 0.7 % Basophils (%) (Auto) 0.3 % Neutrophils # (Auto) 5.3 TH/MM3 Lymphocytes # (Auto) 1.1 TH/MM3 Monocytes # (Auto) 0.9 TH/MM3 Eosinophils # (Auto) 0.1 TH/MM3 Basophils # (Auto) 0.0 TH/MM3 CBC Comment AUTO DIFF Differential Total Cells 100 Counted Neutrophils % (Manual) 65 % Band Neutrophils % 18 % Lymphocytes % 7 % Monocytes % 8 % Neutrophils # (Manual) 6.3 TH/MM3 Metamyelocytes 2 % Nucleated Red Blood Cells 1 /100 WBC Differential Comment FINAL DIFF MANUAL Platelet Estimate NORMAL Platelet Morphology Comment NORMAL Sodium Level 142 MEQ/L Potassium Level 3.0 MEQ/L Chloride Level 100 MEQ/L Carbon Dioxide Level 34.7 MEQ/L Anion Gap 7 MEQ/L Blood Urea Nitrogen 8 MG/DL Creatinine 0.42 MG/DL Estimat Glomerular Filtration 148 ML/MIN Rate Random Glucose 144 MG/DL Calcium Level 7.5 MG/DL Total Bilirubin 0.3 MG/DL Aspartate Amino Transf 13 U/L (AST/SGOT) Alanine Aminotransferase 14 U/L (ALT/SGPT) Alkaline Phosphatase 54 U/L Total Protein 4.5 GM/DL Albumin 1.4 GM/DL Physical Exam General General Appearance: Well Developed, Well Nourished, No Acute Distress, Comfortable Eyes Eye Exam: Pupils Equal, Pupils Reactive, Sclera White, Extraocular Movement Intact Throat Throat Exam: Oral Mucosa [place] & Moist, Oral Pharynx Normal Neck Neck Exam: Neck Supple, Trachea Midline Pulmonary Resp Exam: Clear Bilaterally, Breath Sounds Equal, No Distress Cardiology CV Exam: Regular, Normal Sinus Rhythm Gastrointestinal/Abdomen GI Exam: Soft, Non-Tender, Bowel Sounds Present GI Remarks mild abdominal tenderness left side. Musculoskeletal MS Exam: Normal Tone Integumentary Skin Exam: Clear, Warm, Dry, Intact Extremeties Extremities Exam: No Edema Neurologic Neuro Exam: Alert, Awake, Oriented, Speech Clear, Moving All Extremities, No Focal Deficits Psychiatric Psych Exam: Appropriate Responses VTE Prophylaxis VTE Prophylaxis Meds: Lovenox PUD Prophylasis PUD Prophylaxis: Protonix Assessment/Plan Assessment/Plan ASSESSMENT AND PLAN: This is a 71-year female who came to the emergency room diagnosed with 1. Nausea with hypoglycemia. Glucose is normal now. The patient is on Zofran 4 milligrams IV q. 6-hour p.r.n. for nausea and vomiting. 2. Leukocytosis,...resolved.... Chest x-ray does not show anything acute. check CT scan of the chest negative for pneumonia... have pulmonary nodule pulmonary input noted. Blood cultures x2 positive for gram negative rods. 3. Diabetes mellitus. ADA 1800 calorie diet. NovoLog. sliding scale. Check blood sugars a.c. and h.s. Will monitor blood sugar. 4. history of gout. Continue home medication. 5. History of hypertension. Continue medication. Monitor blood pressure. 6. Hyperlipidemia. Continue lovastatin 40 milligrams p.o. daily. 7. DVT prophylaxis. Lovenox 40 milligrams. 8. GI prophylaxis Protonix 40 milligrams p.o. twice a day. 9. Pulmonary nodule pulmonary input noted. 10. blood culture positive on Unysn per ID Recomendation. 11. Hemoglobin was 6.9 Possible GI Bleed S/P 2 units PRBC Transfusion have Iron deficiency anemia on replacement.. fecal occult blood test positive, H and H monitoring.. GI Input noted going for endoscopy today. 12. .Hypokalemia will replace and monitor. checked Magnesium level..2.[address] Abdomen and Pelvis shows acute diverticulitis and Psoas abscess General surgery input noted S/P abscess drainage by Interventional radiology, culture positive for mixed anaerobs...on Unysn per ID Recommendation. We are going to manage the patient on a daily basis and make recommendations on a daily basis. Check CBC with diff CMP in AM. Check CBC and comprehensive metabolic profile in the morning. Discussed Condition with: Patient Reed Up MD Nov 23, 2016 09:15
--- NOTE | 2016-11-23 10:32 | EKG ---
Date Performed: 11/23/2016 Time Performed: 05:15:38 PTAGE: 71 years EKG: Sinus rhythm I would repeat electrocardiogram as it appears limited reversal is present and there is artifact. PREVIOUS TRACING : 08/23/2015 09.06 DOCTOR: Master Mello Interpretating Date/Time 11/23/2016 10:31:01
--- NOTE | 2016-11-23 11:39 | GIPROC ---
[facility] [address] [facility]. [facility], [address] EGD PROCEDURE REPORT EXAM DATE: 11/23/2016 PATIENT NAME: Renetta Keyes MR #: [id number] BIRTHDATE: 1945 ATTENDING: Pilar Mancilla MD ORDER #: [id number] BURNER TECHNICIAN: Latosha Mitchell and Arnoldo Azul STATUS: inpatient INDICATIONS: The patient is a 71 yr old female here for an EGD due to iron deficiency anemia PROCEDURE PERFORMED: EGD w/ biopsy MEDICATIONS: None and Per Anesthesia. TOPICAL ANESTHETIC: CONSENT: The patient understands the risks and benefits of the procedure and understands that these risks include, but are not limited to: sedation, allergic reaction, infection, perforation and/or bleeding. Alternative means of evaluation and treatment include, among others: physical exam, x-rays, and/or surgical intervention. The patient elects to proceed with this endoscopic procedure. medical equipment was checked for proper function. Hand hygiene and appropriate measures for infection prevention was taken. After the risks, benefits and alternatives of the procedure were thoroughly explained, Informed consent was verified, confirmed and timeout was successfully executed by the treatment team. The patient was anesthetized with topical anesthesia and the EC-[id number] (Pedi C) endoscope was introduced through the mouth and advanced to the second portion of the duodenum. Retroflexed views revealed no abnormalities The gastroscope was then slowly withdrawn and removed. ESOPHAGUS: There was LA Class A esophagitis noted. STOMACH: There was erythematous moderate gastritis in the gastric antrum. A biopsy was performed using cold forceps. Sample sent for histology. DUODENUM: The duodenal mucosa appeared normal. ADVERSE EVENTS: There were no complications. IMPRESSIONS: 1. There was LA Class A esophagitis noted 2. There was erythematous gastritis in the gastric antrum; biopsy was performed 3. Normal duodenal mucosa 4. Retroflexed views revealed no abnormalities RECOMMENDATIONS: 1. Await biopsy results. Biopsy results will not be ready for 7-10 days. If you don't hear from us in two weeks, call our office for biopsy results. 2. Anti-reflux regimen 3. Continue PPI 4. Avoid NSAIDS PATIENT CONDITION: stable DISPOSITION: Inpatient REPEAT EXAM: Return 1 year EGD pending biopsy results Pilar Mancilla MD eSigned: Pilar Mancilla MD 11/23/2016 11:38 AM cc: PATIENT NAME: Renetta Keyes MR#: [id number]
--- NOTE | 2016-11-23 11:44 | GIPROC ---
[facility] [address] [facility]. [facility], [address] COLONOSCOPY PROCEDURE REPORT EXAM DATE: 11/23/2016 PATIENT NAME: Renetta Keyes MR #: [id number] BIRTHDATE: 1945 ENDOSCOPIST: Pilar Mancilla MD ORDER #: [id number] MACHINE SET UP OPERATOR PAPER GOODS: Latosha Mitchell and Arnoldo Azul STATUS: inpatient INDICATIONS: The patient is a 71 yr old female here for a colonoscopy due to abdominal pain, an abnormal CT, and iron deficiency anemia PROCEDURE PERFORMED: Colonoscopy with biopsy MEDICATIONS: None and Per Anesthesia. PREP QUALITY: fair PREP TYPE:GoLytely ESTIMATED BLOOD LOSS: None CONSENT: The patient understands the risks and benefits of the procedure and understands that these risks include, but are not limited to: sedation, allergic reaction, infection, perforation and/or bleeding. Alternative means of evaluation and treatment include, among others: physical exam, x-rays, and/or surgical intervention. The patient elects to proceed with this endoscopic procedure. medical equipment was checked for proper function. Hand hygiene and appropriate measures for infection prevention was taken. After the risks, benefits and alternatives of the procedure were thoroughly explained, Informed consent was verified, confirmed and timeout was successfully executed by the treatment team. A digital exam revealed external hemorrhoids The Pentax EC-3490Li endoscope was introduced through the anus and advanced to the sigmoid colon. The instrument was then slowly withdrawn as the colon was fully examined. COLON FINDINGS: Severe diverticulosis was noted in the sigmoid colon. No bleeding was noted from the diverticulosis. Severe obstructing mass vs. colitis in the sigmoid colon area. Unable to traverse. A near circumferential polypoid shaped mass was found in the sigmoid colon. Multiple biopsies were performed using cold forceps. Retroflexed views revealed internal hemorrhoids and Retroflexed views revealed medium internal hemorrhoids The scope was then completely withdrawn from the patient and the procedure terminated. PROCEDURE WITHDRAWAL TIME:8minutes ADVERSE EVENTS: There were no complications. IMPRESSIONS: 1. Severe diverticulosis was noted in the sigmoid colon 2. Severe obstructing mass vs. colitis in the sigmoid colon area. Unable to traverse 3. Near circumferential mass was found in the sigmoid colon; multiple biopsies were performed using cold forceps 4. Retroflexed views revealed internal hemorrhoids 5. Retroflexed views revealed medium internal hemorrhoids 6. Revealed external hemorrhoids RECOMMENDATIONS: 1. Await biopsy results. Biopsy results will not be ready for 7-10 days. If you don't hear from us in two weeks, call our office for results. 2. Benefiber 2 tsp daily 3. Continue surveillance 4. Yearly hemoccult 5. No seeds, nuts and popcorn in diet RECALL: Return 4 weeks Colonoscopy, pending biopsy results Pilar Mancilla MD eSigned: Pilar Mancilla MD 11/23/2016 11:43 AM cc: PATIENT NAME: Renetta Keyes MR#: [id number]
[2016-11-23] MEDS ORDERED: PROPOFOL 200 MG/20 ML AMP IV ONE (12:36)
[2016-11-23] MEDS: PANTOPRAZOLE SODIUM 40 MG VIAL IV PUSH SCH ×2 (12:40→22:24)
[2016-11-23] MEDS: SODIUM CHLOR 0.45% 1000 ML INJ 1,000 ML IV SCH (12:48)
[2016-11-23] MEDS: POTASSIUM CHLOR 20 MEQ PREMIX 100 ML IV SCH ×4 (15:36→22:25)
--- NOTE | 2016-11-23 19:04 | HHI.PR ---
Subjective Remarks She is more alert . No cough or wheezing. O2 sat 95 on O2 2L Had colonoscopy done , and has a Mass in the Sigmoid colon. Biopsy pending. . Took some food today Objective Vital Signs Date Time Temp Pulse Resp B/P Pulse Ox O2 Delivery O2 Flow Rate FiO2 11/23/16 16:00 97.9 71 17 117/57 97 11/23/16 14:15 73 112/58 11/23/16 13:12 96.3 63 116/64 98 11/23/16 11:55 68 18 110/50 97 11/23/16 11:45 68 18 95/53 98 11/23/16 11:34 97.8 68 18 95/45 95 11/23/16 08:52 95.9 68 18 138/65 98 11/23/16 08:09 98 Nasal Cannula 2.00 11/23/16 08:00 95.9 68 17 138/65 98 11/23/16 04:00 97.2 67 18 115/59 96 11/23/16 00:00 97.3 70 20 117/58 97 11/22/16 22:15 97.3 70 20 117/58 97 11/22/16 22:15 2.00 11/22/16 20:00 97.6 72 20 121/77 96 I/O 11/22/16 11/22/16 11/22/16 11/23/16 11/23/16 11/23/16 07:00 15:00 23:00 07:00 15:00 23:00 Intake Total 1018 ml 1874 ml 240 ml 916 ml 626 ml Output Total 1200 ml 0 ml Balance 1018 ml 674 ml 240 ml 916 ml 626 ml Intake Oral 0 ml 1200 ml 240 ml 120 ml 120 ml IV Total 1018 ml 674 ml 464 ml 106 ml Packed Cells 332 ml Other 400 ml Output Urine Total 400 ml 0 ml Stool Total 800 ml # Voids 5 1 3 # Bowel Movements 5 0 2 2 Result Diagram: 11/23/167 11/23/16356 Objective Remarks GENERAL: This obese, elderly white female who is in no distress. HEENT: Head normocephalic. Pupils are reactive.Throat was clear. NECK: Supple. No bruits or thyroid enlargement or lymphadenopathy. CHEST: Distant breath sounds with occ basal crackles HEART: The heart sounds are regular S1-S2. No murmur. No S3.t ABDOMEN: Obese, protuberant without masses. No organomegaly. mild LLQ tenderness. Bowel sounds active.Catheter drain in LLQ. EXTREMITIES: No lesions. no edema. Peripheral pulses are diminished. Reflexes are 1+. NEUROLOGIC: No gross motor deficits. SKIN: No lesions observed. Assessment and Plan Assessment and Plan IMPRESSION 1. Bilateral lung nodules, etiology to be determined. Probable granulomas versus metastatic disease. 2. Diabetes mellitus type 2. 3. Hypertension. 4. Exogenous obesity and possible sleep apnea. 5. Possible hypothyroidism. 6. Hypertension. 7. Anemia Plan : 1. Pathology pending. 2. Cont Antibiotics, per ID 3.BMP in am 4. PET CT as OP. 5. EGD Colonoscopy to be done 6.O2 at 2 L. and home O2 7. IS at bedside q3h. Juan Ramon Perez MD Nov 23, 2016 19:04
[2016-11-23] MEDS: ENOXAPARIN SODIUM 40 MG/0.4 ML SYRINGE SQ SCH (20:02)
[2016-11-24] VITALS (8 sets, daily range): BP systolic 113–137; BP diastolic 56–83; PULSE 66–86; RESP 17–25; TEMP 96–98.4; O2SAT 95–97
[2016-11-24] MEDS: RESP: ALBUTEROL 2.5 MG/IPRATROPIUM 0.5 MG NEB (PRN) NEB (02:20)
[2016-11-24] MEDS: SODIUM CHLOR 0.45% 1000 ML INJ 1,000 ML IV SCH ×2 (03:17→18:21)
[2016-11-24] MEDS: cloNIDine HCL 0.2 MG TAB PO SCH ×3 (05:58→21:55)
[2016-11-24] MEDS: AMPICILLIN/SULBAC 3 GM/NS 100 ML IV SCH ×8 (05:58→21:57)
[2016-11-24 06:22] LABS: AUTOMATED NEUTROPHIL # 4.8 TH/MM3 (1.8-7.7); BASOPHIL % 0.3 % (0.0-2.0); EOSINOPHIL # 0.1 TH/MM3 (0-0.4); EOSINOPHIL % 0.8 % (0.0-4.0); HEMATOCRIT 29.8 % (35.0-46.0); LYMPH % 18.8 % (9.0-44.0); LYMPHOCYTE # 1.3 TH/MM3 (1.0-4.8); MEAN CELL VOLUME 76.6 FL (80.0-100.0); MEAN CORPUSCULAR HGB CONC 32.6 % (32.0-36.0); MONO % 9.8 % (0.0-8.0); NEUT % 70.3 % (16.0-70.0); PLATELET COUNT 386 TH/MM3 (150-450); RED BLOOD COUNT 3.89 MIL/MM3 (4.00-5.30); RED CELL DISTRIBUTION WIDTH 20.6 % (11.6-17.2); WHITE BLOOD COUNT 6.8 TH/MM3 (4.0-11.0)
[2016-11-24 06:27] LABS: HEMO FLAGS AUTO DIFF
[2016-11-24 06:44] LABS: ANION GAP 3 MEQ/L (5-15); AST (GOT) 18 U/L (15-37); BLOOD UREA NITROGEN 6 MG/DL (7-18); CHLORIDE 101 MEQ/L (98-107); GLOMERULAR FILTRATION RATE 137 ML/MIN (>89); POTASSIUM 3.2 MEQ/L (3.5-5.1); SODIUM (NA) 143 MEQ/L (136-145)
[2016-11-24 06:47] LABS: ALKALINE PHOSPHATASE 61 U/L (45-117); ALT (GPT) 17 U/L (10-53); TOTAL BILIRUBIN ADULT 0.2 MG/DL (0.2-1.0)
[2016-11-24] MEDS: INSULIN NovoLIN REGULAR SUPPLEMENTAL SCALE SQ SCH ×4 (07:00→19:55)
[2016-11-24 07:13] LABS: BANDS 12 % (0-6); CORRECTED NUCLEATED RBC 1 /100 WBC (0-0); METAMYELOCYTES 1 % (0-1); MYELOCYTES 2 % (0-0); NEUTROPHIL # MANUAL DIFF 5.3 TH/MM3 (1.8-7.7); POLYS (SEG NEUTROPHILS) 63 % (16-70); WBC DIFF SAMPLE 100
[2016-11-24 07:14] LABS: SCAN/DIFF FINAL DIFF MANUAL
[2016-11-24] MEDS: PIOGLITAZONE HCL 15 MG TAB PO SCH (09:00)
[2016-11-24] MEDS: DOCUSATE SODIUM 50 MG/SENNA 8.6 MG TAB PO SCH ×2 (09:00→19:51)
[2016-11-24] MEDS: SODIUM CHLORIDE 0.9% 10 ML VIAL IRRIGATION SCH (09:00)
[2016-11-24] MEDS: SODIUM CHLORIDE 0.9% FLUSH 10 ML FLUSH IV FLUSH SCH ×2 (09:00→19:51)
[2016-11-24] MEDS: ALLOPURINOL 300 MG TAB PO SCH (09:29)
[2016-11-24] MEDS: CARVEDILOL 12.5 MG TAB PO SCH ×2 (09:29→19:51)
[2016-11-24] MEDS: PRAVASTATIN SOD 40 MG TAB PO SCH (09:29)
[2016-11-24] MEDS: metFORMIN HCL 500 MG TAB PO SCH (09:29)
[2016-11-24] MEDS: LISINOPRIL 5 MG TAB PO SCH ×2 (09:29→19:51)
[2016-11-24] MEDS: ASPIRIN 81 MG CHEW TAB CHEW SCH (09:29)
[2016-11-24] MEDS: amLODIPine BESYLATE 5 MG TAB PO SCH (09:29)
--- NOTE | 2016-11-24 10:09 | HHI.PR ---
Subjective History of Present Illness Patient feel weak and tired . S/P endoscopy shows Gastritis D/ W RN, ..Low potassium will replace and monitor. no acute issue ..Hematology input noted for Iron deficiency anemia ,fecal occult blood test positive. Review of Systems Constitutional Constitutional: Fatigue, Weakness Vitals/Results Intake & Output 11/23/16 11/23/16 11/24/16 14:59 22:59 06:59 Intake Total 626 ml 626 ml 120 ml Balance 626 ml 626 ml 120 ml Intake Oral 120 ml 120 ml 120 ml IV Total 106 ml 506 ml Other 400 ml # Voids 3 3 2 # Bowel Movements 2 2 0 Vital Signs Vital Signs Date Time Temp Pulse Resp B/P Pulse Ox O2 Delivery O2 Flow Rate FiO2 11/24/16 08:00 97.8 85 17 133/83 95 11/24/16 04:00 96.7 81 22 137/65 97 11/24/16 02:23 97 Nasal Cannula 2.00 11/24/16 00:00 96.0 69 25 123/63 95 11/23/16 22:00 63 11/23/16 21:00 94 Nasal Cannula 2.00 11/23/16 20:00 96.7 75 20 146/68 95 11/23/16 16:00 97.9 71 17 117/57 97 11/23/16 14:15 73 112/58 11/23/16 13:12 96.3 63 116/64 98 11/23/16 11:55 68 18 110/50 97 11/23/16 11:45 68 18 95/53 98 11/23/16 11:34 97.8 68 18 95/45 95 CBC/BMP: 11/24/16 0534 11/24/16 0534 Lab Results Laboratory Tests Test 11/24/16 05:34 White Blood Count 6.8 TH/MM3 Red Blood Count 3.89 MIL/MM3 Hemoglobin 9.7 GM/DL Hematocrit 29.8 % Mean Corpuscular Volume 76.6 FL Mean Corpuscular Hemoglobin 25.0 PG Mean Corpuscular Hemoglobin 32.6 % Concent Red Cell Distribution Width 20.6 % Platelet Count 386 TH/MM3 Mean Platelet Volume 6.8 FL Neutrophils (%) (Auto) 70.3 % Lymphocytes (%) (Auto) 18.8 % Monocytes (%) (Auto) 9.8 % Eosinophils (%) (Auto) 0.8 % Basophils (%) (Auto) 0.3 % Neutrophils # (Auto) 4.8 TH/MM3 Lymphocytes # (Auto) 1.3 TH/MM3 Monocytes # (Auto) 0.7 TH/MM3 Eosinophils # (Auto) 0.1 TH/MM3 Basophils # (Auto) 0.0 TH/MM3 CBC Comment AUTO DIFF Differential Total Cells 100 Counted Neutrophils % (Manual) 63 % Band Neutrophils % 12 % Lymphocytes % 18 % Monocytes % 4 % Neutrophils # (Manual) 5.3 TH/MM3 Metamyelocytes 1 % Myelocytes 2 % Nucleated Red Blood Cells 1 /100 WBC Differential Comment FINAL DIFF MANUAL Sodium Level 143 MEQ/L Potassium Level 3.2 MEQ/L Chloride Level 101 MEQ/L Carbon Dioxide Level 39.0 MEQ/L Anion Gap 3 MEQ/L Blood Urea Nitrogen 6 MG/DL Creatinine 0.45 MG/DL Estimat Glomerular Filtration 137 ML/MIN Rate Random Glucose 137 MG/DL Calcium Level 7.5 MG/DL Total Bilirubin 0.2 MG/DL Aspartate Amino Transf 18 U/L (AST/SGOT) Alanine Aminotransferase 17 U/L (ALT/SGPT) Alkaline Phosphatase 61 U/L Total Protein 5.1 GM/DL Albumin 1.6 GM/DL Physical Exam General General Appearance: Well Developed, Well Nourished, No Acute Distress, Comfortable Eyes Eye Exam: Pupils Equal, Pupils Reactive, Sclera White, Extraocular Movement Intact Throat Throat Exam: Oral Mucosa [place] & Moist, Oral Pharynx Normal Neck Neck Exam: Neck Supple, Trachea Midline Pulmonary Resp Exam: Clear Bilaterally, Breath Sounds Equal, No Distress Cardiology CV Exam: Regular, Normal Sinus Rhythm Gastrointestinal/Abdomen GI Exam: Soft, Non-Tender, Bowel Sounds Present GI Remarks mild abdominal tenderness left side. Musculoskeletal MS Exam: Normal Tone Integumentary Skin Exam: Clear, Warm, Dry, Intact Extremeties Extremities Exam: No Edema Neurologic Neuro Exam: Alert, Awake, Oriented, Speech Clear, Moving All Extremities, No Focal Deficits Psychiatric Psych Exam: Appropriate Responses VTE Prophylaxis VTE Prophylaxis Meds: Lovenox PUD Prophylasis PUD Prophylaxis: Protonix Assessment/Plan Assessment/Plan ASSESSMENT AND PLAN: This is a 71-year female who came to the emergency room diagnosed with 1. Nausea with hypoglycemia. Glucose is normal now. The patient is on Zofran 4 milligrams IV q. 6-hour p.r.n. for nausea and vomiting. 2. Leukocytosis,...resolved.... Chest x-ray does not show anything acute. check CT scan of the chest negative for pneumonia... have pulmonary nodule pulmonary input noted. Blood cultures x2 positive for gram negative rods. 3. Diabetes mellitus. ADA 1800 calorie diet. NovoLog. sliding scale. Check blood sugars a.c. and h.s. Will monitor blood sugar. 4. history of gout. Continue home medication. 5. History of hypertension. Continue medication. Monitor blood pressure. 6. Hyperlipidemia. Continue lovastatin 40 milligrams p.o. daily. 7. DVT prophylaxis. Lovenox 40 milligrams. 8. GI prophylaxis Protonix 40 milligrams p.o. twice a day. 9. Pulmonary nodule pulmonary input noted. 10. blood culture positive on Unysn per ID Recomendation. 11. Hemoglobin was 6.9 Possible GI Bleed S/P 2 units PRBC Transfusion have Iron deficiency anemia on replacement.. fecal occult blood test positive, H and H monitoring.. GI Input noted S/P endoscopy shows Gastritis 12. .Hypokalemia will replace and monitor. checked Magnesium level..2.[address] Abdomen and Pelvis shows acute diverticulitis and Psoas abscess General surgery input noted S/P abscess drainage by Interventional radiology, culture positive for mixed anaerobs...on Unysn per ID Recommendation. We are going to manage the patient on a daily basis and make recommendations on a daily basis. Check CBC with diff CMP in AM. Check CBC and comprehensive metabolic profile in the morning. Discussed Condition with: Patient Reed Up MD Nov 24, 2016 10:09
[2016-11-24] MEDS: PANTOPRAZOLE SODIUM 40 MG VIAL IV PUSH SCH ×2 (11:55→23:13)
[2016-11-24] MEDS: POTASSIUM CHLOR 20 MEQ PREMIX 100 ML IV SCH ×4 (11:55→23:13)
--- NOTE | 2016-11-24 13:26 | PD.ONC.PN ---
Subjective Subjective Remarks Afebrile overnight. Patient had colonoscopy yesterday which showed sigmoid mass. She is tolerating clear liquid diet. States pain is controlled. Objective Data Date Time Temp Pulse Resp B/P Pulse Ox O2 Delivery O2 Flow Rate FiO2 11/24/16 12:00 97.4 68 17 113/56 95 11/24/16 08:00 97.8 85 17 133/83 95 11/24/16 04:00 96.7 81 22 137/65 97 11/24/16 02:23 97 Nasal Cannula 2.00 11/24/16 00:00 96.0 69 25 123/63 95 11/23/16 22:00 63 11/23/16 21:00 94 Nasal Cannula 2.00 11/23/16 20:00 96.7 75 20 146/68 95 11/23/16 16:00 97.9 71 17 117/57 97 11/23/16 14:15 73 112/58 11/24/16 11/24/16 11/24/16 07:00 15:00 23:00 Intake Total 120 ml 120 ml Balance 120 ml 120 ml Result Diagram: 11/24/16 0534 11/24/16 0534 Laboratory Results Laboratory Tests Test 11/24/16 05:34 White Blood Count 6.8 TH/MM3 Red Blood Count 3.89 MIL/MM3 Hemoglobin 9.7 GM/DL Hematocrit 29.8 % Mean Corpuscular Volume 76.6 FL Mean Corpuscular Hemoglobin 25.0 PG Mean Corpuscular Hemoglobin 32.6 % Concent Red Cell Distribution Width 20.6 % Platelet Count 386 TH/MM3 Mean Platelet Volume 6.8 FL Neutrophils (%) (Auto) 70.3 % Lymphocytes (%) (Auto) 18.8 % Monocytes (%) (Auto) 9.8 % Eosinophils (%) (Auto) 0.8 % Basophils (%) (Auto) 0.3 % Neutrophils # (Auto) 4.8 TH/MM3 Lymphocytes # (Auto) 1.3 TH/MM3 Monocytes # (Auto) 0.7 TH/MM3 Eosinophils # (Auto) 0.1 TH/MM3 Basophils # (Auto) 0.0 TH/MM3 CBC Comment AUTO DIFF Differential Total Cells 100 Counted Neutrophils % (Manual) 63 % Band Neutrophils % 12 % Lymphocytes % 18 % Monocytes % 4 % Neutrophils # (Manual) 5.3 TH/MM3 Metamyelocytes 1 % Myelocytes 2 % Nucleated Red Blood Cells 1 /100 WBC Differential Comment FINAL DIFF MANUAL Sodium Level 143 MEQ/L Potassium Level 3.2 MEQ/L Chloride Level 101 MEQ/L Carbon Dioxide Level 39.0 MEQ/L Anion Gap 3 MEQ/L Blood Urea Nitrogen 6 MG/DL Creatinine 0.45 MG/DL Estimat Glomerular Filtration 137 ML/MIN Rate Random Glucose 137 MG/DL Calcium Level 7.5 MG/DL Total Bilirubin 0.2 MG/DL Aspartate Amino Transf 18 U/L (AST/SGOT) Alanine Aminotransferase 17 U/L (ALT/SGPT) Alkaline Phosphatase 61 U/L Total Protein 5.1 GM/DL Albumin 1.6 GM/DL Administered Medications Medications (Trade) Dose Ordered Sig/Livia Route PRN Reason Start Time Stop Time Status Last Admin Dose Admin Sodium Chloride (1/2 NS 1000 ml Inj) 1,000 ml @ 75 mls/hr [id number] IV 11/08/16 13:57 11/24/16 03:17 Sodium Chloride (NS Flush) 2 ml UNSCH PRN IV FLUSH FLUSH AFTER USING IV ACCESS 11/08/16 14:00 11/17/16 11:02 Sodium Chloride (NS Flush) 2 ml BID IV FLUSH 11/08/16 21:00 11/23/16 08:28 Acetaminophen (Tylenol) 650 mg Q4H PRN PO TEMP > 100.4 11/08/16 14:00 11/21/16 02:05 Ondansetron HCl (Zofran Inj) 4 mg Q6H PRN IVP NAUSEA OR VOMITING 11/08/16 14:00 11/21/16 18:09 Senna/Docusate Sodium (Kathy-Colace) 1 tab BID PO 11/08/16 21:00 11/20/16 10:00 Pantoprazole Sodium (Protonix Inj) 40 mg Q12H IV PUSH 11/08/16 23:00 11/24/16 11:55 Enoxaparin Sodium (Lovenox Inj) 40 mg Q24H SQ 11/08/16 20:00 11/23/16 20:02 Allopurinol (Zyloprim) 300 mg DAILY PO 11/09/16 09:00 11/24/16 09:29 Amlodipine Besylate (Norvasc) 5 mg DAILY PO 11/09/16 09:00 11/24/16 09:29 Aspirin (Aspirin Chew) 81 mg DAILY CHEW 11/09/16 09:00 11/24/16 09:29 Carvedilol (Coreg) 25 mg BID PO 11/08/16 21:00 11/24/16 09:29 Clonidine (Catapres) 0.2 mg Q8HR PO 11/08/16 22:00 11/24/16 05:58 Lisinopril (Prinivil) 5 mg BID PO 11/08/16 21:00 11/24/16 09:29 Pravastatin Sodium (Pravachol) 40 mg DAILY PO 11/09/16 09:00 11/24/16 09:29 Metformin HCl (Glucophage) 500 mg DAILY PO 11/09/16 09:00 11/24/16 09:29 Pioglitazone HCl (Actos) 15 mg DAILY PO 11/09/16 09:00 11/24/16 09:00 Albuterol Sulfate (Proair Hfa Inh) 2 puff Q6H PRN INH WHEEZING 11/09/16 18:00 11/23/16 22:09 Acetaminophen 650 mg 650 mg Q6H PRN PO PAIN 1-10 11/13/16 21:00 11/18/16 17:01 Ampicillin Sodium/ Sulbactam Sodium/ Sodium Chloride (Unasyn Inj/NS Inj) 100 ml @ 200 mls/hr Q6H IV 11/14/16 22:00 11/24/16 09:40 Sodium Chloride 10 ml 10 ml DAILY IRRIGATION 11/16/16 09:00 11/19/16 08:50 Potassium Chloride (KCl 20 Meq Premix Inj) 100 ml @ 50 mls/hr Q2H IV 11/24/16 12:00 11/24/16 19:59 11/24/16 11:55 Objective Remarks GENERAL: Elderly female, lying in bed in [facility]. SKIN: Warm and dry. HEAD: Normocephalic. EYES: No injection or drainage. NECK: Supple, trachea midline. CARDIOVASCULAR: Regular rate and rhythm. RESPIRATORY: Breath sounds equal bilaterally. No accessory muscle use. GASTROINTESTINAL: Abdomen soft, non-tender, nondistended. EXTREMITIES: No cyanosis NEUROLOGICAL: No obvious focal deficit. Awake, alert, and oriented x3. Assessment/Plan Assessment 71-year-old female with sigmoid colon mass. pathology pending. +Microcytic anemia d/t GIB. --CAP: shows multiple sub-cm pulmonary nodules and perirectal/sigmoid colon abscess/mass associated with fat stranding. She was also noted to have a 2 cm adrenal adenoma, nonspecific Plan 1. continue supportive care 2. advance diet as tolerated 3. await results of pathology 4. monitor hgb--no transfusion needed at present. Toyin Joseph Nov 24, 2016 13:26
--- NOTE | 2016-11-24 15:11 | HHI.GIFU ---
Subjective Remarks Pt resting in bed, watching TV. When asked how she's feeling she says "I dunno. " Denies abd pain, n/v, bleeding. (Pebbles Patel) Objective Vitals I&O Vital Signs Date Time Temp Pulse Resp B/P Pulse Ox O2 Delivery O2 Flow Rate FiO2 11/24/16 12:00 97.4 68 17 113/56 95 11/24/16 08:00 97.8 85 17 133/83 95 11/24/16 04:00 96.7 81 22 137/65 97 11/24/16 02:23 97 Nasal Cannula 2.00 11/24/16 00:00 96.0 69 25 123/63 95 11/23/16 22:00 63 11/23/16 21:00 94 Nasal Cannula 2.00 11/23/16 20:00 96.7 75 20 146/68 95 11/23/16 16:00 97.9 71 17 117/57 97 I/O 11/23/16 11/23/16 11/23/16 11/24/16 11/24/16 11/24/16 07:00 15:00 23:00 07:00 15:00 23:00 Intake Total 916 ml 626 ml 626 ml 120 ml 600 ml Output Total 600 ml Balance 916 ml 626 ml 626 ml 120 ml 0 ml Intake Oral 120 ml 120 ml 120 ml 120 ml 600 ml IV Total 464 ml 106 ml 506 ml Packed Cells 332 ml Other 400 ml Output Urine Total 600 ml # Voids 1 3 3 2 # Bowel Movements 2 2 2 0 2 Laboratory Laboratory Tests Test 11/24/16 05:34 White Blood Count 6.8 Red Blood Count 3.89 Hemoglobin 9.7 Hematocrit 29.8 Mean Corpuscular Volume 76.6 Mean Corpuscular Hemoglobin 25.0 Mean Corpuscular Hemoglobin 32.6 Concent Red Cell Distribution Width 20.6 Platelet Count 386 Mean Platelet Volume 6.8 Neutrophils (%) (Auto) 70.3 Lymphocytes (%) (Auto) 18.8 Monocytes (%) (Auto) 9.8 Eosinophils (%) (Auto) 0.8 Basophils (%) (Auto) 0.3 Neutrophils # (Auto) 4.8 Lymphocytes # (Auto) 1.3 Monocytes # (Auto) 0.7 Eosinophils # (Auto) 0.1 Basophils # (Auto) 0.0 CBC Comment AUTO DIFF Differential Total Cells 100 Counted Neutrophils % (Manual) 63 Band Neutrophils % 12 Lymphocytes % 18 Monocytes % 4 Neutrophils # (Manual) 5.3 Metamyelocytes 1 Myelocytes 2 Nucleated Red Blood Cells 1 Differential Comment FINAL DIFF MANUAL Sodium Level 143 Potassium Level 3.2 Chloride Level 101 Carbon Dioxide Level 39.0 Anion Gap 3 Blood Urea Nitrogen 6 Creatinine 0.45 Estimat Glomerular Filtration 137 Rate Random Glucose 137 Calcium Level 7.5 Total Bilirubin 0.2 Aspartate Amino Transf 18 (AST/SGOT) Alanine Aminotransferase 17 (ALT/SGPT) Alkaline Phosphatase 61 Total Protein 5.1 Albumin 1.6 Date/Time Procedure Status Source Growth 11/21/16 12:57 Stool Occult Blood (ADALI) - Final Complete Stool Stool HEMOCCULT POSITIVE Imaging Last Impressions Chest X-Ray 11/21/162047 Signed Impressions: Service Date/Time: Monday, November 21, 2016 21:14 - CONCLUSION: NG tube in good position. Wilver Linares MD Pelvis CT 11/19/16 0000 Signed Impressions: Service Date/Time: Saturday, November 19, 2016 16:00 - CONCLUSION: 1. Previous drainage catheter is no longer within the left anterior psoas muscle and is now within the fat in the left lower quadrant not close to any drainable fluid. This can be removed. There is a 2 cm transverse diameter probable residual fluid collection within the psoas muscle. This extends over several centimeters in length and there is a tiny locule of air within the left psoas muscle on series 2 image #5. 2. Markedly abnormal mural thickening of a segment of sigmoid colon with surrounding inflammatory change probably diverticulitis although cannot exclude mass. Fat-containing ventral hernia. Guillermo Mendez MD Abdomen X-Ray 11/18/16 0000 Signed Impressions: Service Date/Time: November 18:53 - CONCLUSION: Mild gaseous distention of the proximal colon Cecilio Villareal MD Abscess Drainage CT 11/15/16 0000 Signed Impressions: Service Date/Time: Tuesday, November 15, 2016 19:23 - CONCLUSION: Uncomplicated CT guided drainage. An 8 [place] catheter was left in position. Taiwo Leal MD Abdomen/Pelvis CT 11/14/16 0000 Signed Impressions: Service Date/Time: Monday, November 14, 2016 10:54 - CONCLUSION: 1. Acute sigmoid diverticulitis with adjacent abscess involving the psoas muscle. 2. Paraumbilical fat containing hernia. 3. 2 cm left adrenal nodule, nonspecific. Dmitri Huynh MD Chest CT 11/08/16 0000 Signed Impressions: Service Date/Time: Tuesday, November 08, 2016 19:23 - CONCLUSION: 1. Innumerable noncalcified subcentimeter pulmonary nodules with the largest measuring 8 mm in the left lower lobe posteriorly. Although these are nonspecific metastatic disease remains in the differential. PET/CT scan may be helpful for further evaluation of the largest of these nodules if clinically indicated. 2. Coronary artery calcifications. 3. Left adrenal mass measuring 2.7 x 2.5 cm which is nonspecific. Ketan Schofield MD Physical Exam HEENT: EOMI; normocephalic; atraumatic; no jaundice. CHEST: CTA CARDIAC: RRR ABDOMEN: Soft, obese, nontender; no hepatosplenomegaly; bowel sounds are present in all four quadrants. EXTREMITIES: No clubbing, cyanosis, 1+ pitting edema SKIN: Normal; no rash; no jaundice. Pale. 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 heard of hearing, weak (Pebbles Patel) Assessment and Plan Plan ASSESSMENT - anemia , GI bleed- s/p EGD/colonoscopy 11-23-16--> EGD found LA class A esophagitis, erythematous gastritis; colonoscopy found severe diverticulosis, severe obstructing mass vs colitis sigmoid colon, int and ext hemorrhoids. - diverticulitis, diverticular abcess - per CT. Acute sigmoid diverticulitis with adjacent abscess involving the psoas muscle. 2. Paraumbilical fat containing hernia. PLAN - monitor HH - transfuse if needed - await biopsies -Continue with current supportive care THis pt seen by myself and DR Mancilla and this note is written on his behalf ( Pebbles Patel) Physician Comments Seen and examined with GIL[facility], doing better, s/p egd/colonoscopy, biopsies-p. Diet as tolerated. (Pilar Mancilla MD) Pebbles Patel Nov 24, 2016 15:11 Pilar Mancilla MD Nov 24, 2016 15:44
[2016-11-24] MEDS: ENOXAPARIN SODIUM 40 MG/0.4 ML SYRINGE SQ SCH (19:51)
[2016-11-25] VITALS (8 sets, daily range): BP systolic 116–138; BP diastolic 55–76; PULSE 71–82; RESP 16–18; TEMP 95.8–97.8; O2SAT 95–98
[2016-11-25] MEDS: AMPICILLIN/SULBAC 3 GM/NS 100 ML IV SCH ×8 (03:52→21:34)
[2016-11-25] MEDS: SODIUM CHLOR 0.45% 1000 ML INJ 1,000 ML IV SCH ×2 (03:54→10:01)
[2016-11-25] MEDS: cloNIDine HCL 0.2 MG TAB PO SCH ×3 (05:56→21:32)
[2016-11-25] MEDS: INSULIN NovoLIN REGULAR SUPPLEMENTAL SCALE SQ SCH ×4 (05:56→21:00)
[2016-11-25 06:19] LABS: AUTOMATED NEUTROPHIL # 5.2 TH/MM3 (1.8-7.7); BASOPHIL % 0.4 % (0.0-2.0); EOSINOPHIL # 0.1 TH/MM3 (0-0.4); EOSINOPHIL % 0.8 % (0.0-4.0); LYMPH % 16.1 % (9.0-44.0); LYMPHOCYTE # 1.2 TH/MM3 (1.0-4.8); MEAN CELL VOLUME 77.2 FL (80.0-100.0); MEAN CORPUSCULAR HEMOGLOBIN 24.7 PG (27.0-34.0); NEUT % 71.7 % (16.0-70.0); PLATELET COUNT 356 TH/MM3 (150-450); RED BLOOD COUNT 3.89 MIL/MM3 (4.00-5.30); RED CELL DISTRIBUTION WIDTH 21.2 % (11.6-17.2); WHITE BLOOD COUNT 7.3 TH/MM3 (4.0-11.0)
[2016-11-25 06:44] LABS: HEMO FLAGS AUTO DIFF
[2016-11-25 06:51] LABS: BICARBONATE 36.4 MEQ/L (21.0-32.0); CALCIUM-PROTEIN CORRECTED 8.6 MG/DL (8.5-10.1); POTASSIUM 3.4 MEQ/L (3.5-5.1); TOTAL BILIRUBIN ADULT 0.2 MG/DL (0.2-1.0)
[2016-11-25 08:31] LABS: BANDS 17 % (0-6); MYELOCYTES 2 % (0-0); NEUTROPHIL # MANUAL DIFF 6.2 TH/MM3 (1.8-7.7); PLATELET ESTIMATE SMEAR NORMAL (NORMAL); PLATELET MORPHOLOGY NORMAL (NORMAL); POLYS (SEG NEUTROPHILS) 66 % (16-70); SCAN/DIFF FINAL DIFF MANUAL; WBC DIFF SAMPLE 100
[2016-11-25] MEDS: SODIUM CHLORIDE 0.9% 10 ML VIAL IRRIGATION SCH (09:00)
[2016-11-25] MEDS: PIOGLITAZONE HCL 15 MG TAB PO SCH (09:00)
[2016-11-25] MEDS: DOCUSATE SODIUM 50 MG/SENNA 8.6 MG TAB PO SCH ×2 (09:00→21:32)
[2016-11-25] MEDS: SODIUM CHLORIDE 0.9% FLUSH 10 ML FLUSH IV FLUSH SCH ×2 (10:02→21:32)
[2016-11-25] MEDS: metFORMIN HCL 500 MG TAB PO SCH (10:03)
[2016-11-25] MEDS: LISINOPRIL 5 MG TAB PO SCH ×2 (10:03→21:32)
[2016-11-25] MEDS: amLODIPine BESYLATE 5 MG TAB PO SCH (10:03)
[2016-11-25] MEDS: ALLOPURINOL 300 MG TAB PO SCH (10:03)
[2016-11-25] MEDS: ASPIRIN 81 MG CHEW TAB CHEW SCH (10:03)
[2016-11-25] MEDS: CARVEDILOL 12.5 MG TAB PO SCH ×2 (10:04→21:32)
[2016-11-25] MEDS: PRAVASTATIN SOD 40 MG TAB PO SCH (10:04)
[2016-11-25] MEDS: PANTOPRAZOLE SODIUM 40 MG VIAL IV PUSH SCH ×2 (11:52→21:34)
--- NOTE | 2016-11-25 12:49 | HHI.GIFU ---
Subjective Remarks pt resting in bed in no apparent distress. Denies n/v, abd pain. Per RN she is eating well. There is still some red blood in her stool. (Pebbles Patel) Objective Vitals I&O Vital Signs Date Time Temp Pulse Resp B/P Pulse Ox O2 Delivery O2 Flow Rate FiO2 11/25/16 12:40 97 Nasal Cannula 2.00 11/25/16 12:00 95.8 71 17 124/63 96 11/25/16 10:19 97 Nasal Cannula 11/25/16 08:00 97.3 74 16 138/65 97 11/25/16 04:30 96.1 82 18 131/71 97 11/25/16 00:58 97.5 79 17 125/58 95 11/24/16 20:00 98.4 70 21 123/66 96 11/24/16 19:52 Nasal Cannula 2.00 11/24/16 19:13 66 11/24/16 16:00 97.8 86 17 124/64 96 I/O 11/24/16 11/24/16 11/24/16 11/25/16 11/25/16 11/25/16 07:00 15:00 23:00 07:00 15:00 23:00 Intake Total 120 ml 600 ml 1734 ml 1448 ml Output Total 600 ml 300 ml Balance 120 ml 0 ml 1434 ml 1448 ml Intake Oral 120 ml 600 ml 480 ml 480 ml IV Total 1254 ml 968 ml Output Urine Total 600 ml 300 ml # Voids 2 3 4 # Bowel Movements 0 2 2 4 Laboratory Laboratory Tests Test 11/25/16 05:54 White Blood Count 7.3 Red Blood Count 3.89 Hemoglobin 9.6 Hematocrit 30.0 Mean Corpuscular Volume 77.2 Mean Corpuscular Hemoglobin 24.7 Mean Corpuscular Hemoglobin 32.0 Concent Red Cell Distribution Width 21.2 Platelet Count 356 Mean Platelet Volume 6.6 Neutrophils (%) (Auto) 71.7 Lymphocytes (%) (Auto) 16.1 Monocytes (%) (Auto) 11.0 Eosinophils (%) (Auto) 0.8 Basophils (%) (Auto) 0.4 Neutrophils # (Auto) 5.2 Lymphocytes # (Auto) 1.2 Monocytes # (Auto) 0.8 Eosinophils # (Auto) 0.1 Basophils # (Auto) 0.0 CBC Comment AUTO DIFF Differential Total Cells 100 Counted Neutrophils % (Manual) 66 Band Neutrophils % 17 Lymphocytes % 10 Monocytes % 5 Neutrophils # (Manual) 6.2 Myelocytes 2 Differential Comment FINAL DIFF MANUAL Platelet Estimate NORMAL Platelet Morphology Comment NORMAL Sodium Level 140 Potassium Level 3.4 Chloride Level 99 Carbon Dioxide Level 36.4 Anion Gap 5 Blood Urea Nitrogen 7 Creatinine 0.48 Estimat Glomerular Filtration 127 Rate Random Glucose 121 Calcium Level 7.3 Protein Corrected Calcium 8.6 Total Bilirubin 0.2 Aspartate Amino Transf 11 (AST/SGOT) Alanine Aminotransferase 14 (ALT/SGPT) Alkaline Phosphatase 58 Total Protein 4.8 Albumin 1.5 Date/Time Procedure Status Source Growth 11/21/16 12:57 Stool Occult Blood (ADALI) - Final Complete Stool Stool HEMOCCULT POSITIVE Imaging Last Impressions Chest X-Ray 11/21/162047 Signed Impressions: Service Date/Time: Monday, November 21, 2016 21:14 - CONCLUSION: NG tube in good position. Wilver Linares MD Pelvis CT 11/19/16 0000 Signed Impressions: Service Date/Time: Saturday, November 19, 2016 16:00 - CONCLUSION: 1. Previous drainage catheter is no longer within the left anterior psoas muscle and is now within the fat in the left lower quadrant not close to any drainable fluid. This can be removed. There is a 2 cm transverse diameter probable residual fluid collection within the psoas muscle. This extends over several centimeters in length and there is a tiny locule of air within the left psoas muscle on series 2 image #5. 2. Markedly abnormal mural thickening of a segment of sigmoid colon with surrounding inflammatory change probably diverticulitis although cannot exclude mass. Fat-containing ventral hernia. Guillermo Mendez MD Abdomen X-Ray 11/18/16 0000 Signed Impressions: Service Date/Time: November 18:53 - CONCLUSION: Mild gaseous distention of the proximal colon Cecilio Villareal MD Abscess Drainage CT 11/15/16 0000 Signed Impressions: Service Date/Time: Tuesday, November 15, 2016 19:23 - CONCLUSION: Uncomplicated CT guided drainage. An 8 [place]bourg[place] catheter was left in position. Taiwo Leal MD Abdomen/Pelvis CT 11/14/16 0000 Signed Impressions: Service Date/Time: Monday, November 14, 2016 10:54 - CONCLUSION: 1. Acute sigmoid diverticulitis with adjacent abscess involving the psoas muscle. 2. Paraumbilical fat containing hernia. 3. 2 cm left adrenal nodule, nonspecific. Dmitri Huynh MD Chest CT 11/08/16 0000 Signed Impressions: Service Date/Time: Tuesday, November 08, 2016 19:23 - CONCLUSION: 1. Innumerable noncalcified subcentimeter pulmonary nodules with the largest measuring 8 mm in the left lower lobe posteriorly. Although these are nonspecific metastatic disease remains in the differential. PET/CT scan may be helpful for further evaluation of the largest of these nodules if clinically indicated. 2. Coronary artery calcifications. 3. Left adrenal mass measuring 2.7 x 2.5 cm which is nonspecific. Ketan Schofield MD Physical Exam HEENT: EOMI; normocephalic; atraumatic; no jaundice. CHEST: CTA CARDIAC: RRR ABDOMEN: Soft, obese, nontender; no hepatosplenomegaly; bowel sounds are present in all four quadrants. EXTREMITIES: No clubbing, cyanosis, 1+ pitting edema SKIN: Normal; no rash; no jaundice. Pale. 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 heard of hearing, weak (Pebbles Patel) Assessment and Plan Plan ASSESSMENT - anemia , GI bleed- HH stable. s/p EGD/colonoscopy 11-23-16--> EGD found LA class A esophagitis, erythematous gastritis; colonoscopy found severe diverticulosis, severe obstructing mass vs colitis sigmoid colon, int and ext hemorrhoids. Path: reactive/chemical gastropathy in background mild chronic gastritis, colonic mucosa w/ mild mucosal edema, mild chronic active colitis and detached fibrinopurulent exudate, features suggestive of nearby ulceration - diverticulitis, diverticular abcess - per CT. Acute sigmoid diverticulitis with adjacent abscess involving the psoas muscle. 2. Paraumbilical fat containing hernia. PLAN - monitor HH - transfuse if needed -Continue with current supportive care THis pt seen by myself and DR Mancilla and this note is written on his behalf ( Pebbles Patel) Physician Comments Seen and examined with [employer], no active bleeding, still some abdominal pain. Colon biopsies-p. Needs repeat colonoscopy in about 4 weeks. Gi will sign off, reconsult as needed. Fu with gi as outpt. upon dc please. Thank you (Pilar Mancilla MD) Pebbles Patel Nov 25, 2016 12:49 Pilar Mancilla MD Nov 25, 2016 14:51
--- NOTE | 2016-11-25 18:14 | HHI.PR ---
Subjective Remarks She is sleepy. No cough or wheezing. O2 sat 95 on O2 2L Had colonoscopy done , and has a Mass in the Sigmoid colon. Biopsy pending. . Objective Vital Signs Date Time Temp Pulse Resp B/P Pulse Ox O2 Delivery O2 Flow Rate FiO2 11/25/16 16:00 97.1 75 16 116/55 98 11/25/16 12:40 97 Nasal Cannula 2.00 11/25/16 12:00 95.8 71 17 124/63 96 11/25/16 10:19 97 Nasal Cannula 11/25/16 08:00 97.3 74 16 138/65 97 11/25/16 04:30 96.1 82 18 131/71 97 11/25/16 00:58 97.5 79 17 125/58 95 11/24/16 20:00 98.4 70 21 123/66 96 11/24/16 19:52 Nasal Cannula 2.00 11/24/16 19:13 66 I/O 11/24/16 11/24/16 11/24/16 11/25/16 11/25/16 11/25/16 07:00 15:00 23:00 07:00 15:00 23:00 Intake Total 120 ml 600 ml 1734 ml 1448 ml 180 ml 788 ml Output Total 600 ml 300 ml Balance 120 ml 0 ml 1434 ml 1448 ml 180 ml 788 ml Intake Oral 120 ml 600 ml 480 ml 480 ml 180 ml IV Total 1254 ml 968 ml 788 ml Output Urine Total 600 ml 300 ml # Voids 2 3 4 4 # Bowel Movements 0 2 2 4 2 Result Diagram: 11/25/16 0554 11/25/16 0554 Objective Remarks GENERAL: This obese, elderly white female who is in no distress. HEENT: Head normocephalic. Pupils are reactive.Throat was clear. NECK: Supple. No bruits or thyroid enlargement or lymphadenopathy. CHEST: Distant breath sounds with occ basal crackles HEART: The heart sounds are regular S1-S2. No murmur. No S3.t ABDOMEN: Obese, protuberant without masses. No organomegaly. Bowel sounds active. EXTREMITIES: No lesions. no edema. Peripheral pulses are diminished. Reflexes are 1+. NEUROLOGIC: No gross motor deficits. SKIN: No lesions observed. Assessment and Plan Assessment and Plan IMPRESSION 1. Bilateral lung nodules, etiology to be determined. Probable granulomas versus metastatic disease. 2. Diabetes mellitus type 2. 3. Hypertension. 4. Exogenous obesity and possible sleep apnea. 5. Possible hypothyroidism. 6. Hypertension. 7. Anemia Plan : 1. Rpt Chest X ray 2. Cont Antibiotics, per ID 3.BMP in am 4. PET CT as OP. 5. EGD Colonoscopy done , Await path 6. O2 at 2 L. and home O2 7. IS at bedside q3h. Juan Ramon Perez MD Nov 25, 2016 18:14
[2016-11-25] MEDS: ENOXAPARIN SODIUM 40 MG/0.4 ML SYRINGE SQ SCH (21:32)
[2016-11-26] VITALS (8 sets, daily range): BP systolic 102–135; BP diastolic 53–63; PULSE 66–76; RESP 16–19; TEMP 96.4–98.8; O2SAT 94–98
[2016-11-26] MEDS: AMPICILLIN/SULBAC 3 GM/NS 100 ML IV SCH ×4 (05:02→10:10)
[2016-11-26] MEDS: INSULIN NovoLIN REGULAR SUPPLEMENTAL SCALE SQ SCH ×4 (05:48→22:33)
[2016-11-26] MEDS: cloNIDine HCL 0.2 MG TAB PO SCH ×3 (05:48→22:24)
--- NOTE | 2016-11-26 08:23 | HHI.PR ---
Subjective History of Present Illness Patient seen on 11/25/16 feel weak and tired . S/P endoscopy shows Gastritis D/ W RN, ..Low potassium will replace and monitor. no acute issue ..Hematology input noted for Iron deficiency anemia ,fecal occult blood test positive. Review of Systems Constitutional Constitutional: Fatigue, Weakness Vitals/Results Intake & Output 11/25/16 11/25/16 11/26/16 15:00 23:00 07:00 Intake Total 180 ml 1508 ml 826 ml Balance 180 ml 1508 ml 826 ml Intake Oral 180 ml 240 ml 240 ml IV Total 1268 ml 586 ml # Voids 4 2 4 # Bowel Movements 2 1 1 Vital Signs Vital Signs Date Time Temp Pulse Resp B/P Pulse Ox O2 Delivery O2 Flow Rate FiO2 11/26/16 04:00 97.1 66 18 114/60 97 11/26/16 00:00 97.7 69 16 102/55 98 11/25/16 21:30 Nasal Cannula 2.00 11/25/16 21:30 73 11/25/16 20:00 97.8 75 16 119/76 97 11/25/16 16:00 97.1 75 16 116/55 98 11/25/16 12:40 97 Nasal Cannula 2.00 11/25/16 12:00 95.8 71 17 124/63 96 11/25/16 10:19 97 Nasal Cannula CBC/BMP: 11/25/16 0554 11/25/16 0554 Physical Exam General General Appearance: Well Developed, Well Nourished, No Acute Distress, Comfortable Eyes Eye Exam: Pupils Equal, Pupils Reactive, Sclera White, Extraocular Movement Intact Throat Throat Exam: Oral Mucosa [place] & Moist, Oral Pharynx Normal Neck Neck Exam: Neck Supple, Trachea Midline Pulmonary Resp Exam: Clear Bilaterally, Breath Sounds Equal, No Distress Cardiology CV Exam: Regular, Normal Sinus Rhythm Gastrointestinal/Abdomen GI Exam: Soft, Non-Tender, Bowel Sounds Present GI Remarks mild abdominal tenderness left side. Musculoskeletal MS Exam: Normal Tone Integumentary Skin Exam: Clear, Warm, Dry, Intact Extremeties Extremities Exam: No Edema Neurologic Neuro Exam: Alert, Awake, Oriented, Speech Clear, Moving All Extremities, No Focal Deficits Psychiatric Psych Exam: Appropriate Responses VTE Prophylaxis VTE Prophylaxis Meds: Lovenox PUD Prophylasis PUD Prophylaxis: Protonix Assessment/Plan Assessment/Plan ASSESSMENT AND PLAN: This is a 71-year female who came to the emergency room diagnosed with 1. Nausea with hypoglycemia. Glucose is normal now. The patient is on Zofran 4 milligrams IV q. 6-hour p.r.n. for nausea and vomiting. 2. Leukocytosis,...resolved.... Chest x-ray does not show anything acute. check CT scan of the chest negative for pneumonia... have pulmonary nodule pulmonary input noted. Blood cultures x2 positive for gram negative rods. 3. Diabetes mellitus. ADA 1800 calorie diet. NovoLog. sliding scale. Check blood sugars a.c. and h.s. Will monitor blood sugar. 4. history of gout. Continue home medication. 5. History of hypertension. Continue medication. Monitor blood pressure. 6. Hyperlipidemia. Continue lovastatin 40 milligrams p.o. daily. 7. DVT prophylaxis. Lovenox 40 milligrams. 8. GI prophylaxis Protonix 40 milligrams p.o. twice a day. 9. Pulmonary nodule pulmonary input noted. 10. blood culture positive on Unysn per ID Recomendation. 11. Hemoglobin was 6.9 Possible GI Bleed S/P 2 units PRBC Transfusion have Iron deficiency anemia on replacement.. fecal occult blood test positive, H and H monitoring.. GI Input noted S/P endoscopy shows Gastritis 12. .Hypokalemia will replace and monitor. checked Magnesium level..2.[address] Abdomen and Pelvis shows acute diverticulitis and Psoas abscess General surgery input noted S/P abscess drainage by Interventional radiology, culture positive for mixed anaerobs...on Unysn per ID Recommendation. We are going to manage the patient on a daily basis and make recommendations on a daily basis. Check CBC with diff CMP in AM. Check CBC and comprehensive metabolic profile in the morning. Discussed Condition with: Patient Reed Up MD Nov 26, 2016 08:22
--- NOTE | 2016-11-26 08:24 | HHI.PR ---
Subjective History of Present Illness Patient feel weak and tired . S/P endoscopy shows Gastritis biopsy report pending.. D/ W PAIGE Estrada , ..Low potassium will replace and monitor. no acute issue ..Hematology input noted for Iron deficiency anemia ,fecal occult blood test positive. Review of Systems Constitutional Constitutional: Fatigue, Weakness Vitals/Results Intake & Output 11/25/16 11/25/16 11/26/16 15:00 23:00 07:00 Intake Total 180 ml 1508 ml 826 ml Balance 180 ml 1508 ml 826 ml Intake Oral 180 ml 240 ml 240 ml IV Total 1268 ml 586 ml # Voids 4 2 4 # Bowel Movements 2 1 1 Vital Signs Vital Signs Date Time Temp Pulse Resp B/P Pulse Ox O2 Delivery O2 Flow Rate FiO2 11/26/16 04:00 97.1 66 18 114/60 97 11/26/16 00:00 97.7 69 16 102/55 98 11/25/16 21:30 Nasal Cannula 2.00 11/25/16 21:30 73 11/25/16 20:00 97.8 75 16 119/76 97 11/25/16 16:00 97.1 75 16 116/55 98 11/25/16 12:40 97 Nasal Cannula 2.00 11/25/16 12:00 95.8 71 17 124/63 96 11/25/16 10:19 97 Nasal Cannula CBC/BMP: 11/25/16 0554 11/25/16 0554 Physical Exam General General Appearance: Well Developed, Well Nourished, No Acute Distress, Comfortable Eyes Eye Exam: Pupils Equal, Pupils Reactive, Sclera White, Extraocular Movement Intact Throat Throat Exam: Oral Mucosa [place] & Moist, Oral Pharynx Normal Neck Neck Exam: Neck Supple, Trachea Midline Pulmonary Resp Exam: Clear Bilaterally, Breath Sounds Equal, No Distress Cardiology CV Exam: Regular, Normal Sinus Rhythm Gastrointestinal/Abdomen GI Exam: Soft, Non-Tender, Bowel Sounds Present GI Remarks mild abdominal tenderness left side. Musculoskeletal MS Exam: Normal Tone Integumentary Skin Exam: Clear, Warm, Dry, Intact Extremeties Extremities Exam: No Edema Neurologic Neuro Exam: Alert, Awake, Oriented, Speech Clear, Moving All Extremities, No Focal Deficits Psychiatric Psych Exam: Appropriate Responses VTE Prophylaxis VTE Prophylaxis Meds: Lovenox PUD Prophylasis PUD Prophylaxis: Protonix Assessment/Plan Assessment/Plan ASSESSMENT AND PLAN: This is a 71-year female who came to the emergency room diagnosed with 1. Nausea with hypoglycemia. Glucose is normal now. The patient is on Zofran 4 milligrams IV q. 6-hour p.r.n. for nausea and vomiting. 2. Leukocytosis,...resolved.... Chest x-ray does not show anything acute. check CT scan of the chest negative for pneumonia... have pulmonary nodule pulmonary input noted. Blood cultures x2 positive for gram negative rods. 3. Diabetes mellitus. ADA 1800 calorie diet. NovoLog. sliding scale. Check blood sugars a.c. and h.s. Will monitor blood sugar. 4. history of gout. Continue home medication. 5. History of hypertension. Continue medication. Monitor blood pressure. 6. Hyperlipidemia. Continue lovastatin 40 milligrams p.o. daily. 7. DVT prophylaxis. Lovenox 40 milligrams. 8. GI prophylaxis Protonix 40 milligrams p.o. twice a day. 9. Pulmonary nodule pulmonary input noted. 10. blood culture positive on Unysn per ID Recomendation. 11. Hemoglobin was 6.9 Possible GI Bleed S/P 2 units PRBC Transfusion have Iron deficiency anemia on replacement.. fecal occult blood test positive, H and H monitoring.. GI Input noted S/P endoscopy shows Gastritis 12. .Hypokalemia will replace and monitor. checked Magnesium level..2.[address] Abdomen and Pelvis shows acute diverticulitis and Psoas abscess General surgery input noted S/P abscess drainage by Interventional radiology, culture positive for mixed anaerobs...on Unysn per ID Recommendation. We are going to manage the patient on a daily basis and make recommendations on a daily basis. Check CBC with diff CMP in AM. DC Plan when ok with all. Discussed Condition with: Patient Reed Up MD Nov 26, 2016 08:24
[2016-11-26] MEDS: SODIUM CHLORIDE 0.9% 10 ML VIAL IRRIGATION SCH (09:00)
[2016-11-26] MEDS: DOCUSATE SODIUM 50 MG/SENNA 8.6 MG TAB PO SCH ×2 (09:00→22:23)
[2016-11-26] MEDS: PIOGLITAZONE HCL 15 MG TAB PO SCH (09:00)
[2016-11-26] MEDS: SODIUM CHLORIDE 0.9% FLUSH 10 ML FLUSH IV FLUSH SCH ×2 (09:00→21:00)
[2016-11-26] MEDS: ASPIRIN 81 MG CHEW TAB CHEW SCH (09:08)
[2016-11-26] MEDS: LISINOPRIL 5 MG TAB PO SCH ×2 (09:09→22:24)
[2016-11-26] MEDS: metFORMIN HCL 500 MG TAB PO SCH (09:09)
[2016-11-26] MEDS: CARVEDILOL 12.5 MG TAB PO SCH ×2 (09:09→22:23)
[2016-11-26] MEDS: ALLOPURINOL 300 MG TAB PO SCH (09:09)
[2016-11-26] MEDS: PRAVASTATIN SOD 40 MG TAB PO SCH (09:09)
[2016-11-26] MEDS: amLODIPine BESYLATE 5 MG TAB PO SCH (09:09)
[2016-11-26] MEDS: SODIUM CHLOR 0.45% 1000 ML INJ 1,000 ML IV SCH ×2 (09:10→22:00)
--- NOTE | 2016-11-26 09:34 | RADRPT ---
EXAM DATE/TIME: 11/26/2016 08:30 [facility] COMPARISON: CHEST SINGLE AP, November 21, 2016, 21:14. INDICATIONS : Infiltrate. MEDICAL HISTORY : Diabetes mellitus type 2. SURGICAL HISTORY : Cholecystectomy. Hysterectomy ENCOUNTER: Subsequent ACUITY: 2 weeks PAIN SCORE: 0/10 LOCATION: Bilateral chest FINDINGS: There are minimal consolidative changes present in the right base. Left lung is clear. Mild interst itial edema is present. Degenerative changes are present in the thoracic spine. CONCLUSION: Minimal consolidative changes right base otherwise stable. Martin Leal MD FACR on November 26, 2016 at 9:21 Board Certified Radiologist. This report was verified electronically.
[2016-11-26] MEDS: PANTOPRAZOLE SODIUM 40 MG VIAL IV PUSH SCH ×2 (10:10→23:00)
[2016-11-26] MEDS: POTASSIUM CHLOR 20 MEQ PREMIX 100 ML IV SCH ×4 (11:22→16:27)
--- NOTE | 2016-11-26 15:33 | HHI.IDPN ---
Subjective Subjective Remarks Being treated for diverticular abscess and psoas abscess. s/p colonoscopy. Overnight events reviewed with RN Sat in chair for 2 hours Tolerating oral. Denies abd pain or diarrhea. Antibiotics Unasyn IV Lines Peripheral Past Medical History HTN Gout Diabetes Allergies: Coded Allergies: No Known Allergies (Unverified , 11/08/16) Objective . Vital Signs Date Time Temp Pulse Resp B/P Pulse Ox O2 Delivery O2 Flow Rate FiO2 11/26/16 12:00 97.4 67 19 114/59 96 11/26/16 09:15 94 Nasal Cannula 2.00 11/26/16 08:56 94 Nasal Cannula 2.00 11/26/16 08:00 98.8 71 18 135/63 96 11/26/16 04:00 97.1 66 18 114/60 97 11/26/16 00:00 97.7 69 16 102/55 98 11/25/16 21:30 Nasal Cannula 2.00 11/25/16 21:30 73 11/25/16 20:00 97.8 75 16 119/76 97 11/25/16 16:00 97.1 75 16 116/55 98 11/25/16 11/25/16 11/26/16 15:00 23:00 07:00 Intake Total 180 ml 1508 ml 826 ml Balance 180 ml 1508 ml 826 ml Intake Oral 180 ml 240 ml 240 ml IV Total 1268 ml 586 ml # Voids 4 2 4 # Bowel Movements 2 1 1 . Laboratory Tests Test 11/25/16 05:54 White Blood Count 7.3 TH/MM3 Red Blood Count 3.89 MIL/MM3 Hemoglobin 9.6 GM/DL Hematocrit 30.0 % Mean Corpuscular Volume 77.2 FL Mean Corpuscular Hemoglobin 24.7 PG Mean Corpuscular Hemoglobin 32.0 % Concent Red Cell Distribution Width 21.2 % Platelet Count 356 TH/MM3 Mean Platelet Volume 6.6 FL Neutrophils (%) (Auto) 71.7 % Lymphocytes (%) (Auto) 16.1 % Monocytes (%) (Auto) 11.0 % Eosinophils (%) (Auto) 0.8 % Basophils (%) (Auto) 0.4 % Neutrophils # (Auto) 5.2 TH/MM3 Lymphocytes # (Auto) 1.2 TH/MM3 Monocytes # (Auto) 0.8 TH/MM3 Eosinophils # (Auto) 0.1 TH/MM3 Basophils # (Auto) 0.0 TH/MM3 CBC Comment AUTO DIFF Differential Total Cells 100 Counted Neutrophils % (Manual) 66 % Band Neutrophils % 17 % Lymphocytes % 10 % Monocytes % 5 % Neutrophils # (Manual) 6.2 TH/MM3 Myelocytes 2 % Differential Comment FINAL DIFF MANUAL Platelet Estimate NORMAL Platelet Morphology Comment NORMAL Laboratory Tests Test 11/25/16 05:54 Sodium Level 140 MEQ/L Potassium Level 3.4 MEQ/L Chloride Level 99 MEQ/L Carbon Dioxide Level 36.4 MEQ/L Anion Gap 5 MEQ/L Blood Urea Nitrogen 7 MG/DL Creatinine 0.48 MG/DL Estimat Glomerular Filtration 127 ML/MIN Rate Random Glucose 121 MG/DL Calcium Level 7.3 MG/DL Protein Corrected Calcium 8.6 MG/DL Total Bilirubin 0.2 MG/DL Aspartate Amino Transf 11 U/L (AST/SGOT) Alanine Aminotransferase 14 U/L (ALT/SGPT) Alkaline Phosphatase 58 U/L Total Protein 4.8 GM/DL Albumin 1.5 GM/DL Imaging Last Impressions Chest X-Ray 11/21/[id number] Signed Impressions: Service Date/Time: Monday, November 21, 2016 21:14 - CONCLUSION: NG tube in good position. Wilver Linares MD Pelvis CT 11/19/16 0000 Signed Impressions: Service Date/Time: Saturday, November 19, 2016 16:00 - CONCLUSION: 1. Previous drainage catheter is no longer within the left anterior psoas muscle and is now within the fat in the left lower quadrant not close to any drainable fluid. This can be removed. There is a 2 cm transverse diameter probable residual fluid collection within the psoas muscle. This extends over several centimeters in length and there is a tiny locule of air within the left psoas muscle on series 2 image #5. 2. Markedly abnormal mural thickening of a segment of sigmoid colon with surrounding inflammatory change probably diverticulitis although cannot exclude mass. Fat-containing ventral hernia. Guillermo Mendez MD Abdomen X-Ray 11/18/16 0000 Signed Impressions: Service Date/Time: November 18:53 - CONCLUSION: Mild gaseous distention of the proximal colon Cecilio Villareal MD Abscess Drainage CT 11/15/16 0000 Signed Impressions: Service Date/Time: Tuesday, November 15, 2016 19:23 - CONCLUSION: Uncomplicated CT guided drainage. An 8 [place] catheter was left in position. Taiwo Leal MD Abdomen/Pelvis CT 11/14/16 0000 Signed Impressions: Service Date/Time: Monday, November 14, 2016 10:54 - CONCLUSION: 1. Acute sigmoid diverticulitis with adjacent abscess involving the psoas muscle. 2. Paraumbilical fat containing hernia. 3. 2 cm left adrenal nodule, nonspecific. Dmitri Huynh MD Chest CT 11/08/16 0000 Signed Impressions: Service Date/Time: Tuesday, November 08, 2016 19:23 - CONCLUSION: 1. Innumerable noncalcified subcentimeter pulmonary nodules with the largest measuring 8 mm in the left lower lobe posteriorly. Although these are nonspecific metastatic disease remains in the differential. PET/CT scan may be helpful for further evaluation of the largest of these nodules if clinically indicated. 2. Coronary artery calcifications. 3. Left adrenal mass measuring 2.7 x 2.5 cm which is nonspecific. Ketan Schofield MD Physical Exam GENERAL: On physical exam, this is a 71-year-old obese female OOB in chair in acute distress. Looks weak and pale, looks sick HEAD, EYES, EARS, NOSE, THROAT: Normocephalic and atraumatic. Extraocular muscles intact. Pupils equal, round and reactive to light and accommodation. Oral mucosa moist. Pale conjunctivae NECK: Trachea is central. CARDIOVASCULAR: Regular tachycardia RESPIRATORY: Clear to auscultation bilaterally. ABDOMEN: Abdomen soft and nontender. Obese and distended Bowel sounds audible. No organomegaly EXTREMITIES: No cyanosis or clubbing. Full range of motion of all extremities. No edema. NEUROLOGIC: Awake, alert and oriented times four. No focal deficits. SKIN: Warm and dry. No rash PSYCHIATRIC: The patient is calm and cooperative. Flat affect IV line site with no evidence of infection. Assessment & Plan Remarks Acute diverticulitis with abscess of psoas muscle. s/p IR guided drainage. - mixed anaerobs GI bleed - worsening - cont to bleed - agreable for colonoscopy Staph hominis bacteremia: likely contaminant. Persistent bandemia (12%), thrombocytosis - susp for ongoing infx Recs DC Unasyn IV. Cultures with beta lactamase producing Anaerobes. Changed to oral flagyl and Ceftriaxone IV Repeat CT pelvis to follow up on Psoas abscess. d/w case supervisor, pt and RN. to cover for me 11/27/16 to 12/10/16. I will be Ana Maria Kaur RN, MD Nov 26, 2016 15:33
[2016-11-26] MEDS: metroNIDAZOLE 500 MG TAB PO SCH (16:27)
[2016-11-26] MEDS: cefTRIAXone INJ 1,000 MG in SODIUM CHLORIDE 0.9% INJ 100 ML IV SCH (16:27)
[2016-11-26] MEDS ORDERED: DIATRIZOATE MEGLUM/DIATRIZOATE SOD 9 ML CUP PO ONE (17:15)
--- NOTE | 2016-11-26 19:10 | HHI.PR ---
Subjective Remarks Awake and responds to questions. No cough or wheezing. O2 sat 95 on O2 2L Had colonoscopy , EGD done , and pathology on Gastric and Colonic biopsies show benign tissue Objective Vital Signs Date Time Temp Pulse Resp B/P Pulse Ox O2 Delivery O2 Flow Rate FiO2 11/26/16 17:57 94 Nasal Cannula 2.00 11/26/16 16:00 97.0 70 19 110/53 96 11/26/16 12:00 97.4 67 19 114/59 96 11/26/16 09:15 94 Nasal Cannula 2.00 11/26/16 08:56 94 Nasal Cannula 2.00 11/26/16 08:00 98.8 71 18 135/63 96 11/26/16 04:00 97.1 66 18 114/60 97 11/26/16 00:00 97.7 69 16 102/55 98 11/25/16 21:30 Nasal Cannula 2.00 11/25/16 21:30 73 11/25/16 20:00 97.8 75 16 119/76 97 I/O 11/25/16 11/25/16 11/25/16 11/26/16 11/26/16 11/26/16 07:00 15:00 23:00 07:00 15:00 23:00 Intake Total 1448 ml 180 ml 1508 ml 826 ml 1928 ml Output Total 800 ml 200 ml Balance 1448 ml 180 ml 1508 ml 826 ml 1128 ml -200 ml Intake Oral 480 ml 180 ml 240 ml 240 ml 1200 ml IV Total 968 ml 1268 ml 586 ml 728 ml Output Urine Total 800 ml 200 ml # Voids 4 4 2 4 # Bowel Movements 4 2 1 1 2 1 Result Diagram: 11/25/16 0554 11/25/16 0554 Objective Remarks GENERAL: This obese, elderly white female who is pale in no distress. HEENT: Head normocephalic. Pupils are reactive.Throat was clear. NECK: Supple. No bruits or thyroid enlargement or lymphadenopathy. CHEST: Distant breath sounds with occ basal crackles and no wheeze HEART: The heart sounds are regular S1-S2. No murmur. No S3.t ABDOMEN: Obese, protuberant without masses. No organomegaly. Bowel sounds active. EXTREMITIES: No lesions. no edema. Peripheral pulses are diminished. Reflexes are 1+. NEUROLOGIC: No gross motor deficits. SKIN: No lesions observed. Assessment and Plan Assessment and Plan IMPRESSION 1. Bilateral lung nodules, etiology to be determined. Probable granulomas versus metastatic disease. 2. Diabetes mellitus type 2. 3. Hypertension. 4. Exogenous obesity and possible sleep apnea. 5. Possible hypothyroidism. 6. Hypertension. 7. Anemia Plan : 1. Chest X ray 2. Cont Antibiotics, per ID 3 PT evaluation 4. PET CT as OP. 5. Rehab placement 6. O2 at 2 L. and home O2 7. IS at bedside q3h. Juan Ramon Perez MD Nov 26, 2016 19:10
[2016-11-26] MEDS: ENOXAPARIN SODIUM 40 MG/0.4 ML SYRINGE SQ SCH (22:24)
[2016-11-27] VITALS (8 sets, daily range): BP systolic 90–113; BP diastolic 50–60; PULSE 64–77; RESP 16–20; TEMP 95.3–98.8; O2SAT 95–98
[2016-11-27] MEDS: metroNIDAZOLE 500 MG TAB PO SCH ×4 (00:54→23:40)
[2016-11-27] MEDS: RESP: ALBUTEROL 2.5 MG/IPRATROPIUM 0.5 MG NEB (PRN) NEB (01:33)
[2016-11-27] MEDS: cloNIDine HCL 0.2 MG TAB PO SCH ×3 (05:37→20:29)
[2016-11-27 05:39] LABS: AUTOMATED NEUTROPHIL # 6.7 TH/MM3 (1.8-7.7); BASOPHIL % 0.4 % (0.0-2.0); EOSINOPHIL % 0.3 % (0.0-4.0); HEMATOCRIT 25.6 % (35.0-46.0); LYMPH % 13.4 % (9.0-44.0); LYMPHOCYTE # 1.2 TH/MM3 (1.0-4.8); MEAN CELL VOLUME 77.8 FL (80.0-100.0); MEAN CORPUSCULAR HEMOGLOBIN 24.4 PG (27.0-34.0); MEAN CORPUSCULAR HGB CONC 31.4 % (32.0-36.0); MONO % 8.7 % (0.0-8.0); NEUT % 77.2 % (16.0-70.0); PLATELET COUNT 308 TH/MM3 (150-450); RED CELL DISTRIBUTION WIDTH 22.2 % (11.6-17.2); WHITE BLOOD COUNT 8.6 TH/MM3 (4.0-11.0)
[2016-11-27 05:46] LABS: HEMO FLAGS AUTO DIFF
[2016-11-27 05:57] LABS: BICARBONATE 33.6 MEQ/L (21.0-32.0); CALCIUM-PROTEIN CORRECTED 8.8 MG/DL (8.5-10.1); POTASSIUM 3.2 MEQ/L (3.5-5.1); TOTAL BILIRUBIN ADULT 0.3 MG/DL (0.2-1.0)
[2016-11-27] MEDS: INSULIN NovoLIN REGULAR SUPPLEMENTAL SCALE SQ SCH ×4 (06:51→20:27)
[2016-11-27] MEDS: PIOGLITAZONE HCL 15 MG TAB PO SCH (09:00)
[2016-11-27] MEDS: DOCUSATE SODIUM 50 MG/SENNA 8.6 MG TAB PO SCH ×2 (09:00→20:28)
[2016-11-27] MEDS: SODIUM CHLORIDE 0.9% 10 ML VIAL IRRIGATION SCH (09:00)
[2016-11-27] MEDS: SODIUM CHLORIDE 0.9% FLUSH 10 ML FLUSH IV FLUSH SCH ×2 (09:00→21:00)
[2016-11-27 09:11] LABS: BANDS 4 % (0-6); BASOPHILS 1 % (0-2); EOSINOPHILS 1 % (0-4); MYELOCYTES 1 % (0-0); NEUTROPHIL # MANUAL DIFF 7.1 TH/MM3 (1.8-7.7); PLATELET ESTIMATE SMEAR NORMAL (NORMAL); PLATELET MORPHOLOGY NORMAL (NORMAL); POLYS (SEG NEUTROPHILS) 78 % (16-70); WBC DIFF SAMPLE 100
[2016-11-27 09:12] LABS: SCAN/DIFF FINAL DIFF MANUAL
[2016-11-27] MEDS: amLODIPine BESYLATE 5 MG TAB PO SCH (09:16)
[2016-11-27] MEDS: PRAVASTATIN SOD 40 MG TAB PO SCH (09:16)
[2016-11-27] MEDS: ALLOPURINOL 300 MG TAB PO SCH (09:16)
[2016-11-27] MEDS: CARVEDILOL 12.5 MG TAB PO SCH ×2 (09:16→20:30)
[2016-11-27] MEDS: LISINOPRIL 5 MG TAB PO SCH ×2 (09:16→20:28)
[2016-11-27] MEDS: metFORMIN HCL 500 MG TAB PO SCH (09:17)
[2016-11-27] MEDS: ASPIRIN 81 MG CHEW TAB CHEW SCH (09:18)
[2016-11-27] MEDS ORDERED: IOHEXOL 350 MG/ML 10 ML VIAL (for RAD DIAG) IV ONE (10:51)
--- NOTE | 2016-11-27 11:01 | HHI.PR ---
Subjective History of Present Illness Patient feel weak and tired . S/P endoscopy shows Gastritis biopsy noted .. ..Low potassium will replace and monitor. no acute issue ..Hematology input noted for Iron deficiency anemia . d/w bus assistant of Systems Constitutional Constitutional: Fatigue, Weakness Vitals/Results Intake & Output 11/26/16 11/26/16 11/27/16 15:00 23:00 07:00 Intake Total 1928 ml 240 ml 120 ml Output Total 800 ml 200 ml Balance 1128 ml 40 ml 120 ml Intake Oral 1200 ml 240 ml 120 ml IV Total 728 ml Output Urine Total 800 ml 200 ml # Voids 3 4 # Bowel Movements 2 1 0 Vital Signs Vital Signs Date Time Temp Pulse Resp B/P Pulse Ox O2 Delivery O2 Flow Rate FiO2 11/27/16 09:20 Nasal Cannula 2.00 11/27/16 08:32 98 Nasal Cannula 2.00 11/27/16 08:00 95.3 67 16 104/51 97 11/27/16 04:00 98.1 77 18 110/60 95 11/27/16 03:06 Nasal Cannula 2.00 21 11/27/16 01:35 97 Nasal Cannula 2.00 11/27/16 00:00 98.8 73 20 113/56 96 11/26/16 20:00 96.4 76 18 109/59 97 11/26/16 17:57 94 Nasal Cannula 2.00 11/26/16 16:00 97.0 70 19 110/53 96 11/26/16 12:00 97.4 67 19 114/59 96 CBC/BMP: 11/27/16 0515 11/27/16 0515 Lab Results Laboratory Tests Test 11/26/16 11/27/16 16:26 05:15 C-Reactive Protein 7.58 MG/DL White Blood Count 8.6 TH/MM3 Red Blood Count 3.30 MIL/MM3 Hemoglobin 8.0 GM/DL Hematocrit 25.6 % Mean Corpuscular Volume 77.8 FL Mean Corpuscular Hemoglobin 24.4 PG Mean Corpuscular Hemoglobin 31.4 % Concent Red Cell Distribution Width 22.2 % Platelet Count 308 TH/MM3 Mean Platelet Volume 6.8 FL Neutrophils (%) (Auto) 77.2 % Lymphocytes (%) (Auto) 13.4 % Monocytes (%) (Auto) 8.7 % Eosinophils (%) (Auto) 0.3 % Basophils (%) (Auto) 0.4 % Neutrophils # (Auto) 6.7 TH/MM3 Lymphocytes # (Auto) 1.2 TH/MM3 Monocytes # (Auto) 0.8 TH/MM3 Eosinophils # (Auto) 0.0 TH/MM3 Basophils # (Auto) 0.0 TH/MM3 CBC Comment AUTO DIFF Differential Total Cells 100 Counted Neutrophils % (Manual) 78 % Band Neutrophils % 4 % Lymphocytes % 10 % Monocytes % 5 % Eosinophils % 1 % Basophils % 1 % Neutrophils # (Manual) 7.1 TH/MM3 Myelocytes 1 % Differential Comment FINAL DIFF MANUAL Platelet Estimate NORMAL Platelet Morphology Comment NORMAL Sodium Level 141 MEQ/L Potassium Level 3.2 MEQ/L Chloride Level 100 MEQ/L Carbon Dioxide Level 33.6 MEQ/L Anion Gap 7 MEQ/L Blood Urea Nitrogen 14 MG/DL Creatinine 0.52 MG/DL Estimat Glomerular Filtration 116 ML/MIN Rate Random Glucose 134 MG/DL Calcium Level 7.3 MG/DL Protein Corrected Calcium 8.8 MG/DL Total Bilirubin 0.3 MG/DL Aspartate Amino Transf 12 U/L (AST/SGOT) Alanine Aminotransferase 13 U/L (ALT/SGPT) Alkaline Phosphatase 61 U/L Total Protein 4.5 GM/DL Albumin 1.3 GM/DL Physical Exam General General Appearance: Well Developed, Well Nourished, No Acute Distress, Comfortable Eyes Eye Exam: Pupils Equal, Pupils Reactive, Sclera White, Extraocular Movement Intact Throat Throat Exam: Oral Mucosa [place] & Moist, Oral Pharynx Normal Neck Neck Exam: Neck Supple, Trachea Midline Pulmonary Resp Exam: Clear Bilaterally, Breath Sounds Equal, No Distress Cardiology CV Exam: Regular, Normal Sinus Rhythm Gastrointestinal/Abdomen GI Exam: Soft, Non-Tender, Bowel Sounds Present GI Remarks mild abdominal tenderness left side. Musculoskeletal MS Exam: Normal Tone Integumentary Skin Exam: Clear, Warm, Dry, Intact Extremeties Extremities Exam: No Edema Neurologic Neuro Exam: Alert, Awake, Oriented, Speech Clear, Moving All Extremities, No Focal Deficits Psychiatric Psych Exam: Appropriate Responses VTE Prophylaxis VTE Prophylaxis Meds: Lovenox PUD Prophylasis PUD Prophylaxis: Protonix Assessment/Plan Assessment/Plan ASSESSMENT AND PLAN: This is a 71-year female who came to the emergency room diagnosed with 1. Nausea with hypoglycemia. Glucose is normal now. The patient is on Zofran 4 milligrams IV q. 6-hour p.r.n. for nausea and vomiting. 2. Leukocytosis,...resolved.... Chest x-ray does not show anything acute. check CT scan of the chest negative for pneumonia... have pulmonary nodule pulmonary input noted. Blood cultures x2 positive for gram negative rods. 3. Diabetes mellitus. ADA 1800 calorie diet. NovoLog. sliding scale. Check blood sugars a.c. and h.s. Will monitor blood sugar. 4. history of gout. Continue home medication. 5. History of hypertension. Continue medication. Monitor blood pressure. 6. Hyperlipidemia. Continue lovastatin 40 milligrams p.o. daily. 7. DVT prophylaxis. Lovenox 40 milligrams. 8. GI prophylaxis Protonix 40 milligrams p.o. twice a day. 9. Pulmonary nodule pulmonary input noted. 10. blood culture positive .on Flagyl and Ceftriaxone per ID Recomendation. 11. Hemoglobin was 6.9 Possible GI Bleed S/P 2 units PRBC Transfusion have Iron deficiency anemia on replacement.. fecal occult blood test positive, H and H monitoring.. GI Input noted S/P endoscopy shows Gastritis 12. .Hypokalemia will replace and monitor. 13. CT Abdomen and Pelvis shows acute diverticulitis and Psoas abscess General surgery input noted S/P abscess drainage by Interventional radiology, culture positive for mixed anaerobs...on Flagyl and Ceftriaxone per ID Recommendation. We are going to manage the patient on a daily basis and make recommendations on a daily basis. Check CBC with diff CMP in AM. DC Plan when ok with all. Discussed Condition with: Patient Reed Up MD Nov 27, 2016 11:01
[2016-11-27] MEDS: SODIUM CHLOR 0.45% 1000 ML INJ 1,000 ML IV SCH ×2 (11:17→23:39)
--- NOTE | 2016-11-27 11:24 | RADRPT ---
EXAM DATE/TIME: 11/27/2016 10:48 [facility] COMPARISON: CT PELVIS W/O CONTRAST, November 19, 2016, 16:00. INDICATIONS : Evaluate psoas muscle abscess. IV CONTRAST: 95 cc Omnipaque 350 (iohexol) IV ORAL CONTRAST: Patient refused oral contrast. RADIATION DOSE: 38.80 CTDIvol (mGy) MEDICAL HISTORY : Hypertension. Cardiovascular disease Diabetes mellitus type 2. SURGICAL HISTORY : Hysterectomy. Cholecystectomy. ENCOUNTER: Initial ACUITY: 1 week PAIN SCALE: 5/10 LOCATION: Bilateral lower quadrant TECHNIQUE: Volumetric scanning of the pelvis was performed. Using automated exposure control and adjustment of t he mA and/or kV according to patient size, radiation dose was kept as low as reasonably achievable to obtain optimal diagnostic quality images. FINDINGS: BOWEL/MESENTERY: There is severe inflammation involving the proximal sigmoid colon involving approximately 9 cm length segment. There is perienteric inflammatory change. Sigmoid diverticulosis is present. Proximal to th e severe inflammation the colon is dilated. Visualized small bowel demonstrates no abnormality. BLADDER: There is no wall thickening or mass. RETROPERITONEUM: There is no aneurysm or lymphadenopathy. There is severe atherosclerotic disease. There is a low-atte nuation collection in the left psoas muscle and iliopsoas muscle measuring approximately 7.7 x 1.7 cm . REPRODUCTIVE: The uterus is absent. Ovaries are not visualized. INGUINAL: There is no lymphadenopathy or hernia. MUSCULOSKELETAL: There are degenerative changes of the spine. There is a fat-containing anterior-abdominal wall hernia near the midline. CONCLUSION: 1. Severe inflammation and thickening of the proximal sigmoid colon, likely related to a severe acute diverticulitis. The descending colon immediately proximal to this area is now dilated suggesting the re may be some degree of obstruction. 2. The inflammatory changes that fistulized into the left psoas muscle and iliopsoas muscle and measu re approximately 7.7 x 1.7 cm. Given the differences in imaging technique I cannot be certain whether the psoas collection is stable or increased. However, the inflammatory changes do appear increased. Cecilio Colmenares MD on November 27, 2016 at 11:03 Board Certified Radiologist. This report was verified electronically.
[2016-11-27] MEDS: PANTOPRAZOLE SODIUM 40 MG VIAL IV PUSH SCH ×2 (12:02→23:40)
--- NOTE | 2016-11-27 13:15 | HHI.IDPN ---
Subjective Subjective Remarks CT was reviewed with radiologist Dr Rodriguez 2 concernes: fistula to psoas muscle and partial obstruction Pt is hypothermic Overnight events reviewed with RN RN preort no fever 3-4 BMs path with fibrinopurulent exsudate attached to colonic mucosae Antibiotics CFTX flagyl Lines Peripheral Past Medical History HTN Gout Diabetes Allergies: Coded Allergies: No Known Allergies (Unverified , 11/08/16) Objective . Vital Signs Date Time Temp Pulse Resp B/P Pulse Ox O2 Delivery O2 Flow Rate FiO2 11/27/16 12:00 95.5 64 16 91/50 97 11/27/16 09:20 Nasal Cannula 2.00 11/27/16 08:32 98 Nasal Cannula 2.00 11/27/16 08:00 95.3 67 16 104/51 97 11/27/16 04:00 98.1 77 18 110/60 95 11/27/16 03:06 Nasal Cannula 2.00 21 11/27/16 01:35 97 Nasal Cannula 2.00 11/27/16 00:00 98.8 73 20 113/56 96 11/26/16 20:00 96.4 76 18 109/59 97 11/26/16 17:57 94 Nasal Cannula 2.00 11/26/16 16:00 97.0 70 19 110/53 96 11/26/16 11/26/16 11/27/16 15:00 23:00 07:00 Intake Total 1928 ml 240 ml 120 ml Output Total 800 ml 200 ml Balance 1128 ml 40 ml 120 ml Intake Oral 1200 ml 240 ml 120 ml IV Total 728 ml Output Urine Total 800 ml 200 ml # Voids 3 4 # Bowel Movements 2 1 0 . Laboratory Tests Test 11/27/16 05:15 White Blood Count 8.6 TH/MM3 Red Blood Count 3.30 MIL/MM3 Hemoglobin 8.0 GM/DL Hematocrit 25.6 % Mean Corpuscular Volume 77.8 FL Mean Corpuscular Hemoglobin 24.4 PG Mean Corpuscular Hemoglobin 31.4 % Concent Red Cell Distribution Width 22.2 % Platelet Count 308 TH/MM3 Mean Platelet Volume 6.8 FL Neutrophils (%) (Auto) 77.2 % Lymphocytes (%) (Auto) 13.4 % Monocytes (%) (Auto) 8.7 % Eosinophils (%) (Auto) 0.3 % Basophils (%) (Auto) 0.4 % Neutrophils # (Auto) 6.7 TH/MM3 Lymphocytes # (Auto) 1.2 TH/MM3 Monocytes # (Auto) 0.8 TH/MM3 Eosinophils # (Auto) 0.0 TH/MM3 Basophils # (Auto) 0.0 TH/MM3 CBC Comment AUTO DIFF Differential Total Cells 100 Counted Neutrophils % (Manual) 78 % Band Neutrophils % 4 % Lymphocytes % 10 % Monocytes % 5 % Eosinophils % 1 % Basophils % 1 % Neutrophils # (Manual) 7.1 TH/MM3 Myelocytes 1 % Differential Comment FINAL DIFF MANUAL Platelet Estimate NORMAL Platelet Morphology Comment NORMAL Laboratory Tests Test 11/26/16 11/27/16 16:26 05:15 C-Reactive Protein 7.58 MG/DL Sodium Level 141 MEQ/L Potassium Level 3.2 MEQ/L Chloride Level 100 MEQ/L Carbon Dioxide Level 33.6 MEQ/L Anion Gap 7 MEQ/L Blood Urea Nitrogen 14 MG/DL Creatinine 0.52 MG/DL Estimat Glomerular Filtration 116 ML/MIN Rate Random Glucose 134 MG/DL Calcium Level 7.3 MG/DL Protein Corrected Calcium 8.8 MG/DL Total Bilirubin 0.3 MG/DL Aspartate Amino Transf 12 U/L (AST/SGOT) Alanine Aminotransferase 13 U/L (ALT/SGPT) Alkaline Phosphatase 61 U/L Total Protein 4.5 GM/DL Albumin 1.3 GM/DL Imaging Last Impressions Chest X-Ray 11/26/16 0600 Signed Impressions: Service Date/Time: Saturday, November 26, 2016 08:30 - CONCLUSION: Minimal consolidative changes right base otherwise stable. Martin Leal MD FACR Pelvis CT 11/26/16 0000 Signed Impressions: Service Date/Time: Sunday, November 27, 2016 10:48 - CONCLUSION: 1. Severe inflammation and thickening of the proximal sigmoid colon, likely related to a severe acute diverticulitis. The descending colon immediately proximal to this area is now dilated suggesting there may be some degree of obstruction. 2. The inflammatory changes that fistulized into the left psoas muscle and iliopsoas muscle and measure approximately 7.7 x 1.7 cm. Given the differences in imaging technique I cannot be certain whether the psoas collection is stable or increased. However, the inflammatory changes do appear increased. Cecilio Colmenares MD Abdomen X-Ray 11/18/16 0000 Signed Impressions: Service Date/Time: November 18:53 - CONCLUSION: Mild gaseous distention of the proximal colon Cecilio Villareal MD Abscess Drainage CT 11/15/16 0000 Signed Impressions: Service Date/Time: Tuesday, November 15, 2016 19:23 - CONCLUSION: Uncomplicated CT guided drainage. An 8 Pakistani catheter was left in position. Taiwo Leal MD Abdomen/Pelvis CT 11/14/16 0000 Signed Impressions: Service Date/Time: Monday, November 14, 2016 10:54 - CONCLUSION: 1. Acute sigmoid diverticulitis with adjacent abscess involving the psoas muscle. 2. Paraumbilical fat containing hernia. 3. 2 cm left adrenal nodule, nonspecific. Dmitri Huynh MD Chest CT 11/08/16 0000 Signed Impressions: Service Date/Time: Tuesday, November 08, 2016 19:23 - CONCLUSION: 1. Innumerable noncalcified subcentimeter pulmonary nodules with the largest measuring 8 mm in the left lower lobe posteriorly. Although these are nonspecific metastatic disease remains in the differential. PET/CT scan may be helpful for further evaluation of the largest of these nodules if clinically indicated. 2. Coronary artery calcifications. 3. Left adrenal mass measuring 2.7 x 2.5 cm which is nonspecific. Ketan Schofield MD Physical Exam GENERAL: On physical exam, this is a 71-year-old obese female OOB in chair in acute distress. Looks weak and pale, looks sick HEAD, EYES, EARS, NOSE, THROAT: Normocephalic and atraumatic. Extraocular muscles intact. Pupils equal, round and reactive to light and accommodation. Oral mucosa moist. Pale conjunctivae NECK: Trachea is central. CARDIOVASCULAR: Regular tachycardia RESPIRATORY: Clear to auscultation bilaterally. ABDOMEN: Abdomen soft and nontender. Obese and distended Bowel sounds audible. No organomegaly EXTREMITIES: No cyanosis or clubbing. Full range of motion of all extremities. No edema. NEUROLOGIC: Awake, alert and oriented times four. No focal deficits. SKIN: Warm and dry. No rash PSYCHIATRIC: The patient is calm and cooperative. Flat affect IV line site with no evidence of infection. Assessment & Plan Remarks Acute diverticulitis with abscess of psoas muscle. s/p IR guided drainage. - mixed anaerobs ON CT from still severe inflammation and thickening of the proximal sigmoid colon with descending colon immediately proximal to this area is now dilated suggesting there may be some degree of obstruction. The inflammatory changes that fistulized into the left psoas muscle and iliopsoas muscle and measure approximately 7.7 x 1.7 cm GI bleed - stable Staph hominis bacteremia: likely contaminant. Persistent bandemia (12%), thrombocytosis - susp for ongoing infx Recs Cultures with beta lactamase producing Anaerobes. Cont oral flagyl and Ceftriaxone IV will dw gen surgery re new devellopements ? needs diverting colostomy chk blood clx (hypothermic) dw RN dw Brad Frazier, Krystin Croft MD Nov 27, 2016 13:15
[2016-11-27] MEDS: POTASSIUM CHLOR 20 MEQ PREMIX 100 ML IV SCH ×4 (13:41→21:12)
[2016-11-27] MEDS: CALCIUM CARBONATE 1.25 GM (CA 500 MG) TAB PO SCH ×2 (13:41→20:27)
[2016-11-27] MEDS: cefTRIAXone INJ 1,000 MG in SODIUM CHLORIDE 0.9% INJ 100 ML IV SCH (15:26)
[2016-11-27] MEDS: ENOXAPARIN SODIUM 40 MG/0.4 ML SYRINGE SQ SCH (20:27)
[2016-11-28] VITALS (8 sets, daily range): BP systolic 105–136; BP diastolic 56–65; PULSE 52–86; RESP 16–20; TEMP 94.3–98; O2SAT 93–99
[2016-11-28] MEDS: cloNIDine HCL 0.2 MG TAB PO SCH ×3 (05:47→20:21)
[2016-11-28] MEDS: INSULIN NovoLIN REGULAR SUPPLEMENTAL SCALE SQ SCH ×4 (05:47→21:00)
[2016-11-28] MEDS: ALLOPURINOL 300 MG TAB PO SCH (08:12)
[2016-11-28] MEDS: metroNIDAZOLE 500 MG TAB PO SCH ×3 (08:12→23:14)
[2016-11-28] MEDS: metFORMIN HCL 500 MG TAB PO SCH (08:12)
[2016-11-28] MEDS: CARVEDILOL 12.5 MG TAB PO SCH ×2 (08:13→20:21)
[2016-11-28] MEDS: PIOGLITAZONE HCL 15 MG TAB PO SCH (08:13)
[2016-11-28] MEDS: SODIUM CHLORIDE 0.9% FLUSH 10 ML FLUSH IV FLUSH SCH ×2 (08:14→20:21)
[2016-11-28] MEDS: PRAVASTATIN SOD 40 MG TAB PO SCH (08:14)
[2016-11-28] MEDS: LISINOPRIL 5 MG TAB PO SCH ×2 (08:14→20:21)
[2016-11-28] MEDS: amLODIPine BESYLATE 5 MG TAB PO SCH (08:14)
[2016-11-28] MEDS: CALCIUM CARBONATE 1.25 GM (CA 500 MG) TAB PO SCH ×2 (08:14→20:21)
[2016-11-28] MEDS: ASPIRIN 81 MG CHEW TAB CHEW SCH (08:14)
[2016-11-28] MEDS: DOCUSATE SODIUM 50 MG/SENNA 8.6 MG TAB PO SCH ×2 (08:15→20:21)
[2016-11-28] MEDS: SODIUM CHLORIDE 0.9% 10 ML VIAL IRRIGATION SCH (08:17)
--- NOTE | 2016-11-28 10:12 | HHI.PR ---
Subjective Subjective Notes The patient has minimal complaints of pain. She is been moving back and forth to the bedside commode with minimal difficulty. She continues to pass flatus and has small liquid bowel movements. She has no other complaints at this point other than being tired. Objective Vitals/I&O Vital Signs Date Time Temp Pulse Resp B/P Pulse Ox O2 Delivery O2 Flow Rate FiO2 11/28/16 08:04 Nasal Cannula 3.00 11/28/16 08:00 95.4 69 16 105/57 98 11/27/16 03:06 21 Labs Date/Time Procedure Status Source Growth 11/27/16 16:45 Aerobic Blood Culture Received Blood Peripheral Pending 11/27/16 16:45 Anaerobic Blood Culture Received Blood Peripheral Pending Radiology Last Impressions Abdomen/Pelvis CT 11/14/16 0000 Signed Impressions: Service Date/Time: Monday, November 14, 2016 10:54 - CONCLUSION: 1. Acute sigmoid diverticulitis with adjacent abscess involving the psoas muscle. 2. Paraumbilical fat containing hernia. 3. 2 cm left adrenal nodule, nonspecific. Dmitri Huynh MD Chest X-Ray 11/12/16 0600 Signed Impressions: Service Date/Time: Saturday, November 12, 2016 05:47 - CONCLUSION: Cardiomegaly. No acute cardiopulmonary disease. Semaj Coker MD Chest CT 11/08/16 0000 Signed Impressions: Service Date/Time: Tuesday, November 08, 2016 19:23 - CONCLUSION: 1. Innumerable noncalcified subcentimeter pulmonary nodules with the largest measuring 8 mm in the left lower lobe posteriorly. Although these are nonspecific metastatic disease remains in the differential. PET/CT scan may be helpful for further evaluation of the largest of these nodules if clinically indicated. 2. Coronary artery calcifications. 3. Left adrenal mass measuring 2.7 x 2.5 cm which is nonspecific. Ketan Schofield MD Cardiovascular: Regular Lungs: Clear Abdomen: Non-distended, Non-tender, BS normal Narrative Exam The abdominal drain was removed yesterday. A/P Assessment and Plan Impression: The patient has had an exacerbation of her diverticulitis with the appearance once again of a small abscess between the colon and the psoas muscle. The CT scan yesterday showed worsening inflammation around the proximal sigmoid colon. There was the suggestion of partial obstruction due to dilatation of the colon, however the patient does not have overt symptoms of obstruction. Plan: Dr. Garay will return tomorrow. The patient may well require diverting transverse colostomy in view of the worsening diverticulitis. She is not a very good candidate for definitive Salinas's procedure at this point. Rudi Frazier MD Nov 28, 2016 10:12
--- NOTE | 2016-11-28 10:45 | HHI.PR ---
Subjective History of Present Illness Patient feel weak and tired . S/P endoscopy shows Gastritis biopsy noted .. ..Low potassium will replace and monitor. no acute issue ..Hematology input noted for Iron deficiency anemia . d/w RN S/P CT Scan of abdomen and pelvis shows severe inflammation and thickening of the proximal sigmoid colon with descending colon immediately proximal to this area is now dilated suggesting there may be some degree of obstruction. The inflammatory changes that fistulized into the left psoas muscle and iliopsoas muscle and measure approximately 7.7 x 1.7 cm Patient ? needs diverting colostomy Review of Systems Constitutional Constitutional: Fatigue, Weakness Vitals/Results Intake & Output 11/27/16 11/27/16 11/28/16 15:00 23:00 07:00 Intake Total 2024 ml 860 ml 520 ml Output Total 800 ml Balance 2024 ml 860 ml -280 ml Intake Oral 340 ml 120 ml 120 ml IV Total 1684 ml 740 ml 400 ml Output Urine Total 800 ml # Voids 4 2 2 # Bowel Movements 0 0 0 Vital Signs Vital Signs Date Time Temp Pulse Resp B/P Pulse Ox O2 Delivery O2 Flow Rate FiO2 11/28/16 08:04 Nasal Cannula 3.00 11/28/16 08:00 95.4 69 16 105/57 98 11/28/16 04:00 98.0 86 18 136/65 95 11/28/16 00:00 96.0 52 20 113/56 93 11/27/16 21:25 Nasal Cannula 2.00 11/27/16 20:25 Nasal Cannula 2.00 11/27/16 20:00 96.8 69 19 109/55 96 11/27/16 16:00 95.5 74 16 90/58 97 11/27/16 12:00 95.5 64 16 91/50 97 CBC/BMP: 11/27/16 0515 11/27/16 0515 Microbiology Microbiology 11/27/16 Aerobic Blood Culture, Received Pending 11/27/16 Anaerobic Blood Culture, Received Pending 11/27/16 Aerobic Blood Culture, Received Pending 11/27/16 Anaerobic Blood Culture, Received Pending Physical Exam General General Appearance: Well Developed, Well Nourished, No Acute Distress, Comfortable Eyes Eye Exam: Pupils Equal, Pupils Reactive, Sclera White, Extraocular Movement Intact Throat Throat Exam: Oral Mucosa Reynolds & Moist, Oral Pharynx Normal Neck Neck Exam: Neck Supple, Trachea Midline Pulmonary Resp Exam: Clear Bilaterally, Breath Sounds Equal, No Distress Cardiology CV Exam: Regular, Normal Sinus Rhythm Gastrointestinal/Abdomen GI Exam: Soft, Non-Tender, Bowel Sounds Present GI Remarks mild abdominal tenderness left side. Musculoskeletal MS Exam: Normal Tone Integumentary Skin Exam: Clear, Warm, Dry, Intact Extremeties Extremities Exam: No Edema Neurologic Neuro Exam: Alert, Awake, Oriented, Speech Clear, Moving All Extremities, No Focal Deficits Psychiatric Psych Exam: Appropriate Responses VTE Prophylaxis VTE Prophylaxis Meds: Lovenox PUD Prophylasis PUD Prophylaxis: Protonix Assessment/Plan Assessment/Plan ASSESSMENT AND PLAN: This is a 71-year female who came to the emergency room diagnosed with 1. Nausea with hypoglycemia. Glucose is normal now. The patient is on Zofran 4 milligrams IV q. 6-hour p.r.n. for nausea and vomiting. 2. Leukocytosis,...resolved.... Chest x-ray does not show anything acute. check CT scan of the chest negative for pneumonia... have pulmonary nodule pulmonary input noted. Blood cultures x2 positive for gram negative rods. 3. Diabetes mellitus. ADA 1800 calorie diet. NovoLog. sliding scale. Check blood sugars a.c. and h.s. Will monitor blood sugar. 4. history of gout. Continue home medication. 5. History of hypertension. Continue medication. Monitor blood pressure. 6. Hyperlipidemia. Continue lovastatin 40 milligrams p.o. daily. 7. DVT prophylaxis. Lovenox 40 milligrams. 8. GI prophylaxis Protonix 40 milligrams p.o. twice a day. 9. Pulmonary nodule pulmonary input noted. 10. blood culture positive .on Flagyl and Ceftriaxone per ID Recomendation. 11. Hemoglobin was 6.9 Possible GI Bleed S/P 2 units PRBC Transfusion have Iron deficiency anemia on replacement.. fecal occult blood test positive, H and H monitoring.. GI Input noted S/P endoscopy shows Gastritis 12. .Hypokalemia will replace and monitor. 13. CT Abdomen and Pelvis shows acute diverticulitis and Psoas abscess General surgery input noted S/P abscess drainage by Interventional radiology, culture positive for mixed anaerobs...on Flagyl and Ceftriaxone per ID Recommendation. S/P CT Scan of abdomen and pelvis shows severe inflammation and thickening of the proximal sigmoid colon with descending colon immediately proximal to this area is now dilated suggesting there may be some degree of obstruction. The inflammatory changes that fistulized into the left psoas muscle and iliopsoas muscle and measure approximately 7.7 x 1.7 cm Patient ? needs diverting colostomy We are going to manage the patient on a daily basis and make recommendations on a daily basis. Check CBC with diff CMP in AM. Discussed Condition with: Patient Reed Up MD Nov 28, 2016 10:45
[2016-11-28 13:07] LABS: AUTOMATED NEUTROPHIL # 6.9 TH/MM3 (1.8-7.7); BASOPHIL # 0.1 TH/MM3 (0-0.2); BASOPHIL % 0.6 % (0.0-2.0); EOSINOPHIL # 0.1 TH/MM3 (0-0.4); EOSINOPHIL % 0.9 % (0.0-4.0); HEMATOCRIT 28.4 % (35.0-46.0); LYMPH % 14.7 % (9.0-44.0); LYMPHOCYTE # 1.3 TH/MM3 (1.0-4.8); MEAN CELL VOLUME 77.9 FL (80.0-100.0); MEAN CORPUSCULAR HEMOGLOBIN 24.6 PG (27.0-34.0); MEAN CORPUSCULAR HGB CONC 31.5 % (32.0-36.0); MONO % 7.3 % (0.0-8.0); NEUT % 76.5 % (16.0-70.0); PLATELET COUNT 417 TH/MM3 (150-450); RED BLOOD COUNT 3.64 MIL/MM3 (4.00-5.30); RED CELL DISTRIBUTION WIDTH 22.3 % (11.6-17.2)
[2016-11-28 13:08] LABS: HEMO FLAGS AUTO DIFF
[2016-11-28] MEDS: SODIUM CHLOR 0.45% 1000 ML INJ 1,000 ML IV SCH (13:08)
[2016-11-28] MEDS: PANTOPRAZOLE SODIUM 40 MG VIAL IV PUSH SCH ×2 (13:08→23:11)
[2016-11-28 13:28] LABS: ALT (GPT) 15 U/L (10-53); ANION GAP 5 MEQ/L (5-15); AST (GOT) 16 U/L (15-37); BLOOD UREA NITROGEN 12 MG/DL (7-18); CHLORIDE 101 MEQ/L (98-107); GLOMERULAR FILTRATION RATE 116 ML/MIN (>89); POTASSIUM 3.8 MEQ/L (3.5-5.1); SODIUM (NA) 140 MEQ/L (136-145)
[2016-11-28 13:30] LABS: ALKALINE PHOSPHATASE 70 U/L (45-117); TOTAL BILIRUBIN ADULT 0.2 MG/DL (0.2-1.0)
[2016-11-28 13:49] LABS: BANDS 2 % (0-6); MYELOCYTES 2 % (0-0); NEUTROPHIL # MANUAL DIFF 7.2 TH/MM3 (1.8-7.7); POLYS (SEG NEUTROPHILS) 76 % (16-70); WBC DIFF SAMPLE 100
[2016-11-28 13:50] LABS: PLATELET ESTIMATE SMEAR NORMAL (NORMAL); PLATELET MORPHOLOGY NORMAL (NORMAL); SCAN/DIFF FINAL DIFF MANUAL
[2016-11-28] MEDS: cefTRIAXone INJ 1,000 MG in SODIUM CHLORIDE 0.9% INJ 100 ML IV SCH (15:16)
[2016-11-28] MEDS: ONDANSETRON HCL 4 MG/2 ML VIAL IVP PRN ×2 (17:02→23:11)
[2016-11-28] MEDS: ENOXAPARIN SODIUM 40 MG/0.4 ML SYRINGE SQ SCH (20:21)
[2016-11-29] VITALS (7 sets, daily range): BP systolic 111–171; BP diastolic 55–68; PULSE 67–81; RESP 17–24; TEMP 95.4–96.8; O2SAT 92–98
[2016-11-29] MEDS: ONDANSETRON HCL 4 MG/2 ML VIAL IVP PRN ×2 (03:26→22:05)
[2016-11-29] MEDS: SODIUM CHLOR 0.45% 1000 ML INJ 1,000 ML IV SCH ×3 (03:29→22:07)
[2016-11-29 04:03] LABS: AUTOMATED NEUTROPHIL # 6.8 TH/MM3 (1.8-7.7); BASOPHIL # 0.2 TH/MM3 (0-0.2); EOSINOPHIL # 0.1 TH/MM3 (0-0.4); EOSINOPHIL % 0.8 % (0.0-4.0); HEMATOCRIT 28.7 % (35.0-46.0); LYMPH % 11.5 % (9.0-44.0); MEAN CORPUSCULAR HEMOGLOBIN 24.6 PG (27.0-34.0); MEAN CORPUSCULAR HGB CONC 31.6 % (32.0-36.0); MONO % 7.2 % (0.0-8.0); NEUT % 78.5 % (16.0-70.0); PLATELET COUNT 449 TH/MM3 (150-450); RED BLOOD COUNT 3.67 MIL/MM3 (4.00-5.30); RED CELL DISTRIBUTION WIDTH 22.5 % (11.6-17.2); WHITE BLOOD COUNT 8.7 TH/MM3 (4.0-11.0)
[2016-11-29 04:05] LABS: HEMO FLAGS AUTO DIFF
[2016-11-29 04:28] LABS: ANION GAP 8 MEQ/L (5-15); AST (GOT) 14 U/L (15-37); BICARBONATE 33.2 MEQ/L (21.0-32.0); BLOOD UREA NITROGEN 11 MG/DL (7-18); CHLORIDE 101 MEQ/L (98-107); GLOMERULAR FILTRATION RATE 133 ML/MIN (>89); POTASSIUM 3.5 MEQ/L (3.5-5.1); SODIUM (NA) 142 MEQ/L (136-145)
[2016-11-29 04:30] LABS: ALKALINE PHOSPHATASE 65 U/L (45-117); ALT (GPT) 15 U/L (10-53); TOTAL BILIRUBIN ADULT 0.2 MG/DL (0.2-1.0)
[2016-11-29] MEDS: cloNIDine HCL 0.2 MG TAB PO SCH ×3 (04:51→21:59)
[2016-11-29] MEDS: INSULIN NovoLIN REGULAR SUPPLEMENTAL SCALE SQ SCH ×4 (04:53→19:58)
[2016-11-29 04:59] LABS: BANDS 13 % (0-6); EOSINOPHILS 1 % (0-4); METAMYELOCYTES 1 % (0-1); MYELOCYTES 1 % (0-0); NEUTROPHIL # MANUAL DIFF 7.2 TH/MM3 (1.8-7.7); POLYS (SEG NEUTROPHILS) 67 % (16-70); PROMYELOCYTES 1 % (0-0); WBC DIFF SAMPLE 100
[2016-11-29 05:01] LABS: PLATELET ESTIMATE SMEAR NORMAL (NORMAL); PLATELET MORPHOLOGY NORMAL (NORMAL); STOMATOCYTES 1+ (NORMAL)
[2016-11-29 05:02] LABS: OVALOCYTES 1+ (NORMAL); SCAN/DIFF FINAL DIFF MANUAL
[2016-11-29] MEDS: SODIUM CHLORIDE 0.9% 10 ML VIAL IRRIGATION SCH (09:00)
[2016-11-29] MEDS: SODIUM CHLORIDE 0.9% FLUSH 10 ML FLUSH IV FLUSH SCH ×2 (09:00→21:59)
[2016-11-29] MEDS: DOCUSATE SODIUM 50 MG/SENNA 8.6 MG TAB PO SCH ×3 (09:00→21:00)
--- NOTE | 2016-11-29 09:12 | PD.ONC.PN ---
Subjective Subjective Remarks Afebrile overnight. States she feels nauseated, with upset stomach. Ate a little for lunch yesterday. No breakfast yet today. No vomiting. Having bowel movements. CT from 11/27 showed increasing proximal sigmoid colon inflammation with some suggestion of partial obstruction. Surgery considering transverse colostomy. Objective Data Date Time Temp Pulse Resp B/P Pulse Ox O2 Delivery O2 Flow Rate FiO2 11/29/16 08:00 95.4 68 18 141/60 98 11/29/16 04:00 96.4 77 18 146/67 96 11/29/16 00:00 96.6 81 18 171/68 92 11/28/16 21:39 95 Nasal Cannula 3.00 11/28/16 20:20 Nasal Cannula 2.00 11/28/16 20:00 96.0 82 18 126/59 96 11/28/16 16:00 94.3 68 16 114/56 96 11/28/16 12:00 95.3 61 16 131/61 99 11/28/16 10:00 98 Nasal Cannula 3.00 11/29/16 11/29/16 11/29/16 07:00 15:00 23:00 Intake Total 667 ml Output Total 250 ml Balance 417 ml Result Diagram: 11/29/16 0342 11/29/16 0342 Laboratory Results Laboratory Tests Test 11/28/16 11/29/16 12:52 03:42 White Blood Count 9.0 TH/MM3 8.7 TH/MM3 Red Blood Count 3.64 MIL/MM3 3.67 MIL/MM3 Hemoglobin 8.9 GM/DL 9.1 GM/DL Hematocrit 28.4 % 28.7 % Mean Corpuscular Volume 77.9 FL 78.0 FL Mean Corpuscular Hemoglobin 24.6 PG 24.6 PG Mean Corpuscular Hemoglobin 31.5 % 31.6 % Concent Red Cell Distribution Width 22.3 % 22.5 % Platelet Count 417 TH/MM3 449 TH/MM3 Mean Platelet Volume 6.8 FL 6.9 FL Neutrophils (%) (Auto) 76.5 % 78.5 % Lymphocytes (%) (Auto) 14.7 % 11.5 % Monocytes (%) (Auto) 7.3 % 7.2 % Eosinophils (%) (Auto) 0.9 % 0.8 % Basophils (%) (Auto) 0.6 % 2.0 % Neutrophils # (Auto) 6.9 TH/MM3 6.8 TH/MM3 Lymphocytes # (Auto) 1.3 TH/MM3 1.0 TH/MM3 Monocytes # (Auto) 0.7 TH/MM3 0.6 TH/MM3 Eosinophils # (Auto) 0.1 TH/MM3 0.1 TH/MM3 Basophils # (Auto) 0.1 TH/MM3 0.2 TH/MM3 CBC Comment AUTO DIFF AUTO DIFF Differential Total Cells 100 100 Counted Neutrophils % (Manual) 76 % 67 % Band Neutrophils % 2 % 13 % Lymphocytes % 12 % 12 % Monocytes % 8 % 4 % Neutrophils # (Manual) 7.2 TH/MM3 7.2 TH/MM3 Myelocytes 2 % 1 % Differential Comment FINAL DIFF FINAL DIFF MANUAL MANUAL Platelet Estimate NORMAL NORMAL Platelet Morphology Comment NORMAL NORMAL Sodium Level 140 MEQ/L 142 MEQ/L Potassium Level 3.8 MEQ/L 3.5 MEQ/L Chloride Level 101 MEQ/L 101 MEQ/L Carbon Dioxide Level 34.0 MEQ/L 33.2 MEQ/L Anion Gap 5 MEQ/L 8 MEQ/L Blood Urea Nitrogen 12 MG/DL 11 MG/DL Creatinine 0.52 MG/DL 0.46 MG/DL Estimat Glomerular Filtration 116 ML/MIN 133 ML/MIN Rate Random Glucose 122 MG/DL 124 MG/DL Calcium Level 7.8 MG/DL 7.6 MG/DL Total Bilirubin 0.2 MG/DL 0.2 MG/DL Aspartate Amino Transf 16 U/L 14 U/L (AST/SGOT) Alanine Aminotransferase 15 U/L 15 U/L (ALT/SGPT) Alkaline Phosphatase 70 U/L 65 U/L Total Protein 5.3 GM/DL 5.0 GM/DL Albumin 1.7 GM/DL 1.6 GM/DL Eosinophils % 1 % Metamyelocytes 1 % Promyelocytes 1 % Ovalocytes 1+ Stomatocytes 1+ Culture Results Microbiology Date/Time Procedure Status Source Growth 11/27/16 16:30 Aerobic Blood Culture - Preliminary Resulted Blood Peripheral NO GROWTH IN 1 DAY 11/27/16 16:30 Anaerobic Blood Culture - Preliminary Resulted Blood Peripheral NO GROWTH IN 1 DAY 11/27/16 16:45 Aerobic Blood Culture - Preliminary Resulted Blood Peripheral NO GROWTH IN 1 DAY 11/27/16 16:45 Anaerobic Blood Culture - Preliminary Resulted Blood Peripheral NO GROWTH IN 1 DAY Administered Medications Medications (Trade) Dose Ordered Sig/Livia Route PRN Reason Start Time Stop Time Status Last Admin Dose Admin Sodium Chloride (1/2 NS 1000 ml Inj) 1,000 ml @ 75 mls/hr [id number] IV 11/08/16 13:57 11/29/16 03:29 Sodium Chloride (NS Flush) 2 ml UNSCH PRN IV FLUSH FLUSH AFTER USING IV ACCESS 11/08/16 14:00 11/17/16 11:02 Sodium Chloride (NS Flush) 2 ml BID IV FLUSH 11/08/16 21:00 11/27/16 21:00 Acetaminophen (Tylenol) 650 mg Q4H PRN PO TEMP > 100.4 11/08/16 14:00 11/21/16 02:05 Senna/Docusate Sodium (Kathy-Colace) 1 tab BID PO 11/08/16 21:00 11/26/16 22:23 Pantoprazole Sodium (Protonix Inj) 40 mg Q12H IV PUSH 11/08/16 23:00 11/28/16 23:11 Enoxaparin Sodium (Lovenox Inj) 40 mg Q24H SQ 11/08/16 20:00 11/28/16 20:21 Allopurinol (Zyloprim) 300 mg DAILY PO 11/09/16 09:00 11/28/16 08:12 Amlodipine Besylate (Norvasc) 5 mg DAILY PO 11/09/16 09:00 11/28/16 08:14 Aspirin (Aspirin Chew) 81 mg DAILY CHEW 11/09/16 09:00 11/28/16 08:14 Carvedilol (Coreg) 25 mg BID PO 11/08/16 21:00 11/28/16 20:21 Clonidine (Catapres) 0.2 mg Q8HR PO 11/08/16 22:00 11/29/16 04:51 Lisinopril (Prinivil) 5 mg BID PO 11/08/16 21:00 11/28/16 20:21 Pravastatin Sodium (Pravachol) 40 mg DAILY PO 11/09/16 09:00 11/28/16 08:14 Metformin HCl (Glucophage) 500 mg DAILY PO 11/09/16 09:00 11/28/16 08:12 Pioglitazone HCl (Actos) 15 mg DAILY PO 11/09/16 09:00 11/28/16 08:13 Albuterol Sulfate (Proair Hfa Inh) 2 puff Q6H PRN INH WHEEZING 11/09/16 18:00 11/23/16 22:09 Acetaminophen (Tylenol) 650 mg Q6H PRN PO PAIN 1-10 11/13/16 21:00 11/18/16 17:01 Sodium Chloride 10 ml 10 ml DAILY IRRIGATION 11/16/16 09:00 11/19/16 08:50 Ceftriaxone Sodium/Sodium Chloride (Rocephin Inj/NS Inj) 100 ml @ 200 mls/hr Q24H IV 11/26/16 16:00 11/28/16 15:16 Metronidazole (Flagyl) 500 mg Q8H PO 11/26/16 16:00 11/28/16 15:16 Calcium Carbonate (Oscal) 500 mg Q12HR PO 11/27/16 13:00 11/28/16 20:21 Ondansetron HCl (Zofran Inj) 4 mg Q4H PRN IVP NAUSEA OR VOMITING 11/29/16 03:30 11/29/16 03:26 Objective Remarks GENERAL: Obese elderly female, lying supine in bed in nad. SKIN: Warm and dry. HEAD: Normocephalic. EYES: No injection or drainage. NECK: Supple, trachea midline. CARDIOVASCULAR: Regular rate and rhythm RESPIRATORY: Breath sounds equal bilaterally. No accessory muscle use. GASTROINTESTINAL: Abdomen mildly distended, obese, soft. a few old bruises noted on abdomen. EXTREMITIES: No cyanosis NEUROLOGICAL: awake and alert, normal speech. Assessment/Plan Assessment 71-year-old female with sigmoid colon mass. pathology showed chronic colitis/ gastritis. +Microcytic anemia d/t GIB. --CAP: shows multiple sub-cm pulmonary nodules and perirectal/sigmoid colon abscess/mass associated with fat stranding. She was also noted to have a 2 cm adrenal adenoma, nonspecific Plan 1. sigmoid colon mass: pathology from biopsy shows chronic colitis/gastritis. discussed pathology results with patient. discussed that we still have to suspect cancer and and need for follow up in clinic and eventually repeat biopsy. d/t recent pelvic CT results suggesting partial obstruction-->patient may have diverting colostomy inpatient, will await surgery plan. if colostomy is done inpatient we will await pathology at that time, otherwise will repeat biopsy outpatient. 2. fs faxed to new patient referrals 3. patient does not need to stay inpatient for repeat biopsy, once she is cleared from other specialities she may be discharged from oncology standpoint as well. Toyin Joseph Nov 29, 2016 09:12
[2016-11-29] MEDS: metroNIDAZOLE 500 MG TAB PO SCH ×3 (10:17→22:05)
[2016-11-29] MEDS: metFORMIN HCL 500 MG TAB PO SCH (10:18)
[2016-11-29] MEDS: amLODIPine BESYLATE 5 MG TAB PO SCH (10:18)
[2016-11-29] MEDS: ALLOPURINOL 300 MG TAB PO SCH (10:18)
[2016-11-29] MEDS: PRAVASTATIN SOD 40 MG TAB PO SCH (10:18)
[2016-11-29] MEDS: CARVEDILOL 12.5 MG TAB PO SCH ×2 (10:18→21:59)
[2016-11-29] MEDS: ASPIRIN 81 MG CHEW TAB CHEW SCH (10:19)
[2016-11-29] MEDS: LISINOPRIL 5 MG TAB PO SCH ×2 (10:19→21:59)
[2016-11-29] MEDS: CALCIUM CARBONATE 1.25 GM (CA 500 MG) TAB PO SCH ×2 (10:19→21:59)
[2016-11-29] MEDS: PIOGLITAZONE HCL 15 MG TAB PO SCH (10:19)
[2016-11-29] MEDS: PANTOPRAZOLE SODIUM 40 MG VIAL IV PUSH SCH ×2 (10:24→22:00)
--- NOTE | 2016-11-29 14:10 | HHI.PR ---
Subjective Subjective Notes Ms. Keyes denies abdominal or hip pain. She states she is having some stools. She has some nausea also. CT a/p on 11/26 showed increase in size of colonic mass and associated psoas abscess, with proximal colonic dilation consistent with partial obstruction. Objective Vitals/I&O Vital Signs Date Time Temp Pulse Resp B/P Pulse Ox O2 Delivery O2 Flow Rate FiO2 11/29/16 12:00 96.8 67 17 111/55 95 11/29/16 10:17 Nasal Cannula 2.00 11/27/16 03:06 21 Labs Laboratory Tests Test 11/29/16 03:42 White Blood Count 8.7 Red Blood Count 3.67 Hemoglobin 9.1 Hematocrit 28.7 Mean Corpuscular Volume 78.0 Mean Corpuscular Hemoglobin 24.6 Mean Corpuscular Hemoglobin 31.6 Concent Red Cell Distribution Width 22.5 Platelet Count 449 Mean Platelet Volume 6.9 Neutrophils (%) (Auto) 78.5 Lymphocytes (%) (Auto) 11.5 Monocytes (%) (Auto) 7.2 Eosinophils (%) (Auto) 0.8 Basophils (%) (Auto) 2.0 Neutrophils # (Auto) 6.8 Lymphocytes # (Auto) 1.0 Monocytes # (Auto) 0.6 Eosinophils # (Auto) 0.1 Basophils # (Auto) 0.2 CBC Comment AUTO DIFF Differential Total Cells 100 Counted Neutrophils % (Manual) 67 Band Neutrophils % 13 Lymphocytes % 12 Monocytes % 4 Eosinophils % 1 Neutrophils # (Manual) 7.2 Metamyelocytes 1 Myelocytes 1 Promyelocytes 1 Differential Comment FINAL DIFF MANUAL Platelet Estimate NORMAL Platelet Morphology Comment NORMAL Ovalocytes 1+ Stomatocytes 1+ Sodium Level 142 Potassium Level 3.5 Chloride Level 101 Carbon Dioxide Level 33.2 Anion Gap 8 Blood Urea Nitrogen 11 Creatinine 0.46 Estimat Glomerular Filtration 133 Rate Random Glucose 124 Calcium Level 7.6 Total Bilirubin 0.2 Aspartate Amino Transf 14 (AST/SGOT) Alanine Aminotransferase 15 (ALT/SGPT) Alkaline Phosphatase 65 Total Protein 5.0 Albumin 1.6 Date/Time Procedure Status Source Growth 11/27/16 16:45 Aerobic Blood Culture - Preliminary Resulted Blood Peripheral NO GROWTH IN 2 DAYS 11/27/16 16:45 Anaerobic Blood Culture - Preliminary Resulted Blood Peripheral NO GROWTH IN 2 DAYS Radiology Last Impressions Abdomen/Pelvis CT 11/14/16 0000 Signed Impressions: Service Date/Time: Monday, November 14, 2016 10:54 - CONCLUSION: 1. Acute sigmoid diverticulitis with adjacent abscess involving the psoas muscle. 2. Paraumbilical fat containing hernia. 3. 2 cm left adrenal nodule, nonspecific. Dmitri Huynh MD Chest X-Ray 11/12/16 0600 Signed Impressions: Service Date/Time: Saturday, November 12, 2016 05:47 - CONCLUSION: Cardiomegaly. No acute cardiopulmonary disease. Semaj Coker MD Chest CT 11/08/16 0000 Signed Impressions: Service Date/Time: Tuesday, November 08, 2016 19:23 - CONCLUSION: 1. Innumerable noncalcified subcentimeter pulmonary nodules with the largest measuring 8 mm in the left lower lobe posteriorly. Although these are nonspecific metastatic disease remains in the differential. PET/CT scan may be helpful for further evaluation of the largest of these nodules if clinically indicated. 2. Coronary artery calcifications. 3. Left adrenal mass measuring 2.7 x 2.5 cm which is nonspecific. Ketan Schofield MD Narrative Exam NAD, flat affect. Obese. Hirsute. Nonlabored breathing Abd: soft, mild left sided ttp A/P Assessment and Plan 71 yo F sigmoid mass with associated abscess, adrenal mass, pulmonary nodules, ventral hernia which appears to be incarcerated with omentum. Colonoscopy revealed severe obstructing mass vs colitis in sigmoid colon. Biopsies are benign but this probably does not rule out malignancy. The patient would benefit from diversion. I recommend laparoscopy with probable loop transverse colostomy. There is a chance she would be able to undergo primary sigmoid resection without diversion but she is fairly high risk for anastomotic complications due to obesity, protein calorie malnutrition, and proximal obstruction. I would not be comfortable performing primary resection without any diversion. However, the patient flatly REFUSES OSTOMY of any kind, and states that she "would rather " than have an ostomy. I further discussed that these can be temporary and are reversible, and that many people do very well with stomas and live functioning lives. She again refused. I am going to ask palliative care to see her to help delineate decision making. I will see her again tomorrow. Charles Garay MD Nov 29, 2016 14:09
[2016-11-29] MEDS: cefTRIAXone INJ 1,000 MG in SODIUM CHLORIDE 0.9% INJ 100 ML IV SCH (16:11)
--- NOTE | 2016-11-29 16:45 | PD.CONS ---
Consult Service Palliative Care Consult Requested By Dr. Garay . Primary Care Physician Unknown . Reason for Consultation a. To assist with evaluation and management of symptoms including: Pain, nausea, fatigue b. To assist medical decision maker(s) with: better understanding of current medical conditions; weighing benefits/burdens of medical treatment options; making medical treatment decisions. . HPI History of Present Illness This 71-year-old female, with a past history of hypertension, diabetes, obesity , hyperlipidemia, and gout, presented to the emergency department on 11/08/16 after 3 or 4 weeks of nausea, fatigue, and loss of appetite. At that time, she denied abdominal pain or fever, and she had not noticed any GI bleeding. In the emergency department, findings included: * Temp 98.2, pulse 78, respirations 17, blood pressure 108/47, oxygen saturation 97% on room air * White count 16.0, hemoglobin 8.3 * Sodium 146, creatinine 0.93, albumin 1.9 * Chest x-ray unremarkable The patient was admitted in the evaluation was continued. A CT scan of the chest the following day revealed multiple small pulmonary nodules, significance uncertain. The patient was transfused, and she was seen by gastroenterology on 11/10/16; EGD and colonoscopy were recommended, but the patient refused that time. Her blood cultures grew a staph organism but it was felt to probably be contaminant. A CT scan of the abdomen/pelvis on 11/15/16 revealed apparent diverticulitis with abscess formation. By that time, her white count was 9.5, but her albumin was now 1.6. Oncology evaluated the patient and strongly recommended colonoscopy, suspecting that the colon issue could in fact be a malignancy and the pulmonary nodules perhaps metastatic disease. On 11/15/16, IR placed a drain in the abscess. The patient did have some abdominal pain intermittently, but not severe. CT of the pelvis was repeated on 11/19/16, and the inflammation seemed to be worse. The patient finally consented to colonoscopy, and that was completed on 11/23/16; severe diverticulosis was found, and the sigmoid was nearly completely obstructed and the scope could not be passed beyond that. A polypoid mass was noted and biopsy specimens were obtained. The pelvis CT was repeated again on , and the inflammation then appeared to be severe. In addition, there was some dilatation of the colon proximal to the obstruction, suggesting that the obstruction was nearly complete. The patient now says that she has been mildly short of breath intermittently over the past couple days. Coughing. The pathology returned from the colon mass biopsy and revealed inflammation but no definite malignancy. Surgery met with the patient and has recommended a diverting colostomy, and initially the patient flat out refused consideration for surgery. Palliative Care was consulted to assist with symptom management, and to enter into discussions with the patient and her HCS regarding the current issues, the prognosis, and the benefits and burdens of the various treatment options. . Function/Cognitive Trajectory The patient was functioning is somewhat independently prior to this hospitalization, ambulatory, caring for herself. She was not driving a car but she says that is "because I don't have one." . Review of Systems Constitutional: COMPLAINS OF: Fatigue, DENIES: Weight gain, Weight loss Endocrine: DENIES: Polyuria Eyes: DENIES: Eye inflammation Ears, nose, mouth, throat: DENIES: Epistaxis Respiratory: COMPLAINS OF: Shortness of breath (intermittently the past few days), DENIES: Cough Cardiovascular: COMPLAINS OF: Lower Extremity Edema, DENIES: Chest pain, Syncope Gastrointestinal: COMPLAINS OF: Black stools (intermittently), Nausea, DENIES : Bloody stools, Constipation, Vomiting, Vomiting blood Genitourinary: DENIES: Hematuria Musculoskeletal: DENIES: Joint Swelling, Back pain, Neck pain Integumentary: DENIES: Rash Hematologic/Lymphatics: DENIES: Bruising Immunologic/Allergic: DENIES: Urticaria Neurologic: DENIES: Headache, Localized weakness, Seizures Psychiatric: DENIES: Confusion, Hallucinations, Agitation Past Family Social History Coded Allergies: No Known Allergies (Unverified , 11/08/16) Past Medical History * Pelvis abscess/mass, near complete colon obstruction * Diverticulosis/diverticulitis * Periumbilical fat containing hernia * Multiple pulmonary nodules, etiology undetermined * Malnutrition, hypoalbuminemia * Adrenal adenoma * Hypertension * Gout * Diabetes * Hyperlipidemia * Obesity . Past Surgical History * Cholecystectomy * Hysterectomy * Transcutaneous drain placement for pelvic abscess 11/15/16 * Colonoscopy with biopsy of sigmoid mass 11/23/16 . Reported Medications Fish Oil ([place]-3 Fatty Acids) 1,000 Mg Cap 1 Tab PO DAILY Aspirin 81 Mg Chew 81 Mg CHEW DAILY Lovastatin 40 Mg Tab 40 Mg PO DAILY Amlodipine (Amlodipine Besylate) 5 Mg Tab 5 Mg PO DAILY Pioglitazone (Pioglitazone HCl) 15 Mg Tab 15 Mg PO DAILY Metformin (Metformin HCl) 500 Mg Tab 500 Mg PO DAILY Carvedilol 25 Mg Tab 25 Mg PO BID Allopurinol 300 Mg Tab 300 Mg PO DAILY Lisinopril 5 Mg Tab 5 Mg PO BID Clonidine (Clonidine HCl) 0.2 Mg Tab 0.2 Mg PO Q8HR . Current Medications Medications (Trade) Dose Ordered Sig/Livia Route Start Time Stop Time Status Last Admin (06/14 NS 1000 ml Inj) 1,000 ml @ 75 mls/hr [id number] IV 11/08/16 13:57 11/29/16 10:16 (NS Flush) 2 ml UNSCH PRN IV FLUSH 11/08/16 14:00 11/17/16 11:02 (NS Flush) 2 ml BID IV FLUSH 11/08/16 21:00 11/27/16 21:00 (Tylenol) 650 mg Q4H PRN PO 11/08/16 14:00 11/21/16 02:05 (Narcan Inj) 0.4 mg UNSCH PRN IV 11/08/16 14:00 (Kathy-Colace) 1 tab BID PO 11/08/16 21:00 11/26/16 22:23 (Milk Of Magnesia Liq) 30 ml Q12H PRN PO 11/08/16 14:00 (Senokot) 17.2 mg Q12H PRN PO 11/08/16 14:00 (Dulcolax Supp) 10 mg DAILY PRN RECTAL 11/08/16 14:00 (Lactulose Liq) 30 ml DAILY PRN PO 11/08/16 14:00 (Protonix Inj) 40 mg Q12H IV PUSH 11/08/16 23:00 11/29/16 10:24 (D50w (Vial) Inj) 50 ml UNSCH PRN IV 11/08/16 14:00 (Glucagon Inj) 1 mg UNSCH PRN OTHER 11/08/16 14:00 (Lovenox Inj) 40 mg Q24H SQ 11/08/16 20:00 11/28/16 20:21 (Zyloprim) 300 mg DAILY PO 11/09/16 09:00 11/29/16 10:18 (Norvasc) 5 mg DAILY PO 11/09/16 09:00 11/29/16 10:18 (Aspirin Chew) 81 mg DAILY CHEW 11/09/16 09:00 11/29/16 10:19 (Coreg) 25 mg BID PO 11/08/16 21:00 11/29/16 10:18 (Catapres) 0.2 mg Q8HR PO 11/08/16 22:00 11/29/16 04:51 (Prinivil) 5 mg BID PO 11/08/16 21:00 11/29/16 10:19 (Pravachol) 40 mg DAILY PO 11/09/16 09:00 11/29/16 10:18 (Glucophage) 500 mg DAILY PO 11/09/16 09:00 11/29/16 10:18 (Actos) 15 mg DAILY PO 11/09/16 09:00 11/29/16 10:19 (Proair Hfa Inh) 2 puff Q6H PRN INH 11/09/16 18:00 11/23/16 22:09 (Tylenol) 650 mg Q6H PRN PO 11/13/16 21:00 11/18/16 17:01 Sodium Chloride 10 ml 10 ml DAILY IRRIGATION 11/16/16 09:00 11/19/16 08:50 (Rocephin Inj/NS Inj) 100 ml @ 200 mls/hr Q24H IV 11/26/16 16:00 11/29/16 16:11 (Flagyl) 500 mg Q8H PO 11/26/16 16:00 11/29/16 16:11 (Oscal) 500 mg Q12HR PO 11/27/16 13:00 11/29/16 10:19 (Zofran Inj) 4 mg Q4H PRN IVP 11/29/16 03:30 11/29/16 03:26 Family History The patient's father of bladder cancer, and her mother of "old age." Her sister just about 6 months ago with heart disease and kidney disease. The family history is positive for diabetes. . Substance Use Tobacco: She smoked for more than 30 years, but quit about 10 years ago. Alcohol: None Prescription med abuse: None Illicits: None . Psychosocial History The patient was born in [place], but moved to this area many years ago. She lived with her sister and [id number]-wdd, and now with her tfztura-fc-nrb Jakob since her sister in May 2016. She was once, many years ago. She has a stepdaughter Gifty who lives in [place]. She has no children (although one record indicates that she had 1 child given up for adoption). 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 She did work in the [employer] business run by her . . Spiritual/Cultural Factors The patient has a [employer] background, and did see the [facility] land sales agent here, but reports she is not particularly spiritual or anabaptism. . Living Will: Completed, but not made available Health Care Surrogate: Never completed Durable Power of Clock And Watch Hands Painter: Never completed Health Care Surrogate(s): The patient tells me that she would want her [id number]-[id number] Jakob Lowery to be her healthcare surrogate. . Today's verbally stated goals: The patient has initially been reluctant to undergo any surgery, but now is reconsidering. She tells me that she would definitely not want to be resuscitated under any circumstances, and would never want to be on life support machines. She understands that the DNR would be revoked prior to going to the operating room for any surgery, and that it could be reinstituted in the postop days. . Ethical and Legal Issues There are no ethical issues that would impact her care or decision-making at this time. The patient has capacity for decision-making. She says that if she loses that capacity she would want her [id number]-pv-[id number] Jakob Lowery to be her healthcare surrogate decision maker. . Physical Exam Vital Signs Date Time Temp Pulse Resp B/P Pulse Ox O2 Delivery O2 Flow Rate FiO2 11/29/16 12:00 96.8 67 17 111/55 95 11/29/16 10:17 Nasal Cannula 2.00 11/29/16 09:15 96 Nasal Cannula 2.00 11/29/16 08:00 95.4 68 18 141/60 98 11/29/16 04:00 96.4 77 18 146/67 96 11/29/16 00:00 96.6 81 18 171/68 92 11/28/16 21:39 95 Nasal Cannula 3.00 11/28/16 20:20 Nasal Cannula 2.00 11/28/16 20:00 96.0 82 18 126/59 96 11/28/16 11/29/16 19:00 07:00 Intake Total 1035 ml 1555 ml Output Total 250 ml Balance 1035 ml 1305 ml Intake Oral 300 ml 480 ml IV Total 735 ml 1075 ml Output Urine Total 250 ml # Voids 5 3 # Bowel Movements 1 0 Exam CONSTITUTIONAL/GENERAL: This is an elderly, weak appearing patient, in no apparent distress. TUBES/LINES/DRAINS: Nasal cannula oxygen, peripheral IV SKIN: No jaundice, rashes, or lesions. Ecchymoses on upper extremities. No wounds seen anteriorly. Skin temperature appropriate. Not diaphoretic. HEAD: Atraumatic. Normocephalic. EYES: Pupils equal and round and reactive. Extraocular motions intact. No scleral icterus. No injection or drainage. Fundi not examined. ENT: Hearing grossly normal. Nose without bleeding or purulent drainage. Throat without visible erythema, exudates, masses, or lesions. NECK: Trachea midline. Supple, nontender. No palpable thyroid enlargement or nodularity. CARDIOVASCULAR: Regular rate and rhythm without murmurs, gallops, or rubs. No JVD. Peripheral pulses symmetric. RESPIRATORY/CHEST: Symmetric, unlabored respirations. Clear to auscultation. Breath sounds equal bilaterally. No wheezes, rales, or rhonchi. GASTROINTESTINAL: Abdomen soft, obese, and mild/moderately distended. There is a nontender 3 x 4 cm apparent sub-umbilical hernia. No hepato-splenomegaly. No guarding. Bowel sounds present. GENITOURINARY: Without palpable bladder distension. MUSCULOSKELETAL: Extremities without clubbing, cyanosis, but she has 3+ edema involving her entire legs and arms. No joint tenderness or effusion noted. No calf tenderness. No mottling or clubbing. LYMPHATICS: No palpable cervical or supraclavicular adenopathy. NEUROLOGICAL: Awake and alert. Motor and sensory grossly within normal limits but she is quite weak. Follows commands. Cognitively sharp. Moves all extremities. PSYCHIATRIC: No obvious anxiety/depression. no apparent hallucinations or other psychotic thought process. . Diagnostic Tests Laboratory Laboratory Tests Test 11/26/16 11/27/16 11/28/16 11/29/16 16:26 05:15 12:52 03:42 C-Reactive Protein 7.58 MG/DL (0.00-0.30) White Blood Count 8.6 TH/MM3 9.0 TH/MM3 8.7 TH/MM3 (4.0-11.0) (4.0-11.0) (4.0-11.0) Red Blood Count 3.30 MIL/MM3 3.64 MIL/MM3 3.67 MIL/MM3 (4.00-5.30) (4.00-5.30) (4.00-5.30) Hemoglobin 8.0 GM/DL 8.9 GM/DL 9.1 GM/DL (11.6-15.3) (11.6-15.3) (11.6-15.3) Hematocrit 25.6 % 28.4 % 28.7 % (35.0-46.0) (35.0-46.0) (35.0-46.0) Mean Corpuscular Volume 77.8 FL 77.9 FL 78.0 FL (80.0-100.0) (80.0-100.0) (80.0-100.0) Mean Corpuscular Hemoglobin 24.4 PG 24.6 PG 24.6 PG (27.0-34.0) (27.0-34.0) (27.0-34.0) Mean Corpuscular Hemoglobin 31.4 % 31.5 % 31.6 % Concent (32.0-36.0) (32.0-36.0) (32.0-36.0) Red Cell Distribution Width 22.2 % 22.3 % 22.5 % (11.6-17.2) (11.6-17.2) (11.6-17.2) Platelet Count 308 TH/MM3 417 TH/MM3 449 TH/MM3 (150-450) (150-450) (150-450) Mean Platelet Volume 6.8 FL 6.8 FL 6.9 FL (7.0-11.0) (7.0-11.0) (7.0-11.0) Neutrophils (%) (Auto) 77.2 % 76.5 % 78.5 % (16.0-70.0) (16.0-70.0) (16.0-70.0) Lymphocytes (%) (Auto) 13.4 % 14.7 % 11.5 % (9.0-44.0) (9.0-44.0) (9.0-44.0) Monocytes (%) (Auto) 8.7 % (0.0-8.0) 7.3 % (0.0-8.0) 7.2 % (0.0-8.0) Eosinophils (%) (Auto) 0.3 % (0.0-4.0) 0.9 % (0.0-4.0) 0.8 % (0.0-4.0) Basophils (%) (Auto) 0.4 % (0.0-2.0) 0.6 % (0.0-2.0) 2.0 % (0.0-2.0) Neutrophils # (Auto) 6.7 TH/MM3 6.9 TH/MM3 6.8 TH/MM3 (1.8-7.7) (1.8-7.7) (1.8-7.7) Lymphocytes # (Auto) 1.2 TH/MM3 1.3 TH/MM3 1.0 TH/MM3 (1.0-4.8) (1.0-4.8) (1.0-4.8) Monocytes # (Auto) 0.8 TH/MM3 0.7 TH/MM3 0.6 TH/MM3 (0-0.9) (0-0.9) (0-0.9) Eosinophils # (Auto) 0.0 TH/MM3 0.1 TH/MM3 0.1 TH/MM3 (0-0.4) (0-0.4) (0-0.4) Basophils # (Auto) 0.0 TH/MM3 0.1 TH/MM3 0.2 TH/MM3 (0-0.2) (0-0.2) (0-0.2) CBC Comment AUTO DIFF AUTO DIFF AUTO DIFF Differential Total Cells 100 100 100 Counted Neutrophils % (Manual) 78 % (16-70) 76 % (16-70) 67 % (16-70) Band Neutrophils % 4 % (0-6) 2 % (0-6) 13 % (0-6) Lymphocytes % 10 % (9-44) 12 % (9-44) 12 % (9-44) Monocytes % 5 % (0-8) 8 % (0-8) 4 % (0-8) Eosinophils % 1 % (0-4) 1 % (0-4) Basophils % 1 % (0-2) Neutrophils # (Manual) 7.1 TH/MM3 7.2 TH/MM3 7.2 TH/MM3 (1.8-7.7) (1.8-7.7) (1.8-7.7) Myelocytes 1 % (0-0) 2 % (0-0) 1 % (0-0) Differential Comment FINAL DIFF FINAL DIFF FINAL DIFF MANUAL MANUAL MANUAL Platelet Estimate NORMAL NORMAL NORMAL (NORMAL) (NORMAL) (NORMAL) Platelet Morphology Comment NORMAL NORMAL NORMAL (NORMAL) (NORMAL) (NORMAL) Sodium Level 141 MEQ/L 140 MEQ/L 142 MEQ/L (136-145) (136-145) (136-145) Potassium Level 3.2 MEQ/L 3.8 MEQ/L 3.5 MEQ/L (3.5-5.1) (3.5-5.1) (3.5-5.1) Chloride Level 100 MEQ/L 101 MEQ/L 101 MEQ/L (98-107) (98-107) (98-107) Carbon Dioxide Level 33.6 MEQ/L 34.0 MEQ/L 33.2 MEQ/L (21.0-32.0) (21.0-32.0) (21.0-32.0) Anion Gap 7 MEQ/L (5-15) 5 MEQ/L (5-15) 8 MEQ/L (5-15) Blood Urea Nitrogen 14 MG/DL (7-18) 12 MG/DL (7-18) 11 MG/DL (7-18) Creatinine 0.52 MG/DL 0.52 MG/DL 0.46 MG/DL (0.50-1.00) (0.50-1.00) (0.50-1.00) Estimat Glomerular Filtration 116 ML/MIN 116 ML/MIN 133 ML/MIN Rate (>89) (>89) (>89) Random Glucose 134 MG/DL 122 MG/DL 124 MG/DL (74-106) (74-106) (74-106) Calcium Level 7.3 MG/DL 7.8 MG/DL 7.6 MG/DL (8.5-10.1) (8.5-10.1) (8.5-10.1) Protein Corrected Calcium 8.8 MG/DL (8.5-10.1) Total Bilirubin 0.3 MG/DL 0.2 MG/DL 0.2 MG/DL (0.2-1.0) (0.2-1.0) (0.2-1.0) Aspartate Amino Transf 12 U/L (15-37) 16 U/L (15-37) 14 U/L (15-37) (AST/SGOT) Alanine Aminotransferase 13 U/L (10-53) 15 U/L (10-53) 15 U/L (10-53) (ALT/SGPT) Alkaline Phosphatase 61 U/L (45-117) 70 U/L (45-117) 65 U/L (45-117) Total Protein 4.5 GM/DL 5.3 GM/DL 5.0 GM/DL (6.4-8.2) (6.4-8.2) (6.4-8.2) Albumin 1.3 GM/DL 1.7 GM/DL 1.6 GM/DL (3.4-5.0) (3.4-5.0) (3.4-5.0) Metamyelocytes 1 % (0-1) Promyelocytes 1 % (0-0) Ovalocytes 1+ (NORMAL) Stomatocytes 1+ (NORMAL) Result Diagram: 11/29/16 0342 11/29/16 0342 Microbiology Microbiology Date/Time Procedure Status Source Growth 11/27/16 16:30 Aerobic Blood Culture - Preliminary Resulted Blood Peripheral NO GROWTH IN 2 DAYS 11/27/16 16:30 Anaerobic Blood Culture - Preliminary Resulted Blood Peripheral NO GROWTH IN 2 DAYS 11/27/16 16:45 Aerobic Blood Culture - Preliminary Resulted Blood Peripheral NO GROWTH IN 2 DAYS 11/27/16 16:45 Anaerobic Blood Culture - Preliminary Resulted Blood Peripheral NO GROWTH IN 2 DAYS Imaging Last Impressions Chest X-Ray 11/26/16 0600 Signed Impressions: Service Date/Time: Saturday, November 26, 2016 08:30 - CONCLUSION: Minimal consolidative changes right base otherwise stable. Martin Leal MD FACR Pelvis CT 11/26/16 0000 Signed Impressions: Service Date/Time: Sunday, November 27, 2016 10:48 - CONCLUSION: 1. Severe inflammation and thickening of the proximal sigmoid colon, likely related to a severe acute diverticulitis. The descending colon immediately proximal to this area is now dilated suggesting there may be some degree of obstruction. 2. The inflammatory changes that fistulized into the left psoas muscle and iliopsoas muscle and measure approximately 7.7 x 1.7 cm. Given the differences in imaging technique I cannot be certain whether the psoas collection is stable or increased. However, the inflammatory changes do appear increased. Cecilio Colmenares MD Abdomen X-Ray 11/18/16 0000 Signed Impressions: Service Date/Time: November 18:53 - CONCLUSION: Mild gaseous distention of the proximal colon Cecilio Villareal MD Abscess Drainage CT 11/15/16 0000 Signed Impressions: Service Date/Time: Tuesday, November 15, 2016 19:23 - CONCLUSION: Uncomplicated CT guided drainage. An 8 Samoan catheter was left in position. Taiwo Leal MD Abdomen/Pelvis CT 11/14/16 0000 Signed Impressions: Service Date/Time: Monday, November 14, 2016 10:54 - CONCLUSION: 1. Acute sigmoid diverticulitis with adjacent abscess involving the psoas muscle. 2. Paraumbilical fat containing hernia. 3. 2 cm left adrenal nodule, nonspecific. Dmitri Huynh MD Chest CT 11/08/16 0000 Signed Impressions: Service Date/Time: Tuesday, November 08, 2016 19:23 - CONCLUSION: 1. Innumerable noncalcified subcentimeter pulmonary nodules with the largest measuring 8 mm in the left lower lobe posteriorly. Although these are nonspecific metastatic disease remains in the differential. PET/CT scan may be helpful for further evaluation of the largest of these nodules if clinically indicated. 2. Coronary artery calcifications. 3. Left adrenal mass measuring 2.7 x 2.5 cm which is nonspecific. Ketan Schofield MD Procedures * Transcutaneous drain placed in abscess 11/15/16 * Colonoscopy with biopsy 11/23/16 . Patient/Family Conference Present at Family Conference: Discussed with cysbdeb-wz-xpe Jakob by telephone . Family Conference Time (mins): 44 Family Conference Location: Telephone Issues Discussed: * Palliative care role, purpose, approach * Additional medical, psychosocial, and spiritual history * Patients general health, functional status, and cognitive changes in the months leading up to the current hospitalization * Patient/family understanding of the current medical problems * Patient/family understanding of prognosis * Patients goals of care as best understood from advance directives and/or conversations and/or values * Current medical treatment options and benefits/burdens of those options * Likely scenarios comparing ongoing aggressive care with a transition to comfort measures only * Questions answered to the best of my ability * Palliative care contact information provided The patient has initially been reluctant to undergo any surgery, but now is reconsidering. She tells me that she would definitely not want to be resuscitated under any circumstances, and would never want to be on life support machines. She understands that the DNR would be revoked prior to going to the operating room for any surgery, and that it could be reinstituted in the postop days. . Assessment and Plan Disease Oriented Problem List: (1) pelvic abscess/mass, near complete colon obstruction (2) diverticulosis/diverticulitis (3) multiple pulmonary nodules, etiology undetermined (4) malnutrition, hypoalbuminemia (5) adrenal adenoma (6) periumbilical fat-containing hernia (7) diabetes (8) hypertension (9) gout (10) hyperlipidemia (11) obesity Symptom Scale: (1) pain 0-10 Scale: 1 (primarily abdominal, intermittent) Pertinent Non-Medical Issues Psychosocial: , retired, no children, lives with her easlmbw-wl-haj. Spiritual: [employer] background, but reports that she is not particularly spiritual or anabaptism. Legal: The patient has capacity for decision-making. She says that if she loses that capacity she would want her jmqesoj-jr-[id number] Jakob Lowery to be her healthcare surrogate decision maker. Ethical issues impacting care: None . Important Contacts Usxzjhq-ts-kuq: Jakob Lowery [phone] . Prognosis The patient has a fairly severe inflammatory process/abscess, has a polypoid colon mass, and has multiple pulmonary nodules. In addition, she is an obese diabetic with significant protein calorie malnutrition/hypoalbuminemia, and would have not insignificant surgical risk. Overall, her prognosis will depend on pathology of the colon mass and etiology of the pulmonary nodules. . Code Status: No Code Plan * DO NOT RESUSCITATE, per request of patient 11/29/16. She tells me that she would not want to be resuscitated under any circumstances, and would not want to be "on a ventilator ever." She says "I am ready to go if it is my time; I am old." She understands that the DNR would be revoked if she goes to the operating room. * GOALS: The patient has initially been reluctant to undergo any surgery, but now is reconsidering. She tells me that she would definitely not want to be resuscitated under any circumstances, and would never want to be on life support machines. She understands that the DNR would be revoked prior to going to the operating room for any surgery, and that it could be reinstituted in the postop days. * DECISION-MAKING: The patient has capacity for decision-making. She says that if she loses that capacity she would want her [id number]-riz Jakob Lowery to be her healthcare surrogate decision maker. * SYMPTOMS: The patient has had some mild pain but that has not required intervention. She has some intermittent dyspnea now, but that is managed with supplemental oxygen. * I have set up a meeting with the patient, her HCS/Augusto Robert, and Dr. Alexandr Garay for Tuesday at about 11:30 AM. We will further discuss the pros and cons of surgery/diverting colostomy, and she will clarify her goals and wishes regarding pre and postop care/resuscitation in the presence of her [facility] Jakob. * Palliative Care will continue to follow the patient during this hospitalization. . Time Spent Total Floor Time (mins): 78 Face to Face Time (mins): 49 >50% Counseling/Coord of Care: Yes (d/w Dr. Garay) Thank you for the opportunity to participate in the care of Ms. Keyes. Attestation To help prompt me to consider important information that might be impacting today's encounter and assessment, information from prior notes written by myself or my colleagues may have been "brought forward" into today's note. My signature on this note, however, is an attestation that I personally performed the exam, history, and/or decision-making noted today, and, unless otherwise indicated, the interactions with patient, family, and staff as well as the review of records all occurred today. I also attest that the listed assessment and stated plan reflect my best clinical judgment today based on the combination of historical information, prior notes, and today's exam/ interactions. When time spent is documented, it refers only to time spent today by the signer, or if indicated, combined time spent today by collaborating physician/nurse practitioner. Elzbieta Lima MD Nov 29, 2016 16:45
--- NOTE | 2016-11-29 19:35 | HHI.PR ---
Subjective Remarks Awake and responds to questions.No SOB at rest. No cough or wheezing. O2 sat 98 on O2 2L Had colonoscopy , EGD done , and pathology on Gastric and Colonic biopsies show benign tissue. CT shows poss partial obstruction of colon.Needs diverting colostomy. Objective Vital Signs Date Time Temp Pulse Resp B/P Pulse Ox O2 Delivery O2 Flow Rate FiO2 11/29/16 16:00 95.5 73 18 121/55 94 11/29/16 12:00 96.8 67 17 111/55 95 11/29/16 10:17 Nasal Cannula 2.00 11/29/16 09:15 96 Nasal Cannula 2.00 11/29/16 08:00 95.4 68 18 141/60 98 11/29/16 04:00 96.4 77 18 146/67 96 11/29/16 00:00 96.6 81 18 171/68 92 11/28/16 21:39 95 Nasal Cannula 3.00 11/28/16 20:20 Nasal Cannula 2.00 11/28/16 20:00 96.0 82 18 126/59 96 I/O 11/28/16 11/28/16 11/28/16 11/29/16 11/29/16 11/29/16 07:00 15:00 23:00 07:00 15:00 23:00 Intake Total 520 ml 1035 ml 888 ml 667 ml 722 ml Output Total 800 ml 250 ml 225 ml Balance -280 ml 1035 ml 888 ml 417 ml 497 ml Intake Oral 120 ml 300 ml 360 ml 120 ml 100 ml IV Total 400 ml 735 ml 528 ml 547 ml 622 ml Output Urine Total 800 ml 250 ml 225 ml # Voids 2 5 3 2 # Bowel Movements 0 1 0 0 0 Result Diagram: 11/29/16 0342 11/29/16 0342 Objective Remarks GENERAL: This obese, elderly white female who is pale in no distress. HEENT: Head normocephalic. Pupils are reactive.Throat was clear. NECK: Supple. No bruits or thyroid enlargement or lymphadenopathy. CHEST: Distant breath sounds with occ basal crackles . HEART: The heart sounds are regular S1-S2. No murmur. No S3.t ABDOMEN: Obese, protuberant without masses. No organomegaly. Bowel sounds active. EXTREMITIES: No lesions. no edema. Peripheral pulses are diminished. Reflexes are 1+. NEUROLOGIC: No gross motor deficits. SKIN: No lesions observed. Assessment and Plan Assessment and Plan IMPRESSION 1. Bilateral lung nodules, etiology to be determined. Probable granulomas versus metastatic disease. 2. Diabetes mellitus type 2. 3. Hypertension. 4. Exogenous obesity and possible sleep apnea. 5. Possible hypothyroidism. 6. Hypertension. 7. Anemia Plan : 1. CBC,BMP 2. Cont Antibiotics, per ID 3. Surgical Evaluation 4. PET CT as OP. 5. Liquids PO. 6. O2 at 2 L. and home O2 7. IS at bedside q3h. Juan Ramon Perez MD Nov 29, 2016 19:35
--- NOTE | 2016-11-29 20:52 | HHI.IDPN ---
Subjective Subjective Remarks Seen by Dr Garay Pt adamatly refused colostomy no bleeding no fever WBC down, though again bandemia 13 % Antibiotics CFTX flagyl Lines Peripheral Past Medical History HTN Gout Diabetes Allergies: Coded Allergies: No Known Allergies (Unverified , 11/08/16) Objective . Vital Signs Date Time Temp Pulse Resp B/P Pulse Ox O2 Delivery O2 Flow Rate FiO2 11/29/16 16:00 95.5 73 18 121/55 94 11/29/16 12:00 96.8 67 17 111/55 95 11/29/16 10:17 Nasal Cannula 2.00 11/29/16 09:15 96 Nasal Cannula 2.00 11/29/16 08:00 95.4 68 18 141/60 98 11/29/16 04:00 96.4 77 18 146/67 96 11/29/16 00:00 96.6 81 18 171/68 92 11/28/16 21:39 95 Nasal Cannula 3.00 11/28/16 11/28/16 11/29/16 15:00 23:00 07:00 Intake Total 1035 ml 888 ml 667 ml Output Total 250 ml Balance 1035 ml 888 ml 417 ml Intake Oral 300 ml 360 ml 120 ml IV Total 735 ml 528 ml 547 ml Output Urine Total 250 ml # Voids 5 3 # Bowel Movements 1 0 0 . Laboratory Tests Test 11/28/16 11/29/16 12:52 03:42 White Blood Count 9.0 TH/MM3 8.7 TH/MM3 Red Blood Count 3.64 MIL/MM3 3.67 MIL/MM3 Hemoglobin 8.9 GM/DL 9.1 GM/DL Hematocrit 28.4 % 28.7 % Mean Corpuscular Volume 77.9 FL 78.0 FL Mean Corpuscular Hemoglobin 24.6 PG 24.6 PG Mean Corpuscular Hemoglobin 31.5 % 31.6 % Concent Red Cell Distribution Width 22.3 % 22.5 % Platelet Count 417 TH/MM3 449 TH/MM3 Mean Platelet Volume 6.8 FL 6.9 FL Neutrophils (%) (Auto) 76.5 % 78.5 % Lymphocytes (%) (Auto) 14.7 % 11.5 % Monocytes (%) (Auto) 7.3 % 7.2 % Eosinophils (%) (Auto) 0.9 % 0.8 % Basophils (%) (Auto) 0.6 % 2.0 % Neutrophils # (Auto) 6.9 TH/MM3 6.8 TH/MM3 Lymphocytes # (Auto) 1.3 TH/MM3 1.0 TH/MM3 Monocytes # (Auto) 0.7 TH/MM3 0.6 TH/MM3 Eosinophils # (Auto) 0.1 TH/MM3 0.1 TH/MM3 Basophils # (Auto) 0.1 TH/MM3 0.2 TH/MM3 CBC Comment AUTO DIFF AUTO DIFF Differential Total Cells 100 100 Counted Neutrophils % (Manual) 76 % 67 % Band Neutrophils % 2 % 13 % Lymphocytes % 12 % 12 % Monocytes % 8 % 4 % Neutrophils # (Manual) 7.2 TH/MM3 7.2 TH/MM3 Myelocytes 2 % 1 % Differential Comment FINAL DIFF FINAL DIFF MANUAL MANUAL Platelet Estimate NORMAL NORMAL Platelet Morphology Comment NORMAL NORMAL Eosinophils % 1 % Metamyelocytes 1 % Promyelocytes 1 % Ovalocytes 1+ Stomatocytes 1+ Laboratory Tests Test 11/28/16 11/29/16 12:52 03:42 Sodium Level 140 MEQ/L 142 MEQ/L Potassium Level 3.8 MEQ/L 3.5 MEQ/L Chloride Level 101 MEQ/L 101 MEQ/L Carbon Dioxide Level 34.0 MEQ/L 33.2 MEQ/L Anion Gap 5 MEQ/L 8 MEQ/L Blood Urea Nitrogen 12 MG/DL 11 MG/DL Creatinine 0.52 MG/DL 0.46 MG/DL Estimat Glomerular Filtration 116 ML/MIN 133 ML/MIN Rate Random Glucose 122 MG/DL 124 MG/DL Calcium Level 7.8 MG/DL 7.6 MG/DL Total Bilirubin 0.2 MG/DL 0.2 MG/DL Aspartate Amino Transf 16 U/L 14 U/L (AST/SGOT) Alanine Aminotransferase 15 U/L 15 U/L (ALT/SGPT) Alkaline Phosphatase 70 U/L 65 U/L Total Protein 5.3 GM/DL 5.0 GM/DL Albumin 1.7 GM/DL 1.6 GM/DL Microbiology Date/Time Procedure Status Source Growth 11/27/16 16:30 Aerobic Blood Culture - Preliminary Resulted Blood Peripheral NO GROWTH IN 2 DAYS 11/27/16 16:30 Anaerobic Blood Culture - Preliminary Resulted Blood Peripheral NO GROWTH IN 2 DAYS 11/27/16 16:45 Aerobic Blood Culture - Preliminary Resulted Blood Peripheral NO GROWTH IN 2 DAYS 11/27/16 16:45 Anaerobic Blood Culture - Preliminary Resulted Blood Peripheral NO GROWTH IN 2 DAYS Imaging Last Impressions Chest X-Ray 11/26/16 0600 Signed Impressions: Service Date/Time: Saturday, November 26, 2016 08:30 - CONCLUSION: Minimal consolidative changes right base otherwise stable. Martin Leal MD FACR Pelvis CT 11/26/16 0000 Signed Impressions: Service Date/Time: Sunday, November 27, 2016 10:48 - CONCLUSION: 1. Severe inflammation and thickening of the proximal sigmoid colon, likely related to a severe acute diverticulitis. The descending colon immediately proximal to this area is now dilated suggesting there may be some degree of obstruction. 2. The inflammatory changes that fistulized into the left psoas muscle and iliopsoas muscle and measure approximately 7.7 x 1.7 cm. Given the differences in imaging technique I cannot be certain whether the psoas collection is stable or increased. However, the inflammatory changes do appear increased. Cecilio Colmenares MD Abdomen X-Ray 11/18/16 0000 Signed Impressions: Service Date/Time: November 18:53 - CONCLUSION: Mild gaseous distention of the proximal colon Cecilio Villareal MD Abscess Drainage CT 11/15/16 0000 Signed Impressions: Service Date/Time: Tuesday, November 15, 2016 19:23 - CONCLUSION: Uncomplicated CT guided drainage. An 8 Hebrew catheter was left in position. Taiwo Leal MD Abdomen/Pelvis CT 11/14/16 0000 Signed Impressions: Service Date/Time: Monday, November 14, 2016 10:54 - CONCLUSION: 1. Acute sigmoid diverticulitis with adjacent abscess involving the psoas muscle. 2. Paraumbilical fat containing hernia. 3. 2 cm left adrenal nodule, nonspecific. Dmitri Huynh MD Chest CT 11/08/16 0000 Signed Impressions: Service Date/Time: Tuesday, November 08, 2016 19:23 - CONCLUSION: 1. Innumerable noncalcified subcentimeter pulmonary nodules with the largest measuring 8 mm in the left lower lobe posteriorly. Although these are nonspecific metastatic disease remains in the differential. PET/CT scan may be helpful for further evaluation of the largest of these nodules if clinically indicated. 2. Coronary artery calcifications. 3. Left adrenal mass measuring 2.7 x 2.5 cm which is nonspecific. Ketan Schofield MD Physical Exam GENERAL: On physical exam, this is a 71-year-old obese female OOB in chair in acute distress. Looks weak and pale, looks sick HEAD, EYES, EARS, NOSE, THROAT: Normocephalic and atraumatic. Extraocular muscles intact. Pupils equal, round and reactive to light and accommodation. Oral mucosa moist. Pale conjunctivae NECK: Trachea is central. CARDIOVASCULAR: Regular tachycardia RESPIRATORY: Clear to auscultation bilaterally. ABDOMEN: Abdomen soft and nontender. Obese and distended Bowel sounds audible. No organomegaly EXTREMITIES: No cyanosis or clubbing. Full range of motion of all extremities. No edema. NEUROLOGIC: Awake, alert and oriented times four. No focal deficits. SKIN: Warm and dry. No rash PSYCHIATRIC: The patient isupset about the need for stoma Assessment & Plan Remarks Acute diverticulitis with abscess of psoas muscle. s/p IR guided drainage. - mixed anaerobs - benign bx but underlying malignancy can not be r/o solely based on this studies The inflammatory changes that fistulized into the left psoas muscle and iliopsoas muscle and measure approximately 7.7 x 1.7 cm Staph hominis bacteremia: likely contaminant. Persistent bandemia (13%), thrombocytosis - susp for ongoing infx Recs Cultures with beta lactamase producing Anaerobes. Cont oral flagyl and Ceftriaxone IV pt need diverting colostomy, but refusing it currently - palliative care consulted for goals clarification fu blood clx charito RN charito brother in law dw Krystin Germain MD Nov 29, 2016 20:52
[2016-11-29] MEDS: ENOXAPARIN SODIUM 40 MG/0.4 ML SYRINGE SQ SCH (21:59)
[2016-11-30] VITALS: BP 120/58; PULSE 77; RESP 24; TEMP 97.2; O2SAT 94
[2016-11-30 04:00] VITALS: BP 111/55; PULSE 73; RESP 22; TEMP 96.7; O2SAT 95
[2016-11-30] MEDS: INSULIN NovoLIN REGULAR SUPPLEMENTAL SCALE SQ SCH ×2 (05:50→11:11)
[2016-11-30] MEDS: cloNIDine HCL 0.2 MG TAB PO SCH ×2 (05:50→13:07)
[2016-11-30 05:51] VITALS: BP 129/59; PULSE 75
[2016-11-30] MEDS: ONDANSETRON HCL 4 MG/2 ML VIAL IVP PRN ×2 (06:13→11:08)
[2016-11-30 08:00] VITALS: BP 121/59; PULSE 65; PULSE 72; RESP 18; TEMP 96.7; O2SAT 95
--- NOTE | 2016-11-30 08:14 | HHI.PR ---
Subjective History of Present Illness Patient seen on 11/29/16 feel weak and tired . S/P endoscopy shows Gastritis biopsy noted .. ..Low potassium will replace and monitor. no acute issue ..Hematology input noted for Iron deficiency anemia . d/w RN S/P CT Scan of abdomen and pelvis shows severe inflammation and thickening of the proximal sigmoid colon with descending colon immediately proximal to this area is now dilated suggesting there may be some degree of obstruction. The inflammatory changes that fistulized into the left psoas muscle and iliopsoas muscle and measure approximately 7.7 x 1.7 cm Patient ? needs diverting colostomy patient refused surgery d/w surgeon palliative care consulted. Review of Systems Constitutional Constitutional: Fatigue, Weakness Vitals/Results Intake & Output 11/29/16 11/29/16 11/30/16 15:00 23:00 07:00 Intake Total 722 ml 240 ml 1327 ml Output Total 225 ml Balance 497 ml 240 ml 1327 ml Intake Oral 100 ml 240 ml 120 ml IV Total 622 ml 1207 ml Output Urine Total 225 ml # Voids 2 2 3 # Bowel Movements 0 0 0 Vital Signs Vital Signs Date Time Temp Pulse Resp B/P Pulse Ox O2 Delivery O2 Flow Rate FiO2 11/30/16 05:51 75 129/59 11/30/16 04:00 96.7 73 22 111/55 95 11/30/16 00:00 97.2 77 24 120/58 94 11/29/16 20:00 96.5 76 24 133/63 95 11/29/16 20:00 Nasal Cannula 2.00 11/29/16 20:00 74 11/29/16 16:00 95.5 73 18 121/55 94 11/29/16 12:00 96.8 67 17 111/55 95 11/29/16 10:17 Nasal Cannula 2.00 11/29/16 09:15 96 Nasal Cannula 2.00 CBC/BMP: 11/29/16 0342 11/29/16 0342 Physical Exam General General Appearance: Well Developed, Well Nourished, No Acute Distress, Comfortable Eyes Eye Exam: Pupils Equal, Pupils Reactive, Sclera White, Extraocular Movement Intact Throat Throat Exam: Oral Mucosa [place] & Moist, Oral Pharynx Normal Neck Neck Exam: Neck Supple, Trachea Midline Pulmonary Resp Exam: Clear Bilaterally, Breath Sounds Equal, No Distress Cardiology CV Exam: Regular, Normal Sinus Rhythm Gastrointestinal/Abdomen GI Exam: Soft, Non-Tender, Bowel Sounds Present GI Remarks mild abdominal tenderness left side. Musculoskeletal MS Exam: Normal Tone Integumentary Skin Exam: Clear, Warm, Dry, Intact Extremeties Extremities Exam: No Edema Neurologic Neuro Exam: Alert, Awake, Oriented, Speech Clear, Moving All Extremities, No Focal Deficits Psychiatric Psych Exam: Appropriate Responses VTE Prophylaxis VTE Prophylaxis Meds: Lovenox PUD Prophylasis PUD Prophylaxis: Protonix Assessment/Plan Assessment/Plan ASSESSMENT AND PLAN: This is a 71-year female who came to the emergency room diagnosed with 1. Nausea with hypoglycemia. Glucose is normal now. The patient is on Zofran 4 milligrams IV q. 6-hour p.r.n. for nausea and vomiting. 2. Leukocytosis,...resolved.... Chest x-ray does not show anything acute. check CT scan of the chest negative for pneumonia... have pulmonary nodule pulmonary input noted. Blood cultures x2 positive for gram negative rods. 3. Diabetes mellitus. ADA 1800 calorie diet. NovoLog. sliding scale. Check blood sugars a.c. and h.s. Will monitor blood sugar. 4. history of gout. Continue home medication. 5. History of hypertension. Continue medication. Monitor blood pressure. 6. Hyperlipidemia. Continue lovastatin 40 milligrams p.o. daily. 7. DVT prophylaxis. Lovenox 40 milligrams. 8. GI prophylaxis Protonix 40 milligrams p.o. twice a day. 9. Pulmonary nodule pulmonary input noted. 10. blood culture positive .on Flagyl and Ceftriaxone per ID Recomendation. 11. Hemoglobin was 6.9 Possible GI Bleed S/P 2 units PRBC Transfusion have Iron deficiency anemia on replacement.. fecal occult blood test positive, H and H monitoring.. GI Input noted S/P endoscopy shows Gastritis 12. .Hypokalemia will replace and monitor. 13. CT Abdomen and Pelvis shows acute diverticulitis and Psoas abscess General surgery input noted S/P abscess drainage by Interventional radiology, culture positive for mixed anaerobs...on Flagyl and Ceftriaxone per ID Recommendation. S/P CT Scan of abdomen and pelvis shows severe inflammation and thickening of the proximal sigmoid colon with descending colon immediately proximal to this area is now dilated suggesting there may be some degree of obstruction. The inflammatory changes that fistulized into the left psoas muscle and iliopsoas muscle and measure approximately 7.7 x 1.7 cm Patient ? needs diverting colostomy patient refused surgery d/w surgeon palliative care consulted. We are going to manage the patient on a daily basis and make recommendations on a daily basis. Check CBC with diff CMP in AM. Discussed Condition with: Patient Reed Up MD Nov 30, 2016 08:14
[2016-11-30] MEDS: SODIUM CHLORIDE 0.9% 10 ML VIAL IRRIGATION SCH (08:18)
[2016-11-30] MEDS: SODIUM CHLORIDE 0.9% FLUSH 10 ML FLUSH IV FLUSH SCH (08:18)
[2016-11-30] MEDS: ASPIRIN 81 MG CHEW TAB CHEW SCH (09:18)
[2016-11-30] MEDS: LISINOPRIL 5 MG TAB PO SCH (09:18)
[2016-11-30] MEDS: metroNIDAZOLE 500 MG TAB PO SCH (09:18)
[2016-11-30] MEDS: PRAVASTATIN SOD 40 MG TAB PO SCH (09:18)
[2016-11-30] MEDS: ALLOPURINOL 300 MG TAB PO SCH (09:18)
[2016-11-30] MEDS: CARVEDILOL 12.5 MG TAB PO SCH (09:18)
[2016-11-30] MEDS: DOCUSATE SODIUM 50 MG/SENNA 8.6 MG TAB PO SCH (09:18)
[2016-11-30] MEDS: metFORMIN HCL 500 MG TAB PO SCH (09:19)
[2016-11-30] MEDS: amLODIPine BESYLATE 5 MG TAB PO SCH (09:19)
[2016-11-30] MEDS: CALCIUM CARBONATE 1.25 GM (CA 500 MG) TAB PO SCH (09:19)
[2016-11-30] MEDS: PIOGLITAZONE HCL 15 MG TAB PO SCH (09:19)
[2016-11-30] MEDS: PANTOPRAZOLE SODIUM 40 MG VIAL IV PUSH SCH (11:07)
[2016-11-30] MEDS: SODIUM CHLOR 0.45% 1000 ML INJ 1,000 ML IV SCH (11:07)
--- NOTE | 2016-11-30 11:40 | HHI.PR ---
Subjective History of Present Illness Patient feel weak and tired . S/P endoscopy shows Gastritis biopsy noted .. ..Low potassium resolved.. have nausea/ vomiting.. . S/P CT Scan of abdomen and pelvis shows severe inflammation and thickening of the proximal sigmoid colon with descending colon immediately proximal to this area is now dilated suggesting there may be some degree of obstruction. The inflammatory changes that fistulized into the left psoas muscle and iliopsoas muscle and measure approximately 7.7 x 1.7 cm Patient ? needs diverting colostomy patient refused surgery, palliative care consulted. D/W RN Jo at bed side. ID Input noted. Review of Systems Constitutional Constitutional: Fatigue, Weakness GI/Abdomen GI/Abdominal Exam: Nausea, Vomiting Vitals/Results Intake & Output 11/29/16 11/29/16 11/30/16 15:00 23:00 07:00 Intake Total 722 ml 240 ml 1327 ml Output Total 225 ml Balance 497 ml 240 ml 1327 ml Intake Oral 100 ml 240 ml 120 ml IV Total 622 ml 1207 ml Output Urine Total 225 ml # Voids 2 2 3 # Bowel Movements 0 0 0 Vital Signs Vital Signs Date Time Temp Pulse Resp B/P Pulse Ox O2 Delivery O2 Flow Rate FiO2 11/30/16 09:15 95 Nasal Cannula 2.00 11/30/16 08:00 65 11/30/16 08:00 96.7 72 18 121/59 95 11/30/16 05:51 75 129/59 11/30/16 04:00 96.7 73 22 111/55 95 11/30/16 00:00 97.2 77 24 120/58 94 11/29/16 20:00 96.5 76 24 133/63 95 11/29/16 20:00 Nasal Cannula 2.00 11/29/16 20:00 74 11/29/16 16:00 95.5 73 18 121/55 94 11/29/16 12:00 96.8 67 17 111/55 95 CBC/BMP: 11/29/16 0342 11/29/16 0342 Physical Exam General General Appearance: Well Developed, Well Nourished, No Acute Distress, Comfortable Eyes Eye Exam: Pupils Equal, Pupils Reactive, Sclera White, Extraocular Movement Intact Throat Throat Exam: Oral Mucosa [place] & Moist, Oral Pharynx Normal Neck Neck Exam: Neck Supple, Trachea Midline Pulmonary Resp Exam: Clear Bilaterally, Breath Sounds Equal, No Distress Cardiology CV Exam: Regular, Normal Sinus Rhythm Gastrointestinal/Abdomen GI Exam: Soft, Non-Tender, Bowel Sounds Present GI Remarks mild abdominal tenderness left side. Musculoskeletal MS Exam: Normal Tone Integumentary Skin Exam: Clear, Warm, Dry, Intact Extremeties Extremities Exam: No Edema Neurologic Neuro Exam: Alert, Awake, Oriented, Speech Clear, Moving All Extremities, No Focal Deficits Psychiatric Psych Exam: Appropriate Responses VTE Prophylaxis VTE Prophylaxis Meds: Lovenox PUD Prophylasis PUD Prophylaxis: Protonix Assessment/Plan Assessment/Plan ASSESSMENT AND PLAN: This is a 71-year female who came to the emergency room diagnosed with 1. Nausea with hypoglycemia. Glucose is normal now. The patient is on Zofran 4 milligrams IV q. 6-hour p.r.n. for nausea and vomiting. 2. Leukocytosis,...resolved.... Chest x-ray does not show anything acute. check CT scan of the chest negative for pneumonia... have pulmonary nodule pulmonary input noted. Blood cultures x2 positive for gram negative rods. 3. Diabetes mellitus. ADA 1800 calorie diet. NovoLog. sliding scale. Check blood sugars a.c. and h.s. Will monitor blood sugar. 4. history of gout. Continue home medication. 5. History of hypertension. Continue medication. Monitor blood pressure. 6. Hyperlipidemia. Continue lovastatin 40 milligrams p.o. daily. 7. DVT prophylaxis. Lovenox 40 milligrams. 8. GI prophylaxis Protonix 40 milligrams p.o. twice a day. 9. Pulmonary nodule pulmonary input noted. 10. blood culture positive .on Flagyl and Ceftriaxone per ID Recomendation. 11. Hemoglobin was 6.9 Possible GI Bleed S/P 2 units PRBC Transfusion have Iron deficiency anemia on replacement.. fecal occult blood test positive, H and H monitoring.. GI Input noted S/P endoscopy shows Gastritis 12. .Hypokalemia will replace and monitor. 13. CT Abdomen and Pelvis shows acute diverticulitis and Psoas abscess General surgery input noted S/P abscess drainage by Interventional radiology, culture positive for mixed anaerobs...on Flagyl and Ceftriaxone per ID Recommendation. S/P CT Scan of abdomen and pelvis shows severe inflammation and thickening of the proximal sigmoid colon with descending colon immediately proximal to this area is now dilated suggesting there may be some degree of obstruction. The inflammatory changes that fistulized into the left psoas muscle and iliopsoas muscle and measure approximately 7.7 x 1.7 cm Patient ? needs diverting colostomy patient refused surgery d/w surgeon palliative care input noted....Patient wants DNR. We are going to manage the patient on a daily basis and make recommendations on a daily basis. Check CBC with diff CMP in AM. Discussed Condition with: Patient Reed Up MD Nov 30, 2016 11:40
--- NOTE | 2016-11-30 11:51 | HHI.HCPN ---
Reason for visit a. To assist with evaluation and management of symptoms including: Pain, nausea, fatigue b. To assist medical decision maker(s) with: better understanding of current medical conditions; weighing benefits/burdens of medical treatment options; making medical treatment decisions. . Subjective/Interval History INTERVAL NOTE: Augusto Robert is here now. Pt is adamant that she will not consent to any surgery. She understands clearly that this will likely lead to in the near future....as the infection continues and the colon becomes completely obstructed. She is alert, oriented, capacity to make decisions. Her insight into her condition is very clear and appropriate. Her lqiendw-pn-hya Jakob disagrees with her decision, but will support her. She remains afebrile. Her white count is 8.7. . Family/friend interactions Iujzncj-xu-izt / [facility] Jakob Lowery is present for our discussion. Although he would prefer she make a decision to allow surgery, he understands her feelings and will support her. . Advance Directives Living Will: Completed, but not made available Health Care Surrogate: Never completed Durable Power of Youth Manager: Never completed Advance Directive Specifics Health Care Surrogate(s): [id number] Jakob Lowery is her healthcare surrogate, form completed . . Significant change in goals: The patient is certain that she does not want to have any surgery, even though the that decision will likely lead to her in the upcoming days or weeks. She would like to meet with hospice. . Objective Vital Signs Date Time Temp Pulse Resp B/P Pulse Ox O2 Delivery O2 Flow Rate FiO2 11/30/16 09:15 95 Nasal Cannula 2.00 11/30/16 08:00 65 11/30/16 08:00 96.7 72 18 121/59 95 11/30/16 05:51 75 129/59 11/30/16 04:00 96.7 73 22 111/55 95 11/30/16 00:00 97.2 77 24 120/58 94 11/29/16 20:00 96.5 76 24 133/63 95 11/29/16 20:00 Nasal Cannula 2.00 11/29/16 20:00 74 11/29/16 16:00 95.5 73 18 121/55 94 11/29/16 12:00 96.8 67 17 111/55 95 Intake & Output 11/30/16 11/30/16 07:00 19:00 Intake Total 1567 ml Balance 1567 ml Intake Oral 360 ml IV Total 1207 ml # Voids 5 # Bowel Movements 0 Physical Exam CONSTITUTIONAL/GENERAL: This is an elderly, weak appearing patient, in no apparent distress. EYES: Pupils equal and round and reactive. Extraocular motions intact. No scleral icterus. No injection or drainage. Fundi not examined. ENT: Hearing grossly normal. Nose without bleeding or purulent drainage. Throat without visible erythema, exudates, masses, or lesions. NECK: Trachea midline. Supple, nontender. No palpable thyroid enlargement or nodularity. CARDIOVASCULAR: Regular rate and rhythm without murmurs, gallops, or rubs. No JVD. Peripheral pulses symmetric. RESPIRATORY/CHEST: Symmetric, unlabored respirations. Clear to auscultation. Breath sounds equal bilaterally. No wheezes, rales, or rhonchi. GASTROINTESTINAL: Abdomen soft, obese, and mild/moderately distended. There is a nontender 3 x 4 cm apparent sub-umbilical hernia. No hepato-splenomegaly. No guarding. Bowel sounds present. MUSCULOSKELETAL: Extremities without clubbing, cyanosis, but she has 3+ edema involving her entire legs and arms. No joint tenderness or effusion noted. No calf tenderness. No mottling or clubbing. LYMPHATICS: No palpable cervical or supraclavicular adenopathy. NEUROLOGICAL: Awake and alert, oriented 4. Motor and sensory grossly within normal limits but she is quite weak. Follows commands. Cognitively sharp. Moves all extremities. PSYCHIATRIC: No obvious anxiety/depression. no apparent hallucinations or other psychotic thought process. . Diagnostic Tests Laboratory Laboratory Tests Test 11/28/16 11/29/16 12:52 03:42 White Blood Count 9.0 TH/MM3 8.7 TH/MM3 (4.0-11.0) (4.0-11.0) Red Blood Count 3.64 MIL/MM3 3.67 MIL/MM3 (4.00-5.30) (4.00-5.30) Hemoglobin 8.9 GM/DL 9.1 GM/DL (11.6-15.3) (11.6-15.3) Hematocrit 28.4 % 28.7 % (35.0-46.0) (35.0-46.0) Mean Corpuscular Volume 77.9 FL 78.0 FL (80.0-100.0) (80.0-100.0) Mean Corpuscular Hemoglobin 24.6 PG 24.6 PG (27.0-34.0) (27.0-34.0) Mean Corpuscular Hemoglobin 31.5 % 31.6 % Concent (32.0-36.0) (32.0-36.0) Red Cell Distribution Width 22.3 % 22.5 % (11.6-17.2) (11.6-17.2) Platelet Count 417 TH/MM3 449 TH/MM3 (150-450) (150-450) Mean Platelet Volume 6.8 FL 6.9 FL (7.0-11.0) (7.0-11.0) Neutrophils (%) (Auto) 76.5 % 78.5 % (16.0-70.0) (16.0-70.0) Lymphocytes (%) (Auto) 14.7 % 11.5 % (9.0-44.0) (9.0-44.0) Monocytes (%) (Auto) 7.3 % (0.0-8.0) 7.2 % (0.0-8.0) Eosinophils (%) (Auto) 0.9 % (0.0-4.0) 0.8 % (0.0-4.0) Basophils (%) (Auto) 0.6 % (0.0-2.0) 2.0 % (0.0-2.0) Neutrophils # (Auto) 6.9 TH/MM3 6.8 TH/MM3 (1.8-7.7) (1.8-7.7) Lymphocytes # (Auto) 1.3 TH/MM3 1.0 TH/MM3 (1.0-4.8) (1.0-4.8) Monocytes # (Auto) 0.7 TH/MM3 0.6 TH/MM3 (0-0.9) (0-0.9) Eosinophils # (Auto) 0.1 TH/MM3 0.1 TH/MM3 (0-0.4) (0-0.4) Basophils # (Auto) 0.1 TH/MM3 0.2 TH/MM3 (0-0.2) (0-0.2) CBC Comment AUTO DIFF AUTO DIFF Differential Total Cells 100 100 Counted Neutrophils % (Manual) 76 % (16-70) 67 % (16-70) Band Neutrophils % 2 % (0-6) 13 % (0-6) Lymphocytes % 12 % (9-44) 12 % (9-44) Monocytes % 8 % (0-8) 4 % (0-8) Neutrophils # (Manual) 7.2 TH/MM3 7.2 TH/MM3 (1.8-7.7) (1.8-7.7) Myelocytes 2 % (0-0) 1 % (0-0) Differential Comment FINAL DIFF FINAL DIFF MANUAL MANUAL Platelet Estimate NORMAL NORMAL (NORMAL) (NORMAL) Platelet Morphology Comment NORMAL NORMAL (NORMAL) (NORMAL) Sodium Level 140 MEQ/L 142 MEQ/L (136-145) (136-145) Potassium Level 3.8 MEQ/L 3.5 MEQ/L (3.5-5.1) (3.5-5.1) Chloride Level 101 MEQ/L 101 MEQ/L (98-107) (98-107) Carbon Dioxide Level 34.0 MEQ/L 33.2 MEQ/L (21.0-32.0) (21.0-32.0) Anion Gap 5 MEQ/L (5-15) 8 MEQ/L (5-15) Blood Urea Nitrogen 12 MG/DL (7-18) 11 MG/DL (7-18) Creatinine 0.52 MG/DL 0.46 MG/DL (0.50-1.00) (0.50-1.00) Estimat Glomerular Filtration 116 ML/MIN 133 ML/MIN Rate (>89) (>89) Random Glucose 122 MG/DL 124 MG/DL (74-106) (74-106) Calcium Level 7.8 MG/DL 7.6 MG/DL (8.5-10.1) (8.5-10.1) Total Bilirubin 0.2 MG/DL 0.2 MG/DL (0.2-1.0) (0.2-1.0) Aspartate Amino Transf 16 U/L (15-37) 14 U/L (15-37) (AST/SGOT) Alanine Aminotransferase 15 U/L (10-53) 15 U/L (10-53) (ALT/SGPT) Alkaline Phosphatase 70 U/L (45-117) 65 U/L (45-117) Total Protein 5.3 GM/DL 5.0 GM/DL (6.4-8.2) (6.4-8.2) Albumin 1.7 GM/DL 1.6 GM/DL (3.4-5.0) (3.4-5.0) Eosinophils % 1 % (0-4) Metamyelocytes 1 % (0-1) Promyelocytes 1 % (0-0) Ovalocytes 1+ (NORMAL) Stomatocytes 1+ (NORMAL) Result Diagram: 11/29/16 0342 11/29/16 0342 Microbiology Microbiology Date/Time Procedure Status Source Growth 11/27/16 16:30 Aerobic Blood Culture - Preliminary Resulted Blood Peripheral NO GROWTH IN 3 DAYS 11/27/16 16:30 Anaerobic Blood Culture - Preliminary Resulted Blood Peripheral NO GROWTH IN 3 DAYS 11/27/16 16:45 Aerobic Blood Culture - Preliminary Resulted Blood Peripheral NO GROWTH IN 3 DAYS 11/27/16 16:45 Anaerobic Blood Culture - Preliminary Resulted Blood Peripheral NO GROWTH IN 3 DAYS Imaging Last Impressions Chest X-Ray 11/26/16 0600 Signed Impressions: Service Date/Time: Saturday, November 26, 2016 08:30 - CONCLUSION: Minimal consolidative changes right base otherwise stable. Martin Leal MD FACR Pelvis CT 11/26/16 0000 Signed Impressions: Service Date/Time: Sunday, November 27, 2016 10:48 - CONCLUSION: 1. Severe inflammation and thickening of the proximal sigmoid colon, likely related to a severe acute diverticulitis. The descending colon immediately proximal to this area is now dilated suggesting there may be some degree of obstruction. 2. The inflammatory changes that fistulized into the left psoas muscle and iliopsoas muscle and measure approximately 7.7 x 1.7 cm. Given the differences in imaging technique I cannot be certain whether the psoas collection is stable or increased. However, the inflammatory changes do appear increased. Cecilio Colmenares MD Abdomen X-Ray 11/18/16 0000 Signed Impressions: Service Date/Time: November 18:53 - CONCLUSION: Mild gaseous distention of the proximal colon Cecilio Villareal MD Abscess Drainage CT 11/15/16 0000 Signed Impressions: Service Date/Time: Tuesday, November 15, 2016 19:23 - CONCLUSION: Uncomplicated CT guided drainage. An 8 [place] catheter was left in position. Taiwo eLal MD Abdomen/Pelvis CT 11/14/16 0000 Signed Impressions: Service Date/Time: Monday, November 14, 2016 10:54 - CONCLUSION: 1. Acute sigmoid diverticulitis with adjacent abscess involving the psoas muscle. 2. Paraumbilical fat containing hernia. 3. 2 cm left adrenal nodule, nonspecific. Dmitri Huynh MD Chest CT 11/08/16 0000 Signed Impressions: Service Date/Time: Tuesday, November 08, 2016 19:23 - CONCLUSION: 1. Innumerable noncalcified subcentimeter pulmonary nodules with the largest measuring 8 mm in the left lower lobe posteriorly. Although these are nonspecific metastatic disease remains in the differential. PET/CT scan may be helpful for further evaluation of the largest of these nodules if clinically indicated. 2. Coronary artery calcifications. 3. Left adrenal mass measuring 2.7 x 2.5 cm which is nonspecific. Ketan Schofield MD Procedures * Transcutaneous drain placed in abscess 11/15/16 * Colonoscopy with biopsy 11/23/16 . Assessment and Plan Disease Oriented Problem List: (1) pelvic abscess/mass, near complete colon obstruction (2) diverticulosis/diverticulitis (3) multiple pulmonary nodules, etiology undetermined (4) malnutrition, hypoalbuminemia (5) adrenal adenoma (6) periumbilical fat-containing hernia (7) diabetes (8) hypertension (9) gout (10) hyperlipidemia (11) obesity Symptom Scale: (1) pain 0-10 Scale: 1 (primarily abdominal, intermittent) Pertinent Non-Medical Issues Psychosocial: , retired, no children, lives with her evtfylg-vx-[id number]. Spiritual: Worship background, but reports that she is not particularly spiritual or orthodox. Legal: The patient has capacity for decision-making. She says that if she loses that capacity she would want her ystwmhj-fi-kxl Jakob Lowery to be her healthcare surrogate decision maker. Ethical issues impacting care: None . Important Contacts Rvxekmy-rx-kmj: Jakob Lowery [phone] . Prognosis The patient has a fairly severe inflammatory process/abscess, has a polypoid colon mass, and has multiple pulmonary nodules. In addition, she is an obese diabetic with significant protein calorie malnutrition/hypoalbuminemia, and would have not-insignificant surgical risk. Overall, her prognosis now that she is refusing surgery and diverting colostomy is quite poor; I would not be surprised if she within the next couple weeks. . Code Status: No Code Plan * DO NOT RESUSCITATE, per request of patient 11/29/16. She tells me that she would not want to be resuscitated under any circumstances, and would not want to be "on a ventilator ever." She says "I am ready to go if it is my time; I am old." She understands that the DNR would be revoked if she ever goes to the operating room. * GOALS: The patient has made a final decision to NOT have any surgery. Her goals are now comfort oriented and she would like to meet with hospice. * Hospice consult placed. * DECISION-MAKING: The patient has capacity for decision-making. If she loses that capacity she has designated her owqarhr-eb-mna Jakob Lowery to be her healthcare surrogate decision maker. * SYMPTOMS: The patient has had some mild pain but that has not required intervention. She has some intermittent dyspnea now, but that is managed with supplemental oxygen. * Palliative Care will continue to follow the patient during this hospitalization. . Time Spent Total Floor Time (mins): 25 Face to Face Time (mins): 39 >50% Counseling/Coord of Care: Yes (d/w Dr. Garay) Attestation To help prompt me to consider important information that might be impacting today's encounter and assessment, information from prior notes written by myself or my colleagues may have been "brought forward" into today's note. My signature on this note, however, is an attestation that I personally performed the exam, history, and/or decision-making noted today, and, unless otherwise indicated, the interactions with patient, family, and staff as well as the review of records all occurred today. I also attest that the listed assessment and stated plan reflect my best clinical judgment today based on the combination of historical information, prior notes, and today's exam/ interactions. When time spent is documented, it refers only to time spent today by the signer, or if indicated, combined time spent today by collaborating physician/nurse practitioner. Elzbieta Lima MD Nov 30, 2016 11:51
[2016-11-30 12:00] VITALS: BP 106/51; PULSE 71; RESP 18; TEMP 96.8; O2SAT 90
--- NOTE | 2016-11-30 13:41 | HHI.IDPN ---
Subjective Subjective Remarks Pt cont to adamatly refuse colostomy She fully alert and oriented palliative service ff no bleeding no fever WBC down, though again bandemia 13 % Antibiotics CFTX flagyl Lines Peripheral Past Medical History HTN Gout Diabetes Allergies: Coded Allergies: No Known Allergies (Unverified , 11/08/16) Objective . Vital Signs Date Time Temp Pulse Resp B/P Pulse Ox O2 Delivery O2 Flow Rate FiO2 11/30/16 12:00 96.8 71 18 106/51 90 11/30/16 09:15 95 Nasal Cannula 2.00 11/30/16 08:00 65 11/30/16 08:00 96.7 72 18 121/59 95 11/30/16 05:51 75 129/59 11/30/16 04:00 96.7 73 22 111/55 95 11/30/16 00:00 97.2 77 24 120/58 94 11/29/16 20:00 96.5 76 24 133/63 95 11/29/16 20:00 Nasal Cannula 2.00 11/29/16 20:00 74 11/29/16 16:00 95.5 73 18 121/55 94 11/29/16 11/29/16 11/30/16 15:00 23:00 07:00 Intake Total 722 ml 240 ml 1327 ml Output Total 225 ml Balance 497 ml 240 ml 1327 ml Intake Oral 100 ml 240 ml 120 ml IV Total 622 ml 1207 ml Output Urine Total 225 ml # Voids 2 2 3 # Bowel Movements 0 0 0 . Laboratory Tests Test 11/29/16 03:42 White Blood Count 8.7 TH/MM3 Red Blood Count 3.67 MIL/MM3 Hemoglobin 9.1 GM/DL Hematocrit 28.7 % Mean Corpuscular Volume 78.0 FL Mean Corpuscular Hemoglobin 24.6 PG Mean Corpuscular Hemoglobin 31.6 % Concent Red Cell Distribution Width 22.5 % Platelet Count 449 TH/MM3 Mean Platelet Volume 6.9 FL Neutrophils (%) (Auto) 78.5 % Lymphocytes (%) (Auto) 11.5 % Monocytes (%) (Auto) 7.2 % Eosinophils (%) (Auto) 0.8 % Basophils (%) (Auto) 2.0 % Neutrophils # (Auto) 6.8 TH/MM3 Lymphocytes # (Auto) 1.0 TH/MM3 Monocytes # (Auto) 0.6 TH/MM3 Eosinophils # (Auto) 0.1 TH/MM3 Basophils # (Auto) 0.2 TH/MM3 CBC Comment AUTO DIFF Differential Total Cells 100 Counted Neutrophils % (Manual) 67 % Band Neutrophils % 13 % Lymphocytes % 12 % Monocytes % 4 % Eosinophils % 1 % Neutrophils # (Manual) 7.2 TH/MM3 Metamyelocytes 1 % Myelocytes 1 % Promyelocytes 1 % Differential Comment FINAL DIFF MANUAL Platelet Estimate NORMAL Platelet Morphology Comment NORMAL Ovalocytes 1+ Stomatocytes 1+ Laboratory Tests Test 11/29/16 03:42 Sodium Level 142 MEQ/L Potassium Level 3.5 MEQ/L Chloride Level 101 MEQ/L Carbon Dioxide Level 33.2 MEQ/L Anion Gap 8 MEQ/L Blood Urea Nitrogen 11 MG/DL Creatinine 0.46 MG/DL Estimat Glomerular Filtration 133 ML/MIN Rate Random Glucose 124 MG/DL Calcium Level 7.6 MG/DL Total Bilirubin 0.2 MG/DL Aspartate Amino Transf 14 U/L (AST/SGOT) Alanine Aminotransferase 15 U/L (ALT/SGPT) Alkaline Phosphatase 65 U/L Total Protein 5.0 GM/DL Albumin 1.6 GM/DL Microbiology Date/Time Procedure Status Source Growth 11/27/16 16:30 Aerobic Blood Culture - Preliminary Resulted Blood Peripheral NO GROWTH IN 3 DAYS 11/27/16 16:30 Anaerobic Blood Culture - Preliminary Resulted Blood Peripheral NO GROWTH IN 3 DAYS 11/27/16 16:45 Aerobic Blood Culture - Preliminary Resulted Blood Peripheral NO GROWTH IN 3 DAYS 11/27/16 16:45 Anaerobic Blood Culture - Preliminary Resulted Blood Peripheral NO GROWTH IN 3 DAYS Imaging Last Impressions Chest X-Ray 11/26/16 0600 Signed Impressions: Service Date/Time: Saturday, November 26, 2016 08:30 - CONCLUSION: Minimal consolidative changes right base otherwise stable. Martin Leal MD FACR Pelvis CT 11/26/16 0000 Signed Impressions: Service Date/Time: Sunday, November 27, 2016 10:48 - CONCLUSION: 1. Severe inflammation and thickening of the proximal sigmoid colon, likely related to a severe acute diverticulitis. The descending colon immediately proximal to this area is now dilated suggesting there may be some degree of obstruction. 2. The inflammatory changes that fistulized into the left psoas muscle and iliopsoas muscle and measure approximately 7.7 x 1.7 cm. Given the differences in imaging technique I cannot be certain whether the psoas collection is stable or increased. However, the inflammatory changes do appear increased. Cecilio Colmenares MD Abdomen X-Ray 11/18/16 Signed Impressions: Service Date/Time: November 18:53 - CONCLUSION: Mild gaseous distention of the proximal colon Cecilio Villareal MD Abscess Drainage CT 11/15/16 Signed Impressions: Service Date/Time: Tuesday, November 15, 2016 19:23 - CONCLUSION: Uncomplicated CT guided drainage. An 8 [place] Islander catheter was left in position. Taiwo Leal MD Abdomen/Pelvis CT 11/14/16 Signed Impressions: Service Date/Time: Monday, November 14, 2016 10:54 - CONCLUSION: 1. Acute sigmoid diverticulitis with adjacent abscess involving the psoas muscle. 2. Paraumbilical fat containing hernia. 3. 2 cm left adrenal nodule, nonspecific. Dmitri Huynh MD Chest CT 11/08/16 Signed Impressions: Service Date/Time: Tuesday, November 08, 2016 19:23 - CONCLUSION: 1. Innumerable noncalcified subcentimeter pulmonary nodules with the largest measuring 8 mm in the left lower lobe posteriorly. Although these are nonspecific metastatic disease remains in the differential. PET/CT scan may be helpful for further evaluation of the largest of these nodules if clinically indicated. 2. Coronary artery calcifications. 3. Left adrenal mass measuring 2.7 x 2.5 cm which is nonspecific. Ketan Schofield MD Physical Exam GENERAL: in acute distress. Looks weak and pale, looks sick HEAD, EYES, EARS, NOSE, THROAT: Oral mucosa moist. Pale conjunctivae CARDIOVASCULAR: Regular tachycardia RESPIRATORY: Clear to auscultation bilaterally. ABDOMEN: Abdomen soft and mildly tender in LLQ. Mor distended today Bowel sounds audible. No organomegaly EXTREMITIES: No cyanosis or clubbing. Full range of motion of all extremities. 2-3+ sofft pitting edema. NEUROLOGIC: Awake, alert and oriented times four. No focal deficits. SKIN: Warm and dry. No rash PSYCHIATRIC:calm , cooperative Assessment & Plan Remarks Acute diverticulitis with abscess of psoas muscle. s/p IR guided drainage. 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 Persistent bandemia (13%), thrombocytosis - susp for ongoing infx Recs Cont oral flagyl and Ceftriaxone IV; surgery if agreable; hospice if cont to deteriorate and refuses surgery = palliative care to cont to ff goals clarification; fu blood clx dw brother in law dw Dr Clarence Ames,Krystin Putnam MD Nov 30, 2016 13:41
[2016-11-30] MEDS ORDERED: METR-1 PO (14:46)
[2016-11-30] MEDS ORDERED: ZOFR4TAB3 SL (14:46)
[2016-11-30] MEDS ORDERED: CEFU1TAB20 PO (14:46)
--- NOTE | 2016-12-04 19:15 | MD ---
cc: JOSE MARTIN VILLAREAL MD ADMISSION DATE: 11/08/2016 DISCHARGE DATE: 11/30/2016 Okay to discharge the patient under hospice care, to hospice care center at [facility]. CONDITION ON DISCHARGE Stable. ACTIVITY Activity as tolerated. DIET Diet, cardiac diet ADA 1800 calorie diet. ALLERGIES NO KNOWN DRUG ALLERGIES. DISCHARGE MEDICATIONS Include: 1. Morphine 2 milligrams IV q. 1-2 hours p.r.n. pain. 2. Ativan 0.5 milligrams IV q. 6 hours p.r.n. anxiety. 3. Lisinopril 5 milligrams twice a day. 4. Allopurinol 300 milligrams daily. 5. [place] 3 polyunsaturated fatty acid p.o. daily. 6. Coreg 25 milligrams twice a day. 7. Metformin 500 milligrams p.o. daily. 8. Clonidine 0.2 milligrams q.8 hours. 9. Amlodipine 5 milligrams p.o. daily. 10. Lovastatin 40 milligrams p.o. daily. 11. Aspirin 81 milligrams p.o. daily. 12. Pioglitazone 15 milligrams p.o. daily. 13. Flagyl 500 milligrams p.o. q. 8-hour. 14. Ceftin 500 milligrams p.o. b.i.d. ADMISSION DIAGNOSIS 1. Nausea, vomiting, hypoglycemia which was improved, leukocytosis. Chest x-ray done shows nothing acute. CT scan of the chest shows pneumonia. The patient was given antibiotic. The patient ___. Urogynecology Physician saw the patient. 2. Diabetes mellitus ADA [address] abdomen and pelvis was done shows acute diverticulitis and psoas abscess. General surgery seen the patient status post abscess drainage by interventional radiology. Culture positive for mixed anaerobes so the patient seen by infectious disease, was given empiric antibiotic and eventually was given Flagyl and ceftriaxone and the patient's abdominal pelvis again done shows severe inflammation and thickening of the proximal sigmoid colon with descending colon immediately proximal to the area is now dilated suggesting there may be some degree of obstruction. The inflammatory changes that crystallized into the left psoas muscles and iliopsoas muscles and made approximately 7.7 to 1.7 cm, needed diverting colostomy. The patient refused diverting colostomy. The patient is awake, alert, oriented x4 and incapable to make decisions. Palliative consult was done. The patient wants DNR. The patient was discharged under Hospice care at [facility]. The patient was seen by general surgery, infectious disease Dr. Krystin Ames seen the patient during the hospital stay. Please see the further details in the medical record. Jose Martin Villareal MD EA/MARION /2:39 PM /6:51 PM
== END 2016-11-30 15:50 | disposition hospice, inpatient (51) | DRG 391 ==
LOC: PHED 10:58 → PHEDA 13:57 → PH3A 15:48 → N07B 11-14 23:37
PROVIDERS: ADMIT Family Medicine; ATTEND Family Medicine
PROC: 30233N1 Transfusion of Nonautologous Red Blood Cells into Peripheral Vein, Percutaneous Approach (ICD-10-PCS; principal; 2016-11-12)
PROC: 0W9J30Z Drainage of Pelvic Cavity with Drainage Device, Percutaneous Approach (ICD-10-PCS; 2016-11-12)
PROC: 0DBN8ZX Excision of Sigmoid Colon, Via Natural or Artificial Opening Endoscopic, Diagnostic (ICD-10-PCS; 2016-11-23)
PROC: 0DB68ZX Excision of Stomach, Via Natural or Artificial Opening Endoscopic, Diagnostic (ICD-10-PCS; 2016-11-23 10:55)
DX: K57.40 Diverticulitis of both small and large intestine with perforation and abscess without bleeding (principal); K68.12 Psoas muscle abscess; I47.2 Ventricular tachycardia; E46 Unspecified protein-calorie malnutrition; K63.2 Fistula of intestine; J44.9 Chronic obstructive pulmonary disease, unspecified; E11.649 Type 2 diabetes mellitus with hypoglycemia without coma; K43.6 Other and unspecified ventral hernia with obstruction, without gangrene; K29.50 Unspecified chronic gastritis without bleeding; K20.9 Esophagitis, unspecified; K64.4 Residual hemorrhoidal skin tags; K64.8 Other hemorrhoids; D35.00 Benign neoplasm of unspecified adrenal gland; D63.8 Anemia in other chronic diseases classified elsewhere; I10 Essential (primary) hypertension; D50.9 Iron deficiency anemia, unspecified; M10.9 Gout, unspecified; E78.5 Hyperlipidemia, unspecified; E66.09 Other obesity due to excess calories; E87.6 Hypokalemia; R91.8 Other nonspecific abnormal finding of lung field; Z51.5 Encounter for palliative care; Z53.29 Procedure and treatment not carried out because of patient's decision for other reasons; Z66 Do not resuscitate; Z68.37 Body mass index [BMI] 37.0-37.9, adult; Z79.84 Long term (current) use of oral hypoglycemic drugs; Z80.52 Family history of malignant neoplasm of bladder; Z87.891 Personal history of nicotine dependence
CPT/HCPCS: 36430; 36600; 71010; 71020; 71250; 72192; 72193; 74020; 74177; 75989; 80048; 80053; 81001; 82272; 82378; 82728; 82805; 82948; 83540; 83550; 83690; 83735; 83835; 84439; 84443; 85007; 85014; 85018; 85025; 85027; 85610; 85730; 86140; 86403; 86850; 86900; 86901; 86920; 87040; 87070; 87077; 87149; 87185; 87186; 87205; 88305; 88312; 93005; 94060; 94640; 94664; 96374; C1729; C1769; C9113; J0295; J0696; J1650; J1940; J1956; J2060; J2405; J3010; J3480; P9016; Q9963; Q9967